=== PATIENT | male | born 1970 | race Hispanic/Latino ===

== ENCOUNTER 2024-06-23 13:04 | Emergency (ER) | payer BC ==
[~2024-06-23] VITALS: Ht 193 cm; Wt 108.9 kg
[~2024-06-23 13:04] MED LIST: AMLO-258 PO; FAMO20TA8 PO; LEVO750T40 PO; LISI20TA24 PO; METF-444 PO; METH-812 PO; METO25 PO; MUPI22OI2 TP
[2024-06-23 14:11] LABS: BASOPHILS # (AUTO) 0.08 K/uL (0.00-0.20); BASOPHILS % (AUTO) 0.5 % (0.0-5.0); EOSINOPHILS % (AUTO) 2.7 % (0.0-8.0); IMMATURE GRANULOCYTE ABSOLUTE 0.16 K/uL (0-1); LYMPHOCYTES # (AUTO) 1.7 K/uL (1.0-4.8); LYMPHOCYTES % (AUTO) 11.5 % (21.0-51.0); MEAN CORPUSCULAR HEMOGLOBIN 29.2 pg (27.0-33.0); MEAN CORPUSCULAR HGB CONC 30.3 g/dL (32.0-36.0); MEAN CORPUSCULAR VOLUME 96.3 fL (79-99); MONOCYTES # (AUTO) 1.1 K/uL (0.1-1.0); MONOCYTES % (AUTO) 7.7 % (3.0-13.0); NEUTROPHILS # (AUTO) 11.4 K/uL (1.8-7.7); NEUTROPHILS % (AUTO) 76.5 % (40.0-77.0); PLATELET COUNT (AUTO) 338 K/uL (130-400); RED BLOOD CELL COUNT(AUTO) 3.53 MIL/uL (4.50-6.20); RED CELL DISTRIBUTION WIDTH 14.4 % (11.0-15.5); WHITE BLOOD COUNT (AUTO) 14.9 K/uL (4.8-10.8)
[2024-06-23 14:18] LABS: CREATININE 3.8 mg/dL (0.5-1.3); POTASSIUM 5.8 mmol/L (3.5-5.1)
--- NOTE | 2024-06-23 15:53 | ERN ---
ED Note History of Present Illness Stated Complaint: OPEN WOUNDS ON LG Chief Complaint: Wound Check Time Seen by MD: 14:28 Time Seen by Midlevel: 16:45 Dictation: Mr Miramontes is a 53 year old gentleman with history of kidney stones/bilateral nephrostomy, CKD, hypertension, and type 2 diabetes who presented to the emergency department this afternoon for evaluation of lower ex tremity wounds. Patient has circular non raised lesions to bilateral lower extremities with surrounding erythema and tenderness. He states they are becoming painful. He also complains of pain to his lower back secondary to nephrostomy tubes. He has bilateral nephrostomy tubes which he states are due to be removed but he has had difficulty making appointment with his urologist. 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 He states that the left nephrostomy tube stopped draining a few days ago in the right nephrostomy has greatly decreased output. He denies having any fever, chills, shortness of breath, cough, chest pain, palpitations, edema, abdominal pain, nausea, vomiting, diarrhea, headache, or dizziness. Allergies: Coded Allergies: No Known Drug Allergies (Unverified Allergy, Unknown, 05/20/24) Home Meds Active Scripts Levofloxacin (Levofloxacin) 750 Mg Tablet, 1 TAB PO DAILY for 10 Days, #10 TAB 0 Refills Prov:MAXIME COBB HOSIERY LOOPER 05/28/24 Mupirocin (Mupirocin Ointment) 2 % Oint, 1 APPL TP BID, #1 TUBE Prov:MAXIME COBB HOSIERY LOOPER 05/28/24 Metoprolol Tartrate (Lopressor) 25 Mg Tab, 25 MG PO BID, #60 TAB Prov:MAXIME COBB HOSIERY LOOPER 05/28/24 Famotidine (Famotidine) 20 Mg Tablet, 20 MG PO Q48H, #60 TAB Prov:MAXIME COBB HOSIERY LOOPER 05/28/24 Reported Medications Methocarbamol (Methocarbamol) 750 Mg Tablet, 750 MG PO DAILY, TAB 05/21/24 Amlodipine Besylate (Amlodipine Besylate) 10 Mg Tablet, 10 MG PO DAILY for 30 Days, #30 TAB 0 Refills 05/21/24 Metformin HCl (Metformin HCl) 500 Mg Tablet, 500 MG PO DAILY, TAB 05/21/24 Lisinopril (Lisinopril) 20 Mg Tablet, 20 MG PO DAILY, TAB 05/21/24 Past Medical History Past Medical History: Diabetes-Type II, Hypertension, Kidney Infection, Kidney Stone Surgical History: Other Surgical History Other: KIDNEY STONES PSYCH History: no pertinent psych hx Social History: Negative, Lives with family RN Note Reviewed/Agreed w/PFSH: Yes Review of System Dictation REVIEW OF SYSTEMS: CONSTITUTIONAL: Patient denies fevers, chills, sweats and weight changes. EYES: Patient denies any visual symptoms. EARS, NOSE, AND THROAT: No difficulties with hearing. No symptoms of rhinitis or sore throat. CARDIOVASCULAR: Patient denies chest pains, palpitations, orthopnea and paroxysmal nocturnal dyspnea. RESPIRATORY: No dyspnea on exertion, no wheezing or cough. GI: No nausea, vomiting, diarrhea, constipation, abdominal pain, hematochezia or melena. : No urinary hesitancy or dribbling. No nocturia or urinary frequency. No abnormal urethral discharge. Reports flank pain due to bilateral nephrostomy tubes. Reports no drainage from left nephrostomy. And reports decreased output from right nephrostomy. MUSCULOSKELETAL: No myalgias or arthralgias. NEUROLOGIC: No chronic headaches, no seizures. Patient denies numbness, tingling or weakness. PSYCHIATRIC: Patient denies problems with mood disturbance. No problems with anxiety. ENDOCRINE: No excessive urination or excessive thirst. DERMATOLOGIC: Reports sores for to bilateral lower legs. Initial Vital Sign VS Vital Signs Date Time Temp Pulse Resp B/P (MAP) Pulse Ox O2 Delivery O2 Flow Rate FiO2 06/23/24 13:44 98.6 119 16 135/86 98 Room Air 0 Physical Exam Dictation Vital signs: Reviewed. Afebrile Constitutional: No acute distress. Non-toxic appearing. Head/Face: Normocephalic, atraumatic. Eyes: Periorbital areas with no swelling, redness, or edema. Lids and lashes are normal. Conjunctival injection is absent. Sclera anicteric. Pupils equal, round, reactive to light. ENT: Pinnas intact and no signs of trauma or erythema. Ear canals clear and no discharge. TMs no erythema. No nasal discharge or bleeding noted. Oropharynx with no exudate, redness, swelling, masses, exudates, or evidence of obstruction. Uvula midline. Mucous membranes moist. Neck: Trachea midline, no masses palpated, and no cervical lymphadenopathy. No swelling. Supple, full range of motion. Chest/Axilla: No tenderness, no crepitus, no paradoxical movement, no retractions. Cardiovascular: Regular rate, regular rhythm, no murmur, no gallops. Symmetric pulses. No peripheral edema. Normotensive Respiratory: Respirations even and unlabored. Lung sounds clear; no wheezes, rales or rhonchi. Room air SpO2 98% Gastrointestinal: Inspection is normal. No distention is appreciated. Bowel sounds are normal. No mass or organomegaly . There is no tenderness. No rebound. No rigidity. No voluntary or involuntary guarding. No Thomas's sign. Neurological: Normal speech, gross motor function intact, gross sensory function intact. No focal weakness/Paresthesia. Musculoskeletal/Extremities: All extremities have full range of motion, no pain or tenderness on palpation. Symmetric pulses. Integumentary: Intact he has multiple lesions to bilateral lower legs with surrounding erythema. No open wounds. No warmth. Tender to touch.. Skin is normal color, warm and dry. Cap refill less than 3 seconds. Results (Laboratory/Radiology) Laboratory/Radiology Laboratory Tests Test 06/23/24 13:56 White Blood Count 14.9 K/uL (4.8-10.8) H Red Blood Count 3.53 MIL/uL (4.50-6.20) L Hemoglobin 10.3 g/dL (14.0-18.0) L Hematocrit 34.0 % (42-54) L Mean Corpuscular Volume 96.3 fL (79-99) Mean Corpuscular Hemoglobin 29.2 pg (27.0-33.0) Mean Corpuscular Hemoglobin Concent 30.3 g/dL (32.0-36.0) L Red Cell Distribution Width 14.4 % (11.0-15.5) Platelet Count 338 K/uL (130-400) Mean Platelet Volume 10.9 fL (7.5-10.5) H Immature Granulocyte % (Auto) 1.1 % (0-1) H Neutrophils (%) (Auto) 76.5 % (40.0-77.0) Lymphocytes (%) (Auto) 11.5 % (21.0-51.0) L Monocytes (%) (Auto) 7.7 % (3.0-13.0) Eosinophils (%) (Auto) 2.7 % (0.0-8.0) Basophils (%) (Auto) 0.5 % (0.0-5.0) Neutrophils # (Auto) 11.4 K/uL (1.8-7.7) H Lymphocytes # (Auto) 1.7 K/uL (1.0-4.8) Monocytes # (Auto) 1.1 K/uL (0.1-1.0) H Eosinophils # (Auto) 0.40 K/uL (0.00-0.70) Basophils # (Auto) 0.08 K/uL (0.00-0.20) Absolute Immature Granulocyte (auto 0.16 K/uL (0-1) Nucleated Red Blood Cells 0.0 % (0.0-0.19) Red Blood Cell Morphology See comments Sodium Level 135 mmol/L (136-145) L Potassium Level 5.8 mmol/L (3.5-5.1) H Chloride Level 103 mmol/L (101-111) Carbon Dioxide Level 22 mmol/L (21-32) Blood Urea Nitrogen 55 mg/dL (7-18) H Creatinine 3.8 mg/dL (0.5-1.3) H Glomerular Filtration Rate Calc 18 mL/min (>90) Random Glucose 134 mg/dL (70-105) H Total Calcium 9.9 mg/dL (8.5-10.1) Labs Reviewed?: Yes ED Course ED Course Orders Procedure Category Date Status Time Cbc With Differential LAB 06/23/24 Complete 13:31 Basic Metabolic Panel LAB 06/23/24 Complete 13:31 Sodium Polystyr Sulf PHA 06/23/24 Complete 15gm (Kayexalate 15 17:00 Furosemide 40 Mg PHA 06/23/24 Complete Tablet (Lasix 40mg 17:00 Hydrocodone/Apap PHA 06/23/24 Complete 10/325 Tab ([place] 10) 17:00 Current Medications Medications (Trade) Dose Ordered Sig/Krishan Route PRN Reason Start Time Stop Time Status Last Admin Dose Admin Acetaminophen/ Hydrocodone Bitart (NORco 10) 1 tab ONCE ONCE PO 06/23/24 17:00 06/23/24 17:01 DC 06/23/24 17:00 Furosemide (LASix 40MG TAB) 40 mg ONCE ONCE PO 06/23/24 17:00 06/23/24 17:01 DC 06/23/24 17:00 Sodium Polystyrene Sulfonate (kayEXALate 15 GM/60 ML) 15 gm ONCE ONCE PO 06/23/24 17:00 06/23/24 17:01 DC 06/23/24 17:00 Vital Signs Date Time Temp Pulse Resp B/P (MAP) Pulse Ox O2 Delivery O2 Flow Rate FiO2 06/23/24 13:44 98.6 119 16 135/86 98 Room Air 0 Uneventful ED course. Vital signs remained stable; afebrile with room air SpO2 98%. Laboratory findings as noted below. There is elevation of WBCs at 14.9, H&H 10.3/34 care platelets within normal limits. Na 135, glucose 134, K 5.4 and BUN/CR 55/3.8 (per baseline). While in the emergency department he received doses Lasix, Kayexalate, and [place]. Findings were discussed with patient and family. He will call urologist office in the morning to request earlier appointment as his next appointment is scheduled for October. Medical Decision Making MDM MDM: Differential diagnosis: Abscess, cellulitis, shingles, insect bite Rationale: Tests considered and ordered secondary to shared decision making include: Lab Previous outside records reviewed: Old ER visits. Risk of complication and/or morbidity or mortality of patient management: None Medications-Per medication reconciliation Need for hospitalization: Patient does not meet criteria for hospitalization. Need for emergency major/minor surgery: No There are no social concerns with this patient. Prescription drug management: Kayexalate, clindamycin, tramadol, Prescriptions will include symptomatic care Patient's prior external medical records from other ER visits were reviewed by me as indicated. Prior testing and results from previous visits were reviewed. Prior tests were taken into account with medical decision making and resource utilization, independent historian/historians were used to obtain complete medical history. I independently interpreted the test that were performed, results were reviewed by me and considered findings on radiology if ordered. Medical management and examination interpretation discussions were had by me with other qualified healthcare professionals as indicated for the patient's care. DX & DISP Disposition: Discharge Departure Impression: Primary Impression: Cellulitis of lower extremity Additional Impressions: Flank pain, Hyperkalemia, Chronic kidney disease Condition: Stable Scripts Sodium Polystyrene Sulfonate (Kayexalate 15 gm/60 ml) 15 Gram-20 Gram/60 Ml Oral.susp 30 ML PO ONCE for 2 Days, #60 ML 0 Refills Prov: ALE RUSSO NP 06/23/24 Clindamycin HCl (Clindamycin HCl) 300 Mg Capsule 1 CAP PO TID for 10 Days, #30 CAP 0 Refills Prov: ALE RUSSO NP 06/23/24 Tramadol HCl/Acetaminophen (Tramadol-Acetaminophn 37.5-325) 37.5 Mg-325 Mg Tablet 1 EACH PO [id number], #10 TAB 0 Refills Prov: ALE RUSSO NP 06/23/24 Additional Instructions: Start clindamycin 3 times a day for the next 10 days. Follow up with your PCP later this week for wound check. May take tramadol every 12 hours for worsening pain. Take Kayexalate 30 mL on Sunday and again on Sunday. You will need to follow up with Dr. Whyte regarding nephrostomy tube care/anticipated removal. Return to the emergency department for any worsening of symptoms or concerns. Referrals: ADRIA GATICA MD (PCP) KATIA WHYTE MD Time of Disposition: 17:33 ALE RUSSO NP Jun 23, 2024 15:53
[2024-06-23] MEDS: furoSEMIDE 40 MG TABLET PO ONE (17:00)
[2024-06-23] MEDS: HYDROcodone/acetaMINOPHEN 10/325 MG TAB PO ONE (17:00)
[2024-06-23] MEDS: kayEXALate 15GM/60ML PO ONE (17:00)
[2024-06-23] MEDS ORDERED: CLIN-141 PO (17:24)
[2024-06-23] MEDS ORDERED: TRAM-543 PO (17:24)
[2024-06-23] MEDS ORDERED: SODPOLY15G PO (17:32)
[2024-06-23 17:52] VITALS: BP 132/84; PULSE 96; RESP 16; TEMP 98.4; O2SAT 99
== END 2024-06-23 17:58 | disposition home or self-care (01) ==
LOC: EDH 13:04
DX: L03.116 Cellulitis of left lower limb (principal); L03.115 Cellulitis of right lower limb; R10.9 Unspecified abdominal pain; E87.5 Hyperkalemia; I12.9 Hypertensive chronic kidney disease with stage 1 through stage 4 chronic kidney disease, or unspecified chronic kidney disease; E11.22 Type 2 diabetes mellitus with diabetic chronic kidney disease; N18.9 Chronic kidney disease, unspecified; Z79.84 Long term (current) use of oral hypoglycemic drugs; Z79.899 Other long term (current) drug therapy
CPT/HCPCS: 36415; 80048; 85025; 99283

== ENCOUNTER 2024-08-08 13:32 | Emergency (ER) | payer BC ==
[~2024-08-08] VITALS: Ht 182.9 cm; Wt 107.5 kg
[~2024-08-08 13:32] MED LIST changes: +CLIN-141 PO; -LEVO750T40 PO; +LEVO750T90 PO; +SODPOLY15G PO; +TRAM-543 PO
[2024-08-08 14:55] VITALS: BP 157/92; PULSE 85; RESP 18; TEMP 98.3; O2SAT 99
--- NOTE | 2024-08-08 15:25 | HMCIMG ---
CT ABDOMEN WITHOUT CONTRAST. CT PELVIS WITHOUT CONTRAST. INDICATION: Nephrostomy tube evaluation TECHNIQUE: Routine transaxial imaging using 5 mm slice thickness through the abdomen and pelvis without the administration of IV contrast. Thin slice reconstructions are also provided. Coronal and sagittal reformatted images acquired for interpretation. CT was performed with one or more of the following dose reduction techniques: Automated exposure control, adjustment of the mA and/or kV according to patient size, or use of iterative reconstruction technique. COMPARISON: 05/22/2024 FINDINGS: ON NONCONTRAST IMAGING: ABDOMEN: Heart size is normal. Visible lung bases are clear. No abnormal right renal calcifications, hydronephrosis, perinephric inflammation, or proximal hydroureter detected. Percutaneous bilateral nephrostomy tubes appear normal. 3 mm calcification at the lower pole of the left kidney. The liver is normal in size and smooth in contour without biliary duct dilation. The spleen is normal in size and attenuation. The gallbladder appears normal. The pancreas appears normal without pancreatic duct dilation. 3.6 cm partially-calcific left adrenal gland mass with Hounsfield units close to 15 suggesting lipid-poor adenoma. A 1.3 cm right adrenal gland apical adenoma identified. No significant abdominal, retrocrural or retroperitoneal adenopathy noted. No evidence for intra-abdominal free air or organized fluid collection. No aortic aneurysmal dilation identified. PELVIS: Mild urinary bladder wall thickening is more than expected for incomplete urinary bladder distention and suspect nominal surrounding inflammatory fat stranding. No evidence for free air or organized pelvic fluid collection. No significant pelvic adenopathy detected. Moderate stool burden. 2.8 cm diverticulum arising superiorly from the proximal duodenal sweep. Terminal ileum appears unremarkable. The appendix appears normal. Visible osseous structures are intact. IMPRESSION: 1. Suspect mild cystitis. Correlation with urine studies is recommended. 2. 3 mm nonobstructing left renal stone. 3. Bilateral percutaneous nephrostomy tubes in place. Additional minor findings and pertinent negatives as reported.
[2024-08-08 16:09] LABS: BILIRUBIN,URINE NEGATIVE (NEGATIVE); GLUCOSE, URINE (UA) NEGATIVE (NEGATIVE); KETONES,URINE NEGATIVE (NEGATIVE); LEUKOCYTE ESTERASE ,URINE 500 Leu/uL (NEGATIVE); NITRATE,URINE 1+ (NEGATIVE); OCCULT BLOOD,URINE MODERATE (NEGATIVE); PH,URINE 5.5 (5.0-8.0); PROTEIN,URINE 70 mg/dL (NEGATIVE); UROBILINOGEN,URINE 0.2 mg/dL (0.2-1.0)
[2024-08-08 16:10] LABS: ADD UA MICROSCOPIC YES; APPEARANCE,URINE CLOUDY (CLEAR); COLOR,URINE YELLOW (YELLOW)
[2024-08-08 16:19] LABS: BACTERIA,URINE FEW /HPF (None Seen); SQUAMOUS EPITHELIAL CELL,UR FEW /HPF (0-2); WBC,URINE TNTC /HPF (0-1)
[2024-08-08] MEDS: LIDOCAINE HCL 1% 20 ML VIAL INJ SCH (16:30)
--- NOTE | 2024-08-08 16:36 | ERN ---
ED Note History of Present Illness Stated Complaint: OPEN WOUNDS ON LEGS,NEPHROSTOMY TUBE ISSUE Chief Complaint: Wound Check Time Seen by MD: 13:34 Time Seen by Midlevel: 13:34 Dictation: The patient is a 53-year-old male with a history of obstructive uropathy that has post nephrostomy tubes on May 23 who presents to the emergency department with complaints of possible dislodgement of right nephrostomy tube onset last night. Patient reports he is constantly accidentally pulling on the nephrostomy tubes. Patient denies any fevers, nausea or vomiting. Patient also reports that he has some wounds to his lower extremity that has been going on since April with a has been able to follow up with wound care due to insurance purposes. Reports pain Allergies: Coded Allergies: No Known Drug Allergies (Unverified Allergy, Unknown, 05/20/24) Home Meds Active Scripts Sodium Polystyrene Sulfonate (Kayexalate 15 gm/60 ml) 15 Gram-20 Gram/60 Ml Oral .susp, 30 ML PO ONCE for 2 Days, #60 ML 0 Refills Prov:ALE RUSSO NP 06/23/24 Clindamycin HCl (Clindamycin HCl) 300 Mg Capsule, 1 CAP PO TID for 10 Days, #30 CAP 0 Refills Prov:ALE RUSSO NP 06/23/24 Tramadol HCl/Acetaminophen (Tramadol-Acetaminophn 37.5-325) 37.5 Mg-325 Mg Tablet, 1 EACH PO [id number], #10 TAB 0 Refills Prov:ALE RUSSO NP 06/23/24 Levofloxacin (Levofloxacin) 750 Mg Tablet, 1 TAB PO DAILY for 10 Days, #10 TAB 0 Refills Prov:MAXIME COBB COUNTER DISH CARRIER 2/5/25 Mupirocin (Mupirocin Ointment) 2 % Oint, 1 APPL TP BID, #1 TUBE Prov:MAXIME COBB COUN[employer] DISH CARRIER 2/5/25 Metoprolol Tartrate (Lopressor) 25 Mg Tab, 25 MG PO BID, #60 TAB Prov:MAXIME COBB COUN[employer] D[employer]RIER 2/5/25 Famotidine (Famotidine) 20 Mg Tablet, 20 MG PO Q48H, #60 TAB Prov:MAXIME COBB COUN[employer] DISH CARRIER 05/28/24 Reported Medications Methocarbamol (Methocarbamol) 750 Mg Tablet, 750 MG PO DAILY, TAB 05/21/24 Amlodipine Besylate (Amlodipine Besylate) 10 Mg Tablet, 10 MG PO DAILY for 30 Days, #30 TAB 0 Refills 05/21/24 Metformin HCl (Metformin HCl) 500 Mg Tablet, 500 MG PO DAILY, TAB 05/21/24 Lisinopril (Lisinopril) 20 Mg Tablet, 20 MG PO DAILY, TAB 05/21/24 Past Medical History Past Medical History: Diabetes-Type II, Hypertension, Kidney Infection, Kidney Stone Surgical History: Other Surgical History Other: KIDNEY STONES Social History: Negative, Lives with family RN Note Reviewed/Agreed w/PFSH: Yes Review of System Dictation Constitutional: Negative for fever,chills, and weight loss Eyes: Negative for injury, pain,redness, and discharge ENT: Negative for injury,pain or swelling Cardiovascular: Negative for chest pain, palpitations, and edema Respiratory: Negative for shortness of breath, cough, and wheezing, Abdomen/GI: Negative for abdominal pain, nausea, vomiting, diarrhea, and constipation Back: Negative for injury and pain : Negative for injury, bleeding and discharge positive for right nephrostomy tube injury MS/Extremity: Negative for injury and deformity Skin: Negative for rash, and discoloration Neuro: Negative for headache, weakness, numbness, tingling, and seizure Psych: Negative for suicide ideation, homicidal ideation, and hallucinations Initial Vital Sign VS Vital Signs Date Time Temp Pulse Resp B/P (MAP) Pulse Ox O2 Delivery O2 Flow Rate FiO2 08/08/24 13:45 98.1 91 20 151/92 99 0 08/08/24 14:55 Room Air* 21 Physical Exam Dictation Vital Signs reviewed General Appearance: Alert, oriented x 3, no acute distress, well developed, nourished. Head and Face: non-traumatic. Eyes: PERRL, pink conjunctivas, eyelid no trauma, anterior chamber with arcus senilis. Ears: Pinnas intact and no signs of trauma or erythema ear canals clear and no discharge TM no erythema Nose: No discharge, no bleeding. Oropharynx: Mouth normal, tongue pink. pharynx clear,no erythema, tonsils no exudates, no abscesses noted, mucous membrane moist Neck: Supple, non-tender, no thyromegaly, no masses, no JVD, no bruits Breast:Deferred Chest:No tenderness, no crepitus, no paradoxical movement, no retractions Lungs:Clear, well-ventilated, symmetric, no rales, no wheezing, no rhonchi, no stridor, good breath sounds bilaterally Heart: Regular rate, regular rhythm, no murmur, no gallops Vascular: no peripheral edema, Abdomen: Soft, positive bowel sounds, nondistended, no guarding, nontender, no rebound, no masses no hepatomegaly, no splenomegaly, no Thomas's sign, no hernias. Rectal: Deferred Genital: Deferred Neurological: Normal speech, motor function intact, sensory function intact Musculoskeletal: Neck nontender, full range of motion, back nontender, full range of motion, nephrostomy tube with no erythema or drainage around the nephrostomy. Extremities: nontender, full range of motion Skin: Color pink, dry, no turgor, no rash, no lacerations, no abrasions, no contusions. Multiple lower ext wounds, no erythema lower extremities Lymphatic: Deferred Results (Laboratory/Radiology) Laboratory/Radiology Laboratory Tests Test 08/08/24 16:00 Urine Color YELLOW (YELLOW) Urine Appearance CLOUDY (CLEAR) H Urine pH 5.5 (5.0-8.0) Urine Specific [place] 1.014 (1.001-1.031) Urine Protein 70 mg/dL (NEGATIVE) H Urine Glucose (UA) NEGATIVE mg/dL (NEGATIVE) Urine Ketones NEGATIVE mg/dL (NEGATIVE) Urine Occult Blood MODERATE (NEGATIVE) H Urine Nitrate 1+ (NEGATIVE) H Urine Bilirubin NEGATIVE mg/dL (NEGATIVE) Urine Urobilinogen 0.2 mg/dL (0.2-1.0) Urine Leukocyte Esterase 500 Marlon/uL (NEGATIVE) H Urine RBC 11-25 /HPF (0-1) H Urine WBC TNTC /HPF (0-1) H Urine Squamous Epithelial Cells FEW /HPF (0-2) Urine Bacteria FEW /HPF (None Seen) REASON: evaluation of nephrostomy tubes ORDERING PHYSICIAN: ENZO MCCARTHY PROCEDURE: ABD PEL WO - CT ABDOMEN/PELVIS W/O CONTRAST CT ABDOMEN WITHOUT CONTRAST. CT PELVIS WITHOUT CONTRAST. INDICATION: Nephrostomy tube evaluation TECHNIQUE: Routine transaxial imaging using 5 mm slice thickness through the abdomen and pelvis without the administration of IV contrast. Thin slice reconstructions are also provided. Coronal and sagittal reformatted images acquired for interpretation. CT was performed with one or more of the following dose reduction techniques: Automated exposure control, adjustment of the mA and/or kV according to patient size, or use of iterative reconstruction technique. COMPARISON: 05/22/2024 FINDINGS: ON NONCONTRAST IMAGING: ABDOMEN: Heart size is normal. Visible lung bases are clear. No abnormal right renal calcifications, hydronephrosis, perinephric inflammation, or proximal hydroureter detected. Percutaneous bilateral nephrostomy tubes appear normal. 3 mm calcification at the lower pole of the left kidney. The liver is normal in size and smooth in contour without biliary duct dilation. The spleen is normal in size and attenuation. The gallbladder appears normal. The pancreas appears normal without pancreatic duct dilation. 3.6 cm partially-calcific left adrenal gland mass with Hounsfield units close to 15 suggesting lipid-poor adenoma. A 1.3 cm right adrenal gland apical adenoma identified. No significant abdominal, retrocrural or retroperitoneal adenopathy noted. No evidence for intra-abdominal free air or organized fluid collection. No aortic aneurysmal dilation identified. PELVIS: Mild urinary bladder wall thickening is more than expected for incomplete urinary bladder distention and suspect nominal surrounding inflammatory fat stranding. No evidence for free air or organized pelvic fluid collection. No significant pelvic adenopathy detected. Moderate stool burden. 2.8 cm diverticulum arising superiorly from the proximal duodenal sweep. Terminal ileum appears unremarkable. The appendix appears normal. Visible osseous structures are intact. IMPRESSION: 1. Suspect mild cystitis. Correlation with urine studies is recommended. 2. 3 mm nonobstructing left renal stone. 3. Bilateral percutaneous nephrostomy tubes in place. Additional minor findings and pertinent negatives as reported. Labs Reviewed?: Yes ED Course ED Course Orders Procedure Category Date Status Time Ct Abdomen/Pelvis W/O CT 08/08/24 Resulted Contrast 13:57 Urinalysis Profile LAB 08/08/24 Complete 15:34 Lidocaine Hcl 1% 20ml PHA 08/08/24 In Process Vial (Lidocaine Hc 16:30 Culture Urine OSFIA 08/08/24 In Process 16:10 Lidocaine Hcl 1% 20ml PHA 08/08/24 Complete Vial (Lidocaine Hc 16:13 Ceftriaxone 1g Vial PHA 08/08/24 In Process (Rocephine 1g Inj) 17:00 Hydrocodone/Apap PHA 08/08/24 In Process 5/325 ([place] 5/325mg) 17:00 Current Medications Medications (Trade) Dose Ordered Sig/Krishan Route PRN Reason Start Time Stop Time Status Last Admin Dose Admin Acetaminophen/ Hydrocodone Bitart (NORco 5/325MG) 1 tab ONCE PO 08/08/24 17:00 08/08/24 21:00 Ceftriaxone Sodium (ROCEphine 1G INJ) 1 gm ONCE IM 08/08/24 17:00 08/08/24 21:00 Lidocaine HCl (Lidocaine HCl 1% 20ml Vial) 10 ml ONCE INJ 08/08/24 16:30 08/08/24 20:30 Lidocaine HCl (Lidocaine HCl 1% 20ml Vial) 20 ml STK-MED ONCE .ROUTE 08/08/24 16:13 08/08/24 16:13 DC Vital Signs Date Time Temp Pulse Resp B/P (MAP) Pulse Ox O2 Delivery O2 Flow Rate FiO2 08/08/24 14:55 98.2 85 18 157/92 99 Room Air* 0 21 08/08/24 13:45 98.1 91 20 151/92 99 0 Medical Decision Making MDM The patient is a 53-year-old male with a history of obstructive uropathy that has post nephrostomy tubes on May 23 who presents to the emergency department with complaints of possible dislodgement of right nephrostomy tube onset last night. Patient reports he is constantly accidentally pulling on the nephrostomy tubes. Patient denies any fevers, nausea or vomiting. Patient also reports that he has some wounds to his lower extremity that has been going on since April with a has been able to follow up with wound care due to insurance purposes. Urinalysis positive for leukocyte esterase and nitrites. Nephrostomy tube seen in place in CT scan. Right nephrostomy suture was replaced. Patient tolerated procedure well. Patient will be treated with the antibiotics as outpatient and instructed to follow up with Urology. Patient in no acute distress, stable vital signs. Afebrile. Differential diagnosis: Nephrostomy tube dislodgement, UTI, pyelonephritis Need for hospitalization: Patient does not meet criteria for hospitalization. There are no social concerns with this patient. Procedure Progress Verbal consent was obtained from patient for nephrostomy tube securement with sutures. Time and Date Performed:08/08/2024 INDICATION: Sutures securement of nephrostomy Location: Right lobar Informed consent was obtained. Pre-procedure time out was obtained. Anesthetic: 1% lidocaine Manual prep of skin and wound was done with hibiclens. Foreign Body: NO foreign bodies were identified. Suture used:0 # of simple sutures:0 silk Aseptic technique was used during the entire procedure. DX & DISP Disposition: Discharge Departure Impression: Primary Impression: Malfunction of nephrostomy tube Additional Impression: UTI (urinary tract infection) Condition: Stable Scripts Cephalexin Monohydrate (Keflex) 500 Mg Cap 500 MG PO BID for 7 Days, #14 CAP Prov: ENZO MCCARTHY 08/08/24 Additional Instructions: Please follow up with your neurologist in your primary doctor in 1-2 days. Taking medications as prescribed. If symptoms worsen please return to ER. FOLLOW-UP WITH PRIMARY CARE PROVIDER IN 1 TO 2 DAYS. TAKE MEDICATIONS DIRECTED HERE IN THE EMERGENCY ROOM. OKAY TO CONTINUE HOME MEDICATIONS UNLESS OTHERWISE DISCUSSED DURING YOUR VISIT IN THE EMERGENCY ROOM TODAY. RETURN TO YOUR NEAREST EMERGENCY ROOM IF SYMPTOMS WORSEN OR IF THERE IS NO IMPROVEMENT. CALL 911 IF YOU NEED IMMEDIATE ASSISTANCE. TAKE TYLENOL OR MOTRIN [id number] NEEDED AND IF NO CONTRAINDICATIONS ARE PRESENT. INCREASE ORAL HYDRATION. A WOUND CULTURE OR URINE CULTURE WAS ORDERED HERE IN THE EMERGENCY ROOM DEPARTMENT PLEASE FOLLOW-UP WITH PRIMARY CARE PROVIDER AND ADVISE THEM TO GET REPEAT PORTS FROM OUR FACILITY. IF YOU HAD ANY NUNO WRAP/SPLINTS THAT WERE APPLIED HERE, PLEASE DO NOT REMOVE THEM UNTIL YOU SEE YOUR PRIMARY CARE OR SPECIALTY. Referrals: ADRIA GATICA MD (PCP) Time of Disposition: 16:45 I have examined patient, & reviewed all documents, & agreed W/ the Diagnosis, and Plan ENZO MCCARTHY Aug 08, 2024 16:36
[2024-08-08] MEDS ORDERED: CEPH500B PO (16:49)
[2024-08-08] MEDS: cefTRIAXone 1G VIAL IM SCH (17:06)
[2024-08-08] MEDS: HYDROcodone/APAP 5/325 1 TAB TABLET PO SCH (17:07)
[2024-08-08] MEDS: LIDOCAINE HCL 1% 20 ML VIAL ONE (17:07)
--- NOTE | 2024-08-08 17:11 | NUR ---
PT HAD LEFT NEPHROSTOMY SUTURED IN , PT STABLE NO DISTRESS VITALS WNL NO C/O PAIN NOW, PT GIVEN INTRUCTIONS FOR HOME, RX GIVEN PT WILL START TODAY. PT DRIVEN HOME BY REILLY.
== END 2024-08-08 17:12 | disposition home or self-care (01) ==
LOC: EDH 13:32
DX: N99.522 Malfunction of incontinent external stoma of urinary tract (principal); N39.0 Urinary tract infection, site not specified; E11.9 Type 2 diabetes mellitus without complications; I10 Essential (primary) hypertension; Z79.84 Long term (current) use of oral hypoglycemic drugs; Z79.899 Other long term (current) drug therapy
CPT/HCPCS: 99284; 74176; 87086 ×3; 87186 ×2; 81001; 96372; J0696

== ENCOUNTER 2024-09-17 22:43 | Inpatient (IN) | payer BC, OTHER ==
[~2024-09-17] VITALS: Ht 182.9 cm; Wt 106.0 kg
[~2024-09-17 22:43] MED LIST changes: +CEPH500B PO
[2024-09-17 23:09] LABS: BASOPHILS # (AUTO) 0.05 K/uL (0.00-0.20); BASOPHILS % (AUTO) 0.3 % (0.0-5.0); EOSINOPHILS % (AUTO) 0.6 % (0.0-8.0); HEMATOCRIT 34.1 % (42-54); IMMATURE GRANULOCYTE ABSOLUTE 0.18 K/uL (0-1); LYMPHOCYTES # (AUTO) 1.2 K/uL (1.0-4.8); LYMPHOCYTES % (AUTO) 6.7 % (21.0-51.0); MEAN CORPUSCULAR HEMOGLOBIN 29.1 pg (27.0-33.0); MEAN CORPUSCULAR VOLUME 90.9 fL (79-99); MONOCYTES # (AUTO) 1.6 K/uL (0.1-1.0); MONOCYTES % (AUTO) 9.3 % (3.0-13.0); NEUTROPHILS # (AUTO) 14.4 K/uL (1.8-7.7); NEUTROPHILS % (AUTO) 82.1 % (40.0-77.0); PLATELET COUNT (AUTO) 378 K/uL (130-400); RED BLOOD CELL COUNT(AUTO) 3.75 MIL/uL (4.50-6.20); RED CELL DISTRIBUTION WIDTH 14.9 % (11.0-15.5); WHITE BLOOD COUNT (AUTO) 17.5 K/uL (4.8-10.8)
[2024-09-17 23:24] LABS: ALBUMIN 3.1 g/dL (3.5-5.0); BILIRUBIN,DIRECT 0.1 mg/dL (0.0-0.3); BILIRUBIN,TOTAL 0.2 mg/dL (0.2-1.0); TOTAL PROTEIN, SERUM 6.9 g/dL (6.0-8.3)
[2024-09-17] MEDS: 0.9%NACL 1000ML 1,000 ML IV ONE (23:34)
[2024-09-17 23:36] LABS: CREATININE 11.1 mg/dL (0.5-1.3)
[2024-09-17] MEDS: CALCIUM GLUC 1GM/10ML VIAL ONE (23:57)
[2024-09-17] MEDS: INSULIN humuLIN R 100 UNIT/ML 3ML IV ONE (23:58)
[2024-09-17] MEDS: DEXTROSE 50%-WATER 50 ML DISP.SYRIN IV ONE (23:58)
[2024-09-17] MEDS: CALCIUM GLUC 1GM 1 GM in 0.9%NACL 100ML 100 ML IV SCH (23:59)
[2024-09-18] MEDS: ondanSETRON 4MG INJ IVP ONE (00:01)
[2024-09-18] MEDS: morPHINE 2 MG SYG IVP ONE (00:01)
[2024-09-18] MEDS: NA ZIRCON CYCLOSIL(LOKELMA 10GM) PO ONE ×2 (00:01→09:55)
[2024-09-18] MEDS: ZOSYN 3.375GM +NS 50ML IV ONE (00:01)
[2024-09-18] MEDS: 0.9%NACL 1000ML 1,000 ML IV ONE (00:02)
[2024-09-18 00:23] LABS: WBC MORPHOLOGY CONSISTENT W/DIFF
--- NOTE | 2024-09-18 01:06 | HMCIMG ---
CT ABDOMEN/PELVIS W/O CONTRAST HISTORY: Acute renal insufficiency COMPARISON: 08/08/2024 TECHNIQUE: Multiple sequential axial images of the abdomen and pelvis were obtained from the dome of the diaphragm through symphysis pubis. Patient was not given contrast through intravenous route. Oral contrast was not given. FINDINGS: No pleural effusion is seen bilaterally. There is no evidence of parenchymal disease or pulmonary nodule of the visualized lower lungs. Degenerative changes of the thoracolumbar spine are present. The heart is not enlarged. Gallbladder is distended. There is left adrenal nodule with calcification measuring 3.3 x 2.6 cm. Bilateral percutaneous nephrostomy tubes are seen. The liver, spleen, right adrenal gland and pancreas are unremarkable. There is no evidence of hydronephrosis bilaterally. No evidence of renal stone is seen. Fecal material is seen in the colon. There are normal size retroperitoneal and mesenteric lymph nodes. No ascites is seen. No CT evidence of acute appendicitis is seen. Pelvic sidewalls are symmetric bilaterally. Bladder is poorly distended. IMPRESSION: 1. Bilateral percutaneous nephrostomy tube in place. CT was performed with one or more following dose reduction techniques: automated exposure control, adjustment of the mA and kv according to patient's size, or use of a iterative reconstruction technique.
[2024-09-18] MEDS ORDERED: SODIUM BICARB 8.4% 50ML SYRING 150 MEQ in 0.9%NACL 1000ML 1,000 ML IVP ONE (02:30)
--- NOTE | 2024-09-18 02:31 | ERN ---
General Chief Complaint: Nausea,Vomiting,Diarrhea Stated Complaint: NAUSEA/VOMITING, NEPHROSTOMY TUBE ISSUES, WEAKNESS Time Seen by MD: 22:46 Time Seen by Midlevel: 22:46 Source: patient History of Present Illness Initial Comments Patient is a 54-year-old male with a past medical history of type 2 diabetes, hypertension, chronic kidney disease, and kidney stones presents to the emergency department for evaluation of diffuse abdominal pain with associated nausea and vomiting. He also reports generalized body weakness. He reports having bilateral nephrostomy tubes placed in May. The initial plan was to remove the nephrostomy tubes in two weeks but due to insurance issues they have not been able to be removed. Allergies: Coded Allergies: No Known Drug Allergies (Unverified Allergy, Unknown, 05/20/24) Home Meds Active Scripts Cephalexin Monohydrate (Keflex) 500 Mg Cap, 500 MG PO BID for 7 Days, #14 CAP Prov:ENZO MCCARTHY JUDGE 08/08/24 Sodium Polystyrene Sulfonate (Kayexalate 15 gm/60 ml) 15 Gram-20 Gram/60 Ml Oral.susp, 30 ML PO ONCE for 2 Days, #60 ML 0 Refills Prov:ALE RUSSO NP 06/23/24 Clindamycin HCl (Clindamycin HCl) 300 Mg Capsule, 1 CAP PO TID for 10 Days, #30 CAP 0 Refills Prov:ALE RUSSO NP 06/23/24 Tramadol HCl/Acetaminophen (Tramadol-Acetaminophn 37.5-325) 37.5 Mg-325 Mg Tablet, 1 EACH PO [id number], #10 TAB 0 Refills Prov:ALE RUSSO NP 06/23/24 Levofloxacin (Levofloxacin) 750 Mg Tablet, 1 TAB PO DAILY for 10 Days, #10 TAB 0 Refills Prov:MAXIME COBB MEDICAL PRACTICE ADMINISTRATOR 2//25 Mupirocin (Mupirocin Ointment) 2 % Oint, 1 APPL TP BID, #1 TUBE Prov:MAXIME COBB MEDICAL PRACTICE ADMINISTRATOR //25 Metoprolol Tartrate (Lopressor) 25 Mg Tab, 25 MG PO BID, #60 TAB Prov:MAXIME COBB MEDICAL PRACTICE ADMINISTRATOR 2//25 Famotidine (Famotidine) 20 Mg Tablet, 20 MG PO Q48H, #60 TAB Prov:MAXIME COBB MEDICAL PRACTICE ADMINISTRATOR 05/28/24 Reported Medications Methocarbamol (Methocarbamol) 750 Mg Tablet, 750 MG PO DAILY, TAB 05/21/24 Amlodipine Besylate (Amlodipine Besylate) 10 Mg Tablet, 10 MG PO DAILY for 30 Days, #30 TAB 0 Refills 05/21/24 Metformin HCl (Metformin HCl) 500 Mg Tablet, 500 MG PO DAILY, TAB 05/21/24 Lisinopril (Lisinopril) 20 Mg Tablet, 20 MG PO DAILY, TAB 05/21/24 Past Medical History Past Medical History: Diabetes-Type II, Hypertension, Kidney Infection, Kidney Stone Past Surgical History: Other Surgical History Other: KIDNEY STONES Social History Social History: Negative, Lives with family ROS Dictation CONSTITUTIONAL: Negative except for HPI HEAD/FACE: Negative except for HPI EENT: Negative except for HPI RESPIRATORY: Negative except for HPI GASTROINTESTINAL/ABDOMINAL: Negative except for HPI GENITOURINARY: Negative except for HPI MUSCULOSKELETAL: Negative except for HPI INTEGUMENTARY: Negative except for HPI NEUROLOGICAL/PSYCH: Negative except for HPI HEMATOLOGIC/LYMPHATIC: Negative except for HPI All Systems Negative, Except as noted above. 13 point review of systems assessed and all negative except for above. Physical Exam Physical Exam Dictation Vital Signs reviewed General Appearance: Alert, oriented x 3, no acute distress, morbidly obese Head and Face: non-traumatic. Eyes: PERRL, pink conjunctivas, eyelid no trauma, anterior chamber with arcus senilis. Ears: Pinnas intact and no signs of trauma or erythema ear canals clear and no discharge TM no erythema Nose: No discharge, no bleeding. Oropharynx: Mouth normal, tongue pink, pharynx clear,no erythema, tonsils no exudates, no abscesses noted, mucous membrane moist Neck: Supple, non-tender, no thyromegaly, no masses, no JVD, no bruits Breast:Deferred Chest:No tenderness, no crepitus, no paradoxical movement, no retractions Lungs:Clear, well-ventilated, symmetric, no rales, no wheezing, no rhonchi, no stridor, good breath sounds bilaterally Heart: Tachycardic, regular rhythm, no murmur, no gallops Vascular: no peripheral edema, Abdomen: Soft, positive bowel sounds, nondistended, no guarding, Midepigastric abdominal tenderness, no rebound, no masses no hepatomegaly, no splenomegaly, no Thomas's sign, no hernias. Nephrostomy tubes in place bilaterally Rectal: Deferred Genital: Deferred Neurological: Normal speech, motor function intact, sensory function intact Musculoskeletal: Neck nontender, full range of motion, back nontender, full range of motion, Extremities: nontender, full range of motion Skin: Color pink, dry, no turgor, no rash, no lacerations, no abrasions, no contusions. Lymphatic: Deferred Results Laboratory and Microbiology Lab and Micro Result Laboratory Tests Test 09/17/24 22:49 09/17/24 22:57 09/17/24 23:58 Troponin I High Sensitivity 10 ng/L (4-75) B-Type Natriuretic Peptide 23 pg/mL (0-100) White Blood Count 17.5 K/uL (4.8-10.8) H Red Blood Count 3.75 MIL/uL (4.50-6.20) L Hemoglobin 10.9 g/dL (14.0-18.0) L Hematocrit 34.1 % (42-54) L Mean Corpuscular Volume 90.9 fL (79-99) Mean Corpuscular Hemoglobin 29.1 pg (27.0-33.0) Mean Corpuscular Hemoglobin Concent 32.0 g/dL (32.0-36.0) Red Cell Distribution Width 14.9 % (11.0-15.5) Platelet Count 378 K/uL (130-400) Mean Platelet Volume 10.7 fL (7.5-10.5) H Immature Granulocyte % (Auto) 1.0 % (0-1) Neutrophils (%) (Auto) 82.1 % (40.0-77.0) H Lymphocytes (%) (Auto) 6.7 % (21.0-51.0) L Monocytes (%) (Auto) 9.3 % (3.0-13.0) Eosinophils (%) (Auto) 0.6 % (0.0-8.0) Basophils (%) (Auto) 0.3 % (0.0-5.0) Neutrophils # (Auto) 14.4 K/uL (1.8-7.7) H Lymphocytes # (Auto) 1.2 K/uL (1.0-4.8) Monocytes # (Auto) 1.6 K/uL (0.1-1.0) H Eosinophils # (Auto) 0.10 K/uL (0.00-0.70) Basophils # (Auto) 0.05 K/uL (0.00-0.20) Absolute Immature Granulocyte (auto 0.18 K/uL (0-1) Nucleated Red Blood Cells 0.0 % (0.0-0.19) White Cell Morphology Comment CONSISTENT W/DIFF Sodium Level 133 mmol/L (136-145) L Potassium Level 6.0 mmol/L (3.5-5.1) *H Chloride Level 98 mmol/L (101-111) L Carbon Dioxide Level 11 mmol/L (21-32) L Blood Urea Nitrogen 162 mg/dL (7-18) *H Creatinine 11.1 mg/dL (0.5-1.3) *H Glomerular Filtration Rate Calc 5 mL/min (>90) Random Glucose 195 mg/dL (70-105) H Total Calcium 8.5 mg/dL (8.5-10.1) Total Bilirubin 0.2 mg/dL (0.2-1.0) Direct Bilirubin 0.1 mg/dL (0.0-0.3) Aspartate Amino Transf (AST/SGOT) 9 U/L (10-37) L Alanine Aminotransferase (ALT/SGPT) 9 U/L (12-78) L Alkaline Phosphatase 91 U/L (50-136) Total Protein 6.9 g/dL (6.0-8.3) Albumin 3.1 g/dL (3.5-5.0) L Triglycerides Level 179 mg/dL (30-200) Lipase 791 U/L (16-77) *H Lactic Acid Level 1.8 mmol/L (0.8-2.5) Labs Reviewed?: Yes MDM MDM: Differential diagnosis: Sepsis, intra-abdominal infection, pancreatitis, acute cholecystitis, pyelonephritis, urinary tract infection Rationale: Tests considered and ordered secondary to shared decision making include: Previous outside records reviewed: Old ER visits. Risk of complication and/or morbidity or mortality of patient management: None Medications-Per medication reconciliation Need for hospitalization: Patient does meet criteria for hospitalization. Need for emergency major/minor surgery: No There are no social concerns with this patient. Prescription drug management Prescriptions will include symptomatic care Patient's prior external medical records from other ER visits were reviewed by me as indicated. Prior testing and results from previous visits were reviewed. Prior tests were taken into account with medical decision making and resource utilization, independent historian/historians were used to obtain complete medical history. I independently interpreted the test that were performed, results were reviewed by me and considered findings on radiology if ordered. Medical management and examination interpretation discussions were had by me with other qualified healthcare professionals as indicated for the patient's care. ED Course Orders Procedure Category Date Status Time Cbc With Differential LAB 09/17/24 Complete 22:49 Basic Metabolic Panel LAB 09/17/24 Complete 22:49 Lipase LAB 09/17/24 Complete 22:49 Urinalysis Profile LAB 09/17/24 In Process 22:49 Hepatic Function Panel LAB 09/17/24 Complete 22:57 0.9%Nacl 1000ml (Ns PHA 09/17/24 Complete 1000ml) 23:00 Calcium Gluc 1gm PHA 09/18/24 In Process (Calcium Gluc 1gm 00:00 Dextrose 50%-Water PHA 09/18/24 Complete (D50w) 00:00 Insulin Regular, PHA 09/18/24 Complete Human 3ml (Humulin R 00:00 Na Zircon PHA 09/18/24 Complete Cyclosil-Lokelma 10g 00:00 Troponin I High LAB 09/17/24 Complete Sensitivity 23:39 12 Lead Ekg Tracing- EKG 09/17/24 Logged Technical 23:39 B-Type Natriuretic LAB 09/17/24 Complete Peptide 23:40 Morphine 2mg Syg PHA 09/18/24 Complete (Morphine 2mg Syg) 00:00 Ondansetron 4mg Inj PHA 09/18/24 Complete (Zofran 4mg Inj) 00:00 Lactic Acid LAB 09/17/24 Complete 23:45 Blood Cult SOFIA 09/17/24 In Process 23:45 Ct Abdomen/Pelvis W/O CT 09/17/24 Resulted Contrast 23:45 Calcium Gluc 1gm PHA 09/17/24 Complete (Calcium Gluc 1gm 23:49 Zosyn 3.375gm+Ns 50ml PHA 09/18/24 Complete (Zosyn 3.375gm+Ns 00:00 0.9%Nacl 1000ml (Ns PHA 09/18/24 Complete 1000ml) 00:00 Triglycerides LAB 09/18/24 Complete 00:40 Current Medications Medications (Trade) Dose Ordered Sig/Krishan Route PRN Reason Start Time Stop Time Status Last Admin Dose Admin Calcium Gluconate (Calcium Gluc 1gm Vial) 1 gm STK-MED ONCE .ROUTE 09/17/24 23:49 09/17/24 23:49 DC Calcium Gluconate 1 gm/Sodium Chloride 100 ml @ 0 mls/hr PROTOCOL IV 09/18/24 00:00 10/18/24 00:00 09/17/24 23:59 Dextrose (D50w) 25 ml ONCE ONCE IV 09/18/24 00:00 09/18/24 00:01 DC 09/17/24 23:58 Insulin Human Regular (humuLIN R 100 UNIT/ML 3ML) 10 unit ONCE ONCE IV 09/18/24 00:00 09/18/24 00:01 DC 09/17/24 23:58 Morphine Sulfate (morPHINE 2MG SYG) 2 mg ONCE ONCE IVP 09/18/24 00:00 09/18/24 00:01 DC 09/18/24 00:01 Ondansetron HCl (zoFRAN 4MG INJ) 4 mg ONCE ONCE IVP 09/18/24 00:00 09/18/24 00:01 DC 09/18/24 00:01 Piperacillin Sod/ Tazobactam Sod (Zosyn 3.375gm+NS 50ml) 3.375 gm ONCE ONCE IV 09/18/24 00:00 09/18/24 00:01 DC 09/18/24 00:01 Sodium Chloride 1,000 ml @ 0 mls/hr ONCE ONCE IV 09/17/24 23:00 09/17/24 23:01 DC 09/17/24 23:34 Sodium Chloride 1,000 ml @ 0 mls/hr ONCE ONCE IV 09/18/24 00:00 09/18/24 00:01 DC 09/18/24 00:02 Sodium Zirconium Cyclosilicate (Lokelma 10gm Powder) 10 gm ONCE ONCE PO 09/18/24 00:00 09/18/24 00:01 DC 09/18/24 00:01 Vital Signs Date Time Temp Pulse Resp B/P (MAP) Pulse Ox O2 Delivery O2 Flow Rate FiO2 09/18/24 01:56 98.2 108 19 121/58 99 Room Air* 0 21 09/18/24 00:14 98.1 113 16 145/91 98 Room Air* 0 21 09/17/24 23:12 98.4 110 18 115/52 98 Room Air* 0 09/17/24 22:45 98.2 113 20 122/70 100 Room Air 0 [facility] [address] [place] [address] IMAGING REPORT Signed PATIENT: JAYRO LIRIANO MR#: [id number] : 1970 SEX: M AGE: 54 LOCATION: [facility] ORDER 46 STATUS: REG REPORT#: [id number] SERVICE 44 REASON: GEOVANI; NEPHROSTOMY TUBES ORDERING PHYSICIAN: ROMIE VICTOR PROCEDURE: ABD PEL WO - CT ABDOMEN/PELVIS W/O CONTRAST CT ABDOMEN/PELVIS W/O CONTRAST HISTORY: Acute renal insufficiency COMPARISON: 08/08/2024 TECHNIQUE: Multiple sequential axial images of the abdomen and pelvis were obtained from the dome of the diaphragm through symphysis pubis. Patient was not given contrast through intravenous route. Oral contrast was not given. FINDINGS: No pleural effusion is seen bilaterally. There is no evidence of parenchymal disease or pulmonary nodule of the visualized lower lungs. Degenerative changes of the thoracolumbar spine are present. The heart is not enlarged. Gallbladder is distended. There is left adrenal nodule with calcification measuring 3.3 x 2.6 cm. Bilateral percutaneous nephrostomy tubes are seen. The liver, spleen, right adrenal gland and pancreas are unremarkable. There is no evidence of hydronephrosis bilaterally. No evidence of renal stone is seen. Fecal material is seen in the colon. There are normal size retroperitoneal and mesenteric lymph nodes. No ascites is seen. No CT evidence of acute appendicitis is seen. Pelvic sidewalls are symmetric bilaterally. Bladder is poorly distended. IMPRESSION: 1. Bilateral percutaneous nephrostomy tube in place. CT was performed with one or more following dose reduction techniques: automated exposure control, adjustment of the mA and kv according to patient's size, or use of a iterative reconstruction technique. DICTATED BY: ROBBIE GARCIA MD DATE: 09/18/24100 ELECTRONICALLY SIGNED BY: ROBBIE GARCIA MD DATE: 09/18/24 0106 DX & DISP Disposition: Inpatient Decision to Admit Date: September 18, 2024 Decision to Admit Time: 02:19 Departure Impression: Primary Impression: Acute renal failure Additional Impressions: Hyperkalemia, Pancreatitis, Sepsis Condition: Stable Referrals: ADRIA GATICA MD (PCP) I have reviewed the case, and I agree with, Diagnosis and Plan I performed the substantive portion of the visit. I have reviewed and personally made and approve the management plan that is documented in the note by myself or the BUSHRA. I acknowledge for responsibility for the patient's management plan. ROMIE VICTOR September 18, 2024 02:31
[2024-09-18] MEDS: SODIUM BICARB 50MEQ 50ML VIAL 50 ML ONE (02:36)
[2024-09-18] MEDS: SODIUM BICARB 50MEQ 50ML VIAL IV ONE (02:39)
[2024-09-18] MEDS ORDERED: ondanSETRON 4MG INJ IV PRN (03:00)
[2024-09-18] MEDS ORDERED: acetaMINOPHEN 325 MG TAB PO PRN (03:00)
--- NOTE | 2024-09-18 03:06 | HP ---
[facility] Date of Service: September 18, 2024 Time of Service: 02:45 PCP: Giovany Rahman HISTORY OF PRESENT ILLNESS: This is a 54-year-old male past medical history of kidney disease, kidney stones with bilateral nephrostomy tube, diabetes and hypertension who was brought by EMS to the ED for complaints of abdominal pain associated with generalized body weakness, nausea and vomiting. On my evaluation patient states the reason why he came to the ER today is because of bilateral leg pain which has been hurting and he cant tolerate it anymore he said.Patient has multiple open wound ulcers with some necrotic tissue to both legs and as per patient that has been there since April 2023.Patient also reports he has a bilateral nephrostomy tube that was placed on September 2023 and supposedly should come off after 2 weeks but because of insurance issue it has not been removed. Seen and examined patient in the ER awake,alert and coherent.Patient appears comfortable,denies fever,chills,chest pain,palpitation,cough,shortness of breath,nausea,vomiting abdominal pain and diarrhea.Patient states he still voids with no problem. Vital signs temperature 98.2, heart rate 108, blood pressure 121/58 saturation 99% on room air. Labs: WBC 17 with negative left shift of neutrophils 82, hemoglobin 10, hematocrit 34, platelet count 378. Sodium 133, potassium six, chloride 98, carbon dioxide 11, BUN 162, creatinine 11 GFR five glucose 195 lactic acid 1.8 AST nine ALT nine BNP 23 albumin 3.1, triglycerides 179 lipase 791 troponin 10. While in the ER patient received Zosyn IV, sodium bicarb 50 mEq IV, Zofran 4 mg IV, Lokelma 10 g p.o., morphine 2 mg IV, insulin 10 units IV D50 25 mL IV, calcium gluconate 1 g IV and patient is being started on sodium bicarb at 100 mL/hour. We will admit patient for further medical management. REVIEW OF SYSTEMS CONSTITUTIONAL: Denies fevers, chills, or night sweats. No unintentional weight loss reported. NEUROLOGICAL: Denies headache, amaurosis fugax, motor weakness, sensory deficit, vertigo/spinning sensation, gait abnormalities, or tremors. ENT: No hearing loss, otalgia, otorrhea, rhinitis, rhinorrhea, hoarseness, or sore throat. CARDIOVASCULAR: Denies any exertional angina, dyspnea on exertion, orthopnea, paroxysmal nocturnal dyspnea, palpitations, life-threatening arrhythmias, claudication. PULMONARY: Denies any shortness of breath, cough, phlegm/sputum, hemoptysis, pleuritic chest pain. SLEEP: Denies morning headaches, daytime somnolence or napping. Denies difficulty falling asleep, staying asleep, waking from sleep. Denies knowledge of snoring. GASTROINTESTINAL: Denies any type of dysphagia to either liquids or solids. Denies nausea, vomiting, pyrosis, early satiety, abdominal pain, diarrhea, constipation, or changes in stool consistency or caliber. Denies coffee-ground emesis, hematemesis, hematochezia, or melanotic stools. GENITOURINARY: Denies frequency, urgency, nocturia, hematuria or incontinence (Storage/Irritative symptoms.) Low urinary stream, straining to void, urinary intermittency or hesitancy, splitting of the voiding stream, terminal dribbling. ENDOCRINOLOGIC: Denies polyuria, polydipsia, polyphagia or heat/cold intolerances. HEMATOLOGIC: Denies thrombophilia/previous clots, or coagulopathy/bleeding disorders. ONCOLOGIC: Denies personal history of malignancy. DERMATOLOGIC: Denies rashes or pruritus. PSYCHIATRIC: Denies any suicidal or homicidal ideation. Denies hallucinations. PAST MEDICAL HISTORY: [Kidney stone,kidney infection,Diabetes and hypertension ] PAST SURGICAL HISTORY: [ Bilateral nephrostomy tube placement ] PAST SOCIAL HISTORY: [ Patient lives with family. Patient denies alcohol tobacco and recreational drug use ] FAMILY HISTORY: [ Diabetes ] Coded Allergies: No Known Drug Allergies (Unverified Allergy, Unknown, 05/20/24) PHYSICAL EXAM GENERAL APPEARANCE: The patient is awake, alert, and oriented, in no acute cardiopulmonary distress. NEUROLOGICAL: Cranial nerves II-XII grossly intact. Motor is 5/5 in bilateral upper and lower extremities proximal to distal. No sensory deficits. HEENT: Face is symmetric. Pupils are equal and reactive. Extraocular movements are intact. NECK: Supple. No JVD. No thyromegaly. No submental, submandibular, pre- /postauricular, occipital or supraclavicular lymphadenopathy. CHEST: Normal chest expansion. No Telemetry. LUNGS: Absence of any rales, rhonchi or any wheezing. CARDIOVASCULAR: Regular. S1 and S2 normal. No appreciable rubs, murmurs or gallops. ABDOMEN: Soft, nontender, and nondistended. There is no rebound, voluntary guarding, or rigidity. : Deferred. No [place]. EXTREMITIES: Multiple open wound ulcers to both legs with some necrotic tissue. SKIN: No skin breakdown. Vital Sign (Last 24 Hours) 09/18/24 01:56 Temp 98.2 Pulse 108 Resp 19 B/P (MAP) 121/58 Pulse Ox 99 O2 Delivery Room Air* O2 Flow Rate 0 FiO2 21 LABS: Laboratory: Test 09/17/24 23:58 09/17/24 22:57 09/17/24 22:49 Range/Units Lactic Acid Level 1.8 0.8-2.5 mmol/L White Blood Count 17.5 H 4.8-10.8 K/uL Red Blood Count 3.75 L 4.50-6.20 MIL/uL Hemoglobin 10.9 L 14.0-18.0 g/dL Hematocrit 34.1 L 42-54 % Mean Corpuscular Volume 90.9 79-99 fL Mean Corpuscular Hemoglobin 29.1 27.0-33.0 pg Mean Corpuscular Hemoglobin Concent 32.0 32.0-36.0 g/dL Red Cell Distribution Width 14.9 11.0-15.5 % Platelet Count 378 130-400 K/uL Mean Platelet Volume 10.7 H 7.5-10.5 fL Immature Granulocyte % (Auto) 1.0 0-1 % Neutrophils (%) (Auto) 82.1 H 40.0-77.0 % Lymphocytes (%) (Auto) 6.7 L 21.0-51.0 % Monocytes (%) (Auto) 9.3 3.0-13.0 % Eosinophils (%) (Auto) 0.6 0.0-8.0 % Basophils (%) (Auto) 0.3 0.0-5.0 % Neutrophils # (Auto) 14.4 H 1.8-7.7 K/uL Lymphocytes # (Auto) 1.2 1.0-4.8 K/uL Monocytes # (Auto) 1.6 H 0.1-1.0 K/uL Eosinophils # (Auto) 0.10 0.00-0.70 K/uL Basophils # (Auto) 0.05 0.00-0.20 K/uL Absolute Immature Granulocyte (auto 0.18 0-1 K/uL Nucleated Red Blood Cells 0.0 0.0-0.19 % White Cell Morphology Comment CONSISTENT W/DIFF Sodium Level 133 L 136-145 mmol/L Potassium Level 6.0 *H 3.5-5.1 mmol/L Chloride Level 98 L 101-111 mmol/L Carbon Dioxide Level 11 L 21-32 mmol/L Blood Urea Nitrogen 162 *H 7-18 mg/dL Creatinine 11.1 *H 0.5-1.3 mg/dL Glomerular Filtration Rate Calc 5 >90 mL/min Random Glucose 195 H 70-105 mg/dL Total Calcium 8.5 8.5-10.1 mg/dL Total Bilirubin 0.2 0.2-1.0 mg/dL Direct Bilirubin 0.1 0.0-0.3 mg/dL Aspartate Amino Transf (AST/SGOT) 9 L 10-37 U/L Alanine Aminotransferase (ALT/SGPT) 9 L 12-78 U/L Alkaline Phosphatase 91 50-136 U/L Total Protein 6.9 6.0-8.3 g/dL Albumin 3.1 L 3.5-5.0 g/dL Triglycerides Level 179 30-200 mg/dL Lipase 791 *H 16-77 U/L Troponin I High Sensitivity 10 4-75 ng/L B-Type Natriuretic Peptide 23 0-100 pg/mL Current Medications Medications (Trade) Dose Ordered Sig/Krishan Route PRN Reason Start Time Stop Time Status Last Admin Dose Admin Calcium Gluconate 1 gm/Sodium Chloride 100 ml @ 0 mls/hr PROTOCOL IV 09/18/24 00:00 10/18/24 00:00 09/17/24 23:59 100 MLS/HR DIAGNOSTICS / RADIOLOGY: [ ] ASSESSMENT: Acute on chronic renal failure POA Hyperkalemia POA Acute pancreatitis POA Metabolic acidosis POA Acute on chronic anemia due to CKD POA Acute leukocytosis POA Bilateral nephrostomy tube status POA Bilateral nonhealing ulcers necrosis to both lower legs POA Uncontrolled diabetes POA Hypertension POA PLAN: We will admit patient in PCCU We will keep patient nothing by mouth We will continue sodium bicarb drip We will start patient on Zosyn IV and vancomycin IV We will start on Famotidine 20 mg IV q.48h for GI prophylaxis We will replace electrolytes as needed per protocol We will start on insulin sliding scale AC & HS with hypoglycemia protocol We will add prn medication for fever,pain,cough , nausea and vomiting We will reconcile home meds once medlist available We will seek Nephrology consultation We will seek wound care management and eval consultation We will seek Infectious Disease consultation We will request case management service We will request labs in am Further orders to follow depending on above results Case discussed with attending physician and came up with above treatment and plan of care. ADVANCED CARE PLANNING 1. Which of the following were discussed? Hospice Care - No Therapeutic options - Yes Advance Directives - No Other discussions - 2. Discussed with who? Patient 3. Voluntary nature of this service was explained to the patient? Yes 4. Amount of time spent - __25 5. Reviewed by Physician? (if this service was performed by NPP) Yes Patient seen and examined by me. Agree with note by DRESS DRAPER SEE ADDITIONAL ORDERS PER CHART DISCUSSED WITH NURSING STAFF JESS FUENTES September 18, 2024 03:06
[2024-09-18] MEDS ORDERED: GLUCAGON 1MG KIT 1 MG ML IM PRN (03:30)
[2024-09-18] MEDS ORDERED: DEXTROSE 50%-WATER 50 ML DISP.SYRIN IV PRN (03:30)
[2024-09-18] MEDS: VANCOMYCIN 1G/250ML KIT 250 ML IV ONE (03:32)
[2024-09-18] MEDS: FAMOTIDINE 20MG VIAL IV SCH (03:32)
[2024-09-18] MEDS: WATER IVP ONE (03:33)
[2024-09-18] MEDS: SYRING IVP ONE (03:33)
[2024-09-18] MEDS: SODIUM BICARB 8.4% IVP ONE (03:33)
[2024-09-18] MEDS ORDERED: VANCOMYCIN PROTOCOL PER PHARMACY IV SCH (04:00)
[2024-09-18] MEDS ORDERED: ZOSYN 3.375GM+NS 50ML 50 ML IV SCH (05:00)
[2024-09-18 05:51] LABS: ADD UA MICROSCOPIC YES; APPEARANCE,URINE TURBID (CLEAR); BILIRUBIN,URINE NEGATIVE (NEGATIVE); GLUCOSE, URINE (UA) NEGATIVE (NEGATIVE); KETONES,URINE NEGATIVE (NEGATIVE); LEUKOCYTE ESTERASE ,URINE 500 Leu/uL (NEGATIVE); NITRATE,URINE NEGATIVE (NEGATIVE); OCCULT BLOOD,URINE MODERATE (NEGATIVE); PH,URINE 5.5 (5.0-8.0); PROTEIN,URINE 100 mg/dL (NEGATIVE); UROBILINOGEN,URINE 0.2 mg/dL (0.2-1.0)
[2024-09-18 05:52] LABS: COLOR,URINE YELLOW (YELLOW)
[2024-09-18 05:54] LABS: BACTERIA,URINE MOD /HPF (None Seen); MUCUS,URINE FEW LPF (None Seen); NON-SQUAMOUS EPITHELIAL CELL 3 /HPF (0-2); RBC,URINE 51-100 /HPF (0-1); SQUAMOUS EPITHELIAL CELL,UR FEW /HPF (0-2); WBC CLUMP MANY /HPF (0-1); WBC,URINE TNTC /HPF (0-1)
[2024-09-18] MEDS: hydroMORPHone 0.5 MG SYG (0.5MG/0.5ML) IVP ONE (05:55)
--- NOTE | 2024-09-18 06:24 | EKG ---
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
[2024-09-18 06:55] LABS: BASOPHILS # (AUTO) 0.04 K/uL (0.00-0.20); BASOPHILS % (AUTO) 0.2 % (0.0-5.0); EOSINOPHILS # (AUTO) 0.06 K/uL (0.00-0.70); EOSINOPHILS % (AUTO) 0.3 % (0.0-8.0); HEMATOCRIT 30.6 % (42-54); IMMATURE GRANULOCYTE ABSOLUTE 0.28 K/uL (0-1); LYMPHOCYTES # (AUTO) 1.1 K/uL (1.0-4.8); MEAN CORPUSCULAR HEMOGLOBIN 29.7 pg (27.0-33.0); MEAN CORPUSCULAR HGB CONC 33.3 g/dL (32.0-36.0); MONOCYTES # (AUTO) 1.6 K/uL (0.1-1.0); NEUTROPHILS # (AUTO) 14.6 K/uL (1.8-7.7); NEUTROPHILS % (AUTO) 82.9 % (40.0-77.0); PLATELET COUNT (AUTO) 297 K/uL (130-400); RED BLOOD CELL COUNT(AUTO) 3.44 MIL/uL (4.50-6.20); WHITE BLOOD COUNT (AUTO) 17.6 K/uL (4.8-10.8)
[2024-09-18 07:17] LABS: ALBUMIN 2.9 g/dL (3.5-5.0); BILIRUBIN,TOTAL 0.2 mg/dL (0.2-1.0); MAGNESIUM 2.4 mg/dL (1.80-2.40); THYROID STIMULATING HORMONE 0.3 uIU/mL (0.36-3.74); TOTAL PROTEIN, SERUM 7.2 g/dL (6.0-8.3)
[2024-09-18 07:30] LABS: CREATININE 10.5 mg/dL (0.5-1.3); POTASSIUM 6.1 mmol/L (3.5-5.1)
[2024-09-18] MEDS: INSULIN humuLIN R 100 UNIT/ML 3ML SQ SCH (07:30)
--- NOTE | 2024-09-18 07:54 | NUR ---
Patient does not remember names of home medications, does not have a list of them and did not bring them to the hospital. Discussed with patient the importance of bringing home medications to reviewed them. Patient verbalized understanding.
--- NOTE | 2024-09-18 09:05 | NUR ---
Blood glucose 98. No insulin coverage needed at this time.
--- NOTE | 2024-09-18 09:11 | NUR ---
Dr. Cadet (nefrologist) rounded.
[2024-09-18] MEDS: SODIUM BICARB 8.4% 50ML SYRING 150 MEQ in DEXTROSE 5%-WATER 1,000 ML IVP SCH (09:55)
--- NOTE | 2024-09-18 10:02 | CONS ---
REFERRING PHYSICIAN: Dr. Damon. REASON FOR CONSULTATION: Renal failure. HISTORY OF PRESENT ILLNESS: A 54-year-old male with history of diabetes mellitus, hypertension. He has a history of known chronic renal insufficiency. The patient with a history of obstructive uropathy status post nephrostomy tube placement in the past. The patient presented to the hospital with complaints of significant pain to the leg. The patient had been having ulcers to his leg and had been on some outpatient oral antibiotics. The patient's laboratory values revealed an elevated BUN and creatinine. He is being seen in consultation. The patient has nephrostomy tube in place and had not followed up with Urology secondary to noncompliance. PAST MEDICAL HISTORY: Diabetes mellitus, hypertension, obstructive uropathy, nephrolithiasis. PAST SURGICAL HISTORY: Nephrostomy tube placement. SOCIAL HISTORY: He lives independently. There is no alcohol or tobacco use. FAMILY HISTORY: There is no renal disease in the family. ALLERGIES: No allergies. MEDICATIONS: Noted. REVIEW OF SYSTEMS: GENERAL: The patient is feeling weak and tired. HEENT: No change in vision. No change in hearing. No nasal discharge. No sore throat. CARDIOVASCULAR: There is no current chest pain or palpitations. PULMONARY: He denies any shortness of breath. GASTROINTESTINAL: Appetite is preserved. MUSCULOSKELETAL: As described above. NEUROLOGIC: No seizures or focal deficits. PSYCHIATRIC: No history of hallucinations or psychosis. ENDOCRINE: Diabetes mellitus. No history of thyroid disease. HEME: History of anemia. No history of malignancy. PHYSICAL EXAMINATION: VITAL SIGNS: Blood pressure is 141/66, pulse in the 100s. GENERAL: He is a chronically ill male, much older than appearing. HEENT: Head is atraumatic. Pupils are equal, roving to light. Oropharynx is without exudate. Nares clear. NECK: There is no JVP. There is no thyromegaly. No mass. CARDIOVASCULAR: Regular. There is no S3, S4 gallop. LUNGS: Coarse with equal thoracic movement. ABDOMEN: Soft, nondistended, nontender. EXTREMITIES: There is no clubbing, no cyanosis. NEUROLOGICAL: He is awake. He is alert. He is oriented. SKIN: Reveals no rash or nodules. BACK: There is no CVA tenderness. No back deformities. LABORATORY DATA: Sodium 136, potassium 6, BUN 158, creatinine 10. Lipase is 795, white cell count 17,000, hemoglobin 10, hematocrit 30. Urinalysis reveals significant pyuria. CT scan of the abdomen reveals the nephrostomy tube in place. IMPRESSION: * Acute on chronic renal failure. * History of nephrolithiasis with nephrostomy tube in place. * Cellulitis. * Diabetes mellitus. * Anemia. PLAN: The patient presents with advanced renal dysfunction. The patient with history of known chronic renal insufficiency. There is no acute need for renal replacement therapy at this time. The patient will be given Lokelma for the hyperkalemia. We will continue to follow the chemistries closely. The patient can continue with the bicarb drip for his acidosis. All labs can be repeated in the morning. The patient with significant anemia. We will check iron levels for completeness. The patient with nephrostomy tube in place and will need to be reevaluated by Urology in regards to either replacing nephrostomy tube or removal. We will continue to follow closely. He remains on the antibiotics. TID: [id number] RECEIPT: [id number]
--- NOTE | 2024-09-18 10:50 | PN ---
[facility] PROGRESS NOTE Date of Service: September 18, 2024 Time of Service: 10:46 SUBJECTIVE: This is a 54-year-old male past medical history of kidney disease, kidney stones with bilateral nephrostomy tube, diabetes and hypertension who was brought by EMS to the ED for complaints of abdominal pain associated with generalized body weakness, nausea and vomiting. On my evaluation patient states the reason why he came to the ER today is because of bilateral leg pain which has been hurting and he cant tolerate it anymore he said.Patient has multiple open wound ulcers with some necrotic tissue to both legs and as per patient that has been there since April 2023.Patient also reports he has a bilateral nephrostomy tube that was placed on September 2023 and supposedly should come off after 2 weeks but because of insurance issue it has not been removed. Seen and examined patient in the ER awake,alert and coherent.Patient appears comfortable,denies fever,chills,chest pain,palpitation,cough,shortness of breath,nausea,vomiting abdominal pain and diarrhea.Patient states he still voids with no problem. Vital signs temperature 98.2, heart rate 108, blood pressure 121/58 saturation 99% on room air. Labs: WBC 17 with negative left shift of neutrophils 82, hemoglobin 10, hematocrit 34, platelet count 378. Sodium 133, potassium six, chloride 98, carbon dioxide 11, BUN 162, creatinine 11 GFR five glucose 195 lactic acid 1.8 AST nine ALT nine BNP 23 albumin 3.1, triglycerides 179 lipase 791 troponin 10. While in the ER patient received Zosyn IV, sodium bicarb 50 mEq IV, Zofran 4 mg IV, Lokelma 10 g p.o., morphine 2 mg IV, insulin 10 units IV D50 25 mL IV, calcium gluconate 1 g IV and patient is being started on sodium bicarb at 100 mL/hour. We will admit patient for further medical management. 09/18: Patient was seen and examined this morning at bedside.Patient denies chest pain, shortness of breath, nausea, vomiting, fever, chills. Patient reports abdominal tenderness, worse in the right lower quadrant. Patient reports that he does not follow up with a primary care physician. Patient has bilateral nephrostomy tubes that were placed in April of 2023, but has not had them removed due to not having enough money to pay the copay at the urologist office. Patients renal function is abnormal, nephrology has been consulted and recommends Lokelma and sodium bicarbonate for the metabolic acidosis. Per Dr. Cadet, urology to be consulted for either removal or replacement of nephrostomy tubes. Urology has been consulted. REVIEW OF SYSTEMS CONSTITUTIONAL: Denies fevers, chills, or night sweats. No unintentional weight loss reported. NEUROLOGICAL: Denies headache, amaurosis fugax, motor weakness, sensory defici t, vertigo/spinning sensation, gait abnormalities, or tremors. ENT: No hearing loss, otalgia, otorrhea, rhinitis, rhinorrhea, hoarseness, or sore throat. CARDIOVASCULAR: Denies any exertional angina, dyspnea on exertion, orthopnea, paroxysmal nocturnal dyspnea, palpitations, life-threatening arrhythmias, claudication. PULMONARY: Denies any shortness of breath, cough, phlegm/sputum, hemoptysis, pleuritic chest pain. SLEEP: Denies morning headaches, daytime somnolence or napping. Denies difficulty falling asleep, staying asleep, waking from sleep. Denies knowledge of snoring. GASTROINTESTINAL: Denies any type of dysphagia to either liquids or solids. Denies nausea, vomiting, pyrosis, early satiety, abdominal pain, diarrhea, constipation, or changes in stool consistency or caliber. Denies coffee-ground emesis, hematemesis, hematochezia, or melanotic stools. GENITOURINARY: Denies frequency, urgency, nocturia, hematuria or incontinence (Storage/Irritative symptoms.) Low urinary stream, straining to void, urinary intermittency or hesitancy, splitting of the voiding stream, terminal dribbling. ENDOCRINOLOGIC: Denies polyuria, polydipsia, polyphagia or heat/cold intolerances. HEMATOLOGIC: Denies thrombophilia/previous clots, or coagulopathy/bleeding disorders. ONCOLOGIC: Denies personal history of malignancy. DERMATOLOGIC: Denies rashes or pruritus. PSYCHIATRIC: Denies any suicidal or homicidal ideation. Denies hallucinations. PHYSICAL EXAM GENERAL APPEARANCE: The patient is awake, alert, and oriented, in no acute cardiopulmonary distress. NEUROLOGICAL: Cranial nerves II-XII grossly intact. Motor is 5/5 in bilateral upper and lower extremities proximal to distal. No sensory deficits. HEENT: Face is symmetric. Pupils are equal and reactive. Extraocular movements are intact. NECK: Supple. No JVD. No thyromegaly. No submental, submandibular, pre- /postauricular, occipital or supraclavicular lymphadenopathy. CHEST: Normal chest expansion. No Telemetry. LUNGS: Absence of any rales, rhonchi or any wheezing. CARDIOVASCULAR: Regular. S1 and S2 normal. No appreciable rubs, murmurs or gallops. ABDOMEN: Soft, nontender, and nondistended. There is no rebound, voluntary guarding, or rigidity. : Deferred. No [place]. EXTREMITIES: Multiple open wound ulcers to both legs with some necrotic tissue. SKIN: No skin breakdown. Vital Signs (last 8hr) Date Time Temp Pulse Resp B/P (MAP) Pulse Ox O2 Delivery O2 Flow Rate FiO2 09/18/24 07:00 98.4 98 17 160/82 98 Room Air* 0 21 09/18/24 05:56 98.1 109 18 141/66 98 Room Air* 0 21 09/18/24 03:57 112 20 128/54 99 Room Air* 0 21 LABS: Laboratory: Test 09/18/24 09:01 09/18/24 06:49 09/18/24 05:42 09/17/24 23:58 Range/Units Whole Blood Glucose 97 70-110 MG/DL White Blood Count 17.6 H 4.8-10.8 K/uL Red Blood Count 3.44 L 4.50-6.20 MIL/uL Hemoglobin 10.2 L 14.0-18.0 g/dL Hematocrit 30.6 L 42-54 % Mean Corpuscular Volume 89.0 79-99 fL Mean Corpuscular Hemoglobin 29.7 27.0-33.0 pg Mean Corpuscular Hemoglobin Concent 33.3 32.0-36.0 g/dL Red Cell Distribution Width 15.0 11.0-15.5 % Platelet Count 297 130-400 K/uL Mean Platelet Volume 10.4 7.5-10.5 fL Immature Granulocyte % (Auto) 1.6 H 0-1 % Neutrophils (%) (Auto) 82.9 H 40.0-77.0 % Lymphocytes (%) (Auto) 6.0 L 21.0-51.0 % Monocytes (%) (Auto) 9.0 3.0-13.0 % Eosinophils (%) (Auto) 0.3 0.0-8.0 % Basophils (%) (Auto) 0.2 0.0-5.0 % Neutrophils # (Auto) 14.6 H 1.8-7.7 K/uL Lymphocytes # (Auto) 1.1 1.0-4.8 K/uL Monocytes # (Auto) 1.6 H 0.1-1.0 K/uL Eosinophils # (Auto) 0.06 0.00-0.70 K/uL Basophils # (Auto) 0.04 0.00-0.20 K/uL Absolute Immature Granulocyte (auto 0.28 0-1 K/uL Nucleated Red Blood Cells 0.0 0.0-0.19 % Sodium Level 136 136-145 mmol/L Potassium Level 6.1 *H 3.5-5.1 mmol/L Chloride Level 103 101-111 mmol/L Carbon Dioxide Level 11 L 21-32 mmol/L Blood Urea Nitrogen 158 *H 7-18 mg/dL Creatinine 10.5 *H 0.5-1.3 mg/dL Glomerular Filtration Rate Calc 5 >90 mL/min Random Glucose 107 H 70-105 mg/dL Total Calcium 8.4 L 8.5-10.1 mg/dL Magnesium Level 2.40 1.80-2.40 mg/dL Total Bilirubin 0.2 0.2-1.0 mg/dL Aspartate Amino Transf (AST/SGOT) 10 10-37 U/L Alanine Aminotransferase (ALT/SGPT) 9 L 12-78 U/L Alkaline Phosphatase 84 50-136 U/L Total Protein 7.2 6.0-8.3 g/dL Albumin 2.9 L 3.5-5.0 g/dL Amylase Level 404 *H 25-115 U/L Lipase 795 *H 16-77 U/L Procalcitonin 15.39 H 0.05-0.5 ng/mL Thyroid Stimulating Hormone (TSH) 0.30 L 0.36-3.74 uIU/mL Urine Color YELLOW YELLOW Urine Appearance TURBID CLEAR Urine pH 5.5 5.0-8.0 Urine Specific [place] 1.011 1.001-1.031 Urine Protein 100 H NEGATIVE mg/dL Urine Glucose (UA) NEGATIVE NEGATIVE mg/dL Urine Ketones NEGATIVE NEGATIVE mg/dL Urine Occult Blood MODERATE H NEGATIVE Urine Nitrate NEGATIVE NEGATIVE Urine Bilirubin NEGATIVE NEGATIVE mg/dL Urine Urobilinogen 0.2 0.2-1.0 mg/dL Urine Leukocyte Esterase 500 H NEGATIVE [place]lon/uL Urine RBC 51-100 H 0-1 /HPF Urine WBC TNTC H 0-1 /HPF Urine WBC Clumps (Auto) MANY 0-1 /HPF Urine Squamous Epithelial Cells FEW 0-2 /HPF Urine Non-Squamous Epithelial Cells 3 0-2 /HPF Urine Bacteria MOD None Seen /HPF Urine Hyaline Casts 6-10 H 0-1 /LPF /LPF Lactic Acid Level 1.8 0.8-2.5 mmol/L Test 09/17/24 22:57 09/17/24 22:49 Range/Units White Cell Morphology Comment CONSISTENT W/DIFF Direct Bilirubin 0.1 0.0-0.3 mg/dL Triglycerides Level 179 30-200 mg/dL Troponin I High Sensitivity 10 4-75 ng/L B-Type Natriuretic Peptide 23 0-100 pg/mL Current Medications Medications (Trade) Dose Ordered Sig/Krishan Route PRN Reason Start Time Stop Time Status Last Admin Dose Admin Acetaminophen (TYLenol 325MG TAB) 650 mg Q4H PRN PO MILD PAIN (1-3) 09/18/24 03:00 10/18/24 02:59 Acetaminophen (TYLenol 325MG TAB) 650 mg Q6H PRN PO TEMPERATURE GREATER THAN 101.5 09/18/24 03:00 10/18/24 02:59 Calcium Gluconate 1 gm/Sodium Chloride 100 ml @ 0 mls/hr PROTOCOL IV 09/18/24 00:00 10/18/24 00:00 09/17/24 23:59 100 MLS/HR Dextrose (D50w) 50 ml AD PRN IV HYPOGLYCEMIA PROTOCOL 09/18/24 03:30 10/18/24 03:29 Famotidine (Pepcid 20mg Vial) 20 mg Q48H IV 09/18/24 03:00 10/18/24 02:59 09/18/24 03:32 20 MG Glucagon (Glucagon 1mg Kit) 1 mg AD PRN IM HYPOGLYCEMIA PROTOCOL 09/18/24 03:30 10/18/24 03:29 Insulin Human Regular (humuLIN R 100 UNIT/ML 3ML) INSULIN SLIDING SCAL... ACHS SQ 09/18/24 07:30 10/18/24 07:29 Ondansetron HCl (zoFRAN 4MG INJ) 4 mg Q6H PRN IV NAUSEA/VOMITING 09/18/24 03:00 10/18/24 02:59 Piperacillin Sod/ Tazobactam Sod 50 ml @ 12.5 mls/hr Q12H IV 09/18/24 05:00 09/18/24 05:30 DC Piperacillin Sod/ Tazobactam Sod 50 ml @ 12.5 mls/hr Q12H IV 09/18/24 12:00 09/28/24 11:59 Sodium Bicarbonate 150 meq/Dextrose 1,150 ml @ 100 mls/hr [id number] IVP 09/18/24 10:00 10/18/24 09:59 09/18/24 09:55 100 MLS/HR Vancomycin HCl 250 ml @ 125 mls/hr Q76H IV 09/21/24 06:00 10/01/24 05:59 Vancomycin HCl (Vancomycin Protocol) 1 each AD IV 09/18/24 04:00 10/02/24 03:59 DIAGNOSTICS / RADIOLOGY: [place] [address] IMAGING REPORT Signed PATIENT: JAYRO LIRIANO MR#: [id number] : 1970 SEX: M AGE: 54 LOCATION: [facility] ORDER 46 STATUS: [facility] REPORT#: [id number] SERVICE 44 REASON: GEOVANI; NEPHROSTOMY TUBES ORDERING PHYSICIAN: ROMIE VICTOR PROCEDURE: ABD PEL WO - CT ABDOMEN/PELVIS W/O CONTRAST CT ABDOMEN/PELVIS W/O CONTRAST HISTORY: Acute renal insufficiency COMPARISON: 08/08/2024 TECHNIQUE: Multiple sequential axial images of the abdomen and pelvis were obtained from the dome of the diaphragm through symphysis pubis. Patient was not given contrast through intravenous route. Oral contrast was not given. FINDINGS: No pleural effusion is seen bilaterally. There is no evidence of parenchymal disease or pulmonary nodule of the visualized lower lungs. Degenerative changes of the thoracolumbar spine are present. The heart is not enlarged. Gallbladder is distended. There is left adrenal nodule with calcification measuring 3.3 x 2.6 cm. Bilateral percutaneous nephrostomy tubes are seen. The liver, spleen, right adrenal gland and pancreas are unremarkable. There is no evidence of hydronephrosis bilaterally. No evidence of renal stone is seen. Fecal material is seen in the colon. There are normal size retroperitoneal and mesenteric lymph nodes. No ascites is seen. No CT evidence of acute appendicitis is seen. Pelvic sidewalls are symmetric bilaterally. Bladder is poorly distended. IMPRESSION: 1. Bilateral percutaneous nephrostomy tube in place. CT was performed with one or more following dose reduction techniques: automated exposure control, adjustment of the mA and kv according to patient's size, or use of a iterative reconstruction technique. 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 Bilateral nephrostomy tube status -Urology consulted. Will follow their recommendations. Bilateral nonhealing ulcers necrosis to both lower legs -Wound care has been consulted -General surgery consulted -NPO for surgical debridement of nonhealing lower extremity ulcers. -Patient continues on Zosyn and Vancomycin. Infectious disease has been consulted, we will follow their recommendations. Case discussed with attending physician and came up with above treatment and plan of care. MAGGIE GRACE MD September 18, 2024 10:50
--- NOTE | 2024-09-18 11:25 | NUR ---
Called Dr. Whyte office for new consult. Spoke with clerk Syl. She verbalized understanding to rely message to physician.
--- NOTE | 2024-09-18 11:51 | NUR ---
DCP: HOME Pt lives in his parent's home with his daughter Mary Simms [id number]. Pt states he remains able to complete his ADLS on his own. Pt uses a cane as needed, he has no provider or HH services. PCP is Josiah Adair and uses [facility] in [place] for his rx needs. Pt denies need for SNF or referral at this time and will return home at ok, daughter will transport pt home. Addendum: 09/18/24 at 1154 by PAMELLA GREWAL Amended: Links added.
--- NOTE | 2024-09-18 11:56 | NUR ---
blood glucose 102. No insulin coverage needed at this time.
[2024-09-18] MEDS: ZOSYN 3.375GM+NS 50ML 50 ML IV SCH (12:10)
[2024-09-18] MEDS ORDERED: PHARMACY COMMUNICATION 1 EACH EACH MISC SCH (13:30)
--- NOTE | 2024-09-18 14:10 | NUR ---
Performed wound care to lower extremities as per Dr. Grayson orders. Changed dressing from nefrostomy tubes. [id number] tolerated procedure well with no complications.
--- NOTE | 2024-09-18 15:00 | NUR ---
[facility] Consult: Patient assessed by wound healing team. See wound assessment. Assessment and recommendations provided to primary nurse. Education provided. Wound care done. Addendum: 09/19/24 at 1111 by KOKO ELMORE RN RN/ Amended: Links added.
[2024-09-18] MEDS: HONEY 1 APPL/ML TUBE TP ONE (15:24)
[2024-09-18] MEDS: hydroMORPHone 0.5 MG SYG (0.5MG/0.5ML) IVP PRN (15:32)
--- NOTE | 2024-09-18 17:41 | NUR ---
DISCUSSED WITH PATIENT PLOAN OF CARE. pATIENT VERBALIZED UNDERSTANDING.
--- NOTE | 2024-09-18 17:44 | NUR ---
CALLED TO GIVE REPORT, SPOKE TO MRS. LYONS JOEY. SHE VERBALIZED SHE WAS NOT RECEIVING REPORT AT THIS TIME. NOTIFY ER CHARGE NURSE MR. YARBROUGH AND JUDICIAL ASSISTANT SPENSER. PENDING INSTRUCTIONS.
[2024-09-18 20:50] VITALS: BP 160/73; PULSE 100; RESP 20; TEMP 98; O2SAT 97
--- NOTE | 2024-09-18 21:20 | NUR ---
gave report to Lyly Gomez no concerns voiced
[2024-09-18 22:18] VITALS: O2SAT 97
--- NOTE | 2024-09-18 22:33 | NUR ---
NEPHROSTOMY TUBES PATIENT HAS LEFT AND RIGHT NEPHROSTOMY TUBES WITH DRESSING ON THE BACK INTACT (GAUZE, TEGADERM) THEY AREA DRAINING CLEAR YELLOW FLUID BILATERALLY.
--- NOTE | 2024-09-18 22:57 | NUR ---
PT DID NOT BRING HOME MEDS STATES DAUGHTER JAROD LIRIANO WILL BRING IN TOMMORROW .HE PURCHASES MEDICATIONS AT [facility] IN [place].
[2024-09-19] VITALS (29 sets, daily range): BP systolic 121–158; BP diastolic 50–95; PULSE 90–124; RESP 12–20; TEMP 97.6–98.3; O2SAT 95–98
--- NOTE | 2024-09-19 03:26 | CONS ---
REQUESTING PHYSICIANS: Dr. Archuleta and Dr. Damon. REASON FOR CONSULTATION: Renal insufficiency status post bilateral nephrostomy tube placement. HISTORY OF PRESENT ILLNESS: A 54-year-old male, very poorly compliant, presents to the emergency room because of back pain, malaise as well as nonhealing lower extremity ulcers. The patient had a finding of creatinine of 10 three months ago. He has had nephrostomy tubes in place bilaterally since then. There has been no change in his creatinine. It is still 10.9, now his potassium is 6.1, being treated for same. The patient also noted to have elevated lipase and amylase. The consultation with Urology was requested because of nephrostomy tubes, both of which are draining well and in good position on his CT scan. ALLERGIES: Listed as none. MEDICATIONS: Include sodium bicarb, glucagon, famotidine, magnesium gluconate. The patient is also on IV Zosyn and vancomycin, Tylenol, Zofran. PAST MEDICAL HISTORY: Diabetes, hypertension, poor compliance. PAST SURGICAL HISTORY: Nephrostomy tube placement, stent placement with stent removal. FAMILY HISTORY: Negative. 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 Apparently, he does not smoke or drink. REVIEW OF SYSTEMS: He has some shortness of breath. He does not have a cough. No nausea. No vomiting. He has constipation, no diarrhea, no headaches or dizziness, has difficulty walking. PHYSICAL EXAMINATION: GENERAL: Chronically ill-looking male. VITAL SIGNS: Temperature is 98. Blood pressure 110/60, pulse of 100. NECK: No adenopathy or supraclavicular masses palpable. LUNGS: Lung workman are clear to auscultation. HEART: Heart sounds are best heard in the fifth intercostal on the left side. ABDOMEN: Obese, soft and nontender. BACK: No CVA tenderness. GENITALIA AND RECTAL: Deferred. LABORATORY DATA: Reviewed in detail. The patient's sodium is 136, potassium 6.1, creatinine 10.5. The patient's amylase is 404, lipase is 795. The patient's white count is 17, hematocrit is 34, platelet count is 378. The patient's urinalysis shows clear yellow urine, specific gravity 1.011, moderate amount of blood in the urine. Leukocyte esterase is positive. There are moderate amount of bacteria present as well. IMAGING STUDIES: * Include CT scan of the abdomen and pelvis and this is significant for nephrostomy tube in good position. * No evidence of hydronephrosis, left adrenal nodule with calcification. ASSESSMENT: * Noncompliance. * Renal failure. * Status post nephrostomy tube bilaterally. * Anemia. * Significant renal insufficiency. * Cellulitis. RECOMMENDATIONS: * Interventional radiology to change both nephrostomy tubes tomorrow. * Need for dialysis to be evaluated by his diver pumper. * Family's concerns and questions were extensively answered to their apparent satisfaction. * PT/PTT and INR will be ordered today. Thank you for the opportunity of providing consultation on your patient. Please note that bilateral internal ureteral stents were both removed at his last admission three months ago. TID: [id number] RECEIPT: [id number]
--- NOTE | 2024-09-19 03:39 | CONS ---
INFECTIOUS DISEASE CONSULTATION DATE OF SERVICE: 09/18/2024. REQUESTING PHYSICIAN: Aliya Robles NP REASON FOR CONSULTATION: Leg ulcer and antibiotic management. HISTORY OF PRESENT ILLNESS: This is a 54-year-old male with history of obesity, diabetes mellitus, nephrolithiasis, and bilateral hydronephrosis, who came to the emergency room with bilateral leg ulcer and pain. The patient claims ulcer has been going on for a while. No fever or chills. The patient in the ER was found with possible sepsis. Procalcitonin was 15. The patient was also found with elevated amylase and lipase. The patient has a history of hydronephrosis for which nephrostomy was placed bilaterally about 6 months ago, but the patient never followed up with urologist. The patient is now found with BUN of 168, creatinine of 10.5. Potassium was elevated at 6.1. PAST MEDICAL HISTORY: * Obesity. * Bilateral hydronephrosis. * Nephrolithiasis. * Chronic kidney disease. * Diabetes mellitus. * Hypertension. * UTI. PAST SURGICAL HISTORY: Bilateral nephrostomy tube placement. ALLERGIES: No known drug allergies. CURRENT MEDICATIONS: Include: * Vancomycin. * Zosyn. * . * Tylenol. * Zofran. SOCIAL HISTORY: No alcohol, tobacco, or illicit drug use. FAMILY HISTORY: Positive for diabetes mellitus. REVIEW OF SYSTEMS: Greater than 10 systems were reviewed, negative except as documented above. PHYSICAL EXAMINATION: GENERAL: A middle-aged male, awake. VITAL SIGNS: Temperature 98.9, pulse 90, respirations 17, blood pressure 160/80. EYES: No icterus. Pupils equal and reactive. HENT: No oral thrush seen. Moist oral mucosa. NECK: Supple. No JVD or thyromegaly. LUNGS: Good air entry. No rales, no rhonchi. CARDIOVASCULAR: S1, S2, regular. No murmur heard. ABDOMEN: Obese, soft, nontender. Bowel sound is present. CENTRAL NERVOUS SYSTEM: Awake, alert, oriented x 3. No focal deficits. SKIN: No rashes, no itchiness. LYMPHATIC: Left inguinal lymphadenopathy. BACK: No deformity, no pressure ulcer. HEMATOLOGIC: No bleeding or petechial lesions seen. MUSCULOSKELETAL: No joint swelling, erythema, or tenderness. EXTREMITIES: Ulcer with necrosis involving the left leg. LABORATORY DATA: Procalcitonin 15.39, lipase 795, amylase 404. Sodium 136, potassium 6.1, BUN 158, creatinine 10.5. WBC 17.6, hemoglobin 10.2, platelets 297. Urinalysis; wbc's too numerous to count, leukocyte esterase of 500. RADIOLOGY: CT of the abdomen showed bilateral hydronephrosis. ASSESSMENT: A 54-year-old male who presented with leg ulcer: CURRENT PROBLEMS: Include: * Leg ulcer with necrosis. * Possible peripheral disease. * UTI. * Chronic coronary artery disease. * Nephrolithiasis. * Obesity. * Medical noncompliance. PLAN: * Patient will need surgical debridement. * Continue wound care. * Continue antidiabetic. * Continue antihypertensive. * Continue antiemetics. * Monitor electrolytes and correct as needed. * Avoid nephrotoxic medication. * Continue present antibiotic regimen. TID: [id number] RECEIPT: [id number] MTDD
[2024-09-19 04:11] LABS: BASOPHILS # (AUTO) 0.03 K/uL (0.00-0.20); BASOPHILS % (AUTO) 0.2 % (0.0-5.0); EOSINOPHILS # (AUTO) 0.17 K/uL (0.00-0.70); EOSINOPHILS % (AUTO) 1.4 % (0.0-8.0); HEMATOCRIT 29.3 % (42-54); IMMATURE GRANULOCYTE ABSOLUTE 0.09 K/uL (0-1); LYMPHOCYTES # (AUTO) 0.6 K/uL (1.0-4.8); LYMPHOCYTES % (AUTO) 4.5 % (21.0-51.0); MEAN CORPUSCULAR HEMOGLOBIN 29.2 pg (27.0-33.0); MEAN CORPUSCULAR HGB CONC 33.4 g/dL (32.0-36.0); MEAN CORPUSCULAR VOLUME 87.2 fL (79-99); MONOCYTES # (AUTO) 1.3 K/uL (0.1-1.0); MONOCYTES % (AUTO) 10.6 % (3.0-13.0); NEUTROPHILS # (AUTO) 10.2 K/uL (1.8-7.7); NEUTROPHILS % (AUTO) 82.6 % (40.0-77.0); PLATELET COUNT (AUTO) 296 K/uL (130-400); RED BLOOD CELL COUNT(AUTO) 3.36 MIL/uL (4.50-6.20); WHITE BLOOD COUNT (AUTO) 12.3 K/uL (4.8-10.8)
[2024-09-19 04:23] LABS: INR 1.04 (0.85-1.15)
[2024-09-19 04:25] LABS: PARTIAL THROMBOPLASTIN TIME 31.8 SEC (26.3-35.5)
[2024-09-19 04:28] LABS: ALBUMIN 2.9 g/dL (3.5-5.0); BILIRUBIN,TOTAL 0.3 mg/dL (0.2-1.0); PHOSPHORUS 7.4 mg/dL (2.5-4.9); POTASSIUM 4.3 mmol/L (3.5-5.1); TOTAL PROTEIN, SERUM 7.2 g/dL (6.0-8.3)
[2024-09-19 04:33] LABS: % IRON SATURATION 56.5 % (30-44)
[2024-09-19 04:53] LABS: CREATININE 8.7 mg/dL (0.5-1.3)
--- NOTE | 2024-09-19 09:33 | PN ---
FOLLOWUP PROGRESS NOTE SUBJECTIVE: The patient is a 54-year-old male with a history of diabetes mellitus, hypertension. The patient with history of obstructive uropathy status post nephrostomy tube placement. The patient with significant renal dysfunction. He is scheduled for nephrostomy tube replacement later today. The patient was seen by Urology and he is being seen as a followup visit for all of the above. REVIEW OF SYSTEMS: CONSTITUTIONAL: The patient is feeling weak and tired. HEENT: No change in vision. No change in hearing. CARDIOVASCULAR: There is no current chest pain or palpitations. PULMONARY: No shortness of breath. GASTROINTESTINAL: The patient is tolerating a diet. MUSCULOSKELETAL: Complains of weakness. PHYSICAL EXAMINATION: VITAL SIGNS: Blood pressure is 130/82, pulse in the 100s. He is afebrile. GENERAL: He is a chronically ill male, much older than appearing. HEENT: Atraumatic. Pupils are equal, roving to light. Oropharynx is without exudate. Nares clear. NECK: There is no JVP. There is no thyromegaly, no mass. CARDIOVASCULAR: Regular. There is no S3 or S4 gallop. LUNGS: Coarse with equal thoracic movement. ABDOMEN: Soft, nondistended, and nontender. EXTREMITIES: No clubbing, no cyanosis. NEUROLOGICAL: He is awake. He is alert. LABORATORY DATA: Sodium 143, potassium 8.7, sodium is 140, iron levels are noted, phosphorus is 7, hemoglobin 9.8, hematocrit 29. IMPRESSION: * Acute on chronic renal failure. * Obstructive uropathy. * Hypertension. * Anemia. * Electrolyte abnormalities. PLAN: The patient is scheduled for a nephrostomy tube replacement. The patient was seen by Urology. The patient does have advanced renal dysfunction. He is refusing any form of renal replacement therapy. He remains on the bicarb drip for the acidosis. The patient will be started on Epogen for the anemia. The patient will be started on phosphate binders. All labs will be repeated in the morning. We will follow closely. TID: [id number] RECEIPT: [id number]
--- NOTE | 2024-09-19 10:26 | PN ---
[facility] PROGRESS NOTE Date of Service: September 19, 2024 Time of Service: 10:20 SUBJECTIVE: This is a 54-year-old male past medical history of kidney disease, kidney stones with bilateral nephrostomy tube, diabetes and hypertension who was brought by EMS to the ED for complaints of abdominal pain associated with generalized body weakness, nausea and vomiting. On my evaluation patient states the reason why he came to the ER today is because of bilateral leg pain which has been hurting and he cant tolerate it anymore he said.Patient has multiple open wound ulcers with some necrotic tissue to both legs and as per patient that has been there since April 2023.Patient also reports he has a bilateral nephrostomy tube that was placed on September 2023 and supposedly should come off after 2 weeks but because of insurance issue it has not been removed. Seen and examined patient in the ER awake,alert and coherent.Patient appears comfortable,denies fever,chills,chest pain,palpitation,cough,shortness of breath,nausea,vomiting abdominal pain and diarrhea.Patient states he still voids with no problem. Vital signs temperature 98.2, heart rate 108, blood pressure 121/58 saturation 99% on room air. Labs: WBC 17 with negative left shift of neutrophils 82, hemoglobin 10, hematocrit 34, platelet count 378. Sodium 133, potassium six, chloride 98, carbon dioxide 11, BUN 162, creatinine 11 GFR five glucose 195 lactic acid 1.8 AST nine ALT nine BNP 23 albumin 3.1, triglycerides 179 lipase 791 troponin 10. While in the ER patient received Zosyn IV, sodium bicarb 50 mEq IV, Zofran 4 mg IV, Lokelma 10 g p.o., morphine 2 mg IV, insulin 10 units IV D50 25 mL IV, calcium gluconate 1 g IV and patient is being started on sodium bicarb at 100 mL/hour. We will admit patient for further medical management. 09/18: Patient was seen and examined this morning at bedside.Patient denies chest pain, shortness of breath, nausea, vomiting, fever, chills. Patient reports abdominal tenderness, worse in the right lower quadrant. Patient reports that he does not follow up with a primary care physician. Patient has bilateral nephrostomy tubes that were placed in April of 2023, but has not had them removed due to not having enough money to pay the co-pay at the urologist office. Patients renal function is abnormal, nephrology has been consulted and recommends Lokelma and sodium bicarbonate for the metabolic acidosis. Per Dr. Cadet, urology to be consulted for either removal or replacement of nephrostomy tubes. Urology has been consulted. 09/19: Patient was seen and examined this morning at bedside. Patient denies chest pain, shortness of breath, nausea, vomiting, fever, chills. Patient is scheduled to get a external debridement of the left calf. Patient is getting a removal of the bilateral nephrostomy tubes today by Interventional Radiology. Patient is currently NPO. Patient has refused dialysis, and continues on a bicarb drip for metabolic acidosis. Patient continues on vancomycin and Zosyn. REVIEW OF SYSTEMS CONSTITUTIONAL: Denies fevers, chills, or night sweats. No unintentional weight loss reported. NEUROLOGICAL: Denies headache, amaurosis fugax, motor weakness, sensory deficit, vertigo/spinning sensation, gait abnormalities, or tremors. ENT: No hearing loss, otalgia, otorrhea, rhinitis, rhinorrhea, hoarseness, or sore throat. CARDIOVASCULAR: Denies any exertional angina, dyspnea on exertion, orthopnea, paroxysmal nocturnal dyspnea, palpitations, life-threatening arrhythmias, claudication. PULMONARY: Denies any shortness of breath, cough, phlegm/sputum, hemoptysis, pleuritic chest pain. SLEEP: Denies morning headaches, daytime somnolence or napping. Denies difficulty falling asleep, staying asleep, waking from sleep. Denies knowledge of snoring. GASTROINTESTINAL: Denies any type of dysphagia to either liquids or solids. Denies nausea, vomiting, pyrosis, early satiety, abdominal pain, diarrhea, constipation, or changes in stool consistency or caliber. Denies coffee-ground emesis, hematemesis, hematochezia, or melanotic stools. GENITOURINARY: Denies frequency, urgency, nocturia, hematuria or incontinence (Storage/Irritative symptoms.) Low urinary stream, straining to void, urinary intermittency or hesitancy, splitting of the voiding stream, terminal dribbling. ENDOCRINOLOGIC: Denies polyuria, polydipsia, polyphagia or heat/cold intolerances. HEMATOLOGIC: Denies thrombophilia/previous clots, or coagulopathy/bleeding disorders. ONCOLOGIC: Denies personal history of malignancy. DERMATOLOGIC: Denies rashes or pruritus. PSYCHIATRIC: Denies any suicidal or homicidal ideation. Denies hallucinations. PHYSICAL EXAM GENERAL APPEARANCE: The patient is awake, alert, and oriented, in no acute cardiopulmonary distress. NEUROLOGICAL: Cranial nerves II-XII grossly intact. Motor is 5/5 in bilateral upper and lower extremities proximal to distal. No sensory deficits. HEENT: Face is symmetric. Pupils are equal and reactive. Extraocular movements are intact. NECK: Supple. No JVD. No thyromegaly. No submental, submandibular, pre- /postauricular, occipital or supraclavicular lymphadenopathy. CHEST: Normal chest expansion. No Telemetry. LUNGS: Absence of any rales, rhonchi or any wheezing. CARDIOVASCULAR: Regular. S1 and S2 normal. No appreciable rubs, murmurs or gallops. ABDOMEN: Soft, nontender, and nondistended. There is no rebound, voluntary guarding, or rigidity. : Deferred. No [place]. EXTREMITIES: Multiple open wound ulcers to both legs with some necrotic tissue. SKIN: No skin breakdown. Vital Signs (last 8hr) Date Time Temp Pulse Resp B/P (MAP) Pulse Ox O2 Delivery O2 Flow Rate FiO2 09/19/24 08:20 97.9 120 18 130/82 95 Room Air 09/19/24 04:00 97.9 124 20 121/81 96 Nasal Cannula 2.0 LABS: Laboratory: Test 09/19/24 05:35 09/19/24 04:06 09/18/24 06:49 09/18/24 05:42 Range/Units Whole Blood Glucose 120 H 70-110 MG/DL White Blood Count 12.3 #H 4.8-10.8 K/uL Red Blood Count 3.36 L 4.50-6.20 MIL/uL Hemoglobin 9.8 L 14.0-18.0 g/dL Hematocrit 29.3 L 42-54 % Mean Corpuscular Volume 87.2 79-99 fL Mean Corpuscular Hemoglobin 29.2 27.0-33.0 pg Mean Corpuscular Hemoglobin Concent 33.4 32.0-36.0 g/dL Red Cell Distribution Width 15.0 11.0-15.5 % Platelet Count 296 130-400 K/uL Mean Platelet Volume 9.8 7.5-10.5 fL Immature Granulocyte % (Auto) 0.7 0-1 % Neutrophils (%) (Auto) 82.6 H 40.0-77.0 % Lymphocytes (%) (Auto) 4.5 L 21.0-51.0 % Monocytes (%) (Auto) 10.6 3.0-13.0 % Eosinophils (%) (Auto) 1.4 0.0-8.0 % Basophils (%) (Auto) 0.2 0.0-5.0 % Neutrophils # (Auto) 10.2 H 1.8-7.7 K/uL Lymphocytes # (Auto) 0.6 L 1.0-4.8 K/uL Monocytes # (Auto) 1.3 H 0.1-1.0 K/uL Eosinophils # (Auto) 0.17 0.00-0.70 K/uL Basophils # (Auto) 0.03 0.00-0.20 K/uL Absolute Immature Granulocyte (auto 0.09 0-1 K/uL Nucleated Red Blood Cells 0.0 0.0-0.19 % Prothrombin Time 11.0 9.6-11.6 SEC Prothromb Time International Ratio 1.04 0.85-1.15 Activated Partial Thromboplast Time 31.8 26.3-35.5 SEC Sodium Level 140 136-145 mmol/L Potassium Level 4.3 3.5-5.1 mmol/L Chloride Level 105 101-111 mmol/L Carbon Dioxide Level 16 L 21-32 mmol/L Blood Urea Nitrogen 143 *H 7-18 mg/dL Creatinine 8.7 *H 0.5-1.3 mg/dL Glomerular Filtration Rate Calc 7 >90 mL/min Random Glucose 135 H 70-105 mg/dL Total Calcium 9.1 8.5-10.1 mg/dL Phosphorus Level 7.4 H 2.5-4.9 mg/dL Iron Level 78 # 65-175 mcg/dL Total Iron Binding Capacity 138 L 250-450 mcg/dL Percent Iron Saturation 56.5 H 30-44 % Total Bilirubin 0.3 # 0.2-1.0 mg/dL Aspartate Amino Transf (AST/SGOT) 10 10-37 U/L Alanine Aminotransferase (ALT/SGPT) 9 L 12-78 U/L Alkaline Phosphatase 83 50-136 U/L C-Reactive Protein, Quantitative 120.90 H 0.5-3.0 mg/L Total Protein 7.2 6.0-8.3 g/dL Albumin 2.9 L 3.5-5.0 g/dL Lipase 545 H 16-77 U/L Magnesium Level 2.40 1.80-2.40 mg/dL Amylase Level 404 *H 25-115 U/L Procalcitonin 15.39 H 0.05-0.5 ng/mL Thyroid Stimulating Hormone (TSH) 0.30 L 0.36-3.74 uIU/mL Urine Color YELLOW YELLOW Urine Appearance TURBID CLEAR Urine pH 5.5 5.0-8.0 Urine Specific [place] 1.011 1.001-1.031 Urine Protein 100 H NEGATIVE mg/dL Urine Glucose (UA) NEGATIVE NEGATIVE mg/dL Urine Ketones NEGATIVE NEGATIVE mg/dL Urine Occult Blood MODERATE H NEGATIVE Urine Nitrate NEGATIVE NEGATIVE Urine Bilirubin NEGATIVE NEGATIVE mg/dL Urine Urobilinogen 0.2 0.2-1.0 mg/dL Urine Leukocyte Esterase 500 H NEGATIVE [place]/uL Urine RBC 51-100 H 0-1 /HPF Urine WBC TNTC H 0-1 /HPF Urine WBC Clumps (Auto) MANY 0-1 /HPF Urine Squamous Epithelial Cells FEW 0-2 /HPF Urine Non-Squamous Epithelial Cells 3 0-2 /HPF Urine Bacteria MOD None Seen /HPF Urine Hyaline Casts 6-10 H 0-1 /LPF /LPF Test 09/17/24 23:58 09/17/24 22:57 09/17/24 22:49 Range/Units Lactic Acid Level 1.8 0.8-2.5 mmol/L White Cell Morphology Comment CONSISTENT W/DIFF Direct Bilirubin 0.1 0.0-0.3 mg/dL Triglycerides Level 179 30-200 mg/dL Troponin I High Sensitivity 10 4-75 ng/L B-Type Natriuretic Peptide 23 0-100 pg/mL Current Medications Medications (Trade) Dose Ordered Sig/Krishan Route PRN Reason Start Time Stop Time Status Last Admin Dose Admin Acetaminophen (TYLenol 325MG TAB) 650 mg Q4H PRN PO MILD PAIN (1-3) 09/18/24 03:00 10/18/24 02:59 Acetaminophen (TYLenol 325MG TAB) 650 mg Q6H PRN PO TEMPERATURE GREATER THAN 101.5 09/18/24 03:00 10/18/24 02:59 Calcium Gluconate 1 gm/Sodium Chloride 100 ml @ 0 mls/hr PROTOCOL IV 09/18/24 00:00 10/18/24 00:00 09/17/24 23:59 100 MLS/HR Dextrose (D50w) 50 ml AD PRN IV HYPOGLYCEMIA PROTOCOL 09/18/24 03:30 10/18/24 03:29 Epoetin John-epbx (Retacrit) 10,000 unit QSA SQ 09/20/24 09:00 10/20/24 08:59 Famotidine (Pepcid 20mg Vial) 20 mg Q48H IV 09/18/24 03:00 10/18/24 02:59 09/18/24 03:32 20 MG Glucagon (Glucagon 1mg Kit) 1 mg AD PRN IM HYPOGLYCEMIA PROTOCOL 09/18/24 03:30 10/18/24 03:29 Hydromorphone HCl (DiLAUDid 0.5MG INJ) 0.5 mg Q6H PRN IVP SEVERE PAIN (7-10) 09/18/24 15:30 09/23/24 15:29 09/19/24 06:50 0.5 MG Insulin Human Regular (humuLIN R 100 UNIT/ML 3ML) INSULIN SLIDING SCAL... ACHS SQ 09/18/24 07:30 10/18/24 07:29 Ondansetron HCl (zoFRAN 4MG INJ) 4 mg Q6H PRN IV NAUSEA/VOMITING 09/18/24 03:00 10/18/24 02:59 Pharmacy Profile Note (Lace Assessment) 1 each AD MISC 09/18/24 13:30 09/18/24 13:35 DC Piperacillin Sod/ Tazobactam Sod 50 ml @ 12.5 mls/hr Q12H IV 09/18/24 05:00 09/18/24 05:30 DC Piperacillin Sod/ Tazobactam Sod 50 ml @ 12.5 mls/hr Q12H IV 09/18/24 12:00 09/28/24 11:59 09/19/24 00:48 12.5 MLS/HR Sevelamer HCl (RENAgel 800 MG TAB) 800 mg TIDMEALS PO 09/19/24 12:00 10/19/24 11:59 Sodium Bicarbonate 150 meq/Dextrose 1,150 ml @ 100 mls/hr [id number] IVP 09/18/24 10:00 10/18/24 09:59 09/19/24 08:34 100 MLS/HR Vancomycin HCl 250 ml @ 125 mls/hr Q76H IV 09/21/24 06:00 10/01/24 05:59 Vancomycin HCl (Vancomycin Protocol) 1 each AD IV 09/18/24 04:00 10/02/24 03:59 DIAGNOSTICS / RADIOLOGY: [ ] ASSESSMENT: Acute on chronic renal failure POA Hyperkalemia POA Acute pancreatitis POA Metabolic acidosis POA Acute on chronic anemia due to CKD POA Acute leukocytosis POA Bilateral nephrostomy tube status POA Bilateral nonhealing ulcers necrosis to both lower legs POA Uncontrolled diabetes POA Hypertension POA PLAN: Acute on chronic renal failure -Nephrology consulted -Continue sodium bicarb drip for metabolic acidosis -Lokelma for hyperkalemia -Epogen for anemia -Oral phosphate binders -Patient refused dialysis. -Recommended urology consult for either removal or replacement of bilateral nephrostomy tubes. Bilateral nephrostomy tube status -Urology consulted. -Patient will undergo bilateral nephrostomy tube removal today by IR. Bilateral nonhealing ulcers necrosis to both lower legs -Wound care has been consulted -General surgery consulted -NPO for surgical debridement of nonhealing lower extremity ulcers today. -Patient continues on Zosyn and Vancomycin. Infectious disease has been consulted, we will follow their recommendations. Case discussed with attending physician and came up with above treatment and plan of care. MAGGIE GRACE MD September 19, 2024 10:26
[2024-09-19] MEDS: sevELAMer HCL 800 MG TABLET PO SCH (12:00)
--- NOTE | 2024-09-19 12:11 | CONS ---
GENERAL SURGERY CONSULTATION NOTE Date/Time Patient Seen: [September 19, 2024 ] Requesting Physician: [ Hospitalist] Reason for Consultation: [ Left calf wounds] History of Present Illness: [ Patient with a history of diabetes and chronic renal failure start developed some left calf wounds in April. Pain discomfort and worsening wounds continued to progress towards the last few months. Patient's condition became severe end of the came into the emergency room. 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 Patient indicates that he has been having difficulty ambulating on that leg due to the discomfort that he is feeling. Patient has poor compliance with this diabetes and his renal problems. Patient has had a history of nephrolithiasis requiring nephrostomy tubes.] Past Medical History: [Diabetes, chronic renal failure ] Past Surgical History: [Nephrostomy tubes and ureteral stents ] Family History: [Noncontributory] Social History: [The patient denies any illicit drug use ] Habits: [Never] smoker. [Denies] alcohol consumption. [Denies] illicit drug use Current Medications Medications (Trade) Dose Ordered Sig/Krishan Route Start Time Stop Time Status Last Admin Dose Admin Calcium Gluconate 1 gm/Sodium Chloride 100 ml @ 0 mls/hr PROTOCOL IV 09/18/24 00:00 10/18/24 00:00 09/17/24 23:59 100 MLS/HR Epoetin John-epbx (Retacrit) 10,000 unit QSA SQ 09/20/24 09:00 10/20/24 08:59 Famotidine (Pepcid 20mg Vial) 20 mg Q48H IV 09/18/24 03:00 10/18/24 02:59 09/18/24 03:32 20 MG Insulin Human Regular (humuLIN R 100 UNIT/ML 3ML) INSULIN SLIDING SCAL... ACHS SQ 09/18/24 07:30 10/18/24 07:29 Pharmacy Profile Note (Lace Assessment) 1 each AD MISC 09/18/24 13:30 09/18/24 13:35 DC Piperacillin Sod/ Tazobactam Sod 50 ml @ 12.5 mls/hr Q12H IV 09/18/24 05:00 09/18/24 05:30 DC Piperacillin Sod/ Tazobactam Sod 50 ml @ 12.5 mls/hr Q12H IV 09/18/24 12:00 6/25 11:59 09/19/24 00:48 12.5 MLS/HR Sevelamer HCl (RENAgel 800 MG TAB) 800 mg TIDMEALS PO 09/19/24 12:00 10/19/24 11:59 Sodium Bicarbonate 150 meq/Dextrose 1,150 ml @ 100 mls/hr [id number] IVP 09/18/24 10:00 10/18/24 09:59 09/19/24 08:34 100 MLS/HR Vancomycin HCl 250 ml @ 125 mls/hr Q76H IV 09/21/24 06:00 10/01/24 05:59 Vancomycin HCl (Vancomycin Protocol) 1 each AD IV 09/18/24 04:00 10/02/24 03:59 Review of Systems: Fourteen point review of systems negative except was mentioned in history of present illness Physical Examination: PHYSICAL EXAM EYES: Sclera white HENT: Oral nasal mucosa pink and moist NECK: Supple, . LUNGS: Unlabored CARDIOVASCULAR: Regular rate and rhythm ABDOMEN: Soft, nontender, nondistended CENTRAL NERVOUS SYSTEM: Awake, alert, oriented x3 SKIN: Left calf wounds LYMPHATICS: No peripheral lymphadenopathy MUSCULOSKELETAL: Motor and sensory function grossly intact EXTREMITIES: Left calf wounds. Crusting elevated tissue worrisome for calciphylaxis Vital Signs (last 8hr) Date Time Temp Pulse Resp B/P (MAP) Pulse Ox O2 Delivery O2 Flow Rate FiO2 09/19/24 08:34 95 Room Air* 0 21 09/19/24 08:20 97.9 120 18 130/82 95 Room Air Laboratory: [ ] Hematology Labs: Test 09/19/24 04:06 09/17/24 22:57 Range/Units White Blood Count 12.3 #H 4.8-10.8 K/uL Red Blood Count 3.36 L 4.50-6.20 MIL/uL Hemoglobin 9.8 L 14.0-18.0 g/dL Hematocrit 29.3 L 42-54 % Mean Corpuscular Volume 87.2 79-99 fL Mean Corpuscular Hemoglobin 29.2 27.0-33.0 pg Mean Corpuscular Hemoglobin Concent 33.4 32.0-36.0 g/dL Red Cell Distribution Width 15.0 11.0-15.5 % Platelet Count 296 130-400 K/uL Mean Platelet Volume 9.8 7.5-10.5 fL Immature Granulocyte % (Auto) 0.7 0-1 % Neutrophils (%) (Auto) 82.6 H 40.0-77.0 % Lymphocytes (%) (Auto) 4.5 L 21.0-51.0 % Monocytes (%) (Auto) 10.6 3.0-13.0 % Eosinophils (%) (Auto) 1.4 0.0-8.0 % Basophils (%) (Auto) 0.2 0.0-5.0 % Neutrophils # (Auto) 10.2 H 1.8-7.7 K/uL Lymphocytes # (Auto) 0.6 L 1.0-4.8 K/uL Monocytes # (Auto) 1.3 H 0.1-1.0 K/uL Eosinophils # (Auto) 0.17 0.00-0.70 K/uL Basophils # (Auto) 0.03 0.00-0.20 K/uL Absolute Immature Granulocyte (auto 0.09 0-1 K/uL Nucleated Red Blood Cells 0.0 0.0-0.19 % White Cell Morphology Comment CONSISTENT W/DIFF Chemistry Labs: Test 09/19/24 05:35 09/19/24 04:06 09/18/24 06:49 09/17/24 23:58 Range/Units Whole Blood Glucose 120 H 70-110 MG/DL Sodium Level 140 136-145 mmol/L Potassium Level 4.3 3.5-5.1 mmol/L Chloride Level 105 101-111 mmol/L Carbon Dioxide Level 16 L 21-32 mmol/L Blood Urea Nitrogen 143 *H 7-18 mg/dL Creatinine 8.7 *H 0.5-1.3 mg/dL Glomerular Filtration Rate Calc 7 >90 mL/min Random Glucose 135 H 70-105 mg/dL Total Calcium 9.1 8.5-10.1 mg/dL Phosphorus Level 7.4 H 2.5-4.9 mg/dL Iron Level 78 # 65-175 mcg/dL Total Iron Binding Capacity 138 L 250-450 mcg/dL Percent Iron Saturation 56.5 H 30-44 % Total Bilirubin 0.3 # 0.2-1.0 mg/dL Aspartate Amino Transf (AST/SGOT) 10 10-37 U/L Alanine Aminotransferase (ALT/SGPT) 9 L 12-78 U/L Alkaline Phosphatase 83 50-136 U/L C-Reactive Protein, Quantitative 120.90 H 0.5-3.0 mg/L Total Protein 7.2 6.0-8.3 g/dL Albumin 2.9 L 3.5-5.0 g/dL Lipase 545 H 16-77 U/L Magnesium Level 2.40 1.80-2.40 mg/dL Amylase Level 404 *H 25-115 U/L Procalcitonin 15.39 H 0.05-0.5 ng/mL Thyroid Stimulating Hormone (TSH) 0.30 L 0.36-3.74 uIU/mL Lactic Acid Level 1.8 0.8-2.5 mmol/L Test 09/17/24 22:57 09/17/24 22:49 Range/Units Direct Bilirubin 0.1 0.0-0.3 mg/dL Triglycerides Level 179 30-200 mg/dL Troponin I High Sensitivity 10 4-75 ng/L B-Type Natriuretic Peptide 23 0-100 pg/mL Coagulation Labs: Test 09/19/24 04:06 Range/Units Prothrombin Time 11.0 9.6-11.6 SEC Prothromb Time International Ratio 1.04 0.85-1.15 Activated Partial Thromboplast Time 31.8 26.3-35.5 SEC Diagnostics / Radiology: [Copy/Paste Echos/Imaging Report here] Assessment: [Left calf wounds. ] Plan: [Plan debridement of a left calf wounds. Risks associated with the surgery not limited to infection, bleeding, injury to surrounding structures has been expla ined to patient and he indicates he understands the risks and wants to proceed with surgery. ] MARQUISE GARCIA MD September 19, 2024 12:11
[2024-09-19] MEDS: ZOSYN 3.375GM+NS 50ML 50 ML ONE (12:12)
[2024-09-19] MEDS ORDERED: ondanSETRON 4MG INJ ONE (12:14)
[2024-09-19] MEDS ORDERED: GLYCOPYRROLATE 0.2 MG/ML 5 ML VIAL ONE (12:14)
[2024-09-19] MEDS ORDERED: dexaMETHasone SOD PHOSPHATE 10MG/ML 1ML VIAL ONE (12:14)
[2024-09-19] MEDS ORDERED: LIDOCAINE PF 100MG/5ML (2%) SYRINGE 5ML ONE (12:14)
[2024-09-19] MEDS ORDERED: proPOFol 10 MG/ML 20ML VIAL IV ONE (12:15)
[2024-09-19] MEDS ORDERED: NEOSTIGMINE METHYLSULFATE 1MG/ML IV ONE (12:15)
[2024-09-19] MEDS ORDERED: rocuRONium bROMide 10MG/1ML 5ML VL ONE ×2 (12:15→12:33)
[2024-09-19] MEDS ORDERED: SUCCINYLCHOLINE CHLORIDE 20 MG/ML 10 ML VIAL ONE (12:15)
[2024-09-19] MEDS ORDERED: FENTanyl CITRate PF 50 MCG/1 ML 2ML VIAL ONE (12:15)
[2024-09-19] MEDS ORDERED: phenylEPHRINE HCL 10 MG/ML 1ML VIAL IV ONE (12:21)
--- NOTE | 2024-09-19 12:58 | OP ---
Operative Note: DATE OF PROCEDURE: 09/19/24 SURGEON: MARQUISE GARCIA MD SOLUTIONS DEVELOPMENT ANALYST: [Page Lagunas CFA] ANESTHESIA: [General endotracheal anesthesia] ANESTHESIOLOGIST/MOTHER HELPER: [[facility] anesthesia team] PREOPERATIVE DIAGNOSIS: [Left calf wound worrisome for calciphylaxis] POSTOPERATIVE DIAGNOSIS: [Same] SYNOPSIS: [Left calf wound worrisome for calciphylaxis Excisional debridement of left calf wound Excision down to muscle Total diameter of area debrided was approximately 15 cm in diameter All sponges and instruments were accounted for at the end the case Patient tolerated the procedure well, there no complications] PROCEDURE: [Excisional debridement of left calf wound. Excision down to muscle. 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 Patient was brought back to operating room. Positioned in the supine position. Preoperative antibiotics were given. Bilateral SCDs were placed. Patient was intubated. Patient then was prepped and draped the usual fashion. Incision was made around the anterior wound. Dissection down to and around the entire necrotic tissue was done electrocautery. The dissection was actually carried down to the muscle. The necrotic tissue was removed and sent off to pathology. Then my attention was turned to the more posterior wound which appeared to be the larger wound. Skin incision was made. Dissection down to the healthy tissue which happens to be the muscle was done electrocautery. All the necrotic tissue was excised in total and sent off to pathology. The total diameter of the area debrided was approximately 15 cm. Then the wound was copiously irrigated. All irrigation was removed. Appropriate hemostasis was observed. Then the wound was dressed in a damp to dry fashion. Appropriate dressings were placed. Patient has woken up, transferred to a stretcher, taken to recovery room to recovery. All sponges and instruments were accounted for at the end the case. Patient tolerated the procedure well, there no complications.] MARQUISE GARCIA MD September 19, 2024 12:58
[2024-09-19] MEDS: MEPERIDINE-PF 50 MG/ML SYG ONE (13:22)
[2024-09-19] MEDS: SUGAMMADEX SODIUM 200 MG/2 ML VIAL IV ONE (15:56)
[2024-09-19] MEDS ORDERED: TRAM50TA4 PO (16:19)
[2024-09-19] MEDS ORDERED: MULT-1335 PO (16:19)
[2024-09-19] MEDS ORDERED: MAGN400T53 PO (16:19)
--- NOTE | 2024-09-19 21:36 | PN ---
INFECTIOUS DISEASE FOLLOWUP NOTE DATE OF SERVICE: 09/19/2024 SUBJECTIVE: The patient is seen and examined at bedside today. The patient has no fever, no chills. No nausea, no vomiting, no abdominal pain. No cough, no shortness of breath. No palpitations or orthopnea. No bleeding tendency. No rashes or itchiness. No depression or suicidal ideation. No back pain or neck swelling. PHYSICAL EXAMINATION: VITAL SIGNS: Temperature 97.5. EYES: No icterus. Pupils equal and reactive. HENT: No oral thrush seen. Moist oral mucosa. NECK: Supple. No JVD or thyromegaly. LUNGS: Good air entry. No rales, no rhonchi. CARDIOVASCULAR: S1 and S2 regular. No murmur heard. ABDOMEN: Full, soft, nontender. Bowel sound is present. CENTRAL NERVOUS SYSTEM: Awake, alert, oriented x 3. No focal deficits. SKIN: No rashes, no itchiness. LYMPHATIC: There is inguinal lymphadenopathy. BACK: No deformity, no pressure ulcer. EXTREMITIES: Wound involving the left leg, status post debridement. ASSESSMENT: A 54-year-old male with multiple problems including: * UTI. * Bilateral hydronephrosis. * Renal failure. * Bilateral leg ulcer. * ____. * Morbid obesity. PLAN: * Continue wound care. * Follow up cultures. * Continue pain management. * Continue antiemetic. * Continue Zosyn. * Continue DVT prophylaxis. * Follow up pathology result. TID: [id number] RECEIPT: [id number]
[2024-09-20] VITALS (7 sets, daily range): BP systolic 138–162; BP diastolic 71–102; PULSE 84–103; RESP 16–20; TEMP 97.9–98.8; O2SAT 98
[2024-09-20 07:35] LABS: BASOPHILS # (AUTO) 0.05 K/uL (0.00-0.20); BASOPHILS % (AUTO) 0.5 % (0.0-5.0); EOSINOPHILS % (AUTO) 2.1 % (0.0-8.0); HEMATOCRIT 25.5 % (42-54); IMMATURE GRANULOCYTE ABSOLUTE 0.06 K/uL (0-1); LYMPHOCYTES # (AUTO) 0.7 K/uL (1.0-4.8); MEAN CORPUSCULAR HEMOGLOBIN 28.8 pg (27.0-33.0); MEAN CORPUSCULAR HGB CONC 33.3 g/dL (32.0-36.0); MEAN CORPUSCULAR VOLUME 86.4 fL (79-99); MONOCYTES # (AUTO) 1.5 K/uL (0.1-1.0); MONOCYTES % (AUTO) 15.7 % (3.0-13.0); NEUTROPHILS # (AUTO) 7.2 K/uL (1.8-7.7); NEUTROPHILS % (AUTO) 74.1 % (40.0-77.0); PLATELET COUNT (AUTO) 250 K/uL (130-400); RED BLOOD CELL COUNT(AUTO) 2.95 MIL/uL (4.50-6.20); RED CELL DISTRIBUTION WIDTH 14.8 % (11.0-15.5); WHITE BLOOD COUNT (AUTO) 9.7 K/uL (4.8-10.8)
[2024-09-20 07:51] LABS: ALBUMIN 2.4 g/dL (3.5-5.0); BILIRUBIN,TOTAL 0.2 mg/dL (0.2-1.0); CREATININE 6.1 mg/dL (0.5-1.3); PHOSPHORUS 5.7 mg/dL (2.5-4.9); POTASSIUM 3.4 mmol/L (3.5-5.1); TOTAL PROTEIN, SERUM 6.3 g/dL (6.0-8.3)
[2024-09-20] MEDS: EPOETIN ALFA-EPBX (NON-ESRD) 10,000 UNIT/ML VIAL SQ SCH (08:32)
[2024-09-20 09:07] LABS: ERYTHROCYTE SEDIMENTATION RATE 97 MM/HR (0-20)
--- NOTE | 2024-09-20 10:10 | PN ---
NEPHROLOGY PROGRESS NOTE Date/Time Patient Seen: September 20, 2024 SUBJECTIVE: The patient is a 54-year-old male with a history of diabetes mellitus, hypertension. The patient with history of obstructive uropathy s/p nephrostomy tube placement. The patient with significant renal dysfunction. He is scheduled for nephrostomy tube replacement later today. The patient was seen by Urology and he is being seen as a followup visit for all of the above. The patient does have advanced renal dysfunction. He is refusing any form of renal replacement therapy. He remains on the bicarb drip for the acidosis. The patient will be started on Epogen for the anemia. The patient will be started on phosphate binders. S/P Excisional debridement of left calf wound. Excision down to muscle. Renal function continues to improve He was seen in the medical floor, in no acute distress REVIEW OF SYSTEMS: GENERAL: Negative for any nausea, vomiting, fevers, chills, or weight loss. NEUROLOGIC: Negative for any blurry vision, blind spots, double vision, facial asymmetry, dysphagia, dysarthria, hemiparesis, hemisensory deficits, vertigo, ataxia. HEENT: Negative for any head trauma, neck trauma, neck stiffness, photophobia, phonophobia, sinusitis, rhinitis. CARDIAC: Negative for any chest pain, dyspnea on exertion, paroxysmal nocturnal dyspnea, peripheral edema. PULMONARY: Negative for any shortness of breath, wheezing, COPD, or TB exposure. GASTROINTESTINAL: Negative for any abdominal pain, nausea, vomiting, bright red blood per rectum, melena. GENITOURINARY: Negative for any dysuria, hematuria, incontinence. INTEGUMENTARY: Negative for any rashes, cuts, insect bites. RHEUMATOLOGIC: Negative for any joint pains, photosensitive rashes, history of vasculitis or kidney problems. HEMATOLOGIC: Negative for any abnormal bruising, frequent infections or bleeding. Vital Signs (last 8hr) Date Time Temp Pulse Resp B/P (MAP) Pulse Ox O2 Delivery O2 Flow Rate FiO2 09/20/24 08:01 98.1 100 18 148/88 98 Room Air 09/20/24 04:00 98.1 84 16 158/92 95 Room Air PHYSICAL EXAM: GENERAL: Alert and oriented x 3. No acute distress. Well-nourished. EYES: EOMI. Anicteric. HENT: Moist mucous membranes. No scleral icterus. No cervical lymphadenopathy. LUNGS: Clear to auscultation bilaterally. No accessory muscle use. CARDIOVASCULAR: Regular rate and rhythm. No murmur. No JVD. ABDOMEN: Soft, non-tender and non-distended. No palpable masses. EXTREMITIES: No edema. Non-tender.?SKIN: No rashes or lesions. Warm. NEUROLOGIC: No focal neurological deficits. CN II-XII grossly intact, but not individually tested. PSYCHIATRIC: Cooperative. Appropriate mood and affect. Current Medications Medications (Trade) Dose Ordered Sig/Krishan Route PRN Reason Start Time Stop Time Status Last Admin Dose Admin Acetaminophen (TYLenol 325MG TAB) 650 mg Q4H PRN PO MILD PAIN (1-3) 09/18/24 03:00 10/18/24 02:59 Acetaminophen (TYLenol 325MG TAB) 650 mg Q6H PRN PO TEMPERATURE GREATER THAN 101.5 09/18/24 03:00 10/18/24 02:59 Calcium Gluconate 1 gm/Sodium Chloride 100 ml @ 0 mls/hr PROTOCOL IV 09/18/24 00:00 10/18/24 00:00 09/17/24 23:59 100 MLS/HR Dextrose (D50w) 50 ml AD PRN IV HYPOGLYCEMIA PROTOCOL 09/18/24 03:30 10/18/24 03:29 Epoetin John-epbx (Retacrit) 10,000 unit QSA SQ 09/20/24 09:00 10/20/24 08:59 09/20/24 08:32 10,000 UNIT Famotidine (Pepcid 20mg Vial) 20 mg Q48H IV 09/18/24 03:00 10/18/24 02:59 09/20/24 03:35 20 MG Glucagon (Glucagon 1mg Kit) 1 mg AD PRN IM HYPOGLYCEMIA PROTOCOL 09/18/24 03:30 10/18/24 03:29 Hydromorphone HCl (DiLAUDid 0.5MG INJ) 0.5 mg Q6H PRN IVP SEVERE PAIN (7-10) 09/18/24 15:30 09/23/24 15:29 09/20/24 05:11 0.5 MG Insulin Human Regular (humuLIN R 100 UNIT/ML 3ML) INSULIN SLIDING SCAL... ACHS SQ 09/18/24 07:30 10/18/24 07:29 Ondansetron HCl (zoFRAN 4MG INJ) 4 mg Q6H PRN IV NAUSEA/VOMITING 09/18/24 03:00 10/18/24 02:59 Pharmacy Profile Note (Lace Assessment) 1 each AD MISC 09/18/24 13:30 09/18/24 13:35 DC Piperacillin Sod/ Tazobactam Sod 50 ml @ 12.5 mls/hr Q12H IV 09/18/24 05:00 09/18/24 05:30 DC Piperacillin Sod/ Tazobactam Sod 50 ml @ 12.5 mls/hr Q12H IV 09/18/24 12:00 09/28/24 11:59 09/20/24 00:30 12.5 MLS/HR Sevelamer HCl (RENAgel 800 MG TAB) 800 mg TIDMEALS PO 09/19/24 12:00 10/19/24 11:59 09/20/24 08:31 800 MG Sodium Bicarbonate 150 meq/Dextrose 1,150 ml @ 100 mls/hr [id number] IVP 09/18/24 10:00 10/18/24 09:59 09/20/24 08:33 100 MLS/HR Vancomycin HCl 250 ml @ 125 mls/hr Q76H IV 09/21/24 06:00 10/01/24 05:59 Vancomycin HCl (Vancomycin Protocol) 1 each AD IV 09/18/24 04:00 10/02/24 03:59 LABORATORY: [ ] Hematology Labs: Test 09/20/24 06:58 Range/Units White Blood Count 9.7 4.8-10.8 K/uL Red Blood Count 2.95 L 4.50-6.20 MIL/uL Hemoglobin 8.5 L 14.0-18.0 g/dL Hematocrit 25.5 L 42-54 % Mean Corpuscular Volume 86.4 79-99 fL Mean Corpuscular Hemoglobin 28.8 27.0-33.0 pg Mean Corpuscular Hemoglobin Concent 33.3 32.0-36.0 g/dL Red Cell Distribution Width 14.8 11.0-15.5 % Platelet Count 250 130-400 K/uL Mean Platelet Volume 10.8 H 7.5-10.5 fL Immature Granulocyte % (Auto) 0.6 0-1 % Neutrophils (%) (Auto) 74.1 40.0-77.0 % Lymphocytes (%) (Auto) 7.0 L 21.0-51.0 % Monocytes (%) (Auto) 15.7 H 3.0-13.0 % Eosinophils (%) (Auto) 2.1 0.0-8.0 % Basophils (%) (Auto) 0.5 0.0-5.0 % Neutrophils # (Auto) 7.2 1.8-7.7 K/uL Lymphocytes # (Auto) 0.7 L 1.0-4.8 K/uL Monocytes # (Auto) 1.5 H 0.1-1.0 K/uL Eosinophils # (Auto) 0.20 0.00-0.70 K/uL Basophils # (Auto) 0.05 0.00-0.20 K/uL Absolute Immature Granulocyte (auto 0.06 0-1 K/uL Nucleated Red Blood Cells 0.0 0.0-0.19 % Erythrocyte Sedimentation Rate 97 H 0-20 MM/HR Chemistry Labs: Test 09/20/24 06:58 09/20/24 05:14 09/19/24 04:06 Range/Units Sodium Level 143 136-145 mmol/L Potassium Level 3.4 L 3.5-5.1 mmol/L Chloride Level 104 101-111 mmol/L Carbon Dioxide Level 29 21-32 mmol/L Blood Urea Nitrogen 109 *H 7-18 mg/dL Creatinine 6.1 H 0.5-1.3 mg/dL Glomerular Filtration Rate Calc 10 >90 mL/min Random Glucose 217 H 70-105 mg/dL Total Calcium 8.3 L 8.5-10.1 mg/dL Phosphorus Level 5.7 H 2.5-4.9 mg/dL Total Bilirubin 0.2 0.2-1.0 mg/dL Aspartate Amino Transf (AST/SGOT) 10 10-37 U/L Alanine Aminotransferase (ALT/SGPT) 14 12-78 U/L Alkaline Phosphatase 64 50-136 U/L C-Reactive Protein, Quantitative 90.50 H 0.5-3.0 mg/L Total Protein 6.3 6.0-8.3 g/dL Albumin 2.4 L 3.5-5.0 g/dL Whole Blood Glucose 133 H 70-110 MG/DL Iron Level 78 # 65-175 mcg/dL Total Iron Binding Capacity 138 L 250-450 mcg/dL Percent Iron Saturation 56.5 H 30-44 % Lipase 545 H 16-77 U/L Coagulation Labs: Test 09/19/24 04:06 Range/Units Prothrombin Time 11.0 9.6-11.6 SEC Prothromb Time International Ratio 1.04 0.85-1.15 Activated Partial Thromboplast Time 31.8 26.3-35.5 SEC DIAGNOSTICS / RADIOLOGY: REASON: GEOVANI; NEPHROSTOMY TUBES ORDERING PHYSICIAN: ROMIE VICTOR PROCEDURE: ABD PEL WO - CT ABDOMEN/PELVIS W/O CONTRAST CT ABDOMEN/PELVIS W/O CONTRAST HISTORY: Acute renal insufficiency COMPARISON: 08/08/2024 TECHNIQUE: Multiple sequential axial images of the abdomen and pelvis were obtained from the dome of the diaphragm through symphysis pubis. Patient was not given contrast through intravenous route. Oral contrast was not given. FINDINGS: No pleural effusion is seen bilaterally. There is no evidence of parenchymal disease or pulmonary nodule of the visualized lower lungs. Degenerative changes of the thoracolumbar spine are present. The heart is not enlarged. Gallbladder is distended. There is left adrenal nodule with calcification measuring 3.3 x 2.6 cm. Bilateral percutaneous nephrostomy tubes are seen. The liver, spleen, right adrenal gland and pancreas are unremarkable. There is no evidence of hydronephrosis bilaterally. No evidence of renal stone is seen. Fecal material is seen in the colon. There are normal size retroperitoneal and mesenteric lymph nodes. No ascites is seen. No CT evidence of acute appendicitis is seen. Pelvic sidewalls are symmetric bilaterally. Bladder is poorly distended. IMPRESSION: 1. Bilateral percutaneous nephrostomy tube in place. CT was performed with one or more following dose reduction techniques: automated exposure control, adjustment of the mA and kv according to patient's size, or use of a iterative reconstruction technique. DICTATED BY: ROBBIE GARCIA MD DATE: 09/18/24 0101 ASSESSMENT: Acute on chronic renal failure POA Hyperkalemia POA Acute pancreatitis POA Metabolic acidosis POA Acute on chronic anemia due to CKD POA Acute leukocytosis POA Bilateral nephrostomy tube status POA Bilateral nonhealing ulcers necrosis to both lower legs POA Uncontrolled diabetes POA Hypertension POA PLAN: Labs, diagnostic, radiologic exams reviewed and interpreted by myself and supervising physician. We have reviewed external records in detail Discontinue Vancomycin due to worsening renal function, use alternative an tibiotic. Discontinue sodium bicarbonate drip, may continue with normal saline. Start Nephro-Alfred daily Follow renal diabetic diet Require close monitoring of renal function and electrolytes Order CBC, CMP, and electrolytes in am Renal diabetic diet BiPAP as necessary, for respiratory distress Monitor blood pressure adjust medication doses as needed Avoid hypotensive episodes May use Dilaudid 0.5 mg IV every 6 hours as needed for severe pain Monitor blood sugars Strict intake, output, and daily weight should be monitored Please renally adjust medications Avoid nephrotoxic and nonsteroidal drugs Avoid contrast if possible Will continue to monitor renal function, anemia, electrolytes Treatment plan discussed with patient Questions were answered We have discussed with the other team physicians in detail about the care plan We will continue to monitor the patient closely ATTESTATION BY PHYSICIAN I have seen and examined the patient. I reviewed the documentation, medical decision making, and treatment plan as noted by the mid-level provider above. I agree with the findings and plan of care. ANN MARIE GRAY MD, [facility] September 20, 2024 10:10
[2024-09-20] MEDS: LISINOPRIL 20 MG TABLET PO ONE (12:19)
[2024-09-20] MEDS: amLODIPine 5 MG TAB PO ONE (16:46)
--- NOTE | 2024-09-20 17:59 | PN ---
INFECTIOUS DISEASE PROGRESS NOTE Date of Service: September 20, 2024 SUBJECTIVE: Patient was seen and examined at bedside in room 313. Patient is awake, alert and oriented x3. Patient with bilateral leg ulcers and status post debridement of left calf wound day # 1. The preliminary urine culture results is growing Gram-negative rods. We will follow up on the final cultures results. We will continue on Zosyn as currently ordered. PHYSICAL EXAM EYES: Anicteric. Pupils equal and reactive. HENT: No oral thrush seen, moist Oral mucosa NECK: Supple, no JVD or thyromegaly. LUNGS: Good air entry. No rales, no rhonchi. CARDIOVASCULAR: S1, S2 regular. No murmur heard. ABDOMEN: Soft, non tender, bowel sounds present, no organomegaly. CENTRAL NERVOUS SYSTEM: Awake, alert, oriented x 3. SKIN: No rashes, no swelling. LYMPHATICS: No peripheral lymphadenopathy MUSCULOSKELETAL: No joint swelling, erythema or tenderness. EXTREMITIES: No cyanosis or clubbing. Bilateral leg ulcers. BACK: No deformity, no pressure ulcer. Bilateral nephrostomy tubes. GENITOURINARY: No dysuria or hematuria Vital Sign (Last 12 Hours) 09/20/24 09/20/24 09/20/24 09/20/24 08:01 08:31 11:17 16:02 Temp 98.1 97.9 98.4 Pulse 100 87 91 Resp 18 18 18 B/P (MAP) 148/88 161/96 141/102 Pulse Ox 98 98 96 96 O2 Delivery Room Air Room Air* Room Air Room Air O2 Flow Rate 0 FiO2 21 Intake & Output (last 24hrs) 09/19/24 09/19/24 09/20/24 15:00 23:00 07:00 Intake Total 290.0 ml 30 ml Output Total 400 ml 920 ml Balance -400 ml 290.0 ml -890 ml LABS: Laboratory: Test 09/20/24 06:58 09/20/24 05:14 09/19/24 04:06 Range/Units White Blood Count 9.7 4.8-10.8 K/uL Red Blood Count 2.95 L 4.50-6.20 MIL/uL Hemoglobin 8.5 L 14.0-18.0 g/dL Hematocrit 25.5 L 42-54 % Mean Corpuscular Volume 86.4 79-99 fL Mean Corpuscular Hemoglobin 28.8 27.0-33.0 pg Mean Corpuscular Hemoglobin Concent 33.3 32.0-36.0 g/dL Red Cell Distribution Width 14.8 11.0-15.5 % Platelet Count 250 130-400 K/uL Mean Platelet Volume 10.8 H 7.5-10.5 fL Immature Granulocyte % (Auto) 0.6 0-1 % Neutrophils (%) (Auto) 74.1 40.0-77.0 % Lymphocytes (%) (Auto) 7.0 L 21.0-51.0 % Monocytes (%) (Auto) 15.7 H 3.0-13.0 % Eosinophils (%) (Auto) 2.1 0.0-8.0 % Basophils (%) (Auto) 0.5 0.0-5.0 % Neutrophils # (Auto) 7.2 1.8-7.7 K/uL Lymphocytes # (Auto) 0.7 L 1.0-4.8 K/uL Monocytes # (Auto) 1.5 H 0.1-1.0 K/uL Eosinophils # (Auto) 0.20 0.00-0.70 K/uL Basophils # (Auto) 0.05 0.00-0.20 K/uL Absolute Immature Granulocyte (auto 0.06 0-1 K/uL Nucleated Red Blood Cells 0.0 0.0-0.19 % Erythrocyte Sedimentation Rate 97 H 0-20 MM/HR Sodium Level 143 136-145 mmol/L Potassium Level 3.4 L 3.5-5.1 mmol/L Chloride Level 104 101-111 mmol/L Carbon Dioxide Level 29 21-32 mmol/L Blood Urea Nitrogen 109 *H 7-18 mg/dL Creatinine 6.1 H 0.5-1.3 mg/dL Glomerular Filtration Rate Calc 10 >90 mL/min Random Glucose 217 H 70-105 mg/dL Total Calcium 8.3 L 8.5-10.1 mg/dL Phosphorus Level 5.7 H 2.5-4.9 mg/dL Total Bilirubin 0.2 0.2-1.0 mg/dL Aspartate Amino Transf (AST/SGOT) 10 10-37 U/L Alanine Aminotransferase (ALT/SGPT) 14 12-78 U/L Alkaline Phosphatase 64 50-136 U/L C-Reactive Protein, Quantitative 90.50 H 0.5-3.0 mg/L Total Protein 6.3 6.0-8.3 g/dL Albumin 2.4 L 3.5-5.0 g/dL Whole Blood Glucose 133 H 70-110 MG/DL Prothrombin Time 11.0 9.6-11.6 SEC Prothromb Time International Ratio 1.04 0.85-1.15 Activated Partial Thromboplast Time 31.8 26.3-35.5 SEC Iron Level 78 # 65-175 mcg/dL Total Iron Binding Capacity 138 L 250-450 mcg/dL Percent Iron Saturation 56.5 H 30-44 % Lipase 545 H 16-77 U/L DIAGNOSTICS / RADIOLOGY: PATIENT: JAYRO LIRIANO ACCT: [id number] LOC: [facility] U: [id number] AGE/SX: 54/M ROOM: [facility] RE09/18/[address]: LEONCIO LEARY MD : 1970 BED: 1 DIS: STATUS: ADM IN TLOC: SPEC: [id number] OBED: 09/18/24 STATUS: RES REQ: [id number] RECD: 09/19/[address] [facility] [address]: ROMIE VICTOR SOURCE: [facility] [place] ENTR: 09/19/[address]: ORIN PEREZ MD SPDESC: CLEAN CAT LEONCIO LEARY MD, JORGE H MD REYES, RAUL MD RODRIGUEZ,ABBEY BEAN MD ORDERED: AERO ID & SENS Procedure Result Jamei Date-Time AEROBIC ID & SENSITIVITIES Preliminary 09/20/24-0614 MRL COLONY DESCRIPTION: DAY 1: COLONY COUNT: >100,000 CFU/ML GRAM NEGATIVE RODS IDENTIFICATION AND SENSITIVITY TO FOLLOW Test(s) performed by: [facility] [address] [place] [address] ASSESSMENT: Urinary tract infection. Leukocytosis resolving. Bilateral leg ulcers, status post debridement of left calf wound. History of bilateral hydronephrosis with nephrostomy tubes in place. Acute renal failure. Diabetes mellitus. PLAN: Continue Zosyn. Continue pain management. We will follow up on the final cultures results. Antibiotics to be adjusted when culture is updated or finalized. Continue antidiabetics. Continue wound care. This case was reviewed and discussed with my supervising physician and the above assessment and plan was formulated and agreed upon. ATTESTATION BY PHYSICIAN I have seen and examined the patient. I reviewed the documentation, medical decision making, and treatment plan as noted by the mid-level provider above. I agree with the findings and plan of care. ORIN PEREZ MD, MIRTA L FNP September 20, 2024 17:59
--- NOTE | 2024-09-20 20:43 | PN ---
[facility] PROGRESS NOTE Date of Service: September 20, 2024 Time of Service: 20:42 SUBJECTIVE: This is a 54-year-old male past medical history of kidney disease, kidney stones with bilateral nephrostomy tube, diabetes and hypertension who was brought by EMS to the ED for complaints of abdominal pain associated with generalized body weakness, nausea and vomiting. On my evaluation patient states the reason why he came to the ER today is because of bilateral leg pain which has been hurting and he cant tolerate it anymore he said.Patient has multiple open wound ulcers with some necrotic tissue to both legs and as per patient that has been there since April 2023.Patient also reports he has a bilateral nephrostomy tube that was placed on September 2023 and supposedly should come off after 2 weeks but because of insurance issue it has not been removed. Seen and examined patient in the ER awake,alert and coherent.Patient appears comfortable,denies fever,chills,chest pain,palpitation,cough,shortness of breath,nausea,vomiting abdominal pain and diarrhea.Patient states he still voids with no problem. Vital signs temperature 98.2, heart rate 108, blood pressure 121/58 saturation 99% on room air. Labs: WBC 17 with negative left shift of neutrophils 82, hemoglobin 10, hematocrit 34, platelet count 378. Sodium 133, potassium six, chloride 98, carbon dioxide 11, BUN 162, creatinine 11 GFR five glucose 195 lactic acid 1.8 AST nine ALT nine BNP 23 albumin 3.1, triglycerides 179 lipase 791 troponin 10. While in the ER patient received Zosyn IV, sodium bicarb 50 mEq IV, Zofran 4 mg IV, Lokelma 10 g p.o., morphine 2 mg IV, insulin 10 units IV D50 25 mL IV, calcium gluconate 1 g IV and patient is being started on sodium bicarb at 100 mL/hour. We will admit patient for further medical management. 09/18: Patient was seen and examined this morning at bedside.Patient denies chest pain, shortness of breath, nausea, vomiting, fever, chills. Patient reports abdominal tenderness, worse in the right lower quadrant. Patient reports that he does not follow up with a primary care physician. Patient has bilateral nephrostomy tubes that were placed in April of 2023, but has not had them removed due to not having enough money to pay the co-pay at the urologist office. Patients renal function is abnormal, nephrology has been consulted and recommends Lokelma and sodium bicarbonate for the metabolic acidosis. Per Dr. Cadet, urology to be consulted for either removal or replacement of nephrostomy tubes. Urology has been consulted. 09/19: Patient was seen and examined this morning at bedside. Patient denies chest pain, shortness of breath, nausea, vomiting, fever, chills. Patient is scheduled to get a external debridement of the left calf. Patient is getting a removal of the bilateral nephrostomy tubes today by Interventional Radiology. Patient is currently NPO. Patient has refused dialysis, and continues on a bicarb drip for metabolic acidosis. Patient continues on vancomycin and Zosyn. Patient was seen and examined this morning at bedside Patient with bilateral leg ulcers and status post debridement of left calf wound. The preliminary urine culture is growing Gram-negative rods. Discussed with ID/Continue Zosyn REVIEW OF SYSTEMS CONSTITUTIONAL: Denies fevers, chills, or night sweats. No unintentional weight loss reported. NEUROLOGICAL: Denies headache, amaurosis fugax, motor weakness, sensory deficit, vertigo/spinning sensation, gait abnormalities, or tremors. ENT: No hearing loss, otalgia, otorrhea, rhinitis, rhinorrhea, hoarseness, or sore throat. CARDIOVASCULAR: Denies any exertional angina, dyspnea on exertion, orthopnea, paroxysmal nocturnal dyspnea, palpitations, life-threatening arrhythmias, claudication. PULMONARY: Denies any shortness of breath, cough, phlegm/sputum, hemoptysis, pleuritic chest pain. SLEEP: Denies morning headaches, daytime somnolence or napping. Denies difficulty falling asleep, staying asleep, waking from sleep. Denies knowledge of snoring. GASTROINTESTINAL: Denies any type of dysphagia to either liquids or solids. Denies nausea, vomiting, pyrosis, early satiety, abdominal pain, diarrhea, constipation, or changes in stool consistency or caliber. Denies coffee-ground emesis, hematemesis, hematochezia, or melanotic stools. GENITOURINARY: Denies frequency, urgency, nocturia, hematuria or incontinence (Storage/Irritative symptoms.) Low urinary stream, straining to void, urinary intermittency or hesitancy, splitting of the voiding stream, terminal dribbling. ENDOCRINOLOGIC: Denies polyuria, polydipsia, polyphagia or heat/cold intolerances. HEMATOLOGIC: Denies thrombophilia/previous clots, or coagulopathy/bleeding disorders. ONCOLOGIC: Denies personal history of malignancy. DERMATOLOGIC: Denies rashes or pruritus. PSYCHIATRIC: Denies any suicidal or homicidal ideation. Denies hallucinations. PHYSICAL EXAM GENERAL APPEARANCE: The patient is awake, alert, and oriented, in no acute cardiopulmonary distress. NEUROLOGICAL: Cranial nerves II-XII grossly intact. Motor is 5/5 in bilateral upper and lower extremities proximal to distal. No sensory deficits. HEENT: Face is symmetric. Pupils are equal and reactive. Extraocular movements are intact. NECK: Supple. No JVD. No thyromegaly. No submental, submandibular, pre- /postauricular, occipital or supraclavicular lymphadenopathy. CHEST: Normal chest expansion. No Telemetry. LUNGS: Absence of any rales, rhonchi or any wheezing. CARDIOVASCULAR: Regular. S1 and S2 normal. No appreciable rubs, murmurs or gallops. ABDOMEN: Soft, nontender, and nondistended. There is no rebound, voluntary guarding, or rigidity. : Deferred. No [place]. EXTREMITIES: Multiple open wound ulcers to both legs with some necrotic tissue. SKIN: No skin breakdown. Vital Signs (last 8hr) Date Time Temp Pulse Resp B/P (MAP) Pulse Ox O2 Delivery O2 Flow Rate FiO2 09/20/24 20:00 97.9 91 16 162/71 94 Room Air 09/20/24 16:02 98.4 91 18 141/102 96 Room Air LABS: Laboratory: Test 09/20/24 06:58 09/20/24 05:14 09/19/24 04:06 Range/Units White Blood Count 9.7 4.8-10.8 K/uL Red Blood Count 2.95 L 4.50-6.20 MIL/uL Hemoglobin 8.5 L 14.0-18.0 g/dL Hematocrit 25.5 L 42-54 % Mean Corpuscular Volume 86.4 79-99 fL Mean Corpuscular Hemoglobin 28.8 27.0-33.0 pg Mean Corpuscular Hemoglobin Concent 33.3 32.0-36.0 g/dL Red Cell Distribution Width 14.8 11.0-15.5 % Platelet Count 250 130-400 K/uL Mean Platelet Volume 10.8 H 7.5-10.5 fL Immature Granulocyte % (Auto) 0.6 0-1 % Neutrophils (%) (Auto) 74.1 40.0-77.0 % Lymphocytes (%) (Auto) 7.0 L 21.0-51.0 % Monocytes (%) (Auto) 15.7 H 3.0-13.0 % Eosinophils (%) (Auto) 2.1 0.0-8.0 % Basophils (%) (Auto) 0.5 0.0-5.0 % Neutrophils # (Auto) 7.2 1.8-7.7 K/uL Lymphocytes # (Auto) 0.7 L 1.0-4.8 K/uL Monocytes # (Auto) 1.5 H 0.1-1.0 K/uL Eosinophils # (Auto) 0.20 0.00-0.70 K/uL Basophils # (Auto) 0.05 0.00-0.20 K/uL Absolute Immature Granulocyte (auto 0.06 0-1 K/uL Nucleated Red Blood Cells 0.0 0.0-0.19 % Erythrocyte Sedimentation Rate 97 H 0-20 MM/HR Sodium Level 143 136-145 mmol/L Potassium Level 3.4 L 3.5-5.1 mmol/L Chloride Level 104 101-111 mmol/L Carbon Dioxide Level 29 21-32 mmol/L Blood Urea Nitrogen 109 *H 7-18 mg/dL Creatinine 6.1 H 0.5-1.3 mg/dL Glomerular Filtration Rate Calc 10 >90 mL/min Random Glucose 217 H 70-105 mg/dL Total Calcium 8.3 L 8.5-10.1 mg/dL Phosphorus Level 5.7 H 2.5-4.9 mg/dL Total Bilirubin 0.2 0.2-1.0 mg/dL Aspartate Amino Transf (AST/SGOT) 10 10-37 U/L Alanine Aminotransferase (ALT/SGPT) 14 12-78 U/L Alkaline Phosphatase 64 50-136 U/L C-Reactive Protein, Quantitative 90.50 H 0.5-3.0 mg/L Total Protein 6.3 6.0-8.3 g/dL Albumin 2.4 L 3.5-5.0 g/dL Whole Blood Glucose 133 H 70-110 MG/DL Prothrombin Time 11.0 9.6-11.6 SEC Prothromb Time International Ratio 1.04 0.85-1.15 Activated Partial Thromboplast Time 31.8 26.3-35.5 SEC Iron Level 78 # 65-175 mcg/dL Total Iron Binding Capacity 138 L 250-450 mcg/dL Percent Iron Saturation 56.5 H 30-44 % Lipase 545 H 16-77 U/L Current Medications Medications (Trade) Dose Ordered Sig/Krishan Route PRN Reason Start Time Stop Time Status Last Admin Dose Admin Acetaminophen (TYLenol 325MG TAB) 650 mg Q4H PRN PO MILD PAIN (1-3) 09/18/24 03:00 10/18/24 02:59 Acetaminophen (TYLenol 325MG TAB) 650 mg Q6H PRN PO TEMPERATURE GREATER THAN 101.5 09/18/24 03:00 10/18/24 02:59 Calcium Gluconate 1 gm/Sodium Chloride 100 ml @ 0 mls/hr PROTOCOL IV 09/18/24 00:00 10/18/24 00:00 09/17/24 23:59 100 MLS/HR Dextrose (D50w) 50 ml AD PRN IV HYPOGLYCEMIA PROTOCOL 09/18/24 03:30 10/18/24 03:29 Epoetin John-epbx (Retacrit) 10,000 unit QSA SQ 09/20/24 09:00 10/20/24 08:59 09/20/24 08:32 10,000 UNIT Famotidine (Pepcid 20mg Vial) 20 mg Q48H IV 09/18/24 03:00 10/18/24 02:59 09/20/24 03:35 20 MG Glucagon (Glucagon 1mg Kit) 1 mg AD PRN IM HYPOGLYCEMIA PROTOCOL 09/18/24 03:30 10/18/24 03:29 Hydromorphone HCl (DiLAUDid 0.5MG INJ) 0.5 mg Q6H PRN IVP SEVERE PAIN (7-10) 09/18/24 15:30 09/23/24 15:29 09/20/24 05:11 0.5 MG Insulin Human Regular (humuLIN R 100 UNIT/ML 3ML) INSULIN SLIDING SCAL... ACHS SQ 09/18/24 07:30 10/18/24 07:29 Lisinopril (Prinivil 20mg) 20 mg DAILY PO 09/21/24 09:00 10/21/24 08:59 Ondansetron HCl (zoFRAN 4MG INJ) 4 mg Q6H PRN IV NAUSEA/VOMITING 09/18/24 03:00 10/18/24 02:59 Pharmacy Profile Note (Lace Assessment) 1 each AD MISC 09/18/24 13:30 09/18/24 13:35 DC Piperacillin Sod/ Tazobactam Sod 50 ml @ 12.5 mls/hr Q12H IV 09/18/24 05:00 09/18/24 05:30 DC Piperacillin Sod/ Tazobactam Sod 50 ml @ 12.5 mls/hr Q12H IV 09/18/24 12:00 09/28/24 11:59 09/20/24 12:19 12.5 MLS/HR Sevelamer HCl (RENAgel 800 MG TAB) 800 mg TIDMEALS PO 09/19/24 12:00 10/19/24 11:59 09/20/24 16:46 800 MG Sodium Bicarbonate 150 meq/Dextrose 1,150 ml @ 100 mls/hr [id number] IVP 09/18/24 10:00 09/20/24 13:06 DC 09/20/24 08:33 100 MLS/HR Vancomycin HCl 250 ml @ 125 mls/hr Q76H IV 09/21/24 06:00 09/20/24 13:06 DC Vancomycin HCl (Vancomycin Protocol) 1 each AD IV 09/18/24 04:00 09/20/24 13:08 DC Vitamin B Complex/ Vit C/Folic Acid (Nephrovite Tablet) 1 cap DAILY PO 09/21/24 09:00 10/21/24 08:59 DIAGNOSTICS / RADIOLOGY: [ ] ASSESSMENT: Acute on chronic renal failure POA Hyperkalemia POA Acute pancreatitis POA Metabolic acidosis POA Acute on chronic anemia due to CKD POA Acute leukocytosis POA Bilateral nephrostomy tube status POA Bilateral nonhealing ulcers necrosis to both lower legs POA Uncontrolled diabetes POA Hypertension POA PLAN: Acute on chronic renal failure -Nephrology consulted -Continue sodium bicarb drip for metabolic acidosis -Lokelma for hyperkalemia -Epogen for anemia -Oral phosphate binders -Patient refused dialysis. -Recommended urology consult for either removal or replacement of bilateral ne phrostomy tubes. Bilateral nephrostomy tube status -Urology consulted. -Patient will undergo bilateral nephrostomy tube removal today by IR. Bilateral nonhealing ulcers necrosis to both lower legs -Wound care has been consulted -General surgery consulted -NPO for surgical debridement of nonhealing lower extremity ulcers today. -Patient continues on Zosyn and Vancomycin. Infectious disease has been consulted, we will follow their recommendations. Case discussed with attending physician and came up with above treatment and plan of care. LEONCIO LEARY MD September 20, 2024 20:43
[2024-09-20] MEDS: LACTULOSE 20 GM/30 ML UDCUP PO ONE (22:20)
[2024-09-20] MEDS: guaiFENesin SUGAR-FREE 100 MG/5 ML UDCUP PO PRN (22:20)
[2024-09-21] VITALS (7 sets, daily range): BP systolic 141–161; BP diastolic 89–96; PULSE 81–92; RESP 16–20; TEMP 97.6–98.3; O2SAT 95–96
[2024-09-21 05:55] LABS: HEMATOCRIT 27.4 % (42-54); MEAN CORPUSCULAR HEMOGLOBIN 28.6 pg (27.0-33.0); MEAN CORPUSCULAR HGB CONC 32.8 g/dL (32.0-36.0); RED BLOOD CELL COUNT(AUTO) 3.15 MIL/uL (4.50-6.20); RED CELL DISTRIBUTION WIDTH 14.4 % (11.0-15.5); WHITE BLOOD COUNT (AUTO) 8.9 K/uL (4.8-10.8)
[2024-09-21] MEDS ORDERED: VANCOMYCIN 1G/250ML KIT 250 ML IV SCH (06:00)
[2024-09-21 06:38] LABS: ALBUMIN 2.6 g/dL (3.5-5.0); BILIRUBIN,TOTAL 0.3 mg/dL (0.2-1.0); CREATININE 5.1 mg/dL (0.5-1.3); MAGNESIUM 1.6 mg/dL (1.80-2.40); PHOSPHORUS 4.4 mg/dL (2.5-4.9); POTASSIUM 3.3 mmol/L (3.5-5.1); TOTAL PROTEIN, SERUM 6.6 g/dL (6.0-8.3)
[2024-09-21] MEDS: Vitamin B Complex/Vit C/Folic Acid PO SCH (07:58)
[2024-09-21] MEDS: LISINOPRIL 20 MG TABLET PO SCH (07:59)
[2024-09-21] MEDS ORDERED: COMPOUND IV MISC 1 EACH IVSOLN MISC PRN (08:00)
--- NOTE | 2024-09-21 09:54 | PN ---
NEPHROLOGY PROGRESS NOTE Date/Time Patient Seen: Sep 21, 2024 SUBJECTIVE: The patient is a 54-year-old male with a history of diabetes mellitus, hypertension. The patient with history of obstructive uropathy s/p nephrostomy tube placement. The patient with significant renal dysfunction. He is scheduled for nephrostomy tube exchange The patient was seen by Urology and he is being seen as a followup visit for all of the above. The patient does have advanced renal dysfunction. He is refusing any form of renal replacement therapy. The patient will be started on Epogen for the anemia. The patient will be started on phosphate binders. S/P Excisional debridement of left calf wound. Excision down to muscle. Renal function continues to improve He was seen in the medical floor, in no acute distress REVIEW OF SYSTEMS: GENERAL: Negative for any nausea, vomiting, fevers, chills, or weight loss. NEUROLOGIC: Negative for any blurry vision, blind spots, double vision, facial asymmetry, dysphagia, dysarthria, hemiparesis, hemisensory deficits, vertigo, ataxia. HEENT: Negative for any head trauma, neck trauma, neck stiffness, photophobia, phonophobia, sinusitis, rhinitis. CARDIAC: Negative for any chest pain, dyspnea on exertion, paroxysmal nocturnal dyspnea, peripheral edema. PULMONARY: Negative for any shortness of breath, wheezing, COPD, or TB exposure. GASTROINTESTINAL: Negative for any abdominal pain, nausea, vomiting, bright red blood per rectum, melena. GENITOURINARY: Negative for any dysuria, hematuria, incontinence. INTEGUMENTARY: Negative for any rashes, cuts, insect bites. RHEUMATOLOGIC: Negative for any joint pains, photosensitive rashes, history of vasculitis or kidney problems. HEMATOLOGIC: Negative for any abnormal bruising, frequent infections or bleeding. Vital Signs (last 8hr) Date Time Temp Pulse Resp B/P (MAP) Pulse Ox O2 Delivery O2 Flow Rate FiO2 09/21/24 08:01 98.2 91 18 155/96 96 Room Air 09/21/24 04:00 98.2 86 16 142/90 94 Room Air PHYSICAL EXAM: GENERAL: Alert and oriented x 3. No acute distress. Well-nourished. EYES: EOMI. Anicteric. HENT: Moist mucous membranes. No scleral icterus. No cervical lymphadenopathy. LUNGS: Clear to auscultation bilaterally. No accessory muscle use. CARDIOVASCULAR: Regular rate and rhythm. No murmur. No JVD. ABDOMEN: Soft, non-tender and non-distended. No palpable masses. EXTREMITIES: No edema. Non-tender.?SKIN: No rashes or lesions. Warm. NEUROLOGIC: No focal neurological deficits. CN II-XII grossly intact, but not individually tested. PSYCHIATRIC: Cooperative. Appropriate mood and affect. Current Medications Medications (Trade) Dose Ordered Sig/Krishan Route PRN Reason Start Time Stop Time Status Last Admin Dose Admin Acetaminophen (TYLenol 325MG TAB) 650 mg Q4H PRN PO MILD PAIN (1-3) 09/18/24 03:00 10/18/24 02:59 Acetaminophen (TYLenol 325MG TAB) 650 mg Q6H PRN PO TEMPERATURE GREATER THAN 101.5 09/18/24 03:00 10/18/24 02:59 Calcium Gluconate 1 gm/Sodium Chloride 100 ml @ 0 mls/hr PROTOCOL IV 09/18/24 00:00 10/18/24 00:00 09/17/24 23:59 100 MLS/HR Dextrose (D50w) 50 ml AD PRN IV HYPOGLYCEMIA PROTOCOL 09/18/24 03:30 10/18/24 03:29 Epoetin John-epbx (Retacrit) 10,000 unit QSA SQ 09/20/24 09:00 10/20/24 08:59 09/20/24 08:32 10,000 UNIT Famotidine (Pepcid 20mg Vial) 20 mg Q48H IV 09/18/24 03:00 10/18/24 02:59 09/20/24 03:35 20 MG Glucagon (Glucagon 1mg Kit) 1 mg AD PRN IM HYPOGLYCEMIA PROTOCOL 09/18/24 03:30 10/18/24 03:29 Hydromorphone HCl (DiLAUDid 0.5MG INJ) 0.5 mg Q6H PRN IVP SEVERE PAIN (7-10) 09/18/24 15:30 09/23/24 15:29 09/20/24 05:11 0.5 MG Insulin Human Regular (humuLIN R 100 UNIT/ML 3ML) INSULIN SLIDING SCAL... ACHS SQ 09/18/24 07:30 10/18/24 07:29 Ondansetron HCl (zoFRAN 4MG INJ) 4 mg Q6H PRN IV NAUSEA/VOMITING 09/18/24 03:00 10/18/24 02:59 Pharmacy Profile Note (Lace Assessment) 1 each AD MISC 09/18/24 13:30 09/18/24 13:35 DC Piperacillin Sod/ Tazobactam Sod 50 ml @ 12.5 mls/hr Q12H IV 09/18/24 05:00 09/18/24 05:30 DC Piperacillin Sod/ Tazobactam Sod 50 ml @ 12.5 mls/hr Q12H IV 09/18/24 12:00 09/28/24 11:59 09/20/24 00:30 12.5 MLS/HR Sevelamer HCl (RENAgel 800 MG TAB) 800 mg TIDMEALS PO 09/19/24 12:00 10/19/24 11:59 09/20/24 08:31 800 MG Sodium Bicarbonate 150 meq/Dextrose 1,150 ml @ 100 mls/hr [id number] IVP 09/18/24 10:00 10/18/24 09:59 09/20/24 08:33 100 MLS/HR Vancomycin HCl 250 ml @ 125 mls/hr Q76H IV 09/21/24 06:00 10/01/24 05:59 Vancomycin HCl (Vancomycin Protocol) 1 each AD IV 09/18/24 04:00 10/02/24 03:59 LABORATORY: [ ] Hematology Labs: Test 09/21/24 05:42 09/20/24 06:58 Range/Units White Blood Count 8.9 4.8-10.8 K/uL Red Blood Count 3.15 L 4.50-6.20 MIL/uL Hemoglobin 9.0 L 14.0-18.0 g/dL Hematocrit 27.4 L 42-54 % Mean Corpuscular Volume 87.0 79-99 fL Mean Corpuscular Hemoglobin 28.6 27.0-33.0 pg Mean Corpuscular Hemoglobin Concent 32.8 32.0-36.0 g/dL Red Cell Distribution Width 14.4 11.0-15.5 % Platelet Count 243 130-400 K/uL Mean Platelet Volume 10.3 7.5-10.5 fL Nucleated Red Blood Cells 0.0 0.0-0.19 % Immature Granulocyte % (Auto) 0.6 0-1 % Neutrophils (%) (Auto) 74.1 40.0-77.0 % Lymphocytes (%) (Auto) 7.0 L 21.0-51.0 % Monocytes (%) (Auto) 15.7 H 3.0-13.0 % Eosinophils (%) (Auto) 2.1 0.0-8.0 % Basophils (%) (Auto) 0.5 0.0-5.0 % Neutrophils # (Auto) 7.2 1.8-7.7 K/uL Lymphocytes # (Auto) 0.7 L 1.0-4.8 K/uL Monocytes # (Auto) 1.5 H 0.1-1.0 K/uL Eosinophils # (Auto) 0.20 0.00-0.70 K/uL Basophils # (Auto) 0.05 0.00-0.20 K/uL Absolute Immature Granulocyte (auto 0.06 0-1 K/uL Erythrocyte Sedimentation Rate 97 H 0-20 MM/HR Chemistry Labs: Test 09/21/24 05:42 09/20/24 06:58 09/20/24 05:14 Range/Units Sodium Level 145 136-145 mmol/L Potassium Level 3.3 L 3.5-5.1 mmol/L Chloride Level 107 101-111 mmol/L Carbon Dioxide Level 25 21-32 mmol/L Blood Urea Nitrogen 89 #*H 7-18 mg/dL Creatinine 5.1 H 0.5-1.3 mg/dL Glomerular Filtration Rate Calc 13 >90 mL/min Random Glucose 119 H 70-105 mg/dL Total Calcium 9.2 8.5-10.1 mg/dL Phosphorus Level 4.4 2.5-4.9 mg/dL Magnesium Level 1.60 L 1.80-2.40 mg/dL Ferritin 528 H 30-400 ng/mL Total Bilirubin 0.3 # 0.2-1.0 mg/dL Aspartate Amino Transf (AST/SGOT) 13 10-37 U/L Alanine Aminotransferase (ALT/SGPT) 14 12-78 U/L Alkaline Phosphatase 67 50-136 U/L Total Protein 6.6 6.0-8.3 g/dL Albumin 2.6 L 3.5-5.0 g/dL C-Reactive Protein, Quantitative 90.50 H 0.5-3.0 mg/L Whole Blood Glucose 133 H 70-110 MG/DL DIAGNOSTICS / RADIOLOGY: REASON: GEOVANI; NEPHROSTOMY TUBES ORDERING PHYSICIAN: ROMIE VICTOR PROCEDURE: ABD PEL WO - CT ABDOMEN/PELVIS W/O CONTRAST CT ABDOMEN/PELVIS W/O CONTRAST HISTORY: Acute renal insufficiency COMPARISON: 08/08/2024 TECHNIQUE: Multiple sequential axial images of the abdomen and pelvis were obtained from the dome of the diaphragm through symphysis pubis. Patient was not given contrast through intravenous route. Oral contrast was not given. FINDINGS: No pleural effusion is seen bilaterally. There is no evidence of parenchymal disease or pulmonary nodule of the visualized lower lungs. Degenerative changes of the thoracolumbar spine are present. The heart is not enlarged. Gallbladder is distended. There is left adrenal nodule with calcification measuring 3.3 x 2.6 cm. Bilateral percutaneous nephrostomy tubes are seen. The liver, spleen, right adrenal gland and pancreas are unremarkable. There is no evidence of hydronephrosis bilaterally. No evidence of renal stone is seen. Fecal material is seen in the colon. There are normal size retroperitoneal and mesenteric lymph nodes. No ascites is seen. No CT evidence of acute appendicitis is seen. Pelvic sidewalls are symmetric bilaterally. Bladder is poorly distended. IMPRESSION: 1. Bilateral percutaneous nephrostomy tube in place. CT was performed with one or more following dose reduction techniques: automated exposure control, adjustment of the mA and kv according to patient's size, or use of a iterative reconstruction technique. DICTATED BY: ROBBIE GARCIA MD DATE: 09/18/24 0101 ASSESSMENT: Acute on chronic renal failure POA Hyperkalemia POA Acute pancreatitis POA Metabolic acidosis POA Acute on chronic anemia due to CKD POA Acute leukocytosis POA Bilateral nephrostomy tube status POA Bilateral nonhealing ulcers necrosis to both lower legs POA Uncontrolled diabetes POA Hypertension POA PLAN: Labs, diagnostic, radiologic exams reviewed and interpreted by myself and supervising physician. We have reviewed external records in detail Magnesium replacement has been ordered Follow renal diabetic diet Require close monitoring of renal function and electrolytes Order CBC, CMP, and electrolytes in am Renal diabetic diet BiPAP as necessary, for respiratory distress Monitor blood pressure adjust medication doses as needed Avoid hypotensive episodes May use Dilaudid 0.5 mg IV every 6 hours as needed for severe pain Monitor blood sugars Strict intake, output, and daily weight should be monitored Please renally adjust medications Avoid nephrotoxic and nonsteroidal drugs Avoid contrast if possible Will continue to monitor renal function, anemia, electrolytes Treatment plan discussed with patient Questions were answered We have discussed with the other team physicians in detail about the care plan We will continue to monitor the patient closely ATTESTATION BY PHYSICIAN I have seen and examined the patient. I reviewed the documentation, medical decision making, and treatment plan as noted by the mid-level provider above. I agree with the findings and plan of care. ANN MARIE GRAY MD, [facility] Sep 21, 2024 09:53
[2024-09-21] MEDS: amLODIPine 5 MG TAB PO SCH (12:19)
--- NOTE | 2024-09-21 13:03 | PN ---
[facility] PROGRESS NOTE Date of Service: Sep 21, 2024 Time of Service: 13:02 SUBJECTIVE: This is a 54-year-old male past medical history of kidney disease, kidney stones with bilateral nephrostomy tube, diabetes and hypertension who was brought by EMS to the ED for complaints of abdominal pain associated with generalized body weakness, nausea and vomiting. On my evaluation patient states the reason why he came to the ER today is because of bilateral leg pain which has been hurting and he cant tolerate it anymore he said.Patient has multiple open wound ulcers with some necrotic tissue to both legs and as per patient that has been there since April 2023.Patient also reports he has a bilateral nephrostomy tube that was placed on September 2023 and supposedly should come off after 2 weeks but because of insurance issue it has not been removed. Seen and examined patient in the ER awake,alert and coherent.Patient appears comfortable,denies fever,chills,chest pain,palpitation,cough,shortness of breath,nausea,vomiting abdominal pain and diarrhea.Patient states he still voids with no problem. Vital signs temperature 98.2, heart rate 108, blood pressure 121/58 saturation 99% on room air. Labs: WBC 17 with negative left shift of neutrophils 82, hemoglobin 10, hematocrit 34, platelet count 378. Sodium 133, potassium six, chloride 98, carbon dioxide 11, BUN 162, creatinine 11 GFR five glucose 195 lactic acid 1.8 AST nine ALT nine BNP 23 albumin 3.1, triglycerides 179 lipase 791 troponin 10. While in the ER patient received Zosyn IV, sodium bicarb 50 mEq IV, Zofran 4 mg IV, Lokelma 10 g p.o., morphine 2 mg IV, insulin 10 units IV D50 25 mL IV, calcium gluconate 1 g IV and patient is being started on sodium bicarb at 100 mL/hour. We will admit patient for further medical management. 09/18: Patient was seen and examined this morning at bedside.Patient denies chest pain, shortness of breath, nausea, vomiting, fever, chills. Patient reports abdominal tenderness, worse in the right lower quadrant. Patient reports that he does not follow up with a primary care physician. Patient has bilateral nephrostomy tubes that were placed in April of 2023, but has not had them removed due to not having enough money to pay the co-pay at the urologist office. Patients renal function is abnormal, nephrology has been consulted and recommends Lokelma and sodium bicarbonate for the metabolic acidosis. Per Dr. Cadet, urology to be consulted for either removal or replacement of nephrostomy tubes. Urology has been consulted. 09/19: Patient was seen and examined this morning at bedside. Patient denies chest pain, shortness of breath, nausea, vomiting, fever, chills. Patient is scheduled to get a external debridement of the left calf. Patient is getting a removal of the bilateral nephrostomy tubes today by Interventional Radiology. Patient is currently NPO. Patient has refused dialysis, and continues on a bicarb drip for metabolic acidosis. Patient continues on vancomycin and Zosyn. 09/21/24 patient was seen and examined. Case discussed with the RN he was doing well. Denies nausea vomiting fever or chills. Continue vancomycin and Zosyn Patient was seen and examined this morning at bedside Patient with bilateral leg ulcers and status post debridement of left calf wound. The preliminary urine culture is growing Gram-negative rods. Discussed with ID/Continue Zosyn REVIEW OF SYSTEMS CONSTITUTIONAL: Denies fevers, chills, or night sweats. No unintentional weight loss reported. NEUROLOGICAL: Denies headache, amaurosis fugax, motor weakness, sensory deficit, vertigo/spinning sensation, gait abnormalities, or tremors. ENT: No hearing loss, otalgia, otorrhea, rhinitis, rhinorrhea, hoarseness, or sore throat. CARDIOVASCULAR: Denies any exertional angina, dyspnea on exertion, orthopnea, paroxysmal nocturnal dyspnea, palpitations, life-threatening arrhythmias, claudication. PULMONARY: Denies any shortness of breath, cough, phlegm/sputum, hemoptysis, pleuritic chest pain. SLEEP: Denies morning headaches, daytime somnolence or napping. Denies difficulty falling asleep, staying asleep, waking from sleep. Denies knowledge of snoring. GASTROINTESTINAL: Denies any type of dysphagia to either liquids or solids. Denies nausea, vomiting, pyrosis, early satiety, abdominal pain, diarrhea, constipation, or changes in stool consistency or caliber. Denies coffee-ground emesis, hematemesis, hematochezia, or melanotic stools. GENITOURINARY: Denies frequency, urgency, nocturia, hematuria or incontinence (Storage/Irritative symptoms.) Low urinary stream, straining to void, urinary intermittency or hesitancy, splitting of the voiding stream, terminal dribbling. ENDOCRINOLOGIC: Denies polyuria, polydipsia, polyphagia or heat/cold intolerances. HEMATOLOGIC: Denies thrombophilia/previous clots, or coagulopathy/bleeding disorders. ONCOLOGIC: Denies personal history of malignancy. DERMATOLOGIC: Denies rashes or pruritus. PSYCHIATRIC: Denies any suicidal or homicidal ideation. Denies hallucinations. PHYSICAL EXAM GENERAL APPEARANCE: The patient is awake, alert, and oriented, in no acute cardiopulmonary distress. NEUROLOGICAL: Cranial nerves II-XII grossly intact. Motor is 5/5 in bilateral upper and lower extremities proximal to distal. No sensory deficits. HEENT: Face is symmetric. Pupils are equal and reactive. Extraocular movements are intact. NECK: Supple. No JVD. No thyromegaly. No submental, submandibular, pre- /postauricular, occipital or supraclavicular lymphadenopathy. CHEST: Normal chest expansion. No Telemetry. LUNGS: Absence of any rales, rhonchi or any wheezing. CARDIOVASCULAR: Regular. S1 and S2 normal. No appreciable rubs, murmurs or gallops. ABDOMEN: Soft, nontender, and nondistended. There is no rebound, voluntary guarding, or rigidity. : Deferred. No [place]. EXTREMITIES: Multiple open wound ulcers to both legs with some necrotic tissue. SKIN: No skin breakdown. Vital Signs (last 8hr) Date Time Temp Pulse Resp B/P (MAP) Pulse Ox O2 Delivery O2 Flow Rate FiO2 09/21/24 12:09 98.2 91 18 161/90 96 Room Air 09/21/24 08:01 98.2 91 18 155/96 96 Room Air 09/21/24 07:58 96 Room Air* 0 21 LABS: Laboratory: Test 09/21/24 05:42 09/20/24 06:58 09/20/24 05:14 Range/Units White Blood Count 8.9 4.8-10.8 K/uL Red Blood Count 3.15 L 4.50-6.20 MIL/uL Hemoglobin 9.0 L 14.0-18.0 g/dL Hematocrit 27.4 L 42-54 % Mean Corpuscular Volume 87.0 79-99 fL Mean Corpuscular Hemoglobin 28.6 27.0-33.0 pg Mean Corpuscular Hemoglobin Concent 32.8 32.0-36.0 g/dL Red Cell Distribution Width 14.4 11.0-15.5 % Platelet Count 243 130-400 K/uL Mean Platelet Volume 10.3 7.5-10.5 fL Nucleated Red Blood Cells 0.0 0.0-0.19 % Sodium Level 145 136-145 mmol/L Potassium Level 3.3 L 3.5-5.1 mmol/L Chloride Level 107 101-111 mmol/L Carbon Dioxide Level 25 21-32 mmol/L Blood Urea Nitrogen 89 #*H 7-18 mg/dL Creatinine 5.1 H 0.5-1.3 mg/dL Glomerular Filtration Rate Calc 13 >90 mL/min Random Glucose 119 H 70-105 mg/dL Total Calcium 9.2 8.5-10.1 mg/dL Phosphorus Level 4.4 2.5-4.9 mg/dL Magnesium Level 1.60 L 1.80-2.40 mg/dL Ferritin 528 H 30-400 ng/mL Total Bilirubin 0.3 # 0.2-1.0 mg/dL Aspartate Amino Transf (AST/SGOT) 13 10-37 U/L Alanine Aminotransferase (ALT/SGPT) 14 12-78 U/L Alkaline Phosphatase 67 50-136 U/L Total Protein 6.6 6.0-8.3 g/dL Albumin 2.6 L 3.5-5.0 g/dL Immature Granulocyte % (Auto) 0.6 0-1 % Neutrophils (%) (Auto) 74.1 40.0-77.0 % Lymphocytes (%) (Auto) 7.0 L 21.0-51.0 % Monocytes (%) (Auto) 15.7 H 3.0-13.0 % Eosinophils (%) (Auto) 2.1 0.0-8.0 % Basophils (%) (Auto) 0.5 0.0-5.0 % Neutrophils # (Auto) 7.2 1.8-7.7 K/uL Lymphocytes # (Auto) 0.7 L 1.0-4.8 K/uL Monocytes # (Auto) 1.5 H 0.1-1.0 K/uL Eosinophils # (Auto) 0.20 0.00-0.70 K/uL Basophils # (Auto) 0.05 0.00-0.20 K/uL Absolute Immature Granulocyte (auto 0.06 0-1 K/uL Erythrocyte Sedimentation Rate 97 H 0-20 MM/HR C-Reactive Protein, Quantitative 90.50 H 0.5-3.0 mg/L Whole Blood Glucose 133 H 70-110 MG/DL Current Medications Medications (Trade) Dose Ordered Sig/Krishan Route PRN Reason Start Time Stop Time Status Last Admin Dose Admin Acetaminophen (TYLenol 325MG TAB) 650 mg Q4H PRN PO MILD PAIN (1-3) 09/18/24 03:00 10/18/24 02:59 Acetaminophen (TYLenol 325MG TAB) 650 mg Q6H PRN PO TEMPERATURE GREATER THAN 101.5 09/18/24 03:00 10/18/24 02:59 Amlodipine Besylate (NorvASC 5MG TAB) 10 mg DAILY PO 09/21/24 12:30 10/21/24 12:29 09/21/24 12:19 10 MG Calcium Gluconate 1 gm/Sodium Chloride 100 ml @ 0 mls/hr PROTOCOL IV 09/18/24 00:00 10/18/24 00:00 09/17/24 23:59 100 MLS/HR Dextrose (D50w) 50 ml AD PRN IV HYPOGLYCEMIA PROTOCOL 09/18/24 03:30 10/18/24 03:29 Epoetin John-epbx (Retacrit) 10,000 unit QSA SQ 09/20/24 09:00 10/20/24 08:59 09/20/24 08:32 10,000 UNIT Famotidine (Pepcid 20mg Vial) 20 mg Q48H IV 09/18/24 03:00 10/18/24 02:59 09/20/24 03:35 20 MG Glucagon (Glucagon 1mg Kit) 1 mg AD PRN IM HYPOGLYCEMIA PROTOCOL 09/18/24 03:30 10/18/24 03:29 Guaifenesin (RobiTUSSin SUGAR-FREE 100 MG/ 5 ML UDCUP) 200 mg Q6H6 PRN PO COUGH 09/20/24 22:30 10/20/24 22:29 09/20/24 22:20 200 MG Hydromorphone HCl (DiLAUDid 0.5MG INJ) 0.5 mg Q6H PRN IVP SEVERE PAIN (7-10) 09/18/24 15:30 09/23/24 15:29 09/20/24 05:11 0.5 MG Insulin Human Regular (humuLIN R 100 UNIT/ML 3ML) INSULIN SLIDING SCAL... ACHS SQ 09/18/24 07:30 10/18/24 07:29 09/21/24 12:17 2 UNIT Lisinopril (Prinivil 20mg) 20 mg DAILY PO 09/21/24 09:00 10/21/24 08:59 09/21/24 07:59 20 MG Magnesium Sulfate 50 ml @ 0 mls/hr PROTOCOL IV 09/21/24 16:00 10/21/24 15:59 Ondansetron HCl (zoFRAN 4MG INJ) 4 mg Q6H PRN IV NAUSEA/VOMITING 09/18/24 03:00 10/18/24 02:59 Pharmacy Profile Note (Lace Assessment) 1 each AD MISC 09/18/24 13:30 09/18/24 13:35 DC Piperacillin Sod/ Tazobactam Sod 50 ml @ 12.5 mls/hr Q12H IV 09/18/24 05:00 09/18/24 05:30 DC Piperacillin Sod/ Tazobactam Sod 50 ml @ 12.5 mls/hr Q12H IV 09/18/24 12:00 09/28/24 11:59 09/21/24 12:11 12.5 MLS/HR Sevelamer HCl (RENAgel 800 MG TAB) 800 mg TIDMEALS PO 09/19/24 12:00 10/19/24 11:59 09/21/24 12:11 800 MG Sodium Bicarbonate 150 meq/Dextrose 1,150 ml @ 100 mls/hr [id number] IVP 09/18/24 10:00 09/20/24 13:06 DC 09/20/24 08:33 100 MLS/HR Vancomycin HCl 250 ml @ 125 mls/hr Q76H IV 09/21/24 06:00 09/20/24 13:06 DC Vancomycin HCl (Vancomycin Protocol) 1 each AD IV 09/18/24 04:00 09/20/24 13:08 DC Vitamin B Complex/ Vit C/Folic Acid (Nephrovite Tablet) 1 cap DAILY PO 09/21/24 09:00 10/21/24 08:59 09/21/24 07:58 1 CAP DIAGNOSTICS / RADIOLOGY: [ ] ASSESSMENT: Acute on chronic renal failure POA Hyperkalemia POA Acute pancreatitis POA Metabolic acidosis POA Acute on chronic anemia due to CKD POA Acute leukocytosis POA Bilateral nephrostomy tube status POA Bilateral nonhealing ulcers necrosis to both lower legs POA Uncontrolled diabetes POA Hypertension POA PLAN: Acute on chronic renal failure -Nephrology consulted -Continue sodium bicarb drip for metabolic acidosis -Lokelma for hyperkalemia -Epogen for anemia -Oral phosphate binders -Patient refused dialysis. -Recommended urology consult for either removal or replacement of bilateral nephrostomy tubes. Bilateral nephrostomy tube status -Urology consulted. -Patient will undergo bilateral nephrostomy tube removal today by IR. Bilateral nonhealing ulcers necrosis to both lower legs -Wound care has been consulted -General surgery consulted -NPO for surgical debridement of nonhealing lower extremity ulcers today. -Patient continues on Zosyn and Vancomycin. Infectious disease has been consulted, we will follow their recommendations. Case discussed with attending physician and came up with above treatment and plan of care. LEONCIO LEARY MD Sep 21, 2024 13:03
--- NOTE | 2024-09-21 13:35 | PN ---
INFECTIOUS DISEASE PROGRESS NOTE Date of Service: Sep 21, 2024 SUBJECTIVE: This is a 54-year-old male patient who was seen and examined at bedside in room 313. Patient is awake, alert and oriented x3. Patient is status post debridement of left calf wound. No fever, temperature is 98.2 and the WBC has trended down to 8.9. The final urine culture results came back positive for Citrobacter koseri. We will continue on Zosyn as currently ordered. Patient was updated with these findings. We will have Physical therapy evaluate and treat. Some improvement on the renal function, the BUN is 89 and creatinine 5.1. Per report patient is scheduled to have bilateral nephrostomy tube exchange tomorrow. We will continue to follow patient's care. PHYSICAL EXAM EYES: Anicteric. Pupils equal and reactive. HENT: No oral thrush seen, moist Oral mucosa. NECK: Supple, no JVD or thyromegaly. LUNGS: Good air entry. No rales, no rhonchi. CARDIOVASCULAR: S1, S2 regular. No murmur heard. ABDOMEN: Soft, non tender, bowel sounds present, no organomegaly. CENTRAL NERVOUS SYSTEM: Awake, alert, oriented x 3. SKIN: No rashes, no swelling. LYMPHATICS: No peripheral lymphadenopathy MUSCULOSKELETAL: No joint swelling, erythema or tenderness. EXTREMITIES: No cyanosis or clubbing. Bilateral leg ulcers. BACK: No deformity, no pressure ulcer. Bilateral nephrostomy tubes. GENITOURINARY: No dysuria or hematuria. Vital Sign (Last 12 Hours) 09/21/24 09/21/24 09/21/24 09/21/24 04:00 07:58 08:01 12:09 Temp 98.2 98.2 98.2 Pulse 86 91 91 Resp 16 18 18 B/P (MAP) 142/90 155/96 161/90 Pulse Ox 94 96 96 96 O2 Delivery Room Air Room Air* Room Air Room Air O2 Flow Rate 0 FiO2 21 Intake & Output (last 24hrs) 09/20/24 09/20/24 09/21/24 15:00 23:00 07:00 Intake Total 480 ml 290.0 ml 50.0 ml Output Total 600 ml 300 ml 1570 ml Balance -120 ml -10.0 ml -1520.0 ml LABS: Laboratory: Test 09/21/24 05:42 09/20/24 06:58 09/20/24 05:14 Range/Units White Blood Count 8.9 4.8-10.8 K/uL Red Blood Count 3.15 L 4.50-6.20 MIL/uL Hemoglobin 9.0 L 14.0-18.0 g/dL Hematocrit 27.4 L 42-54 % Mean Corpuscular Volume 87.0 79-99 fL Mean Corpuscular Hemoglobin 28.6 27.0-33.0 pg Mean Corpuscular Hemoglobin Concent 32.8 32.0-36.0 g/dL Red Cell Distribution Width 14.4 11.0-15.5 % Platelet Count 243 130-400 K/uL Mean Platelet Volume 10.3 7.5-10.5 fL Nucleated Red Blood Cells 0.0 0.0-0.19 % Sodium Level 145 136-145 mmol/L Potassium Level 3.3 L 3.5-5.1 mmol/L Chloride Level 107 101-111 mmol/L Carbon Dioxide Level 25 21-32 mmol/L Blood Urea Nitrogen 89 #*H 7-18 mg/dL Creatinine 5.1 H 0.5-1.3 mg/dL Glomerular Filtration Rate Calc 13 >90 mL/min Random Glucose 119 H 70-105 mg/dL Total Calcium 9.2 8.5-10.1 mg/dL Phosphorus Level 4.4 2.5-4.9 mg/dL Magnesium Level 1.60 L 1.80-2.40 mg/dL Ferritin 528 H 30-400 ng/mL Total Bilirubin 0.3 # 0.2-1.0 mg/dL Aspartate Amino Transf (AST/SGOT) 13 10-37 U/L Alanine Aminotransferase (ALT/SGPT) 14 12-78 U/L Alkaline Phosphatase 67 50-136 U/L Total Protein 6.6 6.0-8.3 g/dL Albumin 2.6 L 3.5-5.0 g/dL Immature Granulocyte % (Auto) 0.6 0-1 % Neutrophils (%) (Auto) 74.1 40.0-77.0 % Lymphocytes (%) (Auto) 7.0 L 21.0-51.0 % Monocytes (%) (Auto) 15.7 H 3.0-13.0 % Eosinophils (%) (Auto) 2.1 0.0-8.0 % Basophils (%) (Auto) 0.5 0.0-5.0 % Neutrophils # (Auto) 7.2 1.8-7.7 K/uL Lymphocytes # (Auto) 0.7 L 1.0-4.8 K/uL Monocytes # (Auto) 1.5 H 0.1-1.0 K/uL Eosinophils # (Auto) 0.20 0.00-0.70 K/uL Basophils # (Auto) 0.05 0.00-0.20 K/uL Absolute Immature Granulocyte (auto 0.06 0-1 K/uL Erythrocyte Sedimentation Rate 97 H 0-20 MM/HR C-Reactive Protein, Quantitative 90.50 H 0.5-3.0 mg/L Whole Blood Glucose 133 H 70-110 MG/DL DIAGNOSTICS / RADIOLOGY: PATIENT: JAYRO LIRIANO ACCT: [id number] LOC: [facility] U: [id number] AGE/SX: 54/M ROOM: [facility] RE09/18/[address]: LEONCIO LEARY MD : 1970 BED: 1 DIS: STATUS: ADM IN TLOC: SPEC: [id number] OBED: 09/18/24 STATUS: COMP REQ: [id number] RECD: 09/19/[address] [facility] [address]: ROMIE VICTOR SOURCE: [facility] [place] ENTR: 09/19/[address]: ORIN PEREZ MD SPDESC: CLEAN CAT LEONCIO LEARY MD, JORGE H MD REYES, RAUL MD RODRIGUEZ,ABBEY BEAN MD ORDERED: AERO ID & SENS Procedure Result Jamie Date-Time AEROBIC ID & SENSITIVITIES Final 09/21/24-0711 MRL COLONY DESCRIPTION: DAY 1: COLONY COUNT: >100,000 CFU/ML GRAM NEGATIVE RODS IDENTIFICATION AND SENSITIVITY TO FOLLOW [facility] RX --------- ---- AZTREONAM <=4 S CEFAZOLIN <=2 S CEFTAZIDIME <=1 S CEFTAZIDIME/AVIBACTAM <=8 S CEFTRIAXONE <=1 S GENTAMICIN <=2 S LEVOFLOXACIN <=0.5 S NITROFURANTOIN <=32 S MEROPENEM <=1 S PIPERACILLIN/TAZOBACTAM <=8 S TRIMETHOPRIM/SUFLAMETHOXAZOLE <=2/38 S ASSESSMENT: Urinary tract infection Citrobacter koseri. Leukocytosis resolved. Bilateral leg ulcers, status post debridement of left calf wound. Acute renal failure. History of bilateral hydronephrosis with nephrostomy tubes in place. Diabetes mellitus. PLAN: Continue Zosyn. Continue pain management. Continue GI prophylaxis. Avoid nephrotoxic medications. Patient is scheduled for nephrostomy tube exchange for tomorrow. Continue anti diabetics. Physical therapy to evaluate and treat. This case was reviewed and discussed with my supervising physician and the above assessment and plan was formulated and agreed upon. ATTESTATION BY PHYSICIAN I have seen and examined the patient. I reviewed the documentation, medical decision making, and treatment plan as noted by the mid-level provider above. I agree with the findings and plan of care. ORIN PEREZ MD, MIRTA L [facility] Sep 21, 2024 13:35
[2024-09-21] MEDS: MAGNESIUM 2GM PREMIX 50ML 50 ML IV SCH (17:28)
[2024-09-21] MEDS: hydroCHLOROthiazide 25 MG TABLET PO SCH (17:28)
[2024-09-21] MEDS ORDERED: MAGNESIUM 2GM PREMIX 50ML 50 ML IV ONE (18:00)
[2024-09-22] VITALS (14 sets, daily range): BP systolic 148–165; BP diastolic 77–113; PULSE 62–99; RESP 16–20; TEMP 97.6–98.4; O2SAT 0–97
[2024-09-22 05:21] LABS: HEMATOCRIT 28.4 % (42-54); MEAN CORPUSCULAR HEMOGLOBIN 28.6 pg (27.0-33.0); MEAN CORPUSCULAR HGB CONC 32.7 g/dL (32.0-36.0); MEAN CORPUSCULAR VOLUME 87.4 fL (79-99); RED BLOOD CELL COUNT(AUTO) 3.25 MIL/uL (4.50-6.20); RED CELL DISTRIBUTION WIDTH 14.1 % (11.0-15.5); WHITE BLOOD COUNT (AUTO) 10.4 K/uL (4.8-10.8)
[2024-09-22 05:38] LABS: ALBUMIN 2.6 g/dL (3.5-5.0); BILIRUBIN,TOTAL 0.3 mg/dL (0.2-1.0); CREATININE 4.2 mg/dL (0.5-1.3); MAGNESIUM 2.1 mg/dL (1.80-2.40); PHOSPHORUS 3.9 mg/dL (2.5-4.9); POTASSIUM 3.3 mmol/L (3.5-5.1); TOTAL PROTEIN, SERUM 7.1 g/dL (6.0-8.3)
--- NOTE | 2024-09-22 09:45 | PN ---
FOLLOWUP PROGRESS NOTE SUBJECTIVE: A 54-year-old male with a history of diabetes mellitus, hypertension. The patient with a history of known obstructive uropathy. The patient is status post nephrostomy tube placed in the past. The patient presented to the hospital with acute on chronic renal failure. The patient is scheduled for nephrostomy tube replacement later today and the patient is being seen as a followup visit for all of the above. The patient remains on the antibiotics. REVIEW OF SYSTEMS: CONSTITUTIONAL: He is feeling improved. HEENT: No change in vision. No change in hearing. CARDIOVASCULAR: There is no current chest pains or palpitations. PULMONARY: Denies shortness of breath. GASTROINTESTINAL: He is tolerating a diet. MUSCULOSKELETAL: Complaint of weakness. PHYSICAL EXAMINATION: VITAL SIGNS: Blood pressure 159/90, pulse 90s, afebrile. GENERAL: He is a chronically ill male, older than appearing. HEENT: Head is atraumatic. Pupils are equal, roving to light. Oropharynx is without exudate. Nares clear. NECK: There is no JVP. There is no thyromegaly, no mass. CARDIOVASCULAR: Regular. There is no S3 or S4 gallop. LUNGS: Coarse with equal thoracic movement. ABDOMEN: Soft, nondistended, and nontender. EXTREMITIES: There is no clubbing, no cyanosis. NEUROLOGICAL: He is awake. He is alert. LABORATORY DATA: Sodium 145, potassium 3.3, BUN 71, creatinine is 4.2. Hemoglobin 9.3, hematocrit 28. IMPRESSION: * Acute and chronic renal failure. * Obstructive uropathy. * Hypertension. * Anemia. PLAN: The patient's creatinine continues to slowly improve. The patient remains on the antibiotics as prescribed. The patient is scheduled for a nephrostomy tube replacement later today. He does remain on Epogen for the anemia. We will continue to follow closely. All labs can be repeated in the morning. TID: [id number] RECEIPT: [id number]
[2024-09-22] MEDS ORDERED: LIDOCAINE HCL 400MG/20ML VIAL ONE (12:26)
[2024-09-22] MEDS ORDERED: IOHEXOL-350 50ML VIAL IV ONE (12:26)
[2024-09-22] MEDS ORDERED: HEParin-NS 1,000 UNIT/500 ML 500 ML IV ONE (12:27)
[2024-09-22] MEDS ORDERED: MIDAZOLAM HCL 1 MG/ML 2ML VIAL ONE (12:52)
[2024-09-22] MEDS ORDERED: FENTanyl CITRate PF 50 MCG/1 ML 2ML VIAL ONE (12:52)
--- NOTE | 2024-09-22 14:31 | NUR ---
[facility] Follow-up: Patient re-assessed by wound healing team. See wound assessment. Assessment and recommendations provided to primary nurse. Education provided. Wound care done. Addendum: 09/25/24 at 1541 by KOKO ELMORE RN RN/ Amended: Links added.
[2024-09-22] MEDS ORDERED: PoTASSium chloRIDE 20MEQ/100ML 100 ML IV PRN (17:00)
[2024-09-22] MEDS ORDERED: PoTASSium chl 10% ELIXIR 20MEQ 20 MEQ/15 ML UDCUP PO PRN (17:00)
[2024-09-22] MEDS: PoTASSium chloRIDE 20MEQ ER 20 MEQ ERTAB PO PRN (17:07)
--- NOTE | 2024-09-22 17:10 | NUR ---
Discharge Update: Patient refusing referral for [facility]. Pt. stated he does not need anything, wants to go home. Roland, patient's nurse, and Sukhdev, Charge Nurse updated.
--- NOTE | 2024-09-22 17:52 | PN ---
[facility] PROGRESS NOTE Date of Service: Sep 22, 2024 Time of Service: 11:00 AM SUBJECTIVE: This is a 54-year-old male past medical history of kidney disease, kidney stones with bilateral nephrostomy tube, diabetes and hypertension who was brought by EMS to the ED for complaints of abdominal pain associated with generalized body weakness, nausea and vomiting. On my evaluation patient states the reason why he came to the ER today is because of bilateral leg pain which has been hurting and he cant tolerate it anymore he said.Patient has multiple open wound ulcers with some necrotic tissue to both legs and as per patient that has been there since April 2023.Patient also reports he has a bilateral nephrostomy tube that was placed on September 2023 and supposedly should come off after 2 weeks but because of insurance issue it has not been removed. Seen and examined patient in the ER awake,alert and coherent.Patient appears comfortable,denies fever,chills,chest pain,palpitation,cough,shortness of breath,nausea,vomiting abdominal pain and diarrhea.Patient states he still voids with no problem. Vital signs temperature 98.2, heart rate 108, blood pressure 121/58 saturation 99% on room air. Labs: WBC 17 with negative left shift of neutrophils 82, hemoglobin 10, hematocrit 34, platelet count 378. Sodium 133, potassium six, chloride 98, carbon dioxide 11, BUN 162, creatinine 11 GFR five glucose 195 lactic acid 1.8 AST nine ALT nine BNP 23 albumin 3.1, triglycerides 179 lipase 791 troponin 10. While in the ER patient received Zosyn IV, sodium bicarb 50 mEq IV, Zofran 4 mg IV, Lokelma 10 g p.o., morphine 2 mg IV, insulin 10 units IV D50 25 mL IV, calcium gluconate 1 g IV and patient is being started on sodium bicarb at 100 mL/hour. We will admit patient for further medical bimal ashish. 09/18: Patient was seen and examined this morning at bedside.Patient denies chest pain, shortness of breath, nausea, vomiting, fever, chills. Patient reports abdominal tenderness, worse in the right lower quadrant. Patient reports that he does not follow up with a primary care physician. Patient has bilateral nephrostomy tubes that were placed in April of 2023, but has not had them removed due to not having enough money to pay the co-pay at the urologist office. Patients renal function is abnormal, nephrology has been consulted and recommends Lokelma and sodium bicarbonate for the metabolic acidosis. Per Dr. Cadet, urology to be consulted for either removal or replacement of nephrostomy tubes. Urology has been consulted. 09/19: Patient was seen and examined this morning at bedside. Patient denies chest pain, shortness of breath, nausea, vomiting, fever, chills. Patient is scheduled to get a external debridement of the left calf. Patient is getting a removal of the bilateral nephrostomy tubes today by Interventional Radiology. Patient is currently NPO. Patient has refused dialysis, and continues on a bicarb drip for metabolic acidosis. Patient continues on vancomycin and Zosyn. 09/21/24 patient was seen and examined. Case discussed with the RN he was doing well. Denies nausea vomiting fever or chills. Continue vancomycin and Zosyn Patient was seen and examined this morning at bedside Patient with bilateral leg ulcers and status post debridement of left calf wound. The preliminary urine culture is growing Gram-negative rods. Discussed with ID/Continue Zosyn 09/22/2024: The patient was examined today in room 313 at bedside. He appears comfortable and denies any complaints or concerns at this time. He is scheduled for nephrostomy tube replacement today by OR. His blood pressure is mildly elevated at 159/90, which he attributes to anxiety about the procedure. Nursing staff have been performing wet-to-dry dressings, with wound management recommendations pending. Labs: Kidney functions have slightly improved, BUN went down to 71 from 89, creatinine went down to 4.2 from 5.1, GFR to 16 from 13, Phosphorous down to 3.9 from 5.7, Mg improved to 2.10. Blood cultures are negative, urine culture showed Gram-negative rods, pansensitive Cirobacter Koseri. We will follow up patient post nephrostomy tube replacement. Follow up with the nephrology and ID recommendations. Further assessment and plan as discussed below. REVIEW OF SYSTEMS CONSTITUTIONAL: Denies fevers, chills, or night sweats. No unintentional weight loss reported. NEUROLOGICAL: Denies headache, amaurosis fugax, motor weakness, sensory deficit, vertigo/spinning sensation, gait abnormalities, or tremors. ENT: No hearing loss, otalgia, otorrhea, rhinitis, rhinorrhea, hoarseness, or sore throat. CARDIOVASCULAR: Denies any exertional angina, dyspnea on exertion, orthopnea, paroxysmal nocturnal dyspnea, palpitations, life-threatening arrhythmias, claudication. PULMONARY: Denies any shortness of breath, cough, phlegm/sputum, hemoptysis, pleuritic chest pain. SLEEP: Denies morning headaches, daytime somnolence or napping. Denies difficulty falling asleep, staying asleep, waking from sleep. Denies knowledge of snoring. GASTROINTESTINAL: Denies any type of dysphagia to either liquids or solids. Denies nausea, vomiting, pyrosis, early satiety, abdominal pain, diarrhea, constipation, or changes in stool consistency or caliber. Denies coffee-ground emesis, hematemesis, hematochezia, or melanotic stools. GENITOURINARY: Denies frequency, urgency, nocturia, hematuria or incontinence (Storage/Irritative symptoms.) Low urinary stream, straining to void, urinary intermittency or hesitancy, splitting of the voiding stream, terminal dribbling. ENDOCRINOLOGIC: Denies polyuria, polydipsia, polyphagia or heat/cold intolerances. HEMATOLOGIC: Denies thrombophilia/previous clots, or coagulopathy/bleeding disorders. ONCOLOGIC: Denies personal history of malignancy. DERMATOLOGIC: Denies rashes or pruritus. PSYCHIATRIC: Denies any suicidal or homicidal ideation. Denies hallucinations. PHYSICAL EXAM GENERAL APPEARANCE: The patient is awake, alert, and oriented, in no acute card iopulmonary distress. NEUROLOGICAL: Cranial nerves II-XII grossly intact. Motor is 5/5 in bilateral upper and lower extremities proximal to distal. No sensory deficits. HEENT: Face is symmetric. Pupils are equal and reactive. Extraocular movements are intact. NECK: Supple. No JVD. No thyromegaly. No submental, submandibular, pre- /postauricular, occipital or supraclavicular lymphadenopathy. CHEST: Normal chest expansion. No Telemetry. LUNGS: Absence of any rales, rhonchi or any wheezing. CARDIOVASCULAR: Regular. S1 and S2 normal. No appreciable rubs, murmurs or gallops. ABDOMEN: Soft, nontender, and nondistended. There is no rebound, voluntary guarding, or rigidity. : Deferred. No [place]. EXTREMITIES: Dressing present over bilateral legs. SKIN: No skin breakdown. Vital Signs (last 8hr) Date Time Temp Pulse Resp B/P (MAP) Pulse Ox O2 Delivery O2 Flow Rate FiO2 09/22/24 16:30 91 17 154/96 98 Room Air 09/22/24 15:30 97.5 78 17 150/91 98 Room Air 09/22/24 15:00 70 17 148/82 99 Room Air 09/22/24 14:30 76 17 156/95 99 Room Air 09/22/24 14:15 82 17 154/113 91 Room Air 09/22/24 14:00 98 17 157/96 98 Room Air 09/22/24 13:45 97.9 93 17 152/99 93 Room Air 09/22/24 11:25 97.9 72 18 165/94 100 Room Air LABS: Laboratory: Test 09/22/24 15:25 09/22/24 04:55 09/21/24 05:42 Range/Units Whole Blood Glucose 130 H 70-110 MG/DL White Blood Count 10.4 4.8-10.8 K/uL Red Blood Count 3.25 L 4.50-6.20 MIL/uL Hemoglobin 9.3 L 14.0-18.0 g/dL Hematocrit 28.4 L 42-54 % Mean Corpuscular Volume 87.4 79-99 fL Mean Corpuscular Hemoglobin 28.6 27.0-33.0 pg Mean Corpuscular Hemoglobin Concent 32.7 32.0-36.0 g/dL Red Cell Distribution Width 14.1 11.0-15.5 % Platelet Count 254 130-400 K/uL Mean Platelet Volume 10.6 H 7.5-10.5 fL Nucleated Red Blood Cells 0.0 0.0-0.19 % Sodium Level 145 136-145 mmol/L Potassium Level 3.3 L 3.5-5.1 mmol/L Chloride Level 108 101-111 mmol/L Carbon Dioxide Level 25 21-32 mmol/L Blood Urea Nitrogen 71 H 7-18 mg/dL Creatinine 4.2 H 0.5-1.3 mg/dL Glomerular Filtration Rate Calc 16 >90 mL/min Random Glucose 103 70-105 mg/dL Total Calcium 9.2 8.5-10.1 mg/dL Phosphorus Level 3.9 2.5-4.9 mg/dL Magnesium Level 2.10 1.80-2.40 mg/dL Total Bilirubin 0.3 0.2-1.0 mg/dL Aspartate Amino Transf (AST/SGOT) 17 10-37 U/L Alanine Aminotransferase (ALT/SGPT) 22 # 12-78 U/L Alkaline Phosphatase 70 50-136 U/L Total Protein 7.1 6.0-8.3 g/dL Albumin 2.6 L 3.5-5.0 g/dL Ferritin 528 H 30-400 ng/mL Current Medications Medications (Trade) Dose Ordered Sig/Krishan Route PRN Reason Start Time Stop Time Status Last Admin Dose Admin Acetaminophen (TYLenol 325MG TAB) 650 mg Q4H PRN PO MILD PAIN (1-3) 09/18/24 03:00 10/18/24 02:59 Acetaminophen (TYLenol 325MG TAB) 650 mg Q6H PRN PO TEMPERATURE GREATER THAN 101.5 09/18/24 03:00 10/18/24 02:59 Amlodipine Besylate (NorvASC 5MG TAB) 10 mg DAILY PO 09/21/24 12:30 10/21/24 12:29 09/21/24 12:19 10 MG Calcium Gluconate 1 gm/Sodium Chloride 100 ml @ 0 mls/hr PROTOCOL IV 09/18/24 00:00 10/18/24 00:00 09/17/24 23:59 100 MLS/HR Dextrose (D50w) 50 ml AD PRN IV HYPOGLYCEMIA PROTOCOL 09/18/24 03:30 10/18/24 03:29 Epoetin John-epbx (Retacrit) 10,000 unit QSA SQ 09/20/24 09:00 10/20/24 08:59 09/20/24 08:32 10,000 UNIT Famotidine (Pepcid 20mg Vial) 20 mg Q48H IV 09/18/24 03:00 10/18/24 02:59 09/22/24 03:17 20 MG Glucagon (Glucagon 1mg Kit) 1 mg AD PRN IM HYPOGLYCEMIA PROTOCOL 09/18/24 03:30 10/18/24 03:29 Guaifenesin (RobiTUSSin SUGAR-FREE 100 MG/ 5 ML UDCUP) 200 mg Q6H6 PRN PO COUGH 09/20/24 22:30 10/20/24 22:29 09/20/24 22:20 200 MG Hydrochlorothiazide (hydroCHLOROthiazide 25MG) 12.5 mg DAILY PO 09/21/24 16:30 10/21/24 16:29 09/21/24 17:28 12.5 MG Hydromorphone HCl (DiLAUDid 0.5MG INJ) 0.5 mg Q6H PRN IVP SEVERE PAIN (7-10) 09/18/24 15:30 09/23/24 15:29 09/20/24 05:11 0.5 MG Insulin Human Regular (humuLIN R 100 UNIT/ML 3ML) INSULIN SLIDING SCAL... ACHS SQ 09/18/24 07:30 10/18/24 07:29 09/21/24 19:55 3 UNIT Lisinopril (Prinivil 20mg) 20 mg DAILY PO 09/21/24 09:00 10/21/24 08:59 09/21/24 07:59 20 MG Magnesium Sulfate 50 ml @ 0 mls/hr PROTOCOL IV 09/21/24 16:00 09/21/24 17:41 DC 09/21/24 17:28 25 MLS/HR Ondansetron HCl (zoFRAN 4MG INJ) 4 mg Q6H PRN IV NAUSEA/VOMITING 09/18/24 03:00 10/18/24 02:59 Pharmacy Profile Note (Lace Assessment) 1 each AD MISC 09/18/24 13:30 09/18/24 13:35 DC Piperacillin Sod/ Tazobactam Sod 50 ml @ 12.5 mls/hr Q12H IV 09/18/24 05:00 09/18/24 05:30 DC Piperacillin Sod/ Tazobactam Sod 50 ml @ 12.5 mls/hr Q12H IV 09/18/24 12:00 09/28/24 11:59 09/22/24 12:20 12.5 MLS/HR Potassium Chloride 100 ml @ 100 mls/hr AD PRN IV POTASSIUM PROTOCOL 09/22/24 17:00 10/22/24 16:59 Potassium Chloride (K-Dur/Klor-Con 20meq) 20 meq AD PRN PO POTASSIUM PROTOCOL 09/22/24 17:00 10/22/24 16:59 09/22/24 17:07 20 MEQ Potassium Chloride (KCl 10% Elixir 20meq/15ml) 20 meq AD PRN PO POTASSIUM PROTOCOL 09/22/24 17:00 10/22/24 16:59 Sevelamer HCl (RENAgel 800 MG TAB) 800 mg TIDMEALS PO 09/19/24 12:00 10/19/24 11:59 09/22/24 17:07 800 MG Sodium Bicarbonate 150 meq/Dextrose 1,150 ml @ 100 mls/hr [id number] IVP 09/18/24 10:00 09/20/24 13:06 DC 09/20/24 08:33 100 MLS/HR Vancomycin HCl 250 ml @ 125 mls/hr Q76H IV 09/21/24 06:00 09/20/24 13:06 DC Vancomycin HCl (Vancomycin Protocol) 1 each AD IV 09/18/24 04:00 09/20/24 13:08 DC Vitamin B Complex/ Vit C/Folic Acid (Nephrovite Tablet) 1 cap DAILY PO 09/21/24 09:00 10/21/24 08:59 09/21/24 07:58 1 [facility] / RADIOLOGY: [place] [address] IMAGING REPORT Signed PATIENT: JAYRO LIRIANO MR#: [id number] : 1970 SEX: M AGE: 54 LOCATION: [facility] ORDER 46 STATUS: REG REPORT#: [id number] SERVICE 44 REASON: GEOVANI; NEPHROSTOMY TUBES ORDERING PHYSICIAN: ROMIE VICTOR PROCEDURE: ABD PEL WO - CT ABDOMEN/PELVIS W/O CONTRAST CT ABDOMEN/PELVIS W/O CONTRAST HISTORY: Acute renal insufficiency COMPARISON: 08/08/2024 TECHNIQUE: Multiple sequential axial images of the abdomen and pelvis were obtained from the dome of the diaphragm through symphysis pubis. Patient was not given contrast through intravenous route. Oral contrast was not given. FINDINGS: No pleural effusion is seen bilaterally. There is no evidence of parenchymal disease or pulmonary nodule of the visualized lower lungs. Degenerative changes of the thoracolumbar spine are present. The heart is not enlarged. Gallbladder is distended. There is left adrenal nodule with calcification measuring 3.3 x 2.6 cm. Bilateral percutaneous nephrostomy tubes are seen. The liver, spleen, right adrenal gland and pancreas are unremarkable. There is no evidence of hydronephrosis bilaterally. No evidence of renal stone is seen. Fecal material is seen in the colon. There are normal size retroperitoneal and mesenteric lymph nodes. No ascites is seen. No CT evidence of acute appendicitis is seen. Pelvic sidewalls are symmetric bilaterally. Bladder is poorly distended. IMPRESSION: 1. Bilateral percutaneous nephrostomy tube in place. CT was performed with one or more following dose reduction techniques: automated exposure control, adjustment of the mA and kv according to patient's size, or use of a iterative reconstruction technique. DICTATED BY: ROBBIE GARCIA MD DATE: 09/18/24100 ELECTRONICALLY SIGNED BY: ROBBIE GARCIA MD DATE: 09/18/24105 RUN DATE: 09/21/24 [facility] PAGE 1 RUN TIME: [address] [place] [address] Department of Laboratories [facility] # [id number] Dramatic Director: Tosha Menjivar DO Specimen Report - PATIENT: JAYRO LIRIANO ACCT: [id number] LOC: [facility] U: [id number] AGE/SX: 54/M ROOM: 313 RE09/18/[address]: GRAY LEARY MD : 1970 BED: 1 DIS: STATUS: ADM IN TLOC: SPEC: [id number] OBED: 09/18/24 STATUS: COMP REQ: [id number] RECD: 09/19/[address] [facility] [address]: ROMIE VICTOR SOURCE: [facility] ENTR: 09/19/[address] [facility] DR: ORIN PEREZ MD SPDESC: CLEAN CAT SAPPHIRE,GRAY CADET,HELENA GATICA,ADRIA GUILLEN,ABBEY MOISE MD ORDERED: AERO ID & SENS Procedure Result Jamie Date-Time AEROBIC ID & SENSITIVITIES Final 09/21/24-0711 MRL COLONY DESCRIPTION: DAY 1: COLONY COUNT: >100,000 CFU/ML GRAM NEGATIVE RODS IDENTIFICATION AND SENSITIVITY TO FOLLOW [employer] AZAELERI NAZARIO GARCIA M.I.CBrando RX --------- ---- AZTREONAM <=4 S CEFAZOLIN <=2 S CEFTAZIDIME <=1 S CEFTAZIDIME/AVIBACTAM <=8 S CEFTRIAXONE <=1 S GENTAMICIN <=2 S LEVOFLOXACIN <=0.5 S NITROFURANTOIN <=32 S MEROPENEM <=1 S PIPERACILLIN/TAZOBACTAM <=8 S TRIMETHOPRIM/SUFLAMETHOXAZOLE <=2/38 S @ [facility] Test Performed at: [facility] Ela Lange Man[place], [place], [place] Medical Process Maintenance Technician: Brooks Givens D.O. END OF REPORT RUN DATE: 09/22/24 [facility] PAGE 1 RUN TIME: [address] [address] Department of Laboratories CLIA # [id number] Dramatic Director: Tosha Menjivar DO Specimen Report PATIENT: JAYRO LIRIANO ACCT: [id number] LOC: [facility] U: [id number] AGE/SX: 54/M ROOM: [facility] RE09/18/[address]: GRAY LEARY MD : 1970 BED: 1 DIS: STATUS: ADM IN TLOC: -------- ---- SPEC: [id number] OBED: 09/18/24 STATUS: RES REQ: [id number] RECD: 09/18/[address]: ROMIE VICTOR SOURCE: BLOOD ENTR: 09/17/[address]: NONE SPDESC: ADRIA GATICA MD ORDERED: BLOOD CULTURE COMMENTS: What is the Source? BLOOD Procedure Result Jamie Date-Time BLOOD CULT Preliminary 09/22/24-5 NO GROWTH AFTER 4 DAYS -- ASSESSMENT: Acute on chronic renal failure POA Hyperkalemia, improved POA Acute pancreatitis POA Metabolic acidosis POA Acute on chronic anemia due to CKD POA Acute leukocytosis, resolved POA Bilateral nephrostomy tube status POA Bilateral nonhealing ulcers necrosis to both lower legs, s/p debridement of left calf wound on 09/19 POA Uncontrolled diabetes POA Hypertension POA PLAN: Acute on chronic renal failure * The scrub tech has recommended renal replacement therapy; however, the patient has refused it at this time. Continue with a renal diabetic diet and take measures to prevent hypotensive episodes. * Oral phosphate binders * Continue with Epogen 10,000 Units * Monitor electrolytes closely, avoid nephrotoxic agents. * Strict intake and output Bilateral nephrostomy tube status * Patient will undergo bilateral nephrostomy tube removal today by IR today. Follow up post procedure. Bilateral nonhealing ulcers necrosis to both lower legs, s/p debridement of left calf wound on 09/19 POA UTI with Citrobacter Koseri * Continue with Zosyn. Follow up with infectious disease recommendations. * Follow up with the wound management recommendations * The patient will be transferred to [facility] for Short term IV antibiotics post discharge per ID recommendations. AM Labs: CBC, BMP, Magnesium, Phosphorous Further orders per hospitalization course. ATTESTATION BY PHYSICIAN I have seen and examined the patient. I reviewed the documentation, medical decision making, and treatment plan as noted by the resident provider above. I agree with the findings and plan of care. Gray Leary MD, MANALI MD Sep 22, 2024 17:52
--- NOTE | 2024-09-22 18:52 | PN ---
INFECTIOUS DISEASE PROGRESS NOTE Date of Service: Sep 22, 2024 SUBJECTIVE: This is a 54-year-old male patient who was seen and examined at bedside in room 313. Patient is awake, alert and oriented x3. Patient is status post bilateral nephrostomy tube exchanged today. Patient is also status post debridement of left calf wound on 09/19/2024. No fever, temperature is 97.9. We will continue on Zosyn. Renal function continues to improve, the BUN is 71 and creatinine 4.2 today. We will continue to follow patient's care. PHYSICAL EXAM EYES: Anicteric. Pupils equal and reactive. HENT: No oral thrush seen, moist Oral mucosa. NECK: Supple, no JVD or thyromegaly. LUNGS: Good air entry. No rales, no rhonchi. CARDIOVASCULAR: S1, S2 regular. No murmur heard. ABDOMEN: Soft, non tender, bowel sounds present, no organomegaly. CENTRAL NERVOUS SYSTEM: Awake, alert, oriented x 3. SKIN: No rashes, no swelling. LYMPHATICS: No peripheral lymphadenopathy MUSCULOSKELETAL: No joint swelling, erythema or tenderness. EXTREMITIES: No cyanosis or clubbing. Bilateral leg ulcers. BACK: No deformity, no pressure ulcer. Bilateral nephrostomy tubes. GENITOURINARY: No dysuria or hematuria. Vital Sign (Last 12 Hours) 09/22/24 09/22/24 09/22/24 09/22/24 07:44 08:00 11:25 13:45 Temp 98.2 97.9 97.9 Pulse 62 72 93 Resp 18 18 17 B/P (MAP) 160/97 165/94 152/99 Pulse Ox 0 96 100 93 O2 Delivery Room Air* Room Air Room Air Room Air O2 Flow Rate 0 FiO2 21 09/22/24 09/22/24 09/22/24 09/22/24 14:00 14:15 14:30 15:00 Pulse 98 82 76 70 Resp 17 17 17 17 B/P (MAP) 157/96 154/113 156/95 148/82 Pulse Ox 98 91 99 99 O2 Delivery Room Air Room Air Room Air Room Air 09/22/24 09/22/24 15:30 16:30 Temp 97.5 Pulse 78 91 Resp 17 17 B/P (MAP) 150/91 154/96 Pulse Ox 98 98 O2 Delivery Room Air Room Air Intake & Output (last 24hrs) 09/21/24 09/21/24 09/22/24 15:00 23:00 07:00 Intake Total 240 ml 340.0 ml Output Total 900 ml 600 ml 1300 ml Balance -660 ml -260.0 ml -1300 ml LABS: Laboratory: Test 09/22/24 15:25 09/22/24 04:55 09/21/24 05:42 Range/Units Whole Blood Glucose 130 H 70-110 MG/DL White Blood Count 10.4 4.8-10.8 K/uL Red Blood Count 3.25 L 4.50-6.20 MIL/uL Hemoglobin 9.3 L 14.0-18.0 g/dL Hematocrit 28.4 L 42-54 % Mean Corpuscular Volume 87.4 79-99 fL Mean Corpuscular Hemoglobin 28.6 27.0-33.0 pg Mean Corpuscular Hemoglobin Concent 32.7 32.0-36.0 g/dL Red Cell Distribution Width 14.1 11.0-15.5 % Platelet Count 254 130-400 K/uL Mean Platelet Volume 10.6 H 7.5-10.5 fL Nucleated Red Blood Cells 0.0 0.0-0.19 % Sodium Level 145 136-145 mmol/L Potassium Level 3.3 L 3.5-5.1 mmol/L Chloride Level 108 101-111 mmol/L Carbon Dioxide Level 25 21-32 mmol/L Blood Urea Nitrogen 71 H 7-18 mg/dL Creatinine 4.2 H 0.5-1.3 mg/dL Glomerular Filtration Rate Calc 16 >90 mL/min Random Glucose 103 70-105 mg/dL Total Calcium 9.2 8.5-10.1 mg/dL Phosphorus Level 3.9 2.5-4.9 mg/dL Magnesium Level 2.10 1.80-2.40 mg/dL Total Bilirubin 0.3 0.2-1.0 mg/dL Aspartate Amino Transf (AST/SGOT) 17 10-37 U/L Alanine Aminotransferase (ALT/SGPT) 22 # 12-78 U/L Alkaline Phosphatase 70 50-136 U/L Total Protein 7.1 6.0-8.3 g/dL Albumin 2.6 L 3.5-5.0 g/dL Ferritin 528 H 30-400 ng/mL ASSESSMENT: Urinary tract infection Citrobacter koseri. Leukocytosis resolved. Bilateral leg ulcers, status post debridement of left calf wound on 09/19/2024. Acute renal failure, improving. History of bilateral hydronephrosis with nephrostomy tubes in place, s/p bilateral nephrostomy tube exchange. Diabetes mellitus. PLAN: Continue Zosyn. Continue pain management. Continue GI prophylaxis. Avoid nephrotoxic medications. Continue anti diabetics. Continue Physical therapy. This case was reviewed and discussed with my supervising physician and the above assessment and plan was formulated and agreed upon. ATTESTATION BY PHYSICIAN I have seen and examined the patient. I reviewed the documentation, medical decision making, and treatment plan as noted by the mid-level provider above. I agree with the findings and plan of care. ORIN PEREZ MD, [facility] Sep 22, 2024 18:52
[2024-09-23] VITALS (7 sets, daily range): BP systolic 133–158; BP diastolic 77–89; PULSE 78–92; RESP 17–18; TEMP 97.6–98.7; O2SAT 97
[2024-09-23 05:53] LABS: BASOPHILS # (AUTO) 0.07 K/uL (0.00-0.20); BASOPHILS % (AUTO) 0.5 % (0.0-5.0); EOSINOPHILS # (AUTO) 0.48 K/uL (0.00-0.70); EOSINOPHILS % (AUTO) 3.6 % (0.0-8.0); HEMATOCRIT 28.3 % (42-54); IMMATURE GRANULOCYTE ABSOLUTE 0.14 K/uL (0-1); LYMPHOCYTES # (AUTO) 1.7 K/uL (1.0-4.8); LYMPHOCYTES % (AUTO) 12.6 % (21.0-51.0); MEAN CORPUSCULAR HEMOGLOBIN 29.1 pg (27.0-33.0); MEAN CORPUSCULAR HGB CONC 32.9 g/dL (32.0-36.0); MEAN CORPUSCULAR VOLUME 88.4 fL (79-99); MONOCYTES # (AUTO) 1.7 K/uL (0.1-1.0); MONOCYTES % (AUTO) 12.7 % (3.0-13.0); NEUTROPHILS # (AUTO) 9.2 K/uL (1.8-7.7); NEUTROPHILS % (AUTO) 69.5 % (40.0-77.0); PLATELET COUNT (AUTO) 246 K/uL (130-400); RED CELL DISTRIBUTION WIDTH 13.8 % (11.0-15.5); WHITE BLOOD COUNT (AUTO) 13.2 K/uL (4.8-10.8)
--- NOTE | 2024-09-23 06:00 | CCATH ---
INDICATION: History of chronic bilateral nephrostomy tube due to hydronephrosis. ENGINE ASSEMBLER: Dr. Dunn. PROCEDURE DETAILS: Informed consent was obtained. Sterile Prep: All elements of maximal sterile barrier technique, including hand hygiene and cutaneous antisepsis were used. A time-out was performed prior to the procedure. Anesthesia type: Lidocaine 1% SQ. Contrast: None Complications: None. TECHNIQUE: The area was prepped and draped in sterile fashion. 1% lidocaine was used for local anesthesia. Contrast was injected through the existing bilateral nephrostomy tubes. The nephrostomy tubes were removed maintain a wire access. New eight Kyrgyz bilateral nephrostomy tube was placed over the wire then formed in the renal pelvis. Contrast was injected to confirm position. Sterile dressing was applied. No immediate complication. Patient tolerated procedure well. Findings: antegrade nephrostogram demonstrate adequate position of the bilateral nephrostomy tubes. Impression: Uneventful bilateral nephrostomy tube exchange using fluoroscopy guidance. TID: [id number] RECEIPT: [id number] [facility]
[2024-09-23] MEDS: acetaMINOPHEN 325 MG TAB PO PRN (06:03)
[2024-09-23 06:27] LABS: MAGNESIUM 1.9 mg/dL (1.80-2.40); POTASSIUM 3.5 mmol/L (3.5-5.1)
[2024-09-23] MEDS: HONEY 1 APPL/ML TUBE TP SCH (08:26)
--- NOTE | 2024-09-23 13:32 | PN ---
[facility] PROGRESS NOTE Date of Service: Sep 23, 2024 Time of Service: 13:31 SUBJECTIVE: This is a 54-year-old male past medical history of kidney disease, kidney stones with bilateral nephrostomy tube, diabetes and hypertension who was brought by EMS to the ED for complaints of abdominal pain associated with generalized body weakness, nausea and vomiting. On my evaluation patient states the reason why he came to the ER today is because of bilateral leg pain which has been hurting and he cant tolerate it anymore he said.Patient has multiple open wound ulcers with some necrotic tissue to both legs and as per patient that has been there since April 2023.Patient also reports he has a bilateral nephrostomy tube that was placed on September 2023 and supposedly should come off after 2 weeks but because of insurance issue it has not been removed. Seen and examined patient in the ER awake,alert and coherent.Patient appears comfortable,denies fever,chills,chest pain,palpitation,cough,shortness of breath,nausea,vomiting abdominal pain and diarrhea.Patient states he still voids with no problem. Vital signs temperature 98.2, heart rate 108, blood pressure 121/58 saturation 99% on room air. Labs: WBC 17 with negative left shift of neutrophils 82, hemoglobin 10, hematocrit 34, platelet count 378. Sodium 133, potassium six, chloride 98, carbon dioxide 11, BUN 162, creatinine 11 GFR five glucose 195 lactic acid 1.8 AST nine ALT nine BNP 23 albumin 3.1, triglycerides 179 lipase 791 troponin 10. While in the ER patient received Zosyn IV, sodium bicarb 50 mEq IV, Zofran 4 mg IV, Lokelma 10 g p.o., morphine 2 mg IV, insulin 10 units IV D50 25 mL IV, calcium gluconate 1 g IV and patient is being started on sodium bicarb at 100 mL/hour. We will admit patient for further medical management. 09/18: Patient was seen and examined this morning at bedside.Patient denies chest pain, shortness of breath, nausea, vomiting, fever, chills. Patient reports abdominal tenderness, worse in the right lower quadrant. Patient reports that he does not follow up with a primary care physician. Patient has bilateral nephrostomy tubes that were placed in April of 2023, but has not had them removed due to not having enough money to pay the co-pay at the urologist office. Patients renal function is abnormal, nephrology has been consulted and recommends Lokelma and sodium bicarbonate for the metabolic acidosis. Per Dr. Cadet, urology to be consulted for either removal or replacement of nephrostomy tubes. Urology has been consulted. 09/19: Patient was seen and examined this morning at bedside. Patient denies chest pain, shortness of breath, nausea, vomiting, fever, chills. Patient is scheduled to get a external debridement of the left calf. Patient is getting a removal of the bilateral nephrostomy tubes today by Interventional Radiology. Patient is currently NPO. Patient has refused dialysis, and continues on a bicarb drip for metabolic acidosis. Patient continues on vancomycin and Zosyn. 09/21/24 patient was seen and examined. Case discussed with the RN he was doing well. Denies nausea vomiting fever or chills. Continue vancomycin and Zosyn Patient was seen and examined this morning at bedside Patient with bilateral leg ulcers and status post debridement of left calf wound. The preliminary urine culture is growing Gram-negative rods. Discussed with ID/Continue Zosyn 09/22/2024: The patient was examined today in room 313 at bedside. He appears comfortable and denies any complaints or concerns at this time. He is scheduled for nephrostomy tube replacement today by OR. His blood pressure is mildly elevated at 159/90, which he attributes to anxiety about the procedure. Nursing staff have been performing wet-to-dry dressings, with wound management recommendations pending. Labs: Kidney functions have slightly improved, BUN went down to 71 from 89, creatinine went down to 4.2 from 5.1, GFR to 16 from 13, Phosphorous down to 3.9 from 5.7, Mg improved to 2.10. Blood cultures are negative, urine culture showed Gram-negative rods, pansensitive Cirobacter Koseri. We will follow up patient post nephrostomy tube replacement. Follow up with the nephrology and ID recommendations. Further assessment and plan as discussed below. 09/23/2024: The patient was examined at the bedside today. He underwent a bilateral nephrostomy tube exchange yesterday, and the procedure went without complications. Currently, he is feeling better and does not have any complaints or concerns. Dr. Gipson recommended a transfer to [facility]; however, the patient was hesitant yesterday due to potential difficulties with obtaining insurance approval. After discussing it today, he has agreed to the transfer if the insurance gives approval. Additionally, recommendations for wound management include applying a Midhoney dressing over the debridement site. He is running slightly hypertensive with recent BP of 141/77. Labs: Kidney functions continues to improve, BUN down to 62 from 71, Creatinine down to 4.0 from 4.2, GFR 17. Continue with Zosyn, pending [facility] approval. Further assessment and plan discussed below. REVIEW OF SYSTEMS CONSTITUTIONAL: Denies fevers, chills, or night sweats. No unintentional weight loss reported. NEUROLOGICAL: Denies headache, amaurosis fugax, motor weakness, sensory deficit, vertigo/spinning sensation, gait abnormalities, or tremors. ENT: No hearing loss, otalgia, otorrhea, rhinitis, rhinorrhea, hoarseness, or sore throat. CARDIOVASCULAR: Denies any exertional angina, dyspnea on exertion, orthopnea, paroxysmal nocturnal dyspnea, palpitations, life-threatening arrhythmias, claudication. PULMONARY: Denies any shortness of breath, cough, phlegm/sputum, hemoptysis, p leuritic chest pain. SLEEP: Denies morning headaches, daytime somnolence or napping. Denies difficulty falling asleep, staying asleep, waking from sleep. Denies knowledge of snoring. GASTROINTESTINAL: Denies any type of dysphagia to either liquids or solids. Denies nausea, vomiting, pyrosis, early satiety, abdominal pain, diarrhea, co nstipation, or changes in stool consistency or caliber. Denies coffee-ground emesis, hematemesis, hematochezia, or melanotic stools. GENITOURINARY: Denies frequency, urgency, nocturia, hematuria or incontinence (Storage/Irritative symptoms.) Low urinary stream, straining to void, urinary intermittency or hesitancy, splitting of the voiding stream, terminal dribbling. ENDOCRINOLOGIC: Denies polyuria, polydipsia, polyphagia or heat/cold intolerances. HEMATOLOGIC: Denies thrombophilia/previous clots, or coagulopathy/bleeding disorders. ONCOLOGIC: Denies personal history of malignancy. DERMATOLOGIC: Denies rashes or pruritus. PSYCHIATRIC: Denies any suicidal or homicidal ideation. Denies hallucinations. PHYSICAL EXAM GENERAL APPEARANCE: The patient is awake, alert, and oriented, in no acute cardiopulmonary distress. NEUROLOGICAL: Cranial nerves II-XII grossly intact. Motor is 5/5 in bilateral upper and lower extremities proximal to distal. No sensory deficits. HEENT: Face is symmetric. Pupils are equal and reactive. Extraocular movements are intact. NECK: Supple. No JVD. No thyromegaly. No submental, submandibular, pre- /postauricular, occipital or supraclavicular lymphadenopathy. CHEST: Normal chest expansion. No Telemetry. LUNGS: Absence of any rales, rhonchi or any wheezing. CARDIOVASCULAR: Regular. S1 and S2 normal. No appreciable rubs, murmurs or gallops. ABDOMEN: Soft, nontender, and nondistended. There is no rebound, voluntary guarding, or rigidity. : Deferred. No [place]on, b/l nephrostomy tubes in placed. EXTREMITIES: Dressing present over bilateral legs. SKIN: No skin breakdown. Vital Signs (last 8hr) Date Time Temp Pulse Resp B/P (MAP) Pulse Ox O2 Delivery O2 Flow Rate FiO2 09/23/24 10:17 97 Room Air* 0 21 09/23/24 08:00 97.9 84 18 133/81 97 Room Air LABS: Laboratory: Test 09/23/24 11:33 09/23/24 05:23 09/22/24 04:55 Range/Units Whole Blood Glucose 162 H 70-110 MG/DL Bedside Glucose Comment Notified Nurse White Blood Count 13.2 H 4.8-10.8 K/uL Red Blood Count 3.20 L 4.50-6.20 MIL/uL Hemoglobin 9.3 L 14.0-18.0 g/dL Hematocrit 28.3 L 42-54 % Mean Corpuscular Volume 88.4 79-99 fL Mean Corpuscular Hemoglobin 29.1 27.0-33.0 pg Mean Corpuscular Hemoglobin Concent 32.9 32.0-36.0 g/dL Red Cell Distribution Width 13.8 11.0-15.5 % Platelet Count 246 130-400 K/uL Mean Platelet Volume 11.1 H 7.5-10.5 fL Immature Granulocyte % (Auto) 1.1 H 0-1 % Neutrophils (%) (Auto) 69.5 40.0-77.0 % Lymphocytes (%) (Auto) 12.6 L 21.0-51.0 % Monocytes (%) (Auto) 12.7 3.0-13.0 % Eosinophils (%) (Auto) 3.6 0.0-8.0 % Basophils (%) (Auto) 0.5 0.0-5.0 % Neutrophils # (Auto) 9.2 H 1.8-7.7 K/uL Lymphocytes # (Auto) 1.7 1.0-4.8 K/uL Monocytes # (Auto) 1.7 H 0.1-1.0 K/uL Eosinophils # (Auto) 0.48 0.00-0.70 K/uL Basophils # (Auto) 0.07 0.00-0.20 K/uL Absolute Immature Granulocyte (auto 0.14 0-1 K/uL Nucleated Red Blood Cells 0.0 0.0-0.19 % Sodium Level 142 136-145 mmol/L Potassium Level 3.5 3.5-5.1 mmol/L Chloride Level 106 101-111 mmol/L Carbon Dioxide Level 26 21-32 mmol/L Blood Urea Nitrogen 62 H 7-18 mg/dL Creatinine 4.0 H 0.5-1.3 mg/dL Glomerular Filtration Rate Calc 17 >90 mL/min Random Glucose 133 H 70-105 mg/dL Total Calcium 9.2 8.5-10.1 mg/dL Phosphorus Level 4.0 2.5-4.9 mg/dL Magnesium Level 1.90 1.80-2.40 mg/dL Total Bilirubin 0.3 0.2-1.0 mg/dL Aspartate Amino Transf (AST/SGOT) 17 10-37 U/L Alanine Aminotransferase (ALT/SGPT) 22 # 12-78 U/L Alkaline Phosphatase 70 50-136 U/L Total Protein 7.1 6.0-8.3 g/dL Albumin 2.6 L 3.5-5.0 g/dL Current Medications Medications (Trade) Dose Ordered Sig/Krishan Route PRN Reason Start Time Stop Time Status Last Admin Dose Admin Acetaminophen (TYLenol 325MG TAB) 650 mg Q4H PRN PO MILD PAIN (1-3) 09/18/24 03:00 10/18/24 02:59 09/23/24 06:03 650 MG Acetaminophen (TYLenol 325MG TAB) 650 mg Q6H PRN PO TEMPERATURE GREATER THAN 101.5 09/18/24 03:00 10/18/24 02:59 Amlodipine Besylate (NorvASC 5MG TAB) 10 mg DAILY PO 09/21/24 12:30 10/21/24 12:29 09/23/24 08:25 10 MG Calcium Gluconate 1 gm/Sodium Chloride 100 ml @ 0 mls/hr PROTOCOL IV 09/18/24 00:00 10/18/24 00:00 09/17/24 23:59 100 MLS/HR Dextrose (D50w) 50 ml AD PRN IV HYPOGLYCEMIA PROTOCOL 09/18/24 03:30 10/18/24 03:29 Epoetin John-epbx (Retacrit) 10,000 unit QSA SQ 09/20/24 09:00 10/20/24 08:59 09/20/24 08:32 10,000 UNIT Famotidine (Pepcid 20mg Vial) 20 mg Q48H IV 09/18/24 03:00 10/18/24 02:59 09/22/24 03:17 20 MG Glucagon (Glucagon 1mg Kit) 1 mg AD PRN IM HYPOGLYCEMIA PROTOCOL 09/18/24 03:30 10/18/24 03:29 Guaifenesin (RobiTUSSin SUGAR-FREE 100 MG/ 5 ML UDCUP) 200 mg Q6H6 PRN PO COUGH 09/20/24 22:30 10/20/24 22:29 09/20/24 22:20 200 MG Hydrochlorothiazide (hydroCHLOROthiazide 25MG) 12.5 mg DAILY PO 09/21/24 16:30 10/21/24 16:29 09/23/24 08:26 12.5 MG Hydromorphone HCl (DiLAUDid 0.5MG INJ) 0.5 mg Q6H PRN IVP SEVERE PAIN (7-10) 09/18/24 15:30 09/23/24 15:29 09/23/24 08:25 0.5 MG Insulin Human Regular (humuLIN R 100 UNIT/ML 3ML) INSULIN SLIDING SCAL... ACHS SQ 09/18/24 07:30 10/18/24 07:29 09/22/24 20:07 7 UNIT Leptospermum Honey (Medihoney) APPLY DIRECTED DAILY TP 09/23/24 09:00 10/23/24 08:59 09/23/24 08:26 1 APPL Lisinopril (Prinivil 20mg) 20 mg DAILY PO 09/21/24 09:00 10/21/24 08:59 09/23/24 08:26 20 MG Magnesium Sulfate 50 ml @ 0 mls/hr PROTOCOL IV 09/21/24 16:00 09/21/24 17:41 DC 09/21/24 17:28 25 MLS/HR Ondansetron HCl (zoFRAN 4MG INJ) 4 mg Q6H PRN IV NAUSEA/VOMITING 09/18/24 03:00 10/18/24 02:59 Pharmacy Profile Note (Lace Assessment) 1 each AD MISC 09/18/24 13:30 09/18/24 13:35 DC Piperacillin Sod/ Tazobactam Sod 50 ml @ 12.5 mls/hr Q12H IV 09/18/24 05:00 09/18/24 05:30 DC Piperacillin Sod/ Tazobactam Sod 50 ml @ 12.5 mls/hr Q12H IV 09/18/24 12:00 09/28/24 11:59 09/23/24 12:12 12.5 MLS/HR Potassium Chloride 100 ml @ 100 mls/hr AD PRN IV POTASSIUM PROTOCOL 09/22/24 17:00 09/22/24 17:31 DC Potassium Chloride (K-Dur/Klor-Con 20meq) 20 meq AD PRN PO POTASSIUM PROTOCOL 09/22/24 17:00 09/22/24 17:31 DC 09/22/24 17:07 20 MEQ Potassium Chloride (KCl 10% Elixir 20meq/15ml) 20 meq AD PRN PO POTASSIUM PROTOCOL 09/22/24 17:00 09/22/24 17:31 DC Sevelamer HCl (RENAgel 800 MG TAB) 800 mg TIDMEALS PO 09/19/24 12:00 10/19/24 11:59 09/23/24 12:12 800 MG Sodium Bicarbonate 150 meq/Dextrose 1,150 ml @ 100 mls/hr [id number] IVP 09/18/24 10:00 09/20/24 13:06 DC 09/20/24 08:33 100 MLS/HR Vancomycin HCl 250 ml @ 125 mls/hr Q76H IV 09/21/24 06:00 09/20/24 13:06 DC Vancomycin HCl (Vancomycin Protocol) 1 each AD IV 09/18/24 04:00 09/20/24 13:08 DC Vitamin B Complex/ Vit C/Folic Acid (Nephrovite Tablet) 1 cap DAILY PO 09/21/24 09:00 10/21/24 08:59 09/23/24 08:26 1 CAP DIAGNOSTICS / RADIOLOGY: [facility] [address] [place] [address] IMAGING REPORT Signed PATIENT: JAYRO LIRIANO MR#: [id number] : 1970 SEX: M AGE: 54 LOCATION: [facility] ORDER 46 STATUS: REG REPORT#: [id number] SERVICE 44 REASON: GEOVANI; NEPHROSTOMY TUBES ORDERING PHYSICIAN: ROMIE VICTOR PROCEDURE: ABD PEL WO - CT ABDOMEN/PELVIS W/O CONTRAST CT ABDOMEN/PELVIS W/O CONTRAST HISTORY: Acute renal insufficiency COMPARISON: 08/08/2024 TECHNIQUE: Multiple sequential axial images of the abdomen and pelvis were obtained from the dome of the diaphragm through symphysis pubis. Patient was not given contrast through intravenous route. Oral contrast was not given. FINDINGS: No pleural effusion is seen bilaterally. There is no evidence of parenchymal disease or pulmonary nodule of the visualized lower lungs. Degenerative changes of the thoracolumbar spine are present. The heart is not enlarged. Gallbladder is distended. There is left adrenal nodule with calcification measuring 3.3 x 2.6 cm. Bilateral percutaneous nephrostomy tubes are seen. The liver, spleen, right adrenal gland and pancreas are unremarkable. There is no evidence of hydronephrosis bilaterally. No evidence of renal stone is seen. Fecal material is seen in the colon. There are normal size retroperitoneal and mesenteric lymph nodes. No ascites is seen. No CT evidence of acute appendicitis is seen. Pelvic sidewalls are symmetric bilaterally. Bladder is poorly distended. IMPRESSION: 1. Bilateral percutaneous nephrostomy tube in place. CT was performed with one or more following dose reduction techniques: automated exposure control, adjustment of the mA and kv according to patient's size, or use of a iterative reconstruction technique. DICTATED BY: ROBBIE GARCIA MD DATE: 05/29/25 0101 ELECTRONICALLY SIGNED BY: ROBBIE GARCIA MD DATE: 09/18/24105 RUN DATE: 09/21/24 [facility] [address] RUN TIME: [address] [address], [place] [address] Department of Laboratories CLIA # [id number] Deputy Director: Tosha Menjivar DO Specimen Report PATIENT: JAYRO LIRIANO ACCT: [id number] LOC: [facility] U: [id number] AGE/SX: 54/M ROOM: [facility] RE09/18/[address]: LEONCIO LEARY MD : 1970 BED: 1 DIS: STATUS: ADM IN TLOC: SPEC: [id number] OBED: 09/18/24 STATUS: COMP REQ: [id number] RECD: 09/19/[address]: ROMIE VICTOR SOURCE: [facility] [place] ENTR: 09/19/[address]: ORIN PEREZ MD [facility]: [facility] LEONCIO LEARY MD, JORGE H MD REYES,ADRIA GUILLEN,ABBEY BEAN MD ORDERED: AERO ID & SENS Procedure Result Jamie Date-Time AEROBIC ID & SENSITIVITIES Final 09/21/24-710 [facility] COLONY DESCRIPTION: DAY 1: COLONY COUNT: >100,000 CFU/ML GRAM NEGATIVE RODS IDENTIFICATION AND SENSITIVITY TO FOLLOW [facility] RX --------- ---- AZTREONAM <=4 S CEFAZOLIN <=2 S CEFTAZIDIME <=1 S CEFTAZIDIME/AVIBACTAM <=8 S CEFTRIAXONE <=1 S GENTAMICIN <=2 S LEVOFLOXACIN <=0.5 S NITROFURANTOIN <=32 S MEROPENEM <=1 S PIPERACILLIN/TAZOBACTAM <=8 S TRIMETHOPRIM/SUFLAMETHOXAZOLE <=2/38 S --- --------- @ [facility] Test Performed at: [facility] [address], [place], [place] Medical Dishroom Attendant: Brooks Givens D.O. END OF REPORT ASSESSMENT: Acute on chronic renal failure, improving POA S/P exchange of nephrostomy tube on 09/22/2024 POA UTI with Citrobacter Koseri Hyperkalemia, improved POA Acute pancreatitis POA Metabolic acidosis POA Acute on chronic anemia due to CKD POA Acute leukocytosis, resolved POA Bilateral nonhealing ulcers necrosis to both lower legs, s/p debridement of left calf wound on 09/19 POA Uncontrolled diabetes POA Hypertension POA PLAN: Acute on chronic renal failure,improving * The plumber's assistant has recommended renal replacement therapy; however, the patient has refused it at this time. Continue with a renal diabetic diet and take measures to prevent hypotensive episodes. * Oral phosphate binders * Continue with Epogen 10,000 Units * Monitor electrolytes closely, avoid nephrotoxic agents. * Strict intake and output * Closely monitor renal functions Bilateral nonhealing ulcers necrosis to both lower legs, s/p debridement of left calf wound on 09/19 POA UTI with Citrobacter Koseri * Continue with Zosyn. Follow up with infectious disease recommendations. * Daily dressings, Follow up with the wound management recommendations * [facility]. Hypertension * Continue with Amlodipine 10 mg, Lisinopril 20 mg daily * Closely monitor the vitals. AM Labs: CBC, BMP Further orders per hospitalization course. ATTESTATION BY PHYSICIAN I have seen and examined the patient. I reviewed the documentation, medical deci scott making, and treatment plan as noted by the resident provider above. I agree with the findings and plan of care. Leoncio Leary MD, MANALI MD Sep 23, 2024 13:32
--- NOTE | 2024-09-23 16:12 | NUR ---
BILATERAL LEG WOUND CARE DONE
--- NOTE | 2024-09-23 18:23 | PN ---
FOLLOWUP PROGRESS NOTE SUBJECTIVE: A 54-year-old male who initially presented with acute renal failure. The patient was found to have obstructive uropathy. The patient with bilateral nephrostomy tube replacement. The patient's creatinine continues to slowly improve. The patient was also found to have cellulitis, status post debridement of the wounds. He remains on broad-spectrum IV antibiotics and the patient is being seen as a followup visit for all of the above. REVIEW OF SYSTEMS: CONSTITUTIONAL: The patient is feeling weak and tired. HEENT: No change in vision. No change in hearing. CARDIOVASCULAR: No current chest pain or palpitations. PULMONARY: No shortness of breath. GASTROINTESTINAL: He is tolerating a diet. MUSCULOSKELETAL: Complains of weakness. OBJECTIVE: VITAL SIGNS: Blood pressure 152/86, pulse in the 90s, afebrile. GENERAL: Chronically ill male, older than appearing. HEENT: Head is atraumatic. Pupils are equal, roving to light. Oropharynx is without exudate. Nares are clear. NECK: There is no JVP. There is no thyromegaly, no masses. CARDIOVASCULAR: Regular. There is no S3, S4 gallop. LUNGS: Coarse with equal thoracic movement. ABDOMEN: Soft, nondistended, and nontender. EXTREMITIES: The wounds are noted. LABORATORY DATA: Sodium 142, potassium 3.5, BUN 62, creatinine is 4. Hemoglobin 9.3, hematocrit 28, white blood cell count is 13,000. IMPRESSION: * Acute on chronic renal failure. * Obstructive uropathy. * Cellulitis. * Diabetes mellitus. * Debilitation. PLAN: The patient's creatinine continues to stabilize. He has a history of known chronic renal insufficiency. There is no acute need for any form of renal replacement therapy at this time. He remains with the nephrostomy tubes in place. He remains on the broad-spectrum IV antibiotics. He continues with local wound care for the cellulitis. We will continue to follow the patient closely. TID: [id number] RECEIPT: [id number]
[2024-09-23] MEDS ORDERED: GABApentin 100 MG CAPSULE PO SCH (22:00)
[2024-09-23] MEDS: hydroMORPHone 0.5 MG SYG (0.5MG/0.5ML) IVP PRN (22:02)
[2024-09-23] MEDS: GABApentin 100 MG CAPSULE PO SCH (22:02)
--- NOTE | 2024-09-23 23:30 | PN ---
INFECTIOUS DISEASE PROGRESS NOTE Date of Service: Sep 23, 2024 SUBJECTIVE: This is a 54-year-old male patient who was seen and examined at bedside in room 313. Patient is awake, alert and oriented x3. Patient is status post bilateral nephrostomy tube exchanged day # 1. We will continue on Zosyn. Renal function improving, the BUN is 62 and creatinine 4.0 today. Patient has been referred to [facility] and pending insurance approval. PHYSICAL EXAM EYES: Anicteric. Pupils equal and reactive. HENT: No oral thrush seen, moist Oral mucosa. NECK: Supple, no JVD or thyromegaly. LUNGS: Good air entry. No rales, no rhonchi. CARDIOVASCULAR: S1, S2 regular. No murmur heard. ABDOMEN: Soft, non tender, bowel sounds present, no organomegaly. CENTRAL NERVOUS SYSTEM: Awake, alert, oriented x 3. SKIN: No rashes, no swelling. LYMPHATICS: No peripheral lymphadenopathy MUSCULOSKELETAL: No joint swelling, erythema or tenderness. EXTREMITIES: No cyanosis or clubbing. Bilateral leg ulcers. BACK: No deformity, no pressure ulcer. Bilateral nephrostomy tubes. GENITOURINARY: No dysuria or hematuria. Vital Sign (Last 12 Hours) 09/23/24 09/23/24 09/23/24 12:00 16:00 20:00 Temp 97.5 97.9 98.1 Pulse 80 92 83 Resp 17 18 18 B/P (MAP) 141/77 152/86 142/89 Pulse Ox 96 98 96 O2 Delivery Room Air Room Air Room Air Intake & Output (last 24hrs) 09/22/24 09/22/24 09/23/24 15:00 23:00 07:00 Intake Total 120 ml Output Total 200 ml 600 ml 350 ml Balance -200 ml -480 ml -350 ml LABS: Laboratory: Test 09/23/24 19:46 09/23/24 11:33 09/23/24 05:23 09/22/24 04:55 Range/Units Whole Blood Glucose 127 H 70-110 MG/DL Bedside Glucose Comment Notified Nurse White Blood Count 13.2 H 4.8-10.8 K/uL Red Blood Count 3.20 L 4.50-6.20 MIL/uL Hemoglobin 9.3 L 14.0-18.0 g/dL Hematocrit 28.3 L 42-54 % Mean Corpuscular Volume 88.4 79-99 fL Mean Corpuscular Hemoglobin 29.1 27.0-33.0 pg Mean Corpuscular Hemoglobin Concent 32.9 32.0-36.0 g/dL Red Cell Distribution Width 13.8 11.0-15.5 % Platelet Count 246 130-400 K/uL Mean Platelet Volume 11.1 H 7.5-10.5 fL Immature Granulocyte % (Auto) 1.1 H 0-1 % Neutrophils (%) (Auto) 69.5 40.0-77.0 % Lymphocytes (%) (Auto) 12.6 L 21.0-51.0 % Monocytes (%) (Auto) 12.7 3.0-13.0 % Eosinophils (%) (Auto) 3.6 0.0-8.0 % Basophils (%) (Auto) 0.5 0.0-5.0 % Neutrophils # (Auto) 9.2 H 1.8-7.7 K/uL Lymphocytes # (Auto) 1.7 1.0-4.8 K/uL Monocytes # (Auto) 1.7 H 0.1-1.0 K/uL Eosinophils # (Auto) 0.48 0.00-0.70 K/uL Basophils # (Auto) 0.07 0.00-0.20 K/uL Absolute Immature Granulocyte (auto 0.14 0-1 K/uL Nucleated Red Blood Cells 0.0 0.0-0.19 % Sodium Level 142 136-145 mmol/L Potassium Level 3.5 3.5-5.1 mmol/L Chloride Level 106 101-111 mmol/L Carbon Dioxide Level 26 21-32 mmol/L Blood Urea Nitrogen 62 H 7-18 mg/dL Creatinine 4.0 H 0.5-1.3 mg/dL Glomerular Filtration Rate Calc 17 >90 mL/min Random Glucose 133 H 70-105 mg/dL Total Calcium 9.2 8.5-10.1 mg/dL Phosphorus Level 4.0 2.5-4.9 mg/dL Magnesium Level 1.90 1.80-2.40 mg/dL Total Bilirubin 0.3 0.2-1.0 mg/dL Aspartate Amino Transf (AST/SGOT) 17 10-37 U/L Alanine Aminotransferase (ALT/SGPT) 22 # 12-78 U/L Alkaline Phosphatase 70 50-136 U/L Total Protein 7.1 6.0-8.3 g/dL Albumin 2.6 L 3.5-5.0 g/dL ASSESSMENT: Urinary tract infection Citrobacter koseri. Leukocytosis resolved. Bilateral leg ulcers, status post debridement of left calf wound on 09/19/2024. Acute renal failure, improving. History of bilateral hydronephrosis with nephrostomy tubes in place, s/p bilateral nephrostomy tube exchange on 09/22/2024. Diabetes mellitus. PLAN: Continue Zosyn. Continue pain management. Continue GI prophylaxis. Avoid nephrotoxic medications. Continue anti diabetics. Continue Physical therapy. Patient has been referred to [facility] and pending insurance approval. This case was reviewed and discussed with my supervising physician and the above assessment and plan was formulated and agreed upon. ATTESTATION BY PHYSICIAN I have seen and examined the patient. I reviewed the documentation, medical decision making, and treatment plan as noted by the mid-level provider above. I agree with the findings and plan of care. ORIN PEREZ MD, MIRTA L [facility] Sep 23, 2024 23:29
[2024-09-24] VITALS (7 sets, daily range): BP systolic 134–152; BP diastolic 72–91; PULSE 78–95; RESP 17–18; TEMP 97.8–98.4; O2SAT 99
[2024-09-24 05:19] LABS: BASOPHILS # (AUTO) 0.09 K/uL (0.00-0.20); BASOPHILS % (AUTO) 0.5 % (0.0-5.0); EOSINOPHILS # (AUTO) 0.61 K/uL (0.00-0.70); EOSINOPHILS % (AUTO) 3.5 % (0.0-8.0); HEMATOCRIT 29.5 % (42-54); IMMATURE GRANULOCYTE ABSOLUTE 0.19 K/uL (0-1); LYMPHOCYTES # (AUTO) 2.1 K/uL (1.0-4.8); LYMPHOCYTES % (AUTO) 12.2 % (21.0-51.0); MEAN CORPUSCULAR HEMOGLOBIN 28.4 pg (27.0-33.0); MEAN CORPUSCULAR HGB CONC 32.2 g/dL (32.0-36.0); MEAN CORPUSCULAR VOLUME 88.1 fL (79-99); MONOCYTES # (AUTO) 1.7 K/uL (0.1-1.0); NEUTROPHILS # (AUTO) 12.6 K/uL (1.8-7.7); NEUTROPHILS % (AUTO) 72.7 % (40.0-77.0); PLATELET COUNT (AUTO) 254 K/uL (130-400); RED BLOOD CELL COUNT(AUTO) 3.35 MIL/uL (4.50-6.20); RED CELL DISTRIBUTION WIDTH 13.7 % (11.0-15.5); WHITE BLOOD COUNT (AUTO) 17.3 K/uL (4.8-10.8)
[2024-09-24 05:29] LABS: CREATININE 3.8 mg/dL (0.5-1.3); POTASSIUM 3.5 mmol/L (3.5-5.1)
--- NOTE | 2024-09-24 08:20 | PN ---
[facility] PROGRESS NOTE Date of Service: Sep 24, 2024 Time of Service: 08:20 SUBJECTIVE: This is a 54-year-old male past medical history of kidney disease, kidney stones with bilateral nephrostomy tube, diabetes and hypertension who was brought by EMS to the ED for complaints of abdominal pain associated with generalized body weakness, nausea and vomiting. On my evaluation patient states the reason why he came to the ER today is because of bilateral leg pain which has been hurting and he cant tolerate it anymore he said.Patient has multiple open wound ulcers with some necrotic tissue to both legs and as per patient that has been there since April 2023.Patient also reports he has a bilateral nephrostomy tube that was placed on September 2023 and supposedly should come off after 2 weeks but because of insurance issue it has not been removed. Seen and examined patient in the ER awake,alert and coherent.Patient appears comfortable,denies fever,chills,chest pain,palpitation,cough,shortness of breath,nausea,vomiting abdominal pain and diarrhea.Patient states he still voids with no problem. Vital signs temperature 98.2, heart rate 108, blood pressure 121/58 saturation 99% on room air. Labs: WBC 17 with negative left shift of neutrophils 82, hemoglobin 10, hematocrit 34, platelet count 378. Sodium 133, potassium six, chloride 98, carbon dioxide 11, BUN 162, creatinine 11 GFR five glucose 195 lactic acid 1.8 AST nine ALT nine BNP 23 albumin 3.1, triglycerides 179 lipase 791 troponin 10. While in the ER patient received Zosyn IV, sodium bicarb 50 mEq IV, Zofran 4 mg IV, Lokelma 10 g p.o., morphine 2 mg IV, insulin 10 units IV D50 25 mL IV, calcium gluconate 1 g IV and patient is being started on sodium bicarb at 100 mL/hour. We will admit patient for further medical management. 09/18: Patient was seen and examined this morning at bedside.Patient denies chest pain, shortness of breath, nausea, vomiting, fever, chills. Patient reports abdominal tenderness, worse in the right lower quadrant. Patient reports that he does not follow up with a primary care physician. Patient has bilateral nephrostomy tubes that were placed in April of 2023, but has not had them removed due to not having enough money to pay the co-pay at the urologist office. Patients renal function is abnormal, nephrology has been consulted and recommends Lokelma and sodium bicarbonate for the metabolic acidosis. Per Dr. Cadet, urology to be consulted for either removal or replacement of nephrostomy tubes. Urology has been consulted. 09/19: Patient was seen and examined this morning at bedside. Patient denies chest pain, shortness of breath, nausea, vomiting, fever, chills. Patient is scheduled to get a external debridement of the left calf. Patient is getting a removal of the bilateral nephrostomy tubes today by Interventional Radiology. Patient is currently NPO. Patient has refused dialysis, and continues on a bicarb drip for metabolic acidosis. Patient continues on vancomycin and Zosyn. 09/21/24 patient was seen and examined. Case discussed with the RN he was doing well. Denies nausea vomiting fever or chills. Continue vancomycin and Zosyn Patient was seen and examined this morning at bedside Patient with bilateral leg ulcers and status post debridement of left calf wound. The preliminary urine culture is growing Gram-negative rods. Discussed with ID/Continue Zosyn 09/22/2024: The patient was examined today in room 313 at bedside. He appears comfortable and denies any complaints or concerns at this time. He is scheduled for nephrostomy tube replacement today by OR. His blood pressure is mildly elevated at 159/90, which he attributes to anxiety about the procedure. Nursing staff have been performing wet-to-dry dressings, with wound management recommendations pending. Labs: Kidney functions have slightly improved, BUN went down to 71 from 89, creatinine went down to 4.2 from 5.1, GFR to 16 from 13, Phosphorous down to 3.9 from 5.7, Mg improved to 2.10. Blood cultures are negative, urine culture showed Gram-negative rods, pansensitive Cirobacter Koseri. We will follow up patient post nephrostomy tube replacement. Follow up with the nephrology and ID recommendations. Further assessment and plan as discussed below. 09/23/2024: The patient was examined at the bedside today. He underwent a bilateral nephrostomy tube exchange yesterday, and the procedure went without complications. Currently, he is feeling better and does not have any complaints or concerns. Dr. Gipson recommended a transfer to [facility]; however, the patient was hesitant yesterday due to potential difficulties with obtaining insurance approval. After discussing it today, he has agreed to the transfer if the insurance gives approval. Additionally, recommendations for wound management include applying a Midhoney dressing over the debridement site. He is running slightly hypertensive with recent BP of 141/77. Labs: Kidney functions continues to improve, BUN down to 62 from 71, Creatinine down to 4.0 from 4.2, GFR 17. Continue with Zosyn, pending [employer] approval. Further assessment and plan discussed below. 09/24/24: The patient was examined at the bedside today. He is alert, oriented, and lying comfortably in bed. He reports experiencing bilateral pain in the over the wound area, rated at 5 out of 10, throbbing type. He notes that the pain is slightly improved compared to yesterday. Additionally, he is experiencing a tingling sensation in his feet. The nursing staff is performing daily dressings on him. He was unable to walk during physical therapy yesterday due to the pain. He is receiving Dilaudid 0.5 mg every 6 hours as needed, along with Tylenol for pain management. Bilateral nephrostomy tubes are in place. In terms of lab results, his white blood cell count increased to 17.3 from 13.2. His hemoglobin is at 9.5. His kidney functions continues to improve, BUN decreased to 60 from 62, and creatinine levels improved to 3.8 from 4.0. According to the cathode maker, we will continue the current management since kidney function is improving. Continue IV antibiotics, we are awaiting [employer] approval. Further assessment and planning are discussed below. REVIEW OF SYSTEMS CONSTITUTIONAL: Denies fevers, chills, or night sweats. No unintentional weight loss reported. NEUROLOGICAL: Denies headache, amaurosis fugax, motor weakness, sensory deficit, vertigo/spinning sensation, gait abnormalities, or tremors. ENT: No hearing loss, otalgia, otorrhea, rhinitis, rhinorrhea, hoarseness, or sore throat. CARDIOVASCULAR: Denies any exertional angina, dyspnea on exertion, orthopnea, paroxysmal nocturnal dyspnea, palpitations, life-threatening arrhythmias, claudication. PULMONARY: Denies any shortness of breath, cough, phlegm/sputum, hemoptysis, pleuritic chest pain. SLEEP: Denies morning headaches, daytime somnolence or napping. Denies difficulty falling asleep, staying asleep, waking from sleep. Denies knowledge of snoring. GASTROINTESTINAL: Denies any type of dysphagia to either liquids or solids. Denies nausea, vomiting, pyrosis, early satiety, abdominal pain, diarrhea, constipation, or changes in stool consistency or caliber. Denies coffee-ground emesis, hematemesis, hematochezia, or melanotic stools. GENITOURINARY: Denies frequency, urgency, nocturia, hematuria or incontinence (Storage/Irritative symptoms.) Low urinary stream, straining to void, urinary intermittency or hesitancy, splitting of the voiding stream, terminal dribbling. ENDOCRINOLOGIC: Denies polyuria, polydipsia, polyphagia or heat/cold intolerances. HEMATOLOGIC: Denies thrombophilia/previous clots, or coagulopathy/bleeding disorders. ONCOLOGIC: Denies personal history of malignancy. DERMATOLOGIC: Bilateral lower extremities pain, mostly around the wound site, constant, 5/10, throbbing in type Denies rashes or pruritus. PSYCHIATRIC: Denies any suicidal or homicidal ideation. Denies hallucinations. PHYSICAL EXAM GENERAL APPEARANCE: The patient is awake, alert, and oriented, in no acute cardiopulmonary distress. NEUROLOGICAL: Cranial nerves II-XII grossly intact. Motor is 5/5 in bilateral upper and lower extremities proximal to distal. No sensory deficits. HEENT: Face is symmetric. Pupils are equal and reactive. Extraocular movements are intact. NECK: Supple. No JVD. No thyromegaly. No submental, submandibular, pre- /postauricular, occipital or supraclavicular lymphadenopathy. CHEST: Normal chest expansion. No Telemetry. LUNGS: Absence of any rales, rhonchi or any wheezing. CARDIOVASCULAR: Regular. S1 and S2 normal. No appreciable rubs, murmurs or gallops. ABDOMEN: Soft, nontender, and nondistended. There is no rebound, voluntary guarding, or rigidity. : Deferred. No [place]on, b/l nephrostomy tubes in placed. EXTREMITIES: Dressing present over bilateral legs. SKIN: No skin breakdown. Vital Signs (last 8hr) Date Time Temp Pulse Resp B/P (MAP) Pulse Ox O2 Delivery O2 Flow Rate FiO2 09/24/24 04:00 98.1 84 17 134/86 98 Room Air LABS: Laboratory: Test 09/24/24 05:30 09/24/24 04:52 09/23/24 11:33 09/23/24 05:23 Range/Units Whole Blood Glucose 106 70-110 MG/DL White Blood Count 17.3 #H 4.8-10.8 K/uL Red Blood Count 3.35 L 4.50-6.20 MIL/uL Hemoglobin 9.5 L 14.0-18.0 g/dL Hematocrit 29.5 L 42-54 % Mean Corpuscular Volume 88.1 79-99 fL Mean Corpuscular Hemoglobin 28.4 27.0-33.0 pg Mean Corpuscular Hemoglobin Concent 32.2 32.0-36.0 g/dL Red Cell Distribution Width 13.7 11.0-15.5 % Platelet Count 254 130-400 K/uL Mean Platelet Volume 10.6 H 7.5-10.5 fL Immature Granulocyte % (Auto) 1.1 H 0-1 % Neutrophils (%) (Auto) 72.7 40.0-77.0 % Lymphocytes (%) (Auto) 12.2 L 21.0-51.0 % Monocytes (%) (Auto) 10.0 3.0-13.0 % Eosinophils (%) (Auto) 3.5 0.0-8.0 % Basophils (%) (Auto) 0.5 0.0-5.0 % Neutrophils # (Auto) 12.6 H 1.8-7.7 K/uL Lymphocytes # (Auto) 2.1 1.0-4.8 K/uL Monocytes # (Auto) 1.7 H 0.1-1.0 K/uL Eosinophils # (Auto) 0.61 0.00-0.70 K/uL Basophils # (Auto) 0.09 0.00-0.20 K/uL Absolute Immature Granulocyte (auto 0.19 0-1 K/uL Nucleated Red Blood Cells 0.0 0.0-0.19 % Sodium Level 141 136-145 mmol/L Potassium Level 3.5 3.5-5.1 mmol/L Chloride Level 105 101-111 mmol/L Carbon Dioxide Level 25 21-32 mmol/L Blood Urea Nitrogen 60 H 7-18 mg/dL Creatinine 3.8 H 0.5-1.3 mg/dL Glomerular Filtration Rate Calc 18 >90 mL/min Random Glucose 116 H 70-105 mg/dL Total Calcium 9.2 8.5-10.1 mg/dL Bedside Glucose Comment Notified Nurse Phosphorus Level 4.0 2.5-4.9 mg/dL Magnesium Level 1.90 1.80-2.40 mg/dL Current Medications Medications (Trade) Dose Ordered Sig/Krishan Route PRN Reason Start Time Stop Time Status Last Admin Dose Admin Acetaminophen (TYLenol 325MG TAB) 650 mg Q4H PRN PO MILD PAIN (1-3) 09/18/24 03:00 10/18/24 02:59 09/23/24 21:10 650 MG Acetaminophen (TYLenol 325MG TAB) 650 mg Q6H PRN PO TEMPERATURE GREATER THAN 101.5 09/18/24 03:00 10/18/24 02:59 Amlodipine Besylate (NorvASC 5MG TAB) 10 mg DAILY PO 09/21/24 12:30 10/21/24 12:29 09/23/24 08:25 10 MG Calcium Gluconate 1 gm/Sodium Chloride 100 ml @ 0 mls/hr PROTOCOL IV 09/18/24 00:00 10/18/24 00:00 09/17/24 23:59 100 MLS/HR Dextrose (D50w) 50 ml AD PRN IV HYPOGLYCEMIA PROTOCOL 09/18/24 03:30 10/18/24 03:29 Epoetin John-epbx (Retacrit) 10,000 unit QSA SQ 09/20/24 09:00 10/20/24 08:59 09/20/24 08:32 10,000 UNIT Famotidine (Pepcid 20mg Vial) 20 mg Q48H IV 09/18/24 03:00 10/18/24 02:59 09/24/24 03:41 20 MG Gabapentin (NEURontin 100 mg CAP) 100 mg HS PO 09/23/24 22:00 10/23/24 21:59 09/23/24 22:02 100 MG Gabapentin (NEURontin 100 mg CAP) 100 mg ONCE PO 09/23/24 22:00 09/23/24 21:44 DC Glucagon (Glucagon 1mg Kit) 1 mg AD PRN IM HYPOGLYCEMIA PROTOCOL 09/18/24 03:30 10/18/24 03:29 Guaifenesin (RobiTUSSin SUGAR-FREE 100 MG/ 5 ML UDCUP) 200 mg Q6H6 PRN PO COUGH 09/20/24 22:30 10/20/24 22:29 09/20/24 22:20 200 MG Hydrochlorothiazide (hydroCHLOROthiazide 25MG) 12.5 mg DAILY PO 09/21/24 16:30 10/21/24 16:29 09/23/24 08:26 12.5 MG Hydromorphone HCl (DiLAUDid 0.5MG INJ) 0.5 mg Q6H PRN IVP SEVERE PAIN (7-10) 09/18/24 15:30 09/23/24 15:29 DC 09/23/24 15:19 0.5 MG Hydromorphone HCl (DiLAUDid 0.5MG INJ) 0.5 mg Q6H PRN IVP SEVERE PAIN (7-10) 09/23/24 22:00 09/28/24 21:59 09/23/24 22:02 0.5 MG Insulin Human Regular (humuLIN R 100 UNIT/ML 3ML) INSULIN SLIDING SCAL... ACHS SQ 09/18/24 07:30 10/18/24 07:29 09/22/24 20:07 7 UNIT Leptospermum Honey ([employer]) APPLY DIRECTED DAILY TP 09/23/24 09:00 10/23/24 08:59 09/23/24 08:26 1 APPL Lisinopril (Prinivil 20mg) 20 mg DAILY PO 09/21/24 09:00 10/21/24 08:59 09/23/24 08:26 20 MG Magnesium Sulfate 50 ml @ 0 mls/hr PROTOCOL IV 09/21/24 16:00 09/21/24 17:41 DC 09/21/24 17:28 25 MLS/HR Ondansetron HCl (zoFRAN 4MG INJ) 4 mg Q6H PRN IV NAUSEA/VOMITING 09/18/24 03:00 10/18/24 02:59 Pharmacy Profile Note (Lace Assessment) 1 each AD MISC 09/18/24 13:30 09/18/24 13:35 DC Piperacillin Sod/ Tazobactam Sod 50 ml @ 12.5 mls/hr Q12H IV 09/18/24 05:00 09/18/24 05:30 DC Piperacillin Sod/ Tazobactam Sod 50 ml @ 12.5 mls/hr Q12H IV 09/18/24 12:00 09/28/24 11:59 09/24/24 00:19 12.5 MLS/HR Potassium Chloride 100 ml @ 100 mls/hr AD PRN IV POTASSIUM PROTOCOL 09/22/24 17:00 09/22/24 17:31 DC Potassium Chloride (K-Dur/Klor-Con 20meq) 20 meq AD PRN PO POTASSIUM PROTOCOL 09/22/24 17:00 09/22/24 17:31 DC 09/22/24 17:07 20 MEQ Potassium Chloride (KCl 10% Elixir 20meq/15ml) 20 meq AD PRN PO POTASSIUM PROTOCOL 09/22/24 17:00 09/22/24 17:31 DC Sevelamer HCl (RENAgel 800 MG TAB) 800 mg TIDMEALS PO 09/19/24 12:00 10/19/24 11:59 09/23/24 17:26 800 MG Sodium Bicarbonate 150 meq/Dextrose 1,150 ml @ 100 mls/hr [id number] IVP 09/18/24 10:00 09/20/24 13:06 DC 09/20/24 08:33 100 MLS/HR Vancomycin HCl 250 ml @ 125 mls/hr Q76H IV 09/21/24 06:00 09/20/24 13:06 DC Vancomycin HCl (Vancomycin Protocol) 1 each AD IV 09/18/24 04:00 09/20/24 13:08 DC Vitamin B Complex/ Vit C/Folic Acid (Nephrovite Tablet) 1 cap DAILY PO 09/21/24 09:00 10/21/24 08:59 09/23/24 08:26 1 [facility] / RADIOLOGY: [place] [address] IMAGING REPORT Signed PATIENT: JAYRO LIRIANO MR#: [id number] : 1970 SEX: M AGE: 54 LOCATION: [facility] ORDER 46 STATUS: REG ER REPORT#: [id number] SERVICE 44 REASON: GEOVANI; NEPHROSTOMY TUBES ORDERING PHYSICIAN: ROMIE VICTOR PROCEDURE: ABD PEL WO - CT ABDOMEN/PELVIS W/O CONTRAST CT ABDOMEN/PELVIS W/O CONTRAST HISTORY: Acute renal insufficiency COMPARISON: 08/08/2024 TECHNIQUE: Multiple sequential axial images of the abdomen and pelvis were obtained from the dome of the diaphragm through symphysis pubis. Patient was not given contrast through intravenous route. Oral contrast was not given. FINDINGS: No pleural effusion is seen bilaterally. There is no evidence of parenchymal disease or pulmonary nodule of the visualized lower lungs. Degenerative changes of the thoracolumbar spine are present. The heart is not enlarged. Gallbladder is distended. There is left adrenal nodule with calcification measuring 3.3 x 2.6 cm. Bilateral percutaneous nephrostomy tubes are seen. The liver, spleen, right adrenal gland and pancreas are unremarkable. There is no evidence of hydronephrosis bilaterally. No evidence of renal stone is seen. Fecal material is seen in the colon. There are normal size retroperitoneal and mesenteric lymph nodes. No ascites is seen. No CT evidence of acute appendicitis is seen. Pelvic sidewalls are symmetric bilaterally. Bladder is poorly distended. IMPRESSION: 1. Bilateral percutaneous nephrostomy tube in place. CT was performed with one or more following dose reduction techniques: automated exposure control, adjustment of the mA and kv according to patient's size, or use of a iterative reconstruction technique. DICTATED BY: ROBBIE GARCIA MD DATE: 09/18/24100 ELECTRONICALLY SIGNED BY: ROBBIE GARCIA MD DATE: 09/18/24105 RUN DATE: 09/21/24 [facility] [address] 1 RUN TIME: 07 [address] [place] [address] Department of Laboratories [facility] # [id number] Corporate [employer]vertising & Online: Tosha Menjivar DO Specimen Report PATIENT: JAYRO LIRIANO ACCT: [id number] LOC: [facility] U: [id number] AGE/SX: 54/M ROOM: [address] [place] [address]: 09/18/[address]: LEONCIO LEARY MD : 1970 BED: 1 DIS: STATUS: ADM IN TLOC: SPEC: [id number] OBED: 09/18/24 STATUS: COMP REQ: [id number] RECD: 09/19/[address]: ROMIE VICTOR SOURCE: [facility]: 09/19/[address]: ORIN PEREZ MD SPDESC: CLEAN CAT LEONCIO LEARY MD, JORGE H MD REYES, RAUL MD RODRIGUEZ, JOSE MARIANO MD ORDERED: AERO ID & SENS Procedure Result Jamie Date-Time AEROBIC ID & SENSITIVITIES Final 09/21/24-0711 MRL COLONY DESCRIPTION: DAY 1: COLONY COUNT: >100,000 CFU/ML GRAM NEGATIVE RODS IDENTIFICATION AND SENSITIVITY TO FOLLOW [employer] KOSERI NAZARIO GARCIA M.I.CBrando RX --------- ---- AZTREONAM <=4 S CEFAZOLIN <=2 S CEFTAZIDIME <=1 S CEFTAZIDIME/AVIBACTAM <=8 S CEFTRIAXONE <=1 S GENTAMICIN <=2 S LEVOFLOXACIN <=0.5 S NITROFURANTOIN <=32 S MEROPENEM <=1 S PIPERACILLIN/TAZOBACTAM <=8 S TRIMETHOPRIM/SUFLAMETHOXAZOLE <=2/38 S -- @ [facility] Test Performed at: [facility] [address], [place], [place] Medical Hydrogeology Professor: Brooks Givens D.O. END OF REPORT ASSESSMENT: Acute on chronic renal failure, improving POA S/P exchange of nephrostomy tube on 09/22/2024 POA Acute leukocytosis POA Bilateral nonhealing ulcers necrosis to both lower legs, s/p debridement of left calf wound on 09/19 POA UTI with Citrobacter Koseri Hyperkalemia, resolved POA Acute pancreatitis POA Metabolic acidosis POA Acute on chronic anemia due to CKD POA Uncontrolled diabetes POA Hypertension POA PLAN:- The patient remains admitted on the medical surgical floor. Acute on chronic renal failure,improving Acute on chronic anemia due to CKD POA * Per cathode maker today, the patient does not require any emergency renal replacement therapy at this time. We will Continue with a renal diabetic diet and take measures to prevent hypotensive episodes. * Oral phosphate binders * Continue with Epogen 10,000 Units * Monitor electrolytes closely, avoid nephrotoxic agents. * Strict intake and output * Closely monitor renal functions S/P exchange of nephrostomy tube on 09/22/2024 POA * Follow up with the urologist as an outpatient post discharge for further recommendations. Acute leukocytosis POA * No febrile episodes, hemodynamically stable. Continue IV Zosyn, follow up with ID recommendations * Closely monitor vitals and WBC trend. CBC in a.m. Bilateral nonhealing ulcers necrosis to both lower legs, s/p debridement of left calf wound on 09/19 POA UTI with Citrobacter Koseri * Continue with Zosyn. Follow up with infectious disease recommendations. * Continue with Dilaudid 0.5 mg q.6 for severe pain (7-10) and Tylenol 650 mg for mild pain (1-3). * Daily dressings per wound management recommendations * Pending [employer] approval for longterm antibiotics. Hypertension * Continue with Amlodipine 10 mg, Lisinopril 20 mg daily * Closely monitor the vitals. AM Labs: CBC, BMP Further orders per hospitalization course. ATTESTATION BY PHYSICIAN I have seen and examined the patient. I reviewed the documentation, medical decision making, and treatment plan as noted by the resident provider above. I agree with the findings and plan of care. Leoncio Leary MD, MANALI MD Sep 24, 2024 08:20
--- NOTE | 2024-09-24 09:30 | PN ---
FOLLOWUP PROGRESS NOTE SUBJECTIVE: The patient is a 54-year-old male with a history of diabetes mellitus and hypertension. The patient with a history of obstructive uropathy. The patient is status post nephrostomy tube replacements. He has had acute on chronic renal failure in the hospital. Creatinine continues to slowly improve. The patient also with evidence of cellulitis and remains on the antibiotics. The patient's creatinine continues to slowly improve and he is being seen at the followup visit for all of the above. The patient remains on the antibiotics. REVIEW OF SYSTEMS: CONSTITUTIONAL: He is feeling improved. HEENT: No change in vision. No change in hearing. CARDIOVASCULAR: There is no current chest pain or palpitations. PULMONARY: There is no shortness of breath. GASTROINTESTINAL: The patient is tolerating a diet. MUSCULOSKELETAL: Complaint of weakness. PHYSICAL EXAMINATION: VITAL SIGNS: Blood pressure 134/86, pulse in the 80s. Afebrile. GENERAL: He is a chronically ill male, much older than appearing. HEENT: Atraumatic. Pupils are equal, roving to light. Oropharynx is without exudate. Nares clear. NECK: There is no JVP. There is no thyromegaly. No masses. CARDIOVASCULAR: Regular. There is no S3 or S4 gallop. LUNGS: Coarse with equal thoracic movement. ABDOMEN: Soft, nondistended and nontender. EXTREMITIES: Reveal no clubbing, no cyanosis. NEUROLOGICAL: He is awake. He is alert. LABORATORY DATA: Sodium 141, potassium 3.5, BUN 60, creatinine is 3.8, hemoglobin 9.5, hematocrit 29, white blood cell count 17,000. IMPRESSION: * Acute renal failure. * Obstructive uropathy. * Cellulitis. * Electrolyte abnormalities. PLAN: The patient's creatinine continues to slowly improve. The patient remains with the nephrostomy tubes in place. Once he is discharged, the patient will follow up with Urology. The patient remains on the antibiotics for the cellulitis. We will continue to follow closely. The patient with multiple questions, all of which were answered. TID: [id number] RECEIPT: [id number]
[2024-09-24] MEDS: HEParin 5,000 UNIT VIAL SQ SCH ×2 (15:30→22:15)
--- NOTE | 2024-09-24 23:22 | PN ---
INFECTIOUS DISEASE PROGRESS NOTE Date of Service: Sep 24, 2024 SUBJECTIVE: This is a 54-year-old male patient who was seen and examined at bedside in room 313. Patient is awake, alert and oriented x3. Patient is status post bilateral nephrostomy tube exchanged to 09/22/2024. WBC is elevated today at 17.3 but no fever, temperature is 97.9. We will continue on Zosyn. Renal function continues to improve, the BUN is 60 and creatinine 3.8. Pending insurance approval to [facility]. PHYSICAL EXAM EYES: Anicteric. Pupils equal and reactive. HENT: No oral thrush seen, moist Oral mucosa. NECK: Supple, no JVD or thyromegaly. LUNGS: Good air entry. No rales, no rhonchi. CARDIOVASCULAR: S1, S2 regular. No murmur heard. ABDOMEN: Soft, non tender, bowel sounds present, no organomegaly. CENTRAL NERVOUS SYSTEM: Awake, alert, oriented x 3. SKIN: No rashes, no swelling. LYMPHATICS: No peripheral lymphadenopathy MUSCULOSKELETAL: No joint swelling, erythema or tenderness. EXTREMITIES: No cyanosis or clubbing. Bilateral leg ulcers. BACK: No deformity, no pressure ulcer. Bilateral nephrostomy tubes. GENITOURINARY: No dysuria or hematuria. Vital Sign (Last 12 Hours) 09/24/24 09/24/24 09/24/24 09/24/24 12:00 12:00 16:00 20:00 Temp 97.9 98.1 98.4 Pulse 92 78 89 Resp 18 17 18 B/P (MAP) 148/78 142/72 147/84 Pulse Ox 97 96 99 O2 Delivery Room Air* Room Air Room Air Room Air O2 Flow Rate 0 FiO2 21 Intake & Output (last 24hrs) 09/23/24 09/23/24 09/24/24 15:00 23:00 07:00 Intake Total 1300 ml 240 ml Output Total 1850 ml 1425 ml Balance -550 ml -1185 ml LABS: Laboratory: Test 09/24/24 19:41 09/24/24 10:44 09/24/24 04:52 09/23/24 05:23 Range/Units Whole Blood Glucose 218 H 70-110 MG/DL Bedside Glucose Comment Notified Nurse White Blood Count 17.3 #H 4.8-10.8 K/uL Red Blood Count 3.35 L 4.50-6.20 MIL/uL Hemoglobin 9.5 L 14.0-18.0 g/dL Hematocrit 29.5 L 42-54 % Mean Corpuscular Volume 88.1 79-99 fL Mean Corpuscular Hemoglobin 28.4 27.0-33.0 pg Mean Corpuscular Hemoglobin Concent 32.2 32.0-36.0 g/dL Red Cell Distribution Width 13.7 11.0-15.5 % Platelet Count 254 130-400 K/uL Mean Platelet Volume 10.6 H 7.5-10.5 fL Immature Granulocyte % (Auto) 1.1 H 0-1 % Neutrophils (%) (Auto) 72.7 40.0-77.0 % Lymphocytes (%) (Auto) 12.2 L 21.0-51.0 % Monocytes (%) (Auto) 10.0 3.0-13.0 % Eosinophils (%) (Auto) 3.5 0.0-8.0 % Basophils (%) (Auto) 0.5 0.0-5.0 % Neutrophils # (Auto) 12.6 H 1.8-7.7 K/uL Lymphocytes # (Auto) 2.1 1.0-4.8 K/uL Monocytes # (Auto) 1.7 H 0.1-1.0 K/uL Eosinophils # (Auto) 0.61 0.00-0.70 K/uL Basophils # (Auto) 0.09 0.00-0.20 K/uL Absolute Immature Granulocyte (auto 0.19 0-1 K/uL Nucleated Red Blood Cells 0.0 0.0-0.19 % Sodium Level 141 136-145 mmol/L Potassium Level 3.5 3.5-5.1 mmol/L Chloride Level 105 101-111 mmol/L Carbon Dioxide Level 25 21-32 mmol/L Blood Urea Nitrogen 60 H 7-18 mg/dL Creatinine 3.8 H 0.5-1.3 mg/dL Glomerular Filtration Rate Calc 18 >90 mL/min Random Glucose 116 H 70-105 mg/dL Total Calcium 9.2 8.5-10.1 mg/dL Phosphorus Level 4.0 2.5-4.9 mg/dL Magnesium Level 1.90 1.80-2.40 mg/dL ASSESSMENT: Urinary tract infection Citrobacter koseri. Leukocytosis resolved. Bilateral leg ulcers, status post debridement of left calf wound on 09/19/2024. Acute renal failure, improving. History of bilateral hydronephrosis with nephrostomy tubes in place, s/p laine ateral nephrostomy tube exchange on 09/22/2024. Diabetes mellitus. PLAN: Continue Zosyn. Continue pain management. Continue GI prophylaxis. Avoid nephrotoxic medications. Continue anti diabetics. Continue Physical therapy. Patient has been referred to [facility] and pending insurance approval. This case was reviewed and discussed with my supervising physician and the above assessment and plan was formulated and agreed upon. ATTESTATION BY PHYSICIAN I have seen and examined the patient. I reviewed the documentation, medical decision making, and treatment plan as noted by the mid-level provider above. I agree with the findings and plan of care. ORIN PEREZ MD, MIRTA L [facility] Sep 24, 2024 23:22
[2024-09-25] VITALS (7 sets, daily range): BP systolic 124–163; BP diastolic 73–91; PULSE 90–95; RESP 16–20; TEMP 97.9–98.6; O2SAT 94–95
[2024-09-25 05:41] LABS: BASOPHILS # (AUTO) 0.11 K/uL (0.00-0.20); BASOPHILS % (AUTO) 0.5 % (0.0-5.0); EOSINOPHILS % (AUTO) 2.8 % (0.0-8.0); HEMATOCRIT 29.6 % (42-54); IMMATURE GRANULOCYTE ABSOLUTE 0.23 K/uL (0-1); LYMPHOCYTES # (AUTO) 2.4 K/uL (1.0-4.8); LYMPHOCYTES % (AUTO) 10.8 % (21.0-51.0); MEAN CORPUSCULAR HEMOGLOBIN 28.6 pg (27.0-33.0); MEAN CORPUSCULAR HGB CONC 32.1 g/dL (32.0-36.0); MEAN CORPUSCULAR VOLUME 89.2 fL (79-99); MONOCYTES # (AUTO) 1.4 K/uL (0.1-1.0); MONOCYTES % (AUTO) 6.4 % (3.0-13.0); NEUTROPHILS # (AUTO) 17.1 K/uL (1.8-7.7); NEUTROPHILS % (AUTO) 78.4 % (40.0-77.0); PLATELET COUNT (AUTO) 331 K/uL (130-400); RED BLOOD CELL COUNT(AUTO) 3.32 MIL/uL (4.50-6.20); RED CELL DISTRIBUTION WIDTH 13.7 % (11.0-15.5); WHITE BLOOD COUNT (AUTO) 21.8 K/uL (4.8-10.8)
[2024-09-25 05:53] LABS: CREATININE 3.8 mg/dL (0.5-1.3); POTASSIUM 3.9 mmol/L (3.5-5.1)
--- NOTE | 2024-09-25 09:44 | PN ---
FOLLOWUP PROGRESS NOTE SUBJECTIVE: A 54-year-old male with a history of diabetes mellitus and hypertension. The patient with a history of known obstructive uropathy. The patient is status post nephrostomy tube placement. The patient also has a history of cellulitis. He remains on the antibiotics and he is being seen as a followup visit for all of the above. REVIEW OF SYSTEMS: CONSTITUTIONAL: Complains of pain to the leg. HEENT: No change in vision. No change in hearing. CARDIOVASCULAR: There are no current chest pain or palpitations. PULMONARY: Denies any shortness of breath. GASTROINTESTINAL: He is tolerating a diet. MUSCULOSKELETAL: Complains of pain. PHYSICAL EXAMINATION: VITAL SIGNS: Blood pressure is 133/85, pulse in the 90s, afebrile. GENERAL: He is a chronically ill male, older than appearing. HEENT: Head is atraumatic. Pupils are equal, roving to light. Oropharynx is without exudate. Nares clear. NECK: There is no JVP. There is no thyromegaly. No masses. CARDIOVASCULAR: Regular. There is no S3, S4 or gallop. LUNGS: Coarse with equal thoracic movement. ABDOMEN: Soft, nondistended and nontender. EXTREMITIES: The wounds are noted. LABORATORY DATA: Sodium 143, potassium 3.9, BUN 55, creatinine is 3.8, hemoglobin 9.5, hematocrit 29. IMPRESSION: * Acute on chronic renal dysfunction. * Obstructive uropathy. * Cellulitis. * Diabetes mellitus. PLAN: The patient's creatinine has remained fairly stable. He remains on the antibiotics as prescribed. Hydrochlorothiazide can safely be discontinued. The patient is being seen by case management for final disposition, which will be long-term antibiotics. The patient can safely continue with NUNO inhibitor as long as his creatinine remains stable. All labs will be repeated in the morning. The patient with multiple questions, all of which were answered. TID: [id number] RECEIPT: [id number]
[2024-09-25] MEDS ORDERED: PHARMACY COMMUNICATION MISC SCH (12:00)
--- NOTE | 2024-09-25 12:00 | PN ---
INFECTIOUS DISEASE PROGRESS NOTE Date of Service: Sep 25, 2024 SUBJECTIVE: This is a 54-year-old male patient who was seen and examined at bedside in room 313. Patient is awake, alert and oriented x3. No fever, temperature is 97.9, the WBC however keeps trending up and is 21.8 today. Patient is s/p debridement of left calf wound on 09/19/2024 and the pathology results confirmed calciphylaxis. We will start patient on linezolid 600 mg IV q.12 and continue on Zosyn. The BUN is 55 and creatinine continues at 3.8. Still pending insurance approval to [facility]. PHYSICAL EXAM EYES: Anicteric. Pupils equal and reactive. HENT: No oral thrush seen, moist Oral mucosa. NECK: Supple, no JVD or thyromegaly. LUNGS: Good air entry. No rales, no rhonchi. CARDIOVASCULAR: S1, S2 regular. No murmur heard. ABDOMEN: Soft, non tender, bowel sounds present, no organomegaly. CENTRAL NERVOUS SYSTEM: Awake, alert, oriented x 3. SKIN: No rashes, no swelling. LYMPHATICS: No peripheral lymphadenopathy MUSCULOSKELETAL: No joint swelling, erythema or tenderness. EXTREMITIES: No cyanosis or clubbing. Bilateral leg ulcers. BACK: No deformity, no pressure ulcer. Bilateral nephrostomy tubes. GENITOURINARY: No dysuria or hematuria. Vital Sign (Last 12 Hours) 09/25/24 09/25/24 09/25/24 00:00 04:00 08:00 Temp 97.9 98.1 97.9 Pulse 92 95 94 Resp 16 18 18 B/P (MAP) 147/91 163/85 133/85 Pulse Ox 98 97 94 O2 Delivery Room Air Room Air Room Air FiO2 21 Intake & Output (last 24hrs) 09/24/24 09/24/24 09/25/24 15:00 23:00 07:00 Intake Total 1100 ml 240 ml Output Total 250 ml 1300 ml 1060 ml Balance -250 ml -200 ml -820 ml LABS: Laboratory: Test 09/25/24 11:34 09/25/24 05:08 09/24/24 10:44 Range/Units Whole Blood Glucose 166 H 70-110 MG/DL White Blood Count 21.8 H 4.8-10.8 K/uL Red Blood Count 3.32 L 4.50-6.20 MIL/uL Hemoglobin 9.5 L 14.0-18.0 g/dL Hematocrit 29.6 L 42-54 % Mean Corpuscular Volume 89.2 79-99 fL Mean Corpuscular Hemoglobin 28.6 27.0-33.0 pg Mean Corpuscular Hemoglobin Concent 32.1 32.0-36.0 g/dL Red Cell Distribution Width 13.7 11.0-15.5 % Platelet Count 331 # 130-400 K/uL Mean Platelet Volume 11.1 H 7.5-10.5 fL Immature Granulocyte % (Auto) 1.1 H 0-1 % Neutrophils (%) (Auto) 78.4 H 40.0-77.0 % Lymphocytes (%) (Auto) 10.8 L 21.0-51.0 % Monocytes (%) (Auto) 6.4 3.0-13.0 % Eosinophils (%) (Auto) 2.8 0.0-8.0 % Basophils (%) (Auto) 0.5 0.0-5.0 % Neutrophils # (Auto) 17.1 H 1.8-7.7 K/uL Lymphocytes # (Auto) 2.4 1.0-4.8 K/uL Monocytes # (Auto) 1.4 H 0.1-1.0 K/uL Eosinophils # (Auto) 0.60 0.00-0.70 K/uL Basophils # (Auto) 0.11 0.00-0.20 K/uL Absolute Immature Granulocyte (auto 0.23 0-1 K/uL Nucleated Red Blood Cells 0.0 0.0-0.19 % Sodium Level 143 136-145 mmol/L Potassium Level 3.9 3.5-5.1 mmol/L Chloride Level 104 101-111 mmol/L Carbon Dioxide Level 28 21-32 mmol/L Blood Urea Nitrogen 55 H 7-18 mg/dL Creatinine 3.8 H 0.5-1.3 mg/dL Glomerular Filtration Rate Calc 18 >90 mL/min Random Glucose 107 H 70-105 mg/dL Total Calcium 9.8 8.5-10.1 mg/dL Bedside Glucose Comment Notified Nurse ASSESSMENT: Urinary tract infection Citrobacter koseri. Leukocytosis. Bilateral leg ulcers, status post debridement of left calf wound on 09/19/2024. 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 Acute renal failure, improving. History of bilateral hydronephrosis with nephrostomy tubes in place, s/p bilateral nephrostomy tube exchange on 09/22/2024. Diabetes mellitus. PLAN: Start linezolid 600 mg IV q.12. Continue Zosyn. Continue pain management. Continue GI prophylaxis. Avoid nephrotoxic medications. Continue antidiabetics. Continue Physical therapy. Pending insurance approval to [facility]. This case was reviewed and discussed with my supervising physician and the above assessment and plan was formulated and agreed upon. ATTESTATION BY PHYSICIAN I have seen and examined the patient. I reviewed the documentation, medical decision making, and treatment plan as noted by the mid-level provider above. I agree with the findings and plan of care. ORIN PEREZ MD, MIRTA L CHIEF NURSE Sep 25, 2024 12:00
[2024-09-25] MEDS: LINEZOLID 600 MG/ISO-OSM 300 ML IV SCH (12:32)
[2024-09-25] MEDS: fluCONazole 100 MG TAB PO ONE (12:35)
--- NOTE | 2024-09-25 13:03 | PN ---
[facility] PROGRESS NOTE Date of Service: Sep 25, 2024 Time of Service: 13:03 SUBJECTIVE: This is a 54-year-old male past medical history of kidney disease, kidney stones with bilateral nephrostomy tube, diabetes and hypertension who was brought by EMS to the ED for complaints of abdominal pain associated with generalized body weakness, nausea and vomiting. On my evaluation patient states the reason why he came to the ER today is because of bilateral leg pain which has been hurting and he cant tolerate it anymore he said.Patient has multiple open wound ulcers with some necrotic tissue to both legs and as per patient that has been there since April 2023.Patient also reports he has a bilateral nephrostomy tube that was placed on September 2023 and supposedly should come off after 2 weeks but because of insurance issue it has not been removed. Seen and examined patient in the ER awake,alert and coherent.Patient appears comfortable,denies fever,chills,chest pain,palpitation,cough,shortness of breath,nausea,vomiting abdominal pain and diarrhea.Patient states he still voids with no problem. Vital signs temperature 98.2, heart rate 108, blood pressure 121/58 saturation 99% on room air. Labs: WBC 17 with negative left shift of neutrophils 82, hemoglobin 10, hematocrit 34, platelet count 378. Sodium 133, potassium six, chloride 98, carbon dioxide 11, BUN 162, creatinine 11 GFR five glucose 195 lactic acid 1.8 AST nine ALT nine BNP 23 albumin 3.1, triglycerides 179 lipase 791 troponin 10. While in the ER patient received Zosyn IV, sodium bicarb 50 mEq IV, Zofran 4 mg IV, Lokelma 10 g p.o., morphine 2 mg IV, insulin 10 units IV D50 25 mL IV, calcium gluconate 1 g IV and patient is being started on sodium bicarb at 100 mL/hour. We will admit patient for further medical management. 09/18: Patient was seen and examined this morning at bedside.Patient denies chest pain, shortness of breath, nausea, vomiting, fever, chills. Patient reports abdominal tenderness, worse in the right lower quadrant. Patient reports that he does not follow up with a primary care physician. Patient has bilateral nephrostomy tubes that were placed in April of 2023, but has not had them removed due to not having enough money to pay the co-pay at the urologist office. Patients renal function is abnormal, nephrology has been consulted and recommends Lokelma and sodium bicarbonate for the metabolic acidosis. Per Dr. Cadet, urology to be consulted for either removal or replacement of nephrostomy tubes. Urology has been consulted. 09/19: Patient was seen and examined this morning at bedside. Patient denies chest pain, shortness of breath, nausea, vomiting, fever, chills. Patient is scheduled to get a external debridement of the left calf. Patient is getting a removal of the bilateral nephrostomy tubes today by Interventional Radiology. Patient is currently NPO. Patient has refused dialysis, and continues on a bicarb drip for metabolic acidosis. Patient continues on vancomycin and Zosyn. 09/21/24 patient was seen and examined. Case discussed with the RN he was doing well. Denies nausea vomiting fever or chills. Continue vancomycin and Zosyn Patient was seen and examined this morning at bedside Patient with bilateral leg ulcers and status post debridement of left calf wound. The preliminary urine culture is growing Gram-negative rods. Discussed with ID/Continue Zosyn 09/22/2024: The patient was examined today in room 313 at bedside. He appears comfortable and denies any complaints or concerns at this time. He is scheduled for nephrostomy tube replacement today by OR. His blood pressure is mildly elevated at 159/90, which he attributes to anxiety about the procedure. Nursing staff have been performing wet-to-dry dressings, with wound management recommendations pending. Labs: Kidney functions have slightly improved, BUN went down to 71 from 89, creatinine went down to 4.2 from 5.1, GFR to 16 from 13, Phosphorous down to 3.9 from 5.7, Mg improved to 2.10. Blood cultures are negative, urine culture showed Gram-negative rods, pansensitive Cirobacter Koseri. We will follow up patient post nephrostomy tube replacement. Follow up with the nephrology and ID recommendations. Further assessment and plan as discussed below. 09/23/2024: The patient was examined at the bedside today. He underwent a bilateral nephrostomy tube exchange yesterday, and the procedure went without complications. Currently, he is feeling better and does not have any complaints or concerns. Dr. Gipson recommended a transfer to [facility]; however, the patient was hesitant yesterday due to potential difficulties with obtaining insurance approval. After discussing it today, he has agreed to the transfer if the insurance gives approval. Additionally, recommendations for wound management include applying a Midhoney dressing over the debridement site. He is running slightly hypertensive with recent BP of 141/77. Labs: Kidney functions continues to improve, BUN down to 62 from 71, Creatinine down to 4.0 from 4.2, GFR 17. Continue with Zosyn, pending [employer] approval. Further assessment and plan discussed below. 09/24/24: The patient was examined at the bedside today. He is alert, oriented, and lying comfortably in bed. He reports experiencing bilateral pain in the over the wound area, rated at 5 out of 10, throbbing type. He notes that the pain is slightly improved compared to yesterday. Additionally, he is experiencing a tingling sensation in his feet. The nursing staff is performing daily dressings on him. He was unable to walk during physical therapy yesterday due to the pain. He is receiving Dilaudid 0.5 mg every 6 hours as needed, along with Tylenol for pain management. Bilateral nephrostomy tubes are in place. In terms of lab results, his white blood cell count increased to 17.3 from 13.2. His hemoglobin is at 9.5. His kidney functions continues to improve, BUN decreased to 60 from 62, and creatinine levels improved to 3.8 from 4.0. According to the supervisor functional testing, we will continue the current management since kidney function is improving. Continue IV antibiotics, we are awaiting [employer] approval. Further assessment and planning are discussed below. 09/25/24: The patient was examined at the bedside today. He continues to complain of a throbbing pain at the wound sites on both legs. His blood pressure remains elevated, with systolic blood pressure in the 140s, likely due to the pain. Leucocytosis is worsening, with white blood cell count increasing from 17.3 to 21.8. Neutrophils are at 78.4%, and lymphocytes are at 10.8%. Denies fever, chills, abdominal pain or any other symptoms. Kidney function is continuing to improve, with BUN decreasing from 60 to 55, and creatinine levels have improved to 3.8. Wound culture was never sent for analysis; we will order both aerobic and anaerobic wound cultures today. Closely monitor the vitals. Linezolid was started today by ID due to up trending leucocytosis, and Zosyn will be continued. We are still pending [employer] approval. Further assessment and plan are discussed below REVIEW OF SYSTEMS CONSTITUTIONAL: Denies fevers, chills, or night sweats. No unintentional weight loss reported. NEUROLOGICAL: Denies headache, amaurosis fugax, motor weakness, sensory deficit , vertigo/spinning sensation, gait abnormalities, or tremors. ENT: No hearing loss, otalgia, otorrhea, rhinitis, rhinorrhea, hoarseness, or sore throat. CARDIOVASCULAR: Denies any exertional angina, dyspnea on exertion, orthopnea, paroxysmal nocturnal dyspnea, palpitations, life-threatening arrhythmias, claudication. PULMONARY: Denies any shortness of breath, cough, phlegm/sputum, hemoptysis, pleuritic chest pain. SLEEP: Denies morning headaches, daytime somnolence or napping. Denies difficulty falling asleep, staying asleep, waking from sleep. Denies knowledge of snoring. GASTROINTESTINAL: Denies any type of dysphagia to either liquids or solids. Denies nausea, vomiting, pyrosis, early satiety, abdominal pain, diarrhea, constipation, or changes in stool consistency or caliber. Denies coffee-ground emesis, hematemesis, hematochezia, or melanotic stools. GENITOURINARY: Denies frequency, urgency, nocturia, hematuria or incontinence (Storage/Irritative symptoms.) Low urinary stream, straining to void, urinary intermittency or hesitancy, splitting of the voiding stream, terminal dribbling. ENDOCRINOLOGIC: Denies polyuria, polydipsia, polyphagia or heat/cold intolerances. HEMATOLOGIC: Denies thrombophilia/previous clots, or coagulopathy/bleeding disorders. ONCOLOGIC: Denies personal history of malignancy. DERMATOLOGIC: Bilateral lower extremities pain, mostly around the wound site, constant, 5/10, throbbing in type Denies rashes or pruritus. PSYCHIATRIC: Denies any suicidal or homicidal ideation. Denies hallucinations. PHYSICAL EXAM GENERAL APPEARANCE: The patient is awake, alert, and oriented, in no acute cardiopulmonary distress. NEUROLOGICAL: Cranial nerves II-XII grossly intact. Motor is 5/5 in bilateral upper and lower extremities proximal to distal. No sensory deficits. HEENT: Face is symmetric. Pupils are equal and reactive. Extraocular movements are intact. NECK: Supple. No JVD. No thyromegaly. No submental, submandibular, pre- /postauricular, occipital or supraclavicular lymphadenopathy. CHEST: Normal chest expansion. No Telemetry. LUNGS: Absence of any rales, rhonchi or any wheezing. CARDIOVASCULAR: Regular. S1 and S2 normal. No appreciable rubs, murmurs or gallops. ABDOMEN: Soft, nontender, and nondistended. There is no rebound, voluntary guarding, or rigidity. : Deferred. No [place], b/l nephrostomy tubes in placed. EXTREMITIES: Dressing present over bilateral legs. SKIN: No skin breakdown. Vital Signs (last 8hr) Date Time Temp Pulse Resp B/P (MAP) Pulse Ox O2 Delivery O2 Flow Rate FiO2 09/25/24 12:00 98.6 95 18 139/90 96 Room Air 21 09/25/24 08:00 97.9 94 18 133/85 94 Room Air 21 LABS: Laboratory: Test 09/25/24 11:34 09/25/24 05:08 09/24/24 10:44 Range/Units Whole Blood Glucose 166 H 70-110 MG/DL White Blood Count 21.8 H 4.8-10.8 K/uL Red Blood Count 3.32 L 4.50-6.20 MIL/uL Hemoglobin 9.5 L 14.0-18.0 g/dL Hematocrit 29.6 L 42-54 % Mean Corpuscular Volume 89.2 79-99 fL Mean Corpuscular Hemoglobin 28.6 27.0-33.0 pg Mean Corpuscular Hemoglobin Concent 32.1 32.0-36.0 g/dL Red Cell Distribution Width 13.7 11.0-15.5 % Platelet Count 331 # 130-400 K/uL Mean Platelet Volume 11.1 H 7.5-10.5 fL Immature Granulocyte % (Auto) 1.1 H 0-1 % Neutrophils (%) (Auto) 78.4 H 40.0-77.0 % Lymphocytes (%) (Auto) 10.8 L 21.0-51.0 % Monocytes (%) (Auto) 6.4 3.0-13.0 % Eosinophils (%) (Auto) 2.8 0.0-8.0 % Basophils (%) (Auto) 0.5 0.0-5.0 % Neutrophils # (Auto) 17.1 H 1.8-7.7 K/uL Lymphocytes # (Auto) 2.4 1.0-4.8 K/uL Monocytes # (Auto) 1.4 H 0.1-1.0 K/uL Eosinophils # (Auto) 0.60 0.00-0.70 K/uL Basophils # (Auto) 0.11 0.00-0.20 K/uL Absolute Immature Granulocyte (auto 0.23 0-1 K/uL Nucleated Red Blood Cells 0.0 0.0-0.19 % Sodium Level 143 136-145 mmol/L Potassium Level 3.9 3.5-5.1 mmol/L Chloride Level 104 101-111 mmol/L Carbon Dioxide Level 28 21-32 mmol/L Blood Urea Nitrogen 55 H 7-18 mg/dL Creatinine 3.8 H 0.5-1.3 mg/dL Glomerular Filtration Rate Calc 18 >90 mL/min Random Glucose 107 H 70-105 mg/dL Total Calcium 9.8 8.5-10.1 mg/dL Bedside Glucose Comment Notified Nurse Current Medications Medications (Trade) Dose Ordered Sig/Krishan Route PRN Reason Start Time Stop Time Status Last Admin Dose Admin Acetaminophen (TYLenol 325MG TAB) 650 mg Q4H PRN PO MILD PAIN (1-3) 09/18/24 03:00 10/18/24 02:59 09/23/24 21:10 650 MG Acetaminophen (TYLenol 325MG TAB) 650 mg Q6H PRN PO TEMPERATURE GREATER THAN 101.5 09/18/24 03:00 10/18/24 02:59 Amlodipine Besylate (NorvASC 5MG TAB) 10 mg DAILY PO 09/21/24 12:30 10/21/24 12:29 09/25/24 08:21 10 MG Calcium Gluconate 1 gm/Sodium Chloride 100 ml @ 0 mls/hr PROTOCOL IV 09/18/24 00:00 10/18/24 00:00 09/17/24 23:59 100 MLS/HR Dextrose (D50w) 50 ml AD PRN IV HYPOGLYCEMIA PROTOCOL 09/18/24 03:30 10/18/24 03:29 Epoetin John-epbx (Retacrit) 10,000 unit QSA SQ 09/20/24 09:00 10/20/24 08:59 09/20/24 08:32 10,000 UNIT Famotidine (Pepcid 20mg Vial) 20 mg Q48H IV 09/18/24 03:00 10/18/24 02:59 09/24/24 03:41 20 MG Gabapentin (NEURontin 100 mg CAP) 100 mg HS PO 09/23/24 22:00 10/23/24 21:59 09/24/24 22:07 100 MG Gabapentin (NEURontin 100 mg CAP) 100 mg ONCE PO 09/23/24 22:00 09/23/24 21:44 DC Glucagon (Glucagon 1mg Kit) 1 mg AD PRN IM HYPOGLYCEMIA PROTOCOL 09/18/24 03:30 10/18/24 03:29 Guaifenesin (RobiTUSSin SUGAR-FREE 100 MG/ 5 ML UDCUP) 200 mg Q6H6 PRN PO COUGH 09/20/24 22:30 10/20/24 22:29 09/20/24 22:20 200 MG Heparin Sodium (Porcine) (HEParin 5,000 UNIT VIAL) 5,000 unit Q12H SQ 09/24/24 15:30 09/24/24 17:40 DC Heparin Sodium (Porcine) (HEParin 5,000 UNIT VIAL) 5,000 unit Q12H SQ 09/24/24 21:00 10/24/24 20:59 09/25/24 08:28 5,000 UNIT Hydrochlorothiazide (hydroCHLOROthiazide 25MG) 12.5 mg DAILY PO 09/21/24 16:30 09/25/24 09:11 DC 09/25/24 08:19 12.5 MG Hydromorphone HCl (DiLAUDid 0.5MG INJ) 0.5 mg Q6H PRN IVP SEVERE PAIN (7-10) 09/18/24 15:30 09/23/24 15:29 DC 09/23/24 15:19 0.5 MG Hydromorphone HCl (DiLAUDid 0.5MG INJ) 0.5 mg Q6H PRN IVP SEVERE PAIN (7-10) 09/23/24 22:00 09/28/24 21:59 09/24/24 22:26 0.5 MG Insulin Human Regular (humuLIN R 100 UNIT/ML 3ML) INSULIN SLIDING SCAL... ACHS SQ 09/18/24 07:30 10/18/24 07:29 09/24/24 22:16 3 UNIT Leptospermum Honey ([facility]) APPLY DIRECTED DAILY TP 09/23/24 09:00 10/23/24 08:59 09/25/24 08:28 1 APPL Linezolid 300 ml @ 150 mls/hr Q12H IV 09/25/24 13:00 10/05/24 12:59 09/25/24 12:32 150 MLS/HR Lisinopril (Prinivil 20mg) 20 mg DAILY PO 09/21/24 09:00 10/21/24 08:59 09/25/24 08:23 20 MG Magnesium Sulfate 50 ml @ 0 mls/hr PROTOCOL IV 09/21/24 16:00 09/21/24 17:41 DC 09/21/24 17:28 25 MLS/HR Ondansetron HCl (zoFRAN 4MG INJ) 4 mg Q6H PRN IV NAUSEA/VOMITING 09/18/24 03:00 10/18/24 02:59 Pharmacy Profile Note (Lace Assessment) 1 each AD MISC 09/18/24 13:30 09/18/24 13:35 DC Pharmacy Profile Note (Pharmacy Communication) 1 each ONCE MISC 09/25/24 12:00 09/25/24 11:34 DC Piperacillin Sod/ Tazobactam Sod 50 ml @ 12.5 mls/hr Q12H IV 09/18/24 05:00 09/18/24 05:30 DC Piperacillin Sod/ Tazobactam Sod 50 ml @ 12.5 mls/hr Q12H IV 09/18/24 12:00 09/28/24 11:59 09/25/24 00:42 12.5 MLS/HR Potassium Chloride 100 ml @ 100 mls/hr AD PRN IV POTASSIUM PROTOCOL 09/22/24 17:00 09/22/24 17:31 DC Potassium Chloride (K-Dur/Klor-Con 20meq) 20 meq AD PRN PO POTASSIUM PROTOCOL 09/22/24 17:00 09/22/24 17:31 DC 09/22/24 17:07 20 MEQ Potassium Chloride (KCl 10% Elixir 20meq/15ml) 20 meq AD PRN PO POTASSIUM PROTOCOL 09/22/24 17:00 09/22/24 17:31 DC Sevelamer HCl (RENAgel 800 MG TAB) 800 mg TIDMEALS PO 09/19/24 12:00 10/19/24 11:59 09/25/24 12:35 800 MG Sodium Bicarbonate 150 meq/Dextrose 1,150 ml @ 100 mls/hr [id number] IVP 09/18/24 10:00 09/20/24 13:06 DC 09/20/24 08:33 100 MLS/HR Vancomycin HCl 250 ml @ 125 mls/hr Q76H IV 09/21/24 06:00 09/20/24 13:06 DC Vancomycin HCl (Vancomycin Protocol) 1 each AD IV 09/18/24 04:00 09/20/24 13:08 DC Vitamin B Complex/ Vit C/Folic Acid (Nephrovite Tablet) 1 cap DAILY PO 09/21/24 09:00 10/21/24 08:59 09/25/24 08:21 1 [facility] RADIOLOGY: [place] [address] IMAGING REPORT Signed PATIENT: JAYRO LIRIANO MR#: [id number] : 1970 SEX: M AGE: 54 LOCATION: [facility] ORDER 46 STATUS: REG REPORT#: [id number] SERVICE 44 REASON: GEOVANI; NEPHROSTOMY TUBES ORDERING PHYSICIAN: ROIME VICTOR PROCEDURE: ABD PEL WO - CT ABDOMEN/PELVIS W/O CONTRAST CT ABDOMEN/PELVIS W/O CONTRAST HISTORY: Acute renal insufficiency COMPARISON: 08/08/2024 TECHNIQUE: Multiple sequential axial images of the abdomen and pelvis were obtained from the dome of the diaphragm through symphysis pubis. Patient was not given contrast through intravenous route. Oral contrast was not given. FINDINGS: No pleural effusion is seen bilaterally. There is no evidence of parenchymal disease or pulmonary nodule of the visualized lower lungs. Degenerative changes of the thoracolumbar spine are present. The heart is not enlarged. Gallbladder is distended. There is left adrenal nodule with calcification measuring 3.3 x 2.6 cm. Bilateral percutaneous nephrostomy tubes are seen. The liver, spleen, right adrenal gland and pancreas are unremarkable. There is no evidence of hydronephrosis bilaterally. No evidence of renal stone is seen. Fecal material is seen in the colon. There are normal size retroperitoneal and mesenteric lymph nodes. No ascites is seen. No CT evidence of acute appendicitis is seen. Pelvic sidewalls are symmetric bilaterally. Bladder is poorly distended. IMPRESSION: 1. Bilateral percutaneous nephrostomy tube in place. CT was performed with one or more following dose reduction techniques: automated exposure control, adjustment of the mA and kv according to patient's size, or use of a iterative reconstruction technique. DICTATED BY: ROBBIE GARCIA MD DATE: 09/18/24100 ELECTRONICALLY SIGNED BY: ROBBIE GARCIA MD DATE: 09/18/24105 RUN DATE: 09/21/24 [facility] [address] 1 RUN TIME: [phone] [place] [address] Department of Laboratories CLIA # [id number] Manager Process Excellence: Tosha eMnjivar DO Specimen Report PATIENT: JAYRO LIRIANO ACCT: [id number] LOC: [facility] U: [id number] AGE/SX: 54/M ROOM: [facility] RE09/18/[address]: GRAY LEARY MD : 1970 BED: 1 DIS: STATUS: ADM IN TLOC: SPEC: [id number] OBED: 09/18/24-05 STATUS: COMP REQ: [id number] RECD: 09/19/[address]: ROMIE VICTOR [place] [facility] 09/19/24 [facility] DR: ORIN PEREZ MD SPDC: CLEAN CAT SAPPHIRE,GRAY CADET,HELENA GATICA,ADRIA GUILLEN,ABBEY BEAN MD ORDERED: AERO ID & SENS Procedure Result Jamie Date-Time AEROBIC ID & SENSITIVITIES Final 09/21/24 MRL COLONY DESCRIPTION: DAY 1: COLONY COUNT: >100,000 CFU/ML GRAM NEGATIVE RODS IDENTIFICATION AND SENSITIVITY TO FOLLOW [employer] KOSERI NAZARIO GARCIA M.I.CBrando RX --------- ---- AZTREONAM <=4 S CEFAZOLIN <=2 S CEFTAZIDIME <=1 S CEFTAZIDIME/AVIBACTAM <=8 S CEFTRIAXONE <=1 S GENTAMICIN <=2 S LEVOFLOXACIN <=0.5 S NITROFURANTOIN <=32 S MEROPENEM <=1 S PIPERACILLIN/TAZOBACTAM <=8 S TRIMETHOPRIM/SUFLAMETHOXAZOLE <=2/38 S @ [facility] Test Performed at: [facility] [address], [place], [place] Medical Chronometer Repairer: Brooks Givens D.O. END OF REPORT ASSESSMENT: Acute on chronic renal failure, improving POA Acute leukocytosis POA Bilateral nonhealing ulcers necrosis to both lower legs, s/p debridement of left calf wound on 09/19 POA UTI with Citrobacter Koseri S/P exchange of nephrostomy tube on 09/22/2024 POA Hyperkalemia, resolved POA Acute pancreatitis POA Metabolic acidosis, resolved POA Acute on chronic anemia due to CKD POA Uncontrolled diabetes POA Hypertension POA PLAN:- The patient remains admitted on the medical surgical floor. Acute on chronic renal failure,improving Acute on chronic anemia due to CKD POA * Per supervisor functional testing, the patient does not require any emergency renal replacement therapy at this time. We will Continue with a renal diabetic diet and take measures to prevent hypotensive episodes. * Oral phosphate binders * Continue with Epogen 10,000 Units * Monitor electrolytes closely, avoid nephrotoxic agents. * Strict intake and output * Closely monitor renal functions S/P exchange of nephrostomy tube on 09/22/2024 POA * Follow up with the urologist as an outpatient post discharge for further recommendations. Acute leukocytosis POA * No febrile episodes, hemodynamically stable. Linezolid was started today, continue IV Zosyn, follow up with ID recommendations * Closely monitor vitals and WBC trend. CBC in a.m. Bilateral nonhealing ulcers necrosis to both lower legs, s/p debridement of left calf wound on 09/19 POA UTI with Citrobacter Koseri * Continue with Zosyn. Follow up with infectious disease recommendations. * Continue with Dilaudid 0.5 mg q.6 for severe pain (7-10) and Tylenol 650 mg for mild pain (1-3). * Daily dressings per wound management recommendations * Follow up with Wound aerobic and anaerobic cultures when the results are available. * [facility]. Hypertension * Continue with Amlodipine 10 mg, Lisinopril 20 mg daily * Closely monitor the vitals. AM Labs: CBC, BMP Further orders per hospitalization course. ATTESTATION BY PHYSICIAN I have seen and examined the patient. I reviewed the documentation, medical decision making, and treatment plan as noted by the resident provider above. I agree with the findings and plan of care. Gray Leary MD, MANALI MD Sep 25, 2024 13:03
[2024-09-26] VITALS (7 sets, daily range): BP systolic 114–151; BP diastolic 72–88; PULSE 81–92; RESP 18–20; TEMP 97.6–99.2; O2SAT 96
[2024-09-26 05:46] LABS: BASOPHILS # (AUTO) 0.13 K/uL (0.00-0.20); BASOPHILS % (AUTO) 0.6 % (0.0-5.0); HEMATOCRIT 26.8 % (42-54); IMMATURE GRANULOCYTE ABSOLUTE 0.26 K/uL (0-1); LYMPHOCYTES # (AUTO) 2.5 K/uL (1.0-4.8); LYMPHOCYTES % (AUTO) 10.5 % (21.0-51.0); MEAN CORPUSCULAR HEMOGLOBIN 28.7 pg (27.0-33.0); MEAN CORPUSCULAR HGB CONC 31.7 g/dL (32.0-36.0); MEAN CORPUSCULAR VOLUME 90.5 fL (79-99); MONOCYTES # (AUTO) 1.8 K/uL (0.1-1.0); MONOCYTES % (AUTO) 7.5 % (3.0-13.0); NEUTROPHILS % (AUTO) 77.3 % (40.0-77.0); PLATELET COUNT (AUTO) 298 K/uL (130-400); RED BLOOD CELL COUNT(AUTO) 2.96 MIL/uL (4.50-6.20); RED CELL DISTRIBUTION WIDTH 13.6 % (11.0-15.5); WHITE BLOOD COUNT (AUTO) 23.3 K/uL (4.8-10.8)
[2024-09-26 05:53] LABS: CREATININE 3.5 mg/dL (0.5-1.3); POTASSIUM 3.7 mmol/L (3.5-5.1)
--- NOTE | 2024-09-26 09:12 | PN ---
FOLLOWUP PROGRESS NOTE SUBJECTIVE: A 54-year-old male with a history of diabetes mellitus and hypertension. The patient presented to the hospital with acute on chronic renal failure. The patient with obstructive uropathy, status post nephrostomy tube placement. The patient also with underlying cellulitis and remains on the antibiotics. The patient is being seen as a followup visit for all of the above. REVIEW OF SYSTEMS: CONSTITUTIONAL: He is complaining of pain to the leg. HEENT: No change in vision. No change in hearing. CARDIOVASCULAR: There is no current chest pain or palpitations. PULMONARY: Denies any shortness of breath. GASTROINTESTINAL: He is tolerating a diet. MUSCULOSKELETAL: As described above. PHYSICAL EXAMINATION: VITAL SIGNS: Blood pressure 114/88, pulse 80s, afebrile. GENERAL: He is a chronically ill male, older than appearing. HEENT: Head is atraumatic. Pupils equal, roving to light. Oropharynx is without exudate. Nares clear. NECK: There is no JVP. There is no thyromegaly, no mass. CARDIOVASCULAR: Regular. There is no S3 or S4 gallop. LUNGS: Coarse with equal thoracic movement. ABDOMEN: Soft, nondistended, and nontender. EXTREMITIES: Reveal no clubbing, no cyanosis. NEUROLOGIC: He is awake. He is alert. LABORATORY DATA: Hemoglobin 8.5, hematocrit 26, white blood cell count is 23,000. BUN 53, creatinine is 3.5. IMPRESSION: * Acute on chronic renal failure. * Obstructive uropathy. * Cellulitis. * Diabetes mellitus. * Hypertension. PLAN: The patient's creatinine continues to stabilize. The patient remains with nephrostomy tubes in place. The patient with persistent leukocytosis, remains on broad spectrum IV antibiotics. The patient is being seen by case management in regards to final disposition, which will be long-term antibiotics. We will continue to follow closely. There is no need for any form of renal replacement therapy. TID: [id number] RECEIPT: [id number]
--- NOTE | 2024-09-26 10:55 | PN ---
[facility] PROGRESS NOTE Date of Service: Sep 26, 2024 Time of Service: 10:55 SUBJECTIVE: This is a 54-year-old male past medical history of kidney disease, kidney stones with bilateral nephrostomy tube, diabetes and hypertension who was brought by EMS to the ED for complaints of abdominal pain associated with generalized body weakness, nausea and vomiting. On my evaluation patient states the reason why he came to the ER today is because of bilateral leg pain which has been hurting and he cant tolerate it anymore he said.Patient has multiple open wound ulcers with some necrotic tissue to both legs and as per patient that has been there since April 2023.Patient also reports he has a bilateral nephrostomy tube that was placed on September 2023 and supposedly should come off after 2 weeks but because of insurance issue it has not been removed. Seen and examined patient in the ER awake,alert and coherent.Patient appears comfortable,denies fever,chills,chest pain,palpitation,cough,shortness of breath,nausea,vomiting abdominal pain and diarrhea.Patient states he still voids with no problem. Vital signs temperature 98.2, heart rate 108, blood pressure 121/58 saturation 99% on room air. Labs: WBC 17 with negative left shift of neutrophils 82, hemoglobin 10, hematocrit 34, platelet count 378. Sodium 133, potassium six, chloride 98, carbon dioxide 11, BUN 162, creatinine 11 GFR five glucose 195 lactic acid 1.8 AST nine ALT nine BNP 23 albumin 3.1, triglycerides 179 lipase 791 troponin 10. While in the ER patient received Zosyn IV, sodium bicarb 50 mEq IV, Zofran 4 mg IV, Lokelma 10 g p.o., morphine 2 mg IV, insulin 10 units IV D50 25 mL IV, calcium gluconate 1 g IV and patient is being started on sodium bicarb at 100 mL/hour. We will admit patient for further medical management. 09/18: Patient was seen and examined this morning at bedside.Patient denies chest pain, shortness of breath, nausea, vomiting, fever, chills. Patient reports abdominal tenderness, worse in the right lower quadrant. Patient reports that he does not follow up with a primary care physician. Patient has bilateral nephrostomy tubes that were placed in April of 2023, but has not had them removed due to not having enough money to pay the co-pay at the urologist office. Patients renal function is abnormal, nephrology has been consulted and recommends Lokelma and sodium bicarbonate for the metabolic acidosis. Per Dr. Cadet, urology to be consulted for either removal or replacement of nephrostomy tubes. Urology has been consulted. 09/19: Patient was seen and examined this morning at bedside. Patient denies chest pain, shortness of breath, nausea, vomiting, fever, chills. Patient is scheduled to get a external debridement of the left calf. Patient is getting a removal of the bilateral nephrostomy tubes today by Interventional Radiology. Patient is currently NPO. Patient has refused dialysis, and continues on a bicarb drip for metabolic acidosis. Patient continues on vancomycin and Zosyn. 09/21/24 patient was seen and examined. Case discussed with the RN he was doing well. Denies nausea vomiting fever or chills. Continue vancomycin and Zosyn Patient was seen and examined this morning at bedside Patient with bilateral leg ulcers and status post debridement of left calf wound. The preliminary urine culture is growing Gram-negative rods. Discussed with ID/Continue Zosyn 09/22/2024: The patient was examined today in room 313 at bedside. He appears comfortable and denies any complaints or concerns at this time. He is scheduled for nephrostomy tube replacement today by OR. His blood pressure is mildly elevated at 159/90, which he attributes to anxiety about the procedure. Nursing staff have been performing wet-to-dry dressings, with wound management recommendations pending. Labs: Kidney functions have slightly improved, BUN went down to 71 from 89, creatinine went down to 4.2 from 5.1, GFR to 16 from 13, Phosphorous down to 3.9 from 5.7, Mg improved to 2.10. Blood cultures are negative, urine culture showed Gram-negative rods, pansensitive Cirobacter Koseri. We will follow up patient post nephrostomy tube replacement. Follow up with the nephrology and ID recommendations. Further assessment and plan as discussed below. 09/23/2024: The patient was examined at the bedside today. He underwent a bilateral nephrostomy tube exchange yesterday, and the procedure went without complications. Currently, he is feeling better and does not have any complaints or concerns. Dr. Gipson recommended a transfer to [facility]; however, the patient was hesitant yesterday due to potential difficulties with obtaining insurance approval. After discussing it today, he has agreed to the transfer if the insurance gives approval. Additionally, recommendations for wound management include applying a Midhoney dressing over the debridement site. He is running slightly hypertensive with recent BP of 141/77. Labs: Kidney functions continues to improve, BUN down to 62 from 71, Creatinine down to 4.0 from 4.2, GFR 17. Continue with Zosyn, pending [employer] approval. Further assessment and plan discussed below. 09/24/24: The patient was examined at the bedside today. He is alert, oriented, and lying comfortably in bed. He reports experiencing bilateral pain in the over the wound area, rated at 5 out of 10, throbbing type. He notes that the pain is slightly improved compared to yesterday. Additionally, he is experiencing a tingling sensation in his feet. The nursing staff is performing daily dressings on him. He was unable to walk during physical therapy yesterday due to the pain. He is receiving Dilaudid 0.5 mg every 6 hours as needed, along with Tylenol for pain management. Bilateral nephrostomy tubes are in place. In terms of lab results, his white blood cell count increased to 17.3 from 13.2. His hemoglobin is at 9.5. His kidney functions continues to improve, BUN decreased to 60 from 62, and creatinine levels improved to 3.8 from 4.0. According to the mine inspector, we will continue the current management since kidney function is improving. Continue IV antibiotics, we are awaiting [employer] approval. Further assessment and planning are discussed below. 09/25/24: The patient was examined at the bedside today. He continues to complain of a throbbing pain at the wound sites on both legs. His blood pressure remains elevated, with systolic blood pressure in the 140s, likely due to the pain. Leucocytosis is worsening, with white blood cell count increasing from 17.3 to 21.8. Neutrophils are at 78.4%, and lymphocytes are at 10.8%. Denies fever, chills, abdominal pain or any other symptoms. Kidney function is continuing to improve, with BUN decreasing from 60 to 55, and creatinine levels have improved to 3.8. Wound culture was never sent for analysis; we will order both aerobic and anaerobic wound cultures today. Closely monitor the vitals. Linezolid was started today by ID due to up trending leucocytosis, and Zosyn will be continued. We are still pending [id number] approval. Further assessment and plan are discussed below. 09/26/24: The patient was examined at the bedside today. He continues to complain of leg pain, but today he describes the pain as more of a needle-like sensation that improves with movement. He has been refusing to walk with physical therapy due to this pain. A CT scan of the abdomen and pelvis without contrast was ordered and showed no signs of acute pathology or abscess. Laboratory results reveal that leukocytosis is worsening; the WBC has increased to 23.3 from 21.8, with neutrophils at 77.3%. However, kidney function is improving, with BUN decreasing to 53 from 55, and creatinine levels decreasing to 3.5 from 3.8. We will continue administering IV linezolid and Zosyn for broad-spectrum antibiotic coverage. Daily dressing changes will be maintained, and we are currently awaiting the results of wound cultures. Midline/PICC line placement is pending, Approval from [employer] is still pending. Further assessment and planning are discussed below. REVIEW OF SYSTEMS CONSTITUTIONAL: Denies fevers, chills, or night sweats. No unintentional weight loss reported. NEUROLOGICAL: Denies headache, amaurosis fugax, motor weakness, sensory deficit, vertigo/spinning sensation, gait abnormalities, or tremors. ENT: No hearing loss, otalgia, otorrhea, rhinitis, rhinorrhea, hoarseness, or sore throat. CARDIOVASCULAR: Denies any exertional angina, dyspnea on exertion, orthopnea, paroxysmal nocturnal dyspnea, palpitations, life-threatening arrhythmias, claudication. PULMONARY: Denies any shortness of breath, cough, phlegm/sputum, hemoptysis, pleuritic chest pain. SLEEP: Denies morning headaches, daytime somnolence or napping. Denies difficulty falling asleep, staying asleep, waking from sleep. Denies knowledge of snoring. GASTROINTESTINAL: Denies any type of dysphagia to either liquids or solids. Denies nausea, vomiting, pyrosis, early satiety, abdominal pain, diarrhea, constipation, or changes in stool consistency or caliber. Denies coffee-ground emesis, hematemesis, hematochezia, or melanotic stools. GENITOURINARY: Denies frequency, urgency, nocturia, hematuria or incontinence (Storage/Irritative symptoms.) Low urinary stream, straining to void, urinary intermittency or hesitancy, splitting of the voiding stream, terminal dribbling. ENDOCRINOLOGIC: Denies polyuria, polydipsia, polyphagia or heat/cold intolerances. HEMATOLOGIC: Denies thrombophilia/previous clots, or coagulopathy/bleeding disorders. ONCOLOGIC: Denies personal history of malignancy. DERMATOLOGIC: Bilateral lower extremities pain, mostly around the wound site, constant, 5/10, throbbing in type Denies rashes or pruritus. PSYCHIATRIC: Denies any suicidal or homicidal ideation. Denies hallucinations. PHYSICAL EXAM GENERAL APPEARANCE: The patient is awake, alert, and oriented, in no acute cardiopulmonary distress. NEUROLOGICAL: Cranial nerves II-XII grossly intact. Motor is 5/5 in bilateral upper and lower extremities proximal to distal. No sensory deficits. HEENT: Face is symmetric. Pupils are equal and reactive. Extraocular movements are intact. NECK: Supple. No JVD. No thyromegaly. No submental, submandibular, pre- /postauricular, occipital or supraclavicular lymphadenopathy. CHEST: Normal chest expansion. No Telemetry. LUNGS: Absence of any rales, rhonchi or any wheezing. CARDIOVASCULAR: Regular. S1 and S2 normal. No appreciable rubs, murmurs or gallops. ABDOMEN: Soft, nontender, and nondistended. There is no rebound, voluntary guarding, or rigidity. : Deferred. No [place], b/l nephrostomy tubes in placed. EXTREMITIES: Dressing present over bilateral legs. SKIN: No skin breakdown. Vital Signs (last 8hr) Date Time Temp Pulse Resp B/P (MAP) Pulse Ox O2 Delivery O2 Flow Rate FiO2 09/26/24 08:00 97.5 88 19 142/83 96 Room Air 21 09/26/24 04:00 99.1 81 18 114/88 97 Room Air LABS: Laboratory: Test 09/26/24 05:48 09/26/24 05:22 Range/Units Whole Blood Glucose 122 H 70-110 MG/DL White Blood Count 23.3 H 4.8-10.8 K/uL Red Blood Count 2.96 L 4.50-6.20 MIL/uL Hemoglobin 8.5 L 14.0-18.0 g/dL Hematocrit 26.8 L 42-54 % Mean Corpuscular Volume 90.5 79-99 fL Mean Corpuscular Hemoglobin 28.7 27.0-33.0 pg Mean Corpuscular Hemoglobin Concent 31.7 L 32.0-36.0 g/dL Red Cell Distribution Width 13.6 11.0-15.5 % Platelet Count 298 130-400 K/uL Mean Platelet Volume 10.7 H 7.5-10.5 fL Immature Granulocyte % (Auto) 1.1 H 0-1 % Neutrophils (%) (Auto) 77.3 H 40.0-77.0 % Lymphocytes (%) (Auto) 10.5 L 21.0-51.0 % Monocytes (%) (Auto) 7.5 3.0-13.0 % Eosinophils (%) (Auto) 3.0 0.0-8.0 % Basophils (%) (Auto) 0.6 0.0-5.0 % Neutrophils # (Auto) 18.0 H 1.8-7.7 K/uL Lymphocytes # (Auto) 2.5 1.0-4.8 K/uL Monocytes # (Auto) 1.8 H 0.1-1.0 K/uL Eosinophils # (Auto) 0.70 0.00-0.70 K/uL Basophils # (Auto) 0.13 0.00-0.20 K/uL Absolute Immature Granulocyte (auto 0.26 0-1 K/uL Nucleated Red Blood Cells 0.0 0.0-0.19 % Sodium Level 140 136-145 mmol/L Potassium Level 3.7 3.5-5.1 mmol/L Chloride Level 103 101-111 mmol/L Carbon Dioxide Level 29 21-32 mmol/L Blood Urea Nitrogen 53 H 7-18 mg/dL Creatinine 3.5 H 0.5-1.3 mg/dL Glomerular Filtration Rate Calc 20 >90 mL/min Random Glucose 130 H 70-105 mg/dL Total Calcium 9.4 8.5-10.1 mg/dL Current Medications Medications (Trade) Dose Ordered Sig/Krishan Route PRN Reason Start Time Stop Time Status Last Admin Dose Admin Acetaminophen (TYLenol 325MG TAB) 650 mg Q4H PRN PO MILD PAIN (1-3) 09/18/24 03:00 10/18/24 02:59 09/26/24 09:33 650 MG Acetaminophen (TYLenol 325MG TAB) 650 mg Q6H PRN PO TEMPERATURE GREATER THAN 101.5 09/18/24 03:00 10/18/24 02:59 Amlodipine Besylate (NorvASC 5MG TAB) 10 mg DAILY PO 09/21/24 12:30 10/21/24 12:29 09/26/24 09:22 10 MG Calcium Gluconate 1 gm/Sodium Chloride 100 ml @ 0 mls/hr PROTOCOL IV 09/18/24 00:00 10/18/24 00:00 09/17/24 23:59 100 MLS/HR Dextrose (D50w) 50 ml AD PRN IV HYPOGLYCEMIA PROTOCOL 09/18/24 03:30 10/18/24 03:29 Epoetin John-epbx (Retacrit) 10,000 unit QSA SQ 09/20/24 09:00 10/20/24 08:59 09/20/24 08:32 10,000 UNIT Famotidine (Pepcid 20mg Vial) 20 mg Q48H IV 09/18/24 03:00 10/18/24 02:59 09/26/24 04:38 20 MG Gabapentin (NEURontin 100 mg CAP) 100 mg HS PO 09/23/24 22:00 10/23/24 21:59 09/25/24 21:18 100 MG Gabapentin (NEURontin 100 mg CAP) 100 mg ONCE PO 09/23/24 22:00 09/23/24 21:44 DC Glucagon (Glucagon 1mg Kit) 1 mg AD PRN IM HYPOGLYCEMIA PROTOCOL 09/18/24 03:30 10/18/24 03:29 Guaifenesin (RobiTUSSin SUGAR-FREE 100 MG/ 5 ML UDCUP) 200 mg Q6H6 PRN PO COUGH 09/20/24 22:30 10/20/24 22:29 09/20/24 22:20 200 MG Heparin Sodium (Porcine) (HEParin 5,000 UNIT VIAL) 5,000 unit Q12H SQ 09/24/24 15:30 09/24/24 17:40 DC Heparin Sodium (Porcine) (HEParin 5,000 UNIT VIAL) 5,000 unit Q12H SQ 09/24/24 21:00 10/24/24 20:59 09/26/24 09:26 5,000 UNIT Hydrochlorothiazide (hydroCHLOROthiazide 25MG) 12.5 mg DAILY PO 09/21/24 16:30 09/25/24 09:11 DC 09/25/24 08:19 12.5 MG Hydromorphone HCl (DiLAUDid 0.5MG INJ) 0.5 mg Q6H PRN IVP SEVERE PAIN (7-10) 09/18/24 15:30 09/23/24 15:29 DC 09/23/24 15:19 0.5 MG Hydromorphone HCl (DiLAUDid 0.5MG INJ) 0.5 mg Q6H PRN IVP SEVERE PAIN (7-10) 09/23/24 22:00 09/28/24 21:59 09/26/24 04:38 0.5 MG Insulin Human Regular (humuLIN R 100 UNIT/ML 3ML) INSULIN SLIDING SCAL... ACHS SQ 09/18/24 07:30 10/18/24 07:29 09/25/24 21:25 2 UNIT Leptospermum Honey (Bid [place]) APPLY DIRECTED DAILY TP 09/23/24 09:00 10/23/24 08:59 09/26/24 09:24 1 APPL Linezolid 300 ml @ 150 mls/hr Q12H IV 09/25/24 13:00 10/05/24 12:59 09/26/24 00:58 150 MLS/HR Lisinopril (Prinivil 20mg) 20 mg DAILY PO 09/21/24 09:00 10/21/24 08:59 09/26/24 09:23 20 MG Magnesium Sulfate 50 ml @ 0 mls/hr PROTOCOL IV 09/21/24 16:00 09/21/24 17:41 DC 09/21/24 17:28 25 MLS/HR Ondansetron HCl (zoFRAN 4MG INJ) 4 mg Q6H PRN IV NAUSEA/VOMITING 09/18/24 03:00 10/18/24 02:59 Pharmacy Profile Note (Lace Assessment) 1 each AD MISC 09/18/24 13:30 09/18/24 13:35 DC Pharmacy Profile Note (Pharmacy Communication) 1 each ONCE MISC 09/25/24 12:00 09/25/24 11:34 DC Piperacillin Sod/ Tazobactam Sod 50 ml @ 12.5 mls/hr Q12H IV 09/18/24 05:00 09/18/24 05:30 DC Piperacillin Sod/ Tazobactam Sod 50 ml @ 12.5 mls/hr Q12H IV 09/18/24 12:00 09/28/24 11:59 09/26/24 01:03 12.5 MLS/HR Potassium Chloride 100 ml @ 100 mls/hr AD PRN IV POTASSIUM PROTOCOL 09/22/24 17:00 09/22/24 17:31 DC Potassium Chloride (K-Dur/Klor-Con 20meq) 20 meq AD PRN PO POTASSIUM PROTOCOL 09/22/24 17:00 09/22/24 17:31 DC 09/22/24 17:07 20 MEQ Potassium Chloride (KCl 10% Elixir 20meq/15ml) 20 meq AD PRN PO POTASSIUM PROTOCOL 09/22/24 17:00 09/22/24 17:31 DC Sevelamer HCl (RENAgel 800 MG TAB) 800 mg TIDMEALS PO 09/19/24 12:00 10/19/24 11:59 09/26/24 09:22 800 MG Sodium Bicarbonate 150 meq/Dextrose 1,150 ml @ 100 mls/hr [id number] IVP 09/18/24 10:00 09/20/24 13:06 DC 09/20/24 08:33 100 MLS/HR Vancomycin HCl 250 ml @ 125 mls/hr Q76H IV 09/21/24 06:00 09/20/24 13:06 DC Vancomycin HCl (Vancomycin Protocol) 1 each AD IV 09/18/24 04:00 09/20/24 13:08 DC Vitamin B Complex/ Vit C/Folic Acid (Nephrovite Tablet) 1 cap DAILY PO 09/21/24 09:00 10/21/24 08:59 09/26/24 09:22 1 [facility] / RADIOLOGY: [address] [address] IMAGING REPORT Signed PATIENT: JAYRO LIRIANO MR#: [id number] : 1970 SEX: M AGE: 54 LOCATION: 3CH ORDER 1212 STATUS: ADM IN REPORT#: [id number] SERVICE 1207 REASON: Persistent Leucocytosis, r/o infection, abscess A/P VWRB ANGELA [place] ORDERING PHYSICIAN: ALEC MELTON MD PROCEDURE: ABD PEL WO - CT ABDOMEN/PELVIS W/O CONTRAST Exam Type: CT ABDOMEN/PELVIS W/O CONTRAST Clinical Information: Persistent Leucocytosis, r/o infection, abscess A/P VWRB ANGELA [place] Comparison: None CT Dose Index (CTDI): 10.20 mGy Dose Length Product (DLP): 530.00 total mGy-cm PROTOCOL: Routine noncontrast helical scanning of the abdomen and pelvis was performed at 5mm collimation. Findings: No evidence of nephro or ureterolithiasis is found. No hydronephrosis or ureteral dilatation is seen. Bilateral and cutaneous nephrostomy catheters are seen. The lung bases are clear. The stomach is unremarkable. It shows no wall thickening. No gross ulceration is seen. It is not overly distended. There are no surrounding inflammatory changes. No wall lesions are identified to suggest cancer. The spleen is unremarkable. It is not enlarged. The pancreas shows normal anatomy. It is not fatty replaced. It shows no lesions. The pancreatic duct is not dilated. The gallbladder is unremarkable. It shows no cholelithiasis. The gallbladder wall is normal in thickness. There is no pericholecystic fluid. The is no acute or chronic inflammation noted. Left adrenal gland demonstrates a calcified lesion, stable since the examination of May 22, 2024. The liver is unremarkable. It shows no focal masses. The appendix is unremarkable. It shows no evidence of inflammation. No appendicolith is seen. The small bowel is unremarkable. There is no evidence of dilatation to suggest obstruction. No evidence of adynamic ileus is seen. There is no small bowel wall thickening to suggest enteritis. The colon is unremarkable. The urinary bladder is unremarkable. There is no wall thickening to suggest tumor or inflammation. There are no intraluminal calculi. There are no diverticula. There is no evidence of chronic bladder outlet obstruction. There is no evidence of urinary bladder distention to suggest urinary retention. The other pelvic structures are unremarkable. The bony and vascular structures are unremarkable for the patient's age. IMPRESSION: Chronic changes as noted. No acute pathology. No abscess. This study was performed using dose reduction techniques to include automated exposure control and/or adjustment of the mA and/or kV according to patient size. DICTATED BY: VERA BANG MD DATE: 09/26/24 144 ELECTRONICALLY SIGNED BY: VERA BANG MD DATE: 09/26/241455 [address] [id number] IMAGING REPORT Signed PATIENT: JAYRO LIRIANO MR#: [id number] : 1970 SEX: M AGE: 54 LOCATION: ED[facility] ORDER 46 STATUS: REG ER REPORT#: [id number] SERVICE 44 REASON: GEOVANI; NEPHROSTOMY TUBES ORDERING PHYSICIAN: ROMIE VICTOR PROCEDURE: ABD PEL WO - CT ABDOMEN/PELVIS W/O CONTRAST CT ABDOMEN/PELVIS W/O CONTRAST HISTORY: Acute renal insufficiency COMPARISON: 08/08/2024 TECHNIQUE: Multiple sequential axial images of the abdomen and pelvis were obtained from the dome of the diaphragm through symphysis pubis. Patient was not given contrast through intravenous route. Oral contrast was not given. FINDINGS: No pleural effusion is seen bilaterally. There is no evidence of parenchymal disease or pulmonary nodule of the visualized lower lungs. Degenerative changes of the thoracolumbar spine are present. The heart is not enlarged. Gallbladder is distended. There is left adrenal nodule with calcification measuring 3.3 x 2.6 cm. Bilateral percutaneous nephrostomy tubes are seen. The liver, spleen, right adrenal gland and pancreas are unremarkable. There is no evidence of hydronephrosis bilaterally. No evidence of renal stone is seen. Fecal material is seen in the colon. There are normal size retroperitoneal and mesenteric lymph nodes. No ascites is seen. No CT evidence of acute appendicitis is seen. Pelvic sidewalls are symmetric bilaterally. Bladder is poorly distended. IMPRESSION: 1. Bilateral percutaneous nephrostomy tube in place. CT was performed with one or more following dose reduction techniques: automated exposure control, adjustment of the mA and kv according to patient's size, or use of a iterative reconstruction technique. DICTATED BY: ROBBIE GARCIA MD DATE: 09/18/24100 ELECTRONICALLY SIGNED BY: ROBBIE GARCIA MD DATE: 09/18/24105 ASSESSMENT: Acute on chronic renal failure, improving POA Bilateral nonhealing ulcers necrosis to both lower legs, s/p debridement of left calf wound on 09/19 POA UTI with Citrobacter Koseri Acute leukocytosis POA Restless list legs syndrome S/P exchange of nephrostomy tube on 09/22/2024 POA Hyperkalemia, resolved POA Acute pancreatitis, mild, resolved POA Metabolic acidosis, resolved POA Acute on chronic anemia due to CKD POA Uncontrolled diabetes POA Hypertension POA PLAN:- The patient remains admitted on the medical surgical floor. Acute on chronic renal failure,improving Acute on chronic anemia due to CKD POA * Per mine inspector, the patient does not require any emergency renal replacement therapy at this time. We will Continue with a renal diabetic diet and take measures to prevent hypotensive episodes. * Oral phosphate binders sevelamer 800 mg t.i.d. * Monitor electrolytes closely, avoid nephrotoxic agents. * Strict intake and output * Closely monitor renal functions Bilateral nonhealing ulcers necrosis to both lower legs, s/p debridement of left calf wound on 09/19 POA UTI with Citrobacter Koseri * Continue with Zosyn and Linezolid for broad-spectrum coverage. Follow up with infectious disease recommendations. * Daily dressings per wound management recommendations * Follow up with Wound aerobic and anaerobic cultures when the results are available. * Pending midline/PICC line, [employer] approval for continuation of IV antibiotics. Acute leukocytosis POA * No febrile episodes, hemodynamically stable. Continue with IV Zosyn and linezolid. * Closely monitor vitals and WBC trend. CBC in a.m. Restless less leg syndrome * We will start with the ropinirole 0.25 mg t.i.d. S/P exchange of nephrostomy tube on 09/22/2024 POA * Follow up with the urologist as an outpatient post discharge for further recommendations. Acute on chronic anemia due to CKD POA * Continue with Epogen 10,000 Units weekly Uncontrolled diabetes POA * Continue with insulin sliding scale * Hypoglycemia protocol Hypertension * Continue with Amlodipine 10 mg, Lisinopril 20 mg daily * Closely monitor the vitals. P.r.n. medications * Dilaudid 0.5 mg q.6 for severe pain (7-10) * Tylenol 650 mg q.4 for mild pain (1-3) * Tylenol 650 mg q.6 for fever * Zofran4 mg q.6 for nausea/vomiting. DVT prophylaxis: Heparin 5000 IU subcutaneously q.12h GI Prophylaxis: Famotidine 20 mg Q 48 AM Labs: CBC, BMP Further orders per hospitalization course. ATTESTATION BY PHYSICIAN I have seen and examined the patient. I reviewed the documentation, medical decision making, and treatment plan as noted by the resident provider above. I agree with the findings and plan of care. Gray Damon MD, MANALI MD Sep 26, 2024 10:55
--- NOTE | 2024-09-26 11:30 | NUR ---
PT follow up note: Patient continues to report significant pain to B calves while sitting EOB, unable to tolerate standing. Patient to received injection at noon. Recommend PT to see patient in the afternoons after pain injection given. PT team to follow. Addendum: 09/26/24 at 1226 by RAQUEL HOLM PT Amended: Links added.
--- NOTE | 2024-09-26 13:49 | NUR ---
Nutritional Note: Chart, meds, and labs Reviewed. Recommend: -continue renal diet -Check HA1C to obtain the three-month average of blood sugar. -Check folate, iron, vit b12, and Vit D levels to rule out deficiencies. Per research low vitamin D may contribute to insulin resistance + vit. D deficiency may impair wound healing. -Check fasting Lipid Panel to evaluate cholesterol levels given the pts history of obesity, HTN, dyslipidemia, and DMII. -luz 1pkt x 3/day mix w/ fluids -educate prior to d/c or after labs. - Electrolyte replacements per protocol -Monitor feeding tolerance, %, wt, and labs -Document PO intake and wt daily. -If No BM >3days consider bowel stimulant. -Schedule outpatient RD f/u for long-term nutrition care. - Notify RD if additional nutrition concerns arise. SEE RD Nutritional Assessment for additional assessment information. Addendum: 09/26/24 at [address] Amended: Links added.
--- NOTE | 2024-09-26 14:56 | HMCIMG ---
Exam Type: CT ABDOMEN/PELVIS W/O CONTRAST Clinical Information: Persistent Leucocytosis, r/o infection, abscess A/P VWRB RN PADMINI Comparison: None CT Dose Index (CTDI): 10.20 mGy Dose Length Product (DLP): 530.00 total mGy-cm PROTOCOL: Routine noncontrast helical scanning of the abdomen and pelvis was performed at 5mm collimation. Findings: No evidence of nephro or ureterolithiasis is found. No hydronephrosis or ureteral dilatation is seen. Bilateral and cutaneous nephrostomy catheters are seen. The lung bases are clear. The stomach is unremarkable. It shows no wall thickening. No gross ulceration is seen. It is not overly distended. There are no surrounding inflammatory changes. No wall lesions are identified to suggest cancer. The spleen is unremarkable. It is not enlarged. The pancreas shows normal anatomy. It is not fatty replaced. It shows no lesions. The pancreatic duct is not dilated. The gallbladder is unremarkable. It shows no cholelithiasis. The gallbladder wall is normal in thickness. There is no pericholecystic fluid. The is no acute or chronic inflammation noted. Left adrenal gland demonstrates a calcified lesion, stable since the examination of May 22, 2024. The liver is unremarkable. It shows no focal masses. The appendix is unremarkable. It shows no evidence of inflammation. No appendicolith is seen. The small bowel is unremarkable. There is no evidence of dilatation to suggest obstruction. No evidence of adynamic ileus is seen. There is no small bowel wall thickening to suggest enteritis. The colon is unremarkable. The urinary bladder is unremarkable. There is no wall thickening to suggest tumor or inflammation. There are no intraluminal calculi. There are no diverticula. There is no evidence of chronic bladder outlet obstruction. There is no evidence of urinary bladder distention to suggest urinary retention. The other pelvic structures are unremarkable. The bony and vascular structures are unremarkable for the patient's age. IMPRESSION: Chronic changes as noted. No acute pathology. No abscess. This study was performed using dose reduction techniques to include automated exposure control and/or adjustment of the mA and/or kV according to patient size.
--- NOTE | 2024-09-26 19:40 | PN ---
INFECTIOUS DISEASE PROGRESS NOTE Date of Service: Sep 26, 2024 SUBJECTIVE: This is a 54-year-old male patient who was seen and examined at bedside in room 313. Patient is awake, alert and oriented x 3. Continues with persistent leukocytosis, WBC today is still elevated at 23.3. Per report patient underwent a CT of the abdomen and pelvis to rule out abscess and pending interpretation. No fever, temperature is 97.5. Patient is s/p debridement of left calf wound on 09/19/2024. We will continue linezolid 600 mg IV and Zosyn. Per report there will be peer to peer with insurance next Sunday. PHYSICAL EXAM EYES: Anicteric. Pupils equal and reactive. HENT: No oral thrush seen, moist Oral mucosa. NECK: Supple, no JVD or thyromegaly. LUNGS: Good air entry. No rales, no rhonchi. CARDIOVASCULAR: S1, S2 regular. No murmur heard. ABDOMEN: Soft, non tender, bowel sounds present, no organomegaly. CENTRAL NERVOUS SYSTEM: Awake, alert, oriented x 3. SKIN: No rashes, no swelling. LYMPHATICS: No peripheral lymphadenopathy MUSCULOSKELETAL: No joint swelling, erythema or tenderness. EXTREMITIES: No cyanosis or clubbing. Bilateral leg ulcers. BACK: No deformity, no pressure ulcer. Bilateral nephrostomy tubes. GENITOURINARY: No dysuria or hematuria. Vital Sign (Last 12 Hours) 09/26/24 09/26/24 09/26/24 09/26/24 08:00 08:00 11:56 16:02 Temp 97.5 97.9 97.9 Pulse 88 89 90 Resp 19 18 18 B/P (MAP) 142/83 124/72 134/81 Pulse Ox 96 96 97 97 O2 Delivery Room Air Room Air* Room Air Room Air O2 Flow Rate 0 FiO2 21 21 Intake & Output (last 24hrs) 09/25/24 09/25/24 09/26/24 15:00 23:00 07:00 Output Total 1865 ml Balance -1865 ml LABS: Laboratory: Test 09/26/24 19:12 09/26/24 05:22 Range/Units Whole Blood Glucose 160 H 70-110 MG/DL White Blood Count 23.3 H 4.8-10.8 K/uL Red Blood Count 2.96 L 4.50-6.20 MIL/uL Hemoglobin 8.5 L 14.0-18.0 g/dL Hematocrit 26.8 L 42-54 % Mean Corpuscular Volume 90.5 79-99 fL Mean Corpuscular Hemoglobin 28.7 27.0-33.0 pg Mean Corpuscular Hemoglobin Concent 31.7 L 32.0-36.0 g/dL Red Cell Distribution Width 13.6 11.0-15.5 % Platelet Count 298 130-400 K/uL Mean Platelet Volume 10.7 H 7.5-10.5 fL Immature Granulocyte % (Auto) 1.1 H 0-1 % Neutrophils (%) (Auto) 77.3 H 40.0-77.0 % Lymphocytes (%) (Auto) 10.5 L 21.0-51.0 % Monocytes (%) (Auto) 7.5 3.0-13.0 % Eosinophils (%) (Auto) 3.0 0.0-8.0 % Basophils (%) (Auto) 0.6 0.0-5.0 % Neutrophils # (Auto) 18.0 H 1.8-7.7 K/uL Lymphocytes # (Auto) 2.5 1.0-4.8 K/uL Monocytes # (Auto) 1.8 H 0.1-1.0 K/uL Eosinophils # (Auto) 0.70 0.00-0.70 K/uL Basophils # (Auto) 0.13 0.00-0.20 K/uL Absolute Immature Granulocyte (auto 0.26 0-1 K/uL Nucleated Red Blood Cells 0.0 0.0-0.19 % Sodium Level 140 136-145 mmol/L Potassium Level 3.7 3.5-5.1 mmol/L Chloride Level 103 101-111 mmol/L Carbon Dioxide Level 29 21-32 mmol/L Blood Urea Nitrogen 53 H 7-18 mg/dL Creatinine 3.5 H 0.5-1.3 mg/dL Glomerular Filtration Rate Calc 20 >90 mL/min Random Glucose 130 H 70-105 mg/dL Total Calcium 9.4 8.5-10.1 mg/dL ASSESSMENT: Urinary tract infection Citrobacter koseri. Leukocytosis. Bilateral leg ulcers, status post debridement of left calf wound on 09/19/2024. 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 Acute renal failure, improving. History of bilateral hydronephrosis with nephrostomy tubes in place, s/p bilateral nephrostomy tube exchange on 09/22/2024. Diabetes mellitus. PLAN: Continue linezolid 600 IV. Continue Zosyn. Continue pain management. Continue GI prophylaxis. Avoid nephrotoxic medications. Continue antidiabetics. Continue Physical therapy. Pending peer to peer with insurance next Sunday. This case was reviewed and discussed with my supervising physician and the above assessment and plan was formulated and agreed upon. ATTESTATION BY PHYSICIAN I have seen and examined the patient. I reviewed the documentation, medical decision making, and treatment plan as noted by the mid-level provider above. I agree with the findings and plan of care. ORIN PEREZ MD, [facility] Sep 26, 2024 19:40
[2024-09-26] MEDS: ropiNIRole HCL 0.25 MG TABLET PO SCH (21:21)
[2024-09-27] VITALS (9 sets, daily range): BP systolic 119–137; BP diastolic 68–89; PULSE 78–89; RESP 16–20; TEMP 98–98.5; O2SAT 96–100
[2024-09-27 05:30] LABS: BASOPHILS # (AUTO) 0.14 K/uL (0.00-0.20); BASOPHILS % (AUTO) 0.7 % (0.0-5.0); EOSINOPHILS # (AUTO) 0.77 K/uL (0.00-0.70); EOSINOPHILS % (AUTO) 3.6 % (0.0-8.0); HEMATOCRIT 29.3 % (42-54); LYMPHOCYTES # (AUTO) 2.6 K/uL (1.0-4.8); LYMPHOCYTES % (AUTO) 12.5 % (21.0-51.0); MEAN CORPUSCULAR HEMOGLOBIN 28.8 pg (27.0-33.0); MEAN CORPUSCULAR HGB CONC 32.4 g/dL (32.0-36.0); MEAN CORPUSCULAR VOLUME 88.8 fL (79-99); MONOCYTES # (AUTO) 1.5 K/uL (0.1-1.0); MONOCYTES % (AUTO) 7.3 % (3.0-13.0); NEUTROPHILS # (AUTO) 15.8 K/uL (1.8-7.7); PLATELET COUNT (AUTO) 326 K/uL (130-400); RED CELL DISTRIBUTION WIDTH 13.6 % (11.0-15.5); WHITE BLOOD COUNT (AUTO) 21.1 K/uL (4.8-10.8)
[2024-09-27 05:51] LABS: CREATININE 3.9 mg/dL (0.5-1.3)
--- NOTE | 2024-09-27 12:47 | PN ---
INFECTIOUS DISEASE PROGRESS NOTE Date of Service: Sep 27, 2024 SUBJECTIVE: This 54 year old male patient is being seen today at bedside. Patient is awake, alert and oriented x3. No fever or chills. No nausea or vomiting. Patient continues on antibiotics tolerating well. Tolerating wound care to left calf well. Nephrostomy draining well. Pending possible peer to peer with insurance. No acute events over night. PHYSICAL EXAM EYES: Anicteric. Pupils equal and reactive. HENT: No oral thrush seen, moist Oral mucosa. NECK: Supple, no JVD or thyromegaly. LUNGS: Good air entry. No rales, no rhonchi. CARDIOVASCULAR: S1, S2 regular. No murmur heard. ABDOMEN: Soft, non tender, bowel sounds present, no organomegaly. CENTRAL NERVOUS SYSTEM: Awake, alert, oriented x 3. SKIN: No rashes, no swelling. LYMPHATICS: No peripheral lymphadenopathy MUSCULOSKELETAL: No joint swelling, erythema or tenderness. EXTREMITIES: No cyanosis or clubbing. Dry dressing to left calf BACK: No deformity, no pressure ulcer. Bilateral nephrostomy tubes. GENITOURINARY: No dysuria or hematuria. Vital Sign (Last 12 Hours) 09/27/24 09/27/24 09/27/24 04:33 07:49 11:23 Temp 98.4 98.2 98.2 Pulse 87 87 86 Resp 17 18 18 B/P (MAP) 129/86 137/74 137/80 Pulse Ox 95 96 99 O2 Delivery Room Air Room Air Room Air Intake & Output (last 24hrs) 09/26/24 09/26/24 09/27/24 15:00 23:00 07:00 Intake Total 300 ml 300 ml Output Total 1225 ml 550 ml Balance -925 ml -250 ml LABS: Laboratory: Test 09/27/24 10:56 09/27/24 05:00 Range/Units Whole Blood Glucose 122 H 70-110 MG/DL White Blood Count 21.1 H 4.8-10.8 K/uL Red Blood Count 3.30 L 4.50-6.20 MIL/uL Hemoglobin 9.5 L 14.0-18.0 g/dL Hematocrit 29.3 L 42-54 % Mean Corpuscular Volume 88.8 79-99 fL Mean Corpuscular Hemoglobin 28.8 27.0-33.0 pg Mean Corpuscular Hemoglobin Concent 32.4 32.0-36.0 g/dL Red Cell Distribution Width 13.6 11.0-15.5 % Platelet Count 326 130-400 K/uL Mean Platelet Volume 10.7 H 7.5-10.5 fL Immature Granulocyte % (Auto) 0.9 0-1 % Neutrophils (%) (Auto) 75.0 40.0-77.0 % Lymphocytes (%) (Auto) 12.5 L 21.0-51.0 % Monocytes (%) (Auto) 7.3 3.0-13.0 % Eosinophils (%) (Auto) 3.6 0.0-8.0 % Basophils (%) (Auto) 0.7 0.0-5.0 % Neutrophils # (Auto) 15.8 H 1.8-7.7 K/uL Lymphocytes # (Auto) 2.6 1.0-4.8 K/uL Monocytes # (Auto) 1.5 H 0.1-1.0 K/uL Eosinophils # (Auto) 0.77 H 0.00-0.70 K/uL Basophils # (Auto) 0.14 0.00-0.20 K/uL Absolute Immature Granulocyte (auto 0.20 0-1 K/uL Nucleated Red Blood Cells 0.0 0.0-0.19 % Sodium Level 142 136-145 mmol/L Potassium Level 4.0 3.5-5.1 mmol/L Chloride Level 105 101-111 mmol/L Carbon Dioxide Level 27 21-32 mmol/L Blood Urea Nitrogen 54 H 7-18 mg/dL Creatinine 3.9 H 0.5-1.3 mg/dL Glomerular Filtration Rate Calc 18 >90 mL/min Random Glucose 106 H 70-105 mg/dL Total Calcium 9.9 8.5-10.1 mg/dL ASSESSMENT: Urinary tract infection Citrobacter koseri. Leukocytosis. Bilateral leg ulcers, status post debridement of left calf wound on 09/19/2024. 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 Acute renal failure, improving. History of bilateral hydronephrosis with nephrostomy tubes in place, s/p bilateral nephrostomy tube exchange on 09/22/2024. Diabetes mellitus. PLAN: Start linezolid 600 mg IV q.12. Continue Zosyn. Continue pain management. Continue GI prophylaxis. Avoid nephrotoxic medications. Continue antidiabetics. Continue Physical therapy. Pending insurance approval to [facility]. This case was reviewed and discussed with my supervising physician and the above assessment and plan was formulated and agreed upon. ZINA SINGLETON [employer] O[employer] Sep 27, 2024 12:47
--- NOTE | 2024-09-27 13:14 | PN ---
[facility] PROGRESS NOTE Date of Service: Sep 27, 2024 Time of Service: 13:12 SUBJECTIVE: This is a 54-year-old male past medical history of kidney disease, kidney stones with bilateral nephrostomy tube, diabetes and hypertension who was brought by EMS to the ED for complaints of abdominal pain associated with generalized body weakness, nausea and vomiting. On my evaluation patient states the reason why he came to the ER today is because of bilateral leg pain which has been hurting and he cant tolerate it anymore he said.Patient has multiple open wound ulcers with some necrotic tissue to both legs and as per patient that has been there since April 2023.Patient also reports he has a bilateral nephrostomy tube that was placed on September 2023 and supposedly should come off after 2 weeks but because of insurance issue it has not been removed. Seen and examined patient in the ER awake,alert and coherent.Patient appears comfortable,denies fever,chills,chest pain,palpitation,cough,shortness of breath,nausea,vomiting abdominal pain and diarrhea.Patient states he still voids with no problem. Vital signs temperature 98.2, heart rate 108, blood pressure 121/58 saturation 99% on room air. Labs: WBC 17 with negative left shift of neutrophils 82, hemoglobin 10, hematocrit 34, platelet count 378. Sodium 133, potassium six, chloride 98, carbon dioxide 11, BUN 162, creatinine 11 GFR five glucose 195 lactic acid 1.8 AST nine ALT nine BNP 23 albumin 3.1, triglycerides 179 lipase 791 troponin 10. While in the ER patient received Zosyn IV, sodium bicarb 50 mEq IV, Zofran 4 mg IV, Lokelma 10 g p.o., morphine 2 mg IV, insulin 10 units IV D50 25 mL IV, calcium gluconate 1 g IV and patient is being started on sodium bicarb at 100 mL/hour. We will admit patient for further medical management. 09/18: Patient was seen and examined this morning at bedside.Patient denies chest pain, shortness of breath, nausea, vomiting, fever, chills. Patient reports abdominal tenderness, worse in the right lower quadrant. Patient reports that he does not follow up with a primary care physician. Patient has bilateral nephrostomy tubes that were placed in April of 2023, but has not had them removed due to not having enough money to pay the co-pay at the urologist office. Patients renal function is abnormal, nephrology has been consulted and recommends Lokelma and sodium bicarbonate for the metabolic acidosis. Per Dr. Cadet, urology to be consulted for either removal or replacement of nephrostomy tubes. Urology has been consulted. 09/19: Patient was seen and examined this morning at bedside. Patient denies chest pain, shortness of breath, nausea, vomiting, fever, chills. Patient is scheduled to get a external debridement of the left calf. Patient is getting a removal of the bilateral nephrostomy tubes today by Interventional Radiology. Patient is currently NPO. Patient has refused dialysis, and continues on a bicarb drip for metabolic acidosis. Patient continues on vancomycin and Zosyn. 09/21/24 patient was seen and examined. Case discussed with the RN he was doing well. Denies nausea vomiting fever or chills. Continue vancomycin and Zosyn Patient was seen and examined this morning at bedside Patient with bilateral leg ulcers and status post debridement of left calf wound. The preliminary urine culture is growing Gram-negative rods. Discussed with ID/Continue Zosyn 09/22/2024: The patient was examined today in room 313 at bedside. He appears comfortable and denies any complaints or concerns at this time. He is scheduled for nephrostomy tube replacement today by OR. His blood pressure is mildly elevated at 159/90, which he attributes to anxiety about the procedure. Nursing staff have been performing wet-to-dry dressings, with wound management recommendations pending. Labs: Kidney functions have slightly improved, BUN went down to 71 from 89, creatinine went down to 4.2 from 5.1, GFR to 16 from 13, Phosphorous down to 3.9 from 5.7, Mg improved to 2.10. Blood cultures are negative, urine culture showed Gram-negative rods, pansensitive Cirobacter Koseri. We will follow up patient post nephrostomy tube replacement. Follow up with the nephrology and ID recommendations. Further assessment and plan as discussed below. 09/23/2024: The patient was examined at the bedside today. He underwent a bilateral nephrostomy tube exchange yesterday, and the procedure went without complications. Currently, he is feeling better and does not have any complaints or concerns. Dr. Gipson recommended a transfer to [facility]; however, the patient was hesitant yesterday due to potential difficulties with obtaining insurance approval. After discussing it today, he has agreed to the transfer if the insurance gives approval. Additionally, recommendations for wound management include applying a Midhoney dressing over the debridement site. He is running slightly hypertensive with recent BP of 141/77. Labs: Kidney functions continues to improve, BUN down to 62 from 71, Creatinine down to 4.0 from 4.2, GFR 17. Continue with Zosyn, pending [employer] approval. Further assessment and plan discussed below. 09/24/24: The patient was examined at the bedside today. He is alert, oriented, and lying comfortably in bed. He reports experiencing bilateral pain in the over the wound area, rated at 5 out of 10, throbbing type. He notes that the pain is slightly improved compared to yesterday. Additionally, he is experiencing a tingling sensation in his feet. The nursing staff is performing daily dressings on him. He was unable to walk during physical therapy yesterday due to the pain. He is receiving Dilaudid 0.5 mg every 6 hours as needed, along with Tylenol for pain management. Bilateral nephrostomy tubes are in place. In terms of lab results, his white blood cell count increased to 17.3 from 13.2. His hemoglobin is at 9.5. His kidney functions continues to improve, BUN decreased to 60 from 62, and creatinine levels improved to 3.8 from 4.0. According to the inspector insulation, we will continue the current management since kidney function is improving. Continue IV antibiotics, we are awaiting [employer] approval. Further assessment and planning are discussed below. 09/25/24: The patient was examined at the bedside today. He continues to complain of a throbbing pain at the wound sites on both legs. His blood pressure remains elevated, with systolic blood pressure in the 140s, likely due to the pain. Leucocytosis is worsening, with white blood cell count increasing from 17.3 to 21.8. Neutrophils are at 78.4%, and lymphocytes are at 10.8%. Denies fever, chills, abdominal pain or any other symptoms. Kidney function is continuing to improve, with BUN decreasing from 60 to 55, and creatinine levels have improved to 3.8. Wound culture was never sent for analysis; we will order both aerobic and anaerobic wound cultures today. Closely monitor the vitals. Linezolid was started today by ID due to up trending leucocytosis, and Zosyn will be continued. We are still pending [employer] approval. Further assessment and plan are discussed below. 09/26/24: The patient was examined at the bedside today. He continues to complain of leg pain, but today he describes the pain as more of a needle-like sensation that improves with movement. He has been refusing to walk with physical therapy due to this pain. A CT scan of the abdomen and pelvis without contrast was ordered and showed no signs of acute pathology or abscess. Laboratory results reveal that leukocytosis is worsening; the WBC has increased to 23.3 from 21.8, with neutrophils at 77.3%. However, kidney function is improving, with BUN decreasing to 53 from 55, and creatinine levels decreasing to 3.5 from 3.8. We will continue administering IV linezolid and Zosyn for broad-spectrum antibiotic coverage. Daily dressing changes will be maintained, and we are currently awaiting the results of wound cultures. Midline/PICC line placement is pending, Approval from [employer] is still pending. Further assessment and planning are discussed below. 09/27/24 patient was seen and examined. Case discussed with RN he continues to complain of pain in the lower extremities. White count is improving REVIEW OF SYSTEMS CONSTITUTIONAL: Denies fevers, chills, or night sweats. No unintentional weight loss reported. NEUROLOGICAL: Denies headache, amaurosis fugax, motor weakness, sensory deficit, vertigo/spinning sensation, gait abnormalities, or tremors. ENT: No hearing loss, otalgia, otorrhea, rhinitis, rhinorrhea, hoarseness, or sore throat. CARDIOVASCULAR: Denies any exertional angina, dyspnea on exertion, orthopnea, paroxysmal nocturnal dyspnea, palpitations, life-threatening arrhythmias, claudication. PULMONARY: Denies any shortness of breath, cough, phlegm/sputum, hemoptysis, pleuritic chest pain. SLEEP: Denies morning headaches, daytime somnolence or napping. Denies difficulty falling asleep, staying asleep, waking from sleep. Denies knowledge of snoring. GASTROINTESTINAL: Denies any type of dysphagia to either liquids or solids. Denies nausea, vomiting, pyrosis, early satiety, abdominal pain, diarrhea, constipation, or changes in stool consistency or caliber. Denies coffee-ground emesis, hematemesis, hematochezia, or melanotic stools. GENITOURINARY: Denies frequency, urgency, nocturia, hematuria or incontinence (Storage/Irritative symptoms.) Low urinary stream, straining to void, urinary intermittency or hesitancy, splitting of the voiding stream, terminal dribbling. ENDOCRINOLOGIC: Denies polyuria, polydipsia, polyphagia or heat/cold intolerances. HEMATOLOGIC: Denies thrombophilia/previous clots, or coagulopathy/bleeding disorders. ONCOLOGIC: Denies personal history of malignancy. DERMATOLOGIC: Bilateral lower extremities pain, mostly around the wound site, constant, 5/10, throbbing in type Denies rashes or pruritus. PSYCHIATRIC: Denies any suicidal or homicidal ideation. Denies hallucinations. PHYSICAL EXAM GENERAL APPEARANCE: The patient is awake, alert, and oriented, in no acute cardiopulmonary distress. NEUROLOGICAL: Cranial nerves II-XII grossly intact. Motor is 5/5 in bilateral upper and lower extremities proximal to distal. No sensory deficits. HEENT: Face is symmetric. Pupils are equal and reactive. Extraocular movements are intact. NECK: Supple. No JVD. No thyromegaly. No submental, submandibular, pre- /postauricular, occipital or supraclavicular lymphadenopathy. CHEST: Normal chest expansion. No Telemetry. LUNGS: Absence of any rales, rhonchi or any wheezing. CARDIOVASCULAR: Regular. S1 and S2 normal. No appreciable rubs, murmurs or gallops. ABDOMEN: Soft, nontender, and nondistended. There is no rebound, voluntary guarding, or rigidity. : Deferred. No [place], b/l nephrostomy tubes in placed. EXTREMITIES: Dressing present over bilateral legs. SKIN: No skin breakdown. Vital Signs (last 8hr) Date Time Temp Pulse Resp B/P (MAP) Pulse Ox O2 Delivery O2 Flow Rate FiO2 09/27/24 11:23 98.2 86 18 137/80 99 Room Air 09/27/24 07:49 98.2 87 18 137/74 96 Room Air LABS: Laboratory: Test 09/27/24 10:56 09/27/24 05:00 Range/Units Whole Blood Glucose 122 H 70-110 MG/DL White Blood Count 21.1 H 4.8-10.8 K/uL Red Blood Count 3.30 L 4.50-6.20 MIL/uL Hemoglobin 9.5 L 14.0-18.0 g/dL Hematocrit 29.3 L 42-54 % Mean Corpuscular Volume 88.8 79-99 fL Mean Corpuscular Hemoglobin 28.8 27.0-33.0 pg Mean Corpuscular Hemoglobin Concent 32.4 32.0-36.0 g/dL Red Cell Distribution Width 13.6 11.0-15.5 % Platelet Count 326 130-400 K/uL Mean Platelet Volume 10.7 H 7.5-10.5 fL Immature Granulocyte % (Auto) 0.9 0-1 % Neutrophils (%) (Auto) 75.0 40.0-77.0 % Lymphocytes (%) (Auto) 12.5 L 21.0-51.0 % Monocytes (%) (Auto) 7.3 3.0-13.0 % Eosinophils (%) (Auto) 3.6 0.0-8.0 % Basophils (%) (Auto) 0.7 0.0-5.0 % Neutrophils # (Auto) 15.8 H 1.8-7.7 K/uL Lymphocytes # (Auto) 2.6 1.0-4.8 K/uL Monocytes # (Auto) 1.5 H 0.1-1.0 K/uL Eosinophils # (Auto) 0.77 H 0.00-0.70 K/uL Basophils # (Auto) 0.14 0.00-0.20 K/uL Absolute Immature Granulocyte (auto 0.20 0-1 K/uL Nucleated Red Blood Cells 0.0 0.0-0.19 % Sodium Level 142 136-145 mmol/L Potassium Level 4.0 3.5-5.1 mmol/L Chloride Level 105 101-111 mmol/L Carbon Dioxide Level 27 21-32 mmol/L Blood Urea Nitrogen 54 H 7-18 mg/dL Creatinine 3.9 H 0.5-1.3 mg/dL Glomerular Filtration Rate Calc 18 >90 mL/min Random Glucose 106 H 70-105 mg/dL Total Calcium 9.9 8.5-10.1 mg/dL Current Medications Medications (Trade) Dose Ordered Sig/Krishan Route PRN Reason Start Time Stop Time Status Last Admin Dose Admin Acetaminophen (TYLenol 325MG TAB) 650 mg Q4H PRN PO MILD PAIN (1-3) 09/18/24 03:00 10/18/24 02:59 09/27/24 12:34 650 MG Acetaminophen (TYLenol 325MG TAB) 650 mg Q6H PRN PO TEMPERATURE GREATER THAN 101.5 09/18/24 03:00 10/18/24 02:59 Amlodipine Besylate (NorvASC 5MG TAB) 10 mg DAILY PO 09/21/24 12:30 10/21/24 12:29 09/27/24 08:22 10 MG Calcium Gluconate 1 gm/Sodium Chloride 100 ml @ 0 mls/hr PROTOCOL IV 09/18/24 00:00 10/18/24 00:00 09/17/24 23:59 100 MLS/HR Dextrose (D50w) 50 ml AD PRN IV HYPOGLYCEMIA PROTOCOL 09/18/24 03:30 10/18/24 03:29 Epoetin John-epbx (Retacrit) 10,000 unit QSA SQ 09/20/24 09:00 10/20/24 08:59 09/27/24 08:57 10,000 UNIT Famotidine (Pepcid 20mg Vial) 20 mg Q48H IV 09/18/24 03:00 10/18/24 02:59 09/26/24 04:38 20 MG Gabapentin (NEURontin 100 mg CAP) 100 mg HS PO 09/23/24 22:00 10/23/24 21:59 09/26/24 21:21 100 MG Gabapentin (NEURontin 100 mg CAP) 100 mg ONCE PO 09/23/24 22:00 09/23/24 21:44 DC Glucagon (Glucagon 1mg Kit) 1 mg AD PRN IM HYPOGLYCEMIA PROTOCOL 09/18/24 03:30 10/18/24 03:29 Guaifenesin (RobiTUSSin SUGAR-FREE 100 MG/ 5 ML UDCUP) 200 mg Q6H6 PRN PO COUGH 09/20/24 22:30 10/20/24 22:29 09/20/24 22:20 200 MG Heparin Sodium (Porcine) (HEParin 5,000 UNIT VIAL) 5,000 unit Q12H SQ 09/24/24 15:30 09/24/24 17:40 DC Heparin Sodium (Porcine) (HEParin 5,000 UNIT VIAL) 5,000 unit Q12H SQ 09/24/24 21:00 10/24/24 20:59 09/27/24 08:28 5,000 UNIT Hydrochlorothiazide (hydroCHLOROthiazide 25MG) 12.5 mg DAILY PO 09/21/24 16:30 09/25/24 09:11 DC 09/25/24 08:19 12.5 MG Hydromorphone HCl (DiLAUDid 0.5MG INJ) 0.5 mg Q6H PRN IVP SEVERE PAIN (7-10) 09/18/24 15:30 09/23/24 15:29 DC 09/23/24 15:19 0.5 MG Hydromorphone HCl (DiLAUDid 0.5MG INJ) 0.5 mg Q6H PRN IVP SEVERE PAIN (7-10) 09/23/24 22:00 09/28/24 21:59 09/27/24 12:59 0.5 MG Insulin Human Regular (humuLIN R 100 UNIT/ML 3ML) INSULIN SLIDING SCAL... ACHS SQ 09/18/24 07:30 10/18/24 07:29 09/25/24 21:25 2 UNIT Leptospermum Honey (Medihoney) APPLY DIRECTED DAILY TP 09/23/24 09:00 10/23/24 08:59 09/27/24 08:13 1 APPL Linezolid 300 ml @ 150 mls/hr Q12H IV 09/25/24 13:00 10/05/24 12:59 09/27/24 12:34 150 MLS/HR Lisinopril (Prinivil 20mg) 20 mg DAILY PO 09/21/24 09:00 10/21/24 08:59 09/27/24 08:23 20 MG Magnesium Sulfate 50 ml @ 0 mls/hr PROTOCOL IV 09/21/24 16:00 09/21/24 17:41 DC 09/21/24 17:28 25 MLS/HR Ondansetron HCl (zoFRAN 4MG INJ) 4 mg Q6H PRN IV NAUSEA/VOMITING 09/18/24 03:00 10/18/24 02:59 Pharmacy Profile Note (Lace Assessment) 1 each AD MISC 09/18/24 13:30 09/18/24 13:35 DC Pharmacy Profile Note (Pharmacy Communication) 1 each ONCE MISC 09/25/24 12:00 09/25/24 11:34 DC Piperacillin Sod/ Tazobactam Sod 50 ml @ 12.5 mls/hr Q12H IV 09/18/24 05:00 09/18/24 05:30 DC Piperacillin Sod/ Tazobactam Sod 50 ml @ 12.5 mls/hr Q12H IV 09/18/24 12:00 09/28/24 11:59 09/27/24 12:34 12.5 MLS/HR Potassium Chloride 100 ml @ 100 mls/hr AD PRN IV POTASSIUM PROTOCOL 09/22/24 17:00 09/22/24 17:31 DC Potassium Chloride (K-Dur/Klor-Con 20meq) 20 meq AD PRN PO POTASSIUM PROTOCOL 09/22/24 17:00 09/22/24 17:31 DC 09/22/24 17:07 20 MEQ Potassium Chloride (KCl 10% Elixir 20meq/15ml) 20 meq AD PRN PO POTASSIUM PROTOCOL 09/22/24 17:00 09/22/24 17:31 DC Ropinirole HCl (ropiNIRole HCL) 0.25 mg TID PO 09/26/24 21:00 10/26/24 20:59 09/27/24 13:05 0.25 MG Sevelamer HCl (RENAgel 800 MG TAB) 800 mg TIDMEALS PO 09/19/24 12:00 10/19/24 11:59 09/27/24 12:34 800 MG Sodium Bicarbonate 150 meq/Dextrose 1,150 ml @ 100 mls/hr [id number] IVP 09/18/24 10:00 09/20/24 13:06 DC 09/20/24 08:33 100 MLS/HR Vancomycin HCl 250 ml @ 125 mls/hr Q76H IV 09/21/24 06:00 09/20/24 13:06 DC Vancomycin HCl (Vancomycin Protocol) 1 each AD IV 09/18/24 04:00 09/20/24 13:08 DC Vitamin B Complex/ Vit C/Folic Acid (Nephrovite Tablet) 1 cap DAILY PO 09/21/24 09:00 10/21/24 08:59 09/27/24 08:23 1 CAP DIAGNOSTICS / RADIOLOGY: [ ] ASSESSMENT: Acute on chronic renal failure, improving POA Bilateral nonhealing ulcers necrosis to both lower legs, s/p debridement of left calf wound on 09/19 POA UTI with Citrobacter Koseri Acute leukocytosis POA Restless list legs syndrome S/P exchange of nephrostomy tube on 09/22/2024 POA Hyperkalemia, resolved POA Acute pancreatitis, mild, resolved POA Metabolic acidosis, resolved POA Acute on chronic anemia due to CKD POA Uncontrolled diabetes POA Hypertension POA PLAN:- The patient remains admitted on the medical surgical floor. Acute on chronic renal failure,improving Acute on chronic anemia due to CKD POA * Per inspector insulation, the patient does not require any emergency renal replacement therapy at this time. We will Continue with a renal diabetic diet and take measures to prevent hypotensive episodes. * Oral phosphate binders sevelamer 800 mg t.i.d. * Monitor electrolytes closely, avoid nephrotoxic agents. * Strict intake and output * Closely monitor renal functions Bilateral nonhealing ulcers necrosis to both lower legs, s/p debridement of left calf wound on 09/19 POA UTI with Citrobacter Koseri * Continue with Zosyn and Linezolid for broad-spectrum coverage. Follow up with infectious disease recommendations. * Daily dressings per wound management recommendations * Follow up with Wound aerobic and anaerobic cultures when the results are available. * Pending midline/PICC line, [employer] approval for continuation of IV antibiotics. Acute leukocytosis POA * No febrile episodes, hemodynamically stable. Continue with IV Zosyn and linezolid. * Closely monitor vitals and WBC trend. CBC in a.m. Restless less leg syndrome * We will start with the ropinirole 0.25 mg t.i.d. S/P exchange of nephrostomy tube on 09/22/2024 POA * Follow up with the urologist as an outpatient post discharge for further recommendations. Acute on chronic anemia due to CKD POA * Continue with Epogen 10,000 Units weekly Uncontrolled diabetes POA * Continue with insulin sliding scale * Hypoglycemia protocol Hypertension * Continue with Amlodipine 10 mg, Lisinopril 20 mg daily * Closely monitor the vitals. P.r.n. medications * Dilaudid 0.5 mg q.6 for severe pain (7-10) * Tylenol 650 mg q.4 for mild pain (1-3) * Tylenol 650 mg q.6 for fever * Zofran4 mg q.6 for nausea/vomiting. DVT prophylaxis: Heparin 5000 IU subcutaneously q.12h GI Prophylaxis: Famotidine 20 mg Q 48 AM Labs: CBC, BMP Further orders per hospitalization course. LEONCIO LEARY MD Sep 27, 2024 13:14
[2024-09-27] MEDS: polyETHYLene GLYCol 3350 17 GM POWD.PACK PO SCH (16:21)
--- NOTE | 2024-09-27 17:19 | PN ---
FOLLOWUP PROGRESS NOTE SUBJECTIVE: A 54-year-old male with a history of diabetes mellitus and hypertension. The patient with a history of known chronic renal insufficiency. The patient with obstructive uropathy, status post nephrostomy tube placement. The patient with underlying cellulitis and remains on the antibiotics. REVIEW OF SYSTEMS: CONSTITUTIONAL: He is complaining of pain to the feet. HEENT: No change in vision. No change in hearing. CARDIOVASCULAR: There is no current chest pain or palpitations. PULMONARY: Denies any shortness of breath. GASTROINTESTINAL: He is tolerating a diet. MUSCULOSKELETAL: As described above. PHYSICAL EXAMINATION: VITAL SIGNS: Blood pressure is 137/80, pulse in the 80s, afebrile. GENERAL: Chronically ill male, lying in bed on the medical floor. HEENT: Head is atraumatic. Pupils are equal, roving to light. Oropharynx is without exudate. Nares clear. NECK: There is no JVP. There is no thyromegaly. No mass. CARDIOVASCULAR: Regular. There is no S3 or S4 gallop. LUNGS: Coarse with equal thoracic movement. ABDOMEN: Soft, nondistended and nontender. EXTREMITIES: No clubbing, no cyanosis. NEUROLOGICAL: He is awake. He is alert. LABORATORY DATA: BUN 54, creatinine is 3.9. Hemoglobin 9.5, hematocrit 29, white blood cell count 21,000. IMPRESSION: * Acute on chronic renal failure. * Obstructive uropathy. * Cellulitis. * Diabetes mellitus. PLAN: The patient's creatinine has remained fairly stable. There is no acute need for any form of renal replacement therapy at this time. The patient remains on antibiotics for the cellulitis, and we will continue to monitor the patient closely. The patient is being seen by case management for final disposition, which will be the [facility]. He remains on the Epogen for the anemia. We will follow closely. TID: [id number] RECEIPT: [id number]
[2024-09-28] VITALS (7 sets, daily range): BP systolic 114–138; BP diastolic 72–81; PULSE 79–95; RESP 16–20; TEMP 97.3–98.1; O2SAT 94
[2024-09-28 09:09] LABS: BASOPHILS # (AUTO) 0.18 K/uL (0.00-0.20); BASOPHILS % (AUTO) 0.9 % (0.0-5.0); EOSINOPHILS # (AUTO) 0.56 K/uL (0.00-0.70); EOSINOPHILS % (AUTO) 2.9 % (0.0-8.0); HEMATOCRIT 29.1 % (42-54); IMMATURE GRANULOCYTE ABSOLUTE 0.15 K/uL (0-1); LYMPHOCYTES # (AUTO) 2.4 K/uL (1.0-4.8); LYMPHOCYTES % (AUTO) 12.2 % (21.0-51.0); MEAN CORPUSCULAR HEMOGLOBIN 28.7 pg (27.0-33.0); MEAN CORPUSCULAR HGB CONC 32.3 g/dL (32.0-36.0); MEAN CORPUSCULAR VOLUME 88.7 fL (79-99); MONOCYTES # (AUTO) 1.3 K/uL (0.1-1.0); MONOCYTES % (AUTO) 6.8 % (3.0-13.0); NEUTROPHILS # (AUTO) 14.7 K/uL (1.8-7.7); NEUTROPHILS % (AUTO) 76.4 % (40.0-77.0); PLATELET COUNT (AUTO) 351 K/uL (130-400); RED BLOOD CELL COUNT(AUTO) 3.28 MIL/uL (4.50-6.20); RED CELL DISTRIBUTION WIDTH 13.7 % (11.0-15.5); WHITE BLOOD COUNT (AUTO) 19.3 K/uL (4.8-10.8)
[2024-09-28 09:17] LABS: CREATININE 3.6 mg/dL (0.5-1.3); POTASSIUM 4.2 mmol/L (3.5-5.1)
[2024-09-28] MEDS: ZOSYN 3.375GM +NS 50ML IVPB SCH (09:26)
--- NOTE | 2024-09-28 12:39 | PN ---
[facility] PROGRESS NOTE Date of Service: Sep 28, 2024 Time of Service: 12:39 SUBJECTIVE: This is a 54-year-old male past medical history of kidney disease, kidney stones with bilateral nephrostomy tube, diabetes and hypertension who was brought by EMS to the ED for complaints of abdominal pain associated with generalized body weakness, nausea and vomiting. On my evaluation patient states the reason why he came to the ER today is because of bilateral leg pain which has been hurting and he cant tolerate it anymore he said.Patient has multiple open wound ulcers with some necrotic tissue to both legs and as per patient that has been there since April 2023.Patient also reports he has a bilateral nephrostomy tube that was placed on September 2023 and supposedly should come off after 2 weeks but because of insurance issue it has not been removed. Seen and examined patient in the ER awake,alert and coherent.Patient appears comfortable,denies fever,chills,chest pain,palpitation,cough,shortness of breath,nausea,vomiting abdominal pain and diarrhea.Patient states he still voids with no problem. Vital signs temperature 98.2, heart rate 108, blood pressure 121/58 saturation 99% on room air. Labs: WBC 17 with negative left shift of neutrophils 82, hemoglobin 10, hematocrit 34, platelet count 378. Sodium 133, potassium six, chloride 98, carbon dioxide 11, BUN 162, creatinine 11 GFR five glucose 195 lactic acid 1.8 AST nine ALT nine BNP 23 albumin 3.1, triglycerides 179 lipase 791 troponin 10. While in the ER patient received Zosyn IV, sodium bicarb 50 mEq IV, Zofran 4 mg IV, Lokelma 10 g p.o., morphine 2 mg IV, insulin 10 units IV D50 25 mL IV, calcium gluconate 1 g IV and patient is being started on sodium bicarb at 100 mL/hour. We will admit patient for further medical management. 09/18: Patient was seen and examined this morning at bedside.Patient denies chest pain, shortness of breath, nausea, vomiting, fever, chills. Patient reports abdominal tenderness, worse in the right lower quadrant. Patient reports that he does not follow up with a primary care physician. Patient has bilateral nephrostomy tubes that were placed in April of 2023, but has not had them removed due to not having enough money to pay the co-pay at the urologist office. Patients renal function is abnormal, nephrology has been consulted and recommends Lokelma and sodium bicarbonate for the metabolic acidosis. Per Dr. Cadet, urology to be consulted for either removal or replacement of nephrostomy tubes. Urology has been consulted. 09/19: Patient was seen and examined this morning at bedside. Patient denies chest pain, shortness of breath, nausea, vomiting, fever, chills. Patient is scheduled to get a external debridement of the left calf. Patient is getting a removal of the bilateral nephrostomy tubes today by Interventional Radiology. Patient is currently NPO. Patient has refused dialysis, and continues on a bicarb drip for metabolic acidosis. Patient continues on vancomycin and Zosyn. 09/21/24 patient was seen and examined. Case discussed with the RN he was doing well. Denies nausea vomiting fever or chills. Continue vancomycin and Zosyn Patient was seen and examined this morning at bedside Patient with bilateral leg ulcers and status post debridement of left calf wound. The preliminary urine culture is growing Gram-negative rods. Discussed with ID/Continue Zosyn 09/22/2024: The patient was examined today in room 313 at bedside. He appears comfortable and denies any complaints or concerns at this time. He is scheduled for nephrostomy tube replacement today by OR. His blood pressure is mildly elevated at 159/90, which he attributes to anxiety about the procedure. Nursing staff have been performing wet-to-dry dressings, with wound management recommendations pending. Labs: Kidney functions have slightly improved, BUN went down to 71 from 89, creatinine went down to 4.2 from 5.1, GFR to 16 from 13, Phosphorous down to 3.9 from 5.7, Mg improved to 2.10. Blood cultures are negative, urine culture showed Gram-negative rods, pansensitive Cirobacter Koseri. We will follow up patient post nephrostomy tube replacement. Follow up with the nephrology and ID recommendations. Further assessment and plan as discussed below. 09/23/2024: The patient was examined at the bedside today. He underwent a bilateral nephrostomy tube exchange yesterday, and the procedure went without complications. Currently, he is feeling better and does not have any complaints or concerns. Dr. Gipson recommended a transfer to [facility]; however, the patient was hesitant yesterday due to potential difficulties with obtaining insurance approval. After discussing it today, he has agreed to the transfer if the insurance gives approval. Additionally, recommendations for wound management include applying a Midhoney dressing over the debridement site. He is running slightly hypertensive with recent BP of 141/77. Labs: Kidney functions continues to improve, BUN down to 62 from 71, Creatinine down to 4.0 from 4.2, GFR 17. Continue with Zosyn, pending [employer] approval. Further assessment and plan discussed below. 09/24/24: The patient was examined at the bedside today. He is alert, oriented, and lying comfortably in bed. He reports experiencing bilateral pain in the over the wound area, rated at 5 out of 10, throbbing type. He notes that the pain is slightly improved compared to yesterday. Additionally, he is experiencing a tingling sensation in his feet. The nursing staff is performing daily dressings on him. He was unable to walk during physical therapy yesterday due to the pain. He is receiving Dilaudid 0.5 mg every 6 hours as needed, along with Tylenol for pain management. Bilateral nephrostomy tubes are in place. In terms of lab results, his white blood cell count increased to 17.3 from 13.2. His hemoglobin is at 9.5. His kidney functions continues to improve, BUN decreased to 60 from 62, and creatinine levels improved to 3.8 from 4.0. According to the admissions gate attendant, we will continue the current management since kidney function is improving. Continue IV antibiotics, we are awaiting [employer] approval. Further assessment and planning are discussed below. 09/25/24: The patient was examined at the bedside today. He continues to complain of a throbbing pain at the wound sites on both legs. His blood pressure remains elevated, with systolic blood pressure in the 140s, likely due to the pain. Leucocytosis is worsening, with white blood cell count increasing from 17.3 to 21.8. Neutrophils are at 78.4%, and lymphocytes are at 10.8%. Denies fever, chills, abdominal pain or any other symptoms. Kidney function is continuing to improve, with BUN decreasing from 60 to 55, and creatinine levels have improved to 3.8. Wound culture was never sent for analysis; we will order both aerobic and anaerobic wound cultures today. Closely monitor the vitals. Linezolid was started today by ID due to up trending leucocytosis, and Zosyn will be continued. We are still pending [employer] approval. Further assessment and plan are discussed below. 09/26/24: The patient was examined at the bedside today. He continues to complain of leg pain, but today he describes the pain as more of a needle-like sensation that improves with movement. He has been refusing to walk with physical therapy due to this pain. A CT scan of the abdomen and pelvis without contrast was ordered and showed no signs of acute pathology or abscess. Laboratory results reveal that leukocytosis is worsening; the WBC has increased to 23.3 from 21.8, with neutrophils at 77.3%. However, kidney function is improving, with BUN decreasing to 53 from 55, and creatinine levels decreasing to 3.5 from 3.8. We will continue administering IV linezolid and Zosyn for broad-spectrum antibiotic coverage. Daily dressing changes will be maintained, and we are currently awaiting the results of wound cultures. Midline/PICC line placement is pending, Approval from [employer] is still pending. Further assessment and planning are discussed below. 09/27/24: The patient was seen and examined. Case discussed with RN he continues to complain of pain in the lower extremities. White count is improving. 09/28/24: The patient was examined at bedside today. He reports minimal improvement in leg pain associated with an urge to move since starting ropinirole. He mentioned that he still feels throbbing pain and was had not been able to walk during daily physical therapy. Additionally, he had a bowel movement yesterday after three days without one. Leukocytosis has shown slight improvement; today's level is 19.3, down from 21.1 yesterday. His hemoglobin is at 9.4, BUN is 55, and creatinine has decreased fro m 3.9 to 3.6. Daily dressing changes will be maintained, The aerobic culture revealed 1+ gram- positive cocci in chains, as well as Pratibha albicans and Pratibha parapsilosis. We will continue with the IV antibiotics Zosyn and linezolid. Per nephrology, there is currently no need for renal replacement therapy; we will continue administering Epogen. The patient is still pending for [employer] approval. Further assessment and plan as discussed below REVIEW OF SYSTEMS CONSTITUTIONAL: Denies fevers, chills, or night sweats. No unintentional weight loss reported. NEUROLOGICAL: Denies headache, amaurosis fugax, motor weakness, sensory deficit, vertigo/spinning sensation, gait abnormalities, or tremors. ENT: No hearing loss, otalgia, otorrhea, rhinitis, rhinorrhea, hoarseness, or sore throat. CARDIOVASCULAR: Denies any exertional angina, dyspnea on exertion, orthopnea, paroxysmal nocturnal dyspnea, palpitations, life-threatening arrhythmias, claudication. PULMONARY: Denies any shortness of breath, cough, phlegm/sputum, hemoptysis, pleuritic chest pain. SLEEP: Denies morning headaches, daytime somnolence or napping. Denies difficulty falling asleep, staying asleep, waking from sleep. Denies knowledge of snoring. GASTROINTESTINAL: Denies any type of dysphagia to either liquids or solids. Denies nausea, vomiting, pyrosis, early satiety, abdominal pain, diarrhea, constipation, or changes in stool consistency or caliber. Denies coffee-ground emesis, hematemesis, hematochezia, or melanotic stools. GENITOURINARY: Denies frequency, urgency, nocturia, hematuria or incontinence (Storage/Irritative symptoms.) Low urinary stream, straining to void, urinary intermittency or hesitancy, splitting of the voiding stream, terminal dribbling. ENDOCRINOLOGIC: Denies polyuria, polydipsia, polyphagia or heat/cold intoleranc es. HEMATOLOGIC: Denies thrombophilia/previous clots, or coagulopathy/bleeding disorders. ONCOLOGIC: Denies personal history of malignancy. DERMATOLOGIC: Bilateral lower extremities pain, mostly around the wound site, constant, 5/10, throbbing in type Denies rashes or pruritus. PSYCHIATRIC: Denies any suicidal or homicidal ideation. Denies hallucinations. PHYSICAL EXAM GENERAL APPEARANCE: The patient is awake, alert, and oriented, in no acute cardiopulmonary distress. NEUROLOGICAL: Cranial nerves II-XII grossly intact. Motor is 5/5 in bilateral upper and lower extremities proximal to distal. No sensory deficits. HEENT: Face is symmetric. Pupils are equal and reactive. Extraocular movements are intact. NECK: Supple. No JVD. No thyromegaly. No submental, submandibular, pre- /postauricular, occipital or supraclavicular lymphadenopathy. CHEST: Normal chest expansion. No Telemetry. LUNGS: Absence of any rales, rhonchi or any wheezing. CARDIOVASCULAR: Regular. S1 and S2 normal. No appreciable rubs, murmurs or gallops. ABDOMEN: Soft, nontender, and nondistended. There is no rebound, voluntary guarding, or rigidity. : Deferred. No [place]on, b/l nephrostomy tubes in placed. EXTREMITIES: Dressing present over bilateral legs. SKIN: No skin breakdown. Vital Signs (last 8hr) Date Time Temp Pulse Resp B/P (MAP) Pulse Ox O2 Delivery O2 Flow Rate FiO2 09/28/24 11:28 97.9 79 18 128/79 97 Room Air 09/28/24 08:00 94 Room Air* 0 21 09/28/24 07:57 97.3 89 18 124/77 94 Nasal Cannula LABS: Laboratory: Test 09/28/24 10:59 09/28/24 09:03 Range/Units Whole Blood Glucose 95 70-110 MG/DL White Blood Count 19.3 H 4.8-10.8 K/uL Red Blood Count 3.28 L 4.50-6.20 MIL/uL Hemoglobin 9.4 L 14.0-18.0 g/dL Hematocrit 29.1 L 42-54 % Mean Corpuscular Volume 88.7 79-99 fL Mean Corpuscular Hemoglobin 28.7 27.0-33.0 pg Mean Corpuscular Hemoglobin Concent 32.3 32.0-36.0 g/dL Red Cell Distribution Width 13.7 11.0-15.5 % Platelet Count 351 130-400 K/uL Mean Platelet Volume 10.3 7.5-10.5 fL Immature Granulocyte % (Auto) 0.8 0-1 % Neutrophils (%) (Auto) 76.4 40.0-77.0 % Lymphocytes (%) (Auto) 12.2 L 21.0-51.0 % Monocytes (%) (Auto) 6.8 3.0-13.0 % Eosinophils (%) (Auto) 2.9 0.0-8.0 % Basophils (%) (Auto) 0.9 0.0-5.0 % Neutrophils # (Auto) 14.7 H 1.8-7.7 K/uL Lymphocytes # (Auto) 2.4 1.0-4.8 K/uL Monocytes # (Auto) 1.3 H 0.1-1.0 K/uL Eosinophils # (Auto) 0.56 0.00-0.70 K/uL Basophils # (Auto) 0.18 0.00-0.20 K/uL Absolute Immature Granulocyte (auto 0.15 0-1 K/uL Nucleated Red Blood Cells 0.0 0.0-0.19 % Sodium Level 139 136-145 mmol/L Potassium Level 4.2 3.5-5.1 mmol/L Chloride Level 103 101-111 mmol/L Carbon Dioxide Level 27 21-32 mmol/L Blood Urea Nitrogen 55 H 7-18 mg/dL Creatinine 3.6 H 0.5-1.3 mg/dL Glomerular Filtration Rate Calc 19 >90 mL/min Random Glucose 104 70-105 mg/dL Total Calcium 9.7 8.5-10.1 mg/dL Current Medications Medications (Trade) Dose Ordered Sig/Krishan Route PRN Reason Start Time Stop Time Status Last Admin Dose Admin Acetaminophen (TYLenol 325MG TAB) 650 mg Q4H PRN PO MILD PAIN (1-3) 09/18/24 03:00 10/18/24 02:59 09/28/24 07:24 650 MG Acetaminophen (TYLenol 325MG TAB) 650 mg Q6H PRN PO TEMPERATURE GREATER THAN 101.5 09/18/24 03:00 10/18/24 02:59 Amlodipine Besylate (NorvASC 5MG TAB) 10 mg DAILY PO 09/21/24 12:30 10/21/24 12:29 09/28/24 08:49 10 MG Calcium Gluconate 1 gm/Sodium Chloride 100 ml @ 0 mls/hr PROTOCOL IV 09/18/24 00:00 10/18/24 00:00 09/17/24 23:59 100 MLS/HR Dextrose (D50w) 50 ml AD PRN IV HYPOGLYCEMIA PROTOCOL 09/18/24 03:30 10/18/24 03:29 Epoetin John-epbx (Retacrit) 10,000 unit QSA SQ 09/20/24 09:00 10/20/24 08:59 09/27/24 08:57 10,000 UNIT Famotidine (Pepcid 20mg Vial) 20 mg Q48H IV 09/18/24 03:00 10/18/24 02:59 09/28/24 02:04 20 MG Gabapentin (NEURontin 100 mg CAP) 100 mg HS PO 09/23/24 22:00 10/23/24 21:59 09/27/24 21:18 100 MG Gabapentin (NEURontin 100 mg CAP) 100 mg ONCE PO 09/23/24 22:00 09/23/24 21:44 DC Glucagon (Glucagon 1mg Kit) 1 mg AD PRN IM HYPOGLYCEMIA PROTOCOL 09/18/24 03:30 10/18/24 03:29 Guaifenesin (RobiTUSSin SUGAR-FREE 100 MG/ 5 ML UDCUP) 200 mg Q6H6 PRN PO COUGH 09/20/24 22:30 10/20/24 22:29 09/20/24 22:20 200 MG Heparin Sodium (Porcine) (HEParin 5,000 UNIT VIAL) 5,000 unit Q12H SQ 09/24/24 15:30 09/24/24 17:40 DC Heparin Sodium (Porcine) (HEParin 5,000 UNIT VIAL) 5,000 unit Q12H SQ 09/24/24 21:00 10/24/24 20:59 09/28/24 09:05 5,000 UNIT Hydrochlorothiazide (hydroCHLOROthiazide 25MG) 12.5 mg DAILY PO 09/21/24 16:30 09/25/24 09:11 DC 09/25/24 08:19 12.5 MG Hydromorphone HCl (DiLAUDid 0.5MG INJ) 0.5 mg Q4H PRN IVP SEVERE PAIN (7-10) 09/28/24 13:00 10/03/24 12:59 Hydromorphone HCl (DiLAUDid 0.5MG INJ) 0.5 mg Q6H PRN IVP SEVERE PAIN (7-10) 09/18/24 15:30 09/23/24 15:29 DC 09/23/24 15:19 0.5 MG Hydromorphone HCl (DiLAUDid 0.5MG INJ) 0.5 mg Q6H PRN IVP SEVERE PAIN (7-10) 09/23/24 22:00 09/28/24 12:32 DC 09/28/24 09:30 0.5 MG Insulin Human Regular (humuLIN R 100 UNIT/ML 3ML) INSULIN SLIDING SCAL... ACHS SQ 09/18/24 07:30 10/18/24 07:29 09/25/24 21:25 2 UNIT Leptospermum Honey ([facility]) APPLY DIRECTED DAILY TP 09/23/24 09:00 10/23/24 08:59 09/28/24 08:49 1 APPL Linezolid 300 ml @ 150 mls/hr Q12H IV 09/25/24 13:00 10/05/24 12:59 09/28/24 01:52 150 MLS/HR Lisinopril (Prinivil 20mg) 20 mg DAILY PO 09/21/24 09:00 10/21/24 08:59 09/28/24 08:49 20 MG Magnesium Sulfate 50 ml @ 0 mls/hr PROTOCOL IV 09/21/24 16:00 09/21/24 17:41 DC 09/21/24 17:28 25 MLS/HR Ondansetron HCl (zoFRAN 4MG INJ) 4 mg Q6H PRN IV NAUSEA/VOMITING 09/18/24 03:00 10/18/24 02:59 Pharmacy Profile Note (Lace Assessment) 1 each AD MISC 09/18/24 13:30 09/18/24 13:35 DC Pharmacy Profile Note (Pharmacy Communication) 1 each ONCE MISC 09/25/24 12:00 09/25/24 11:34 DC Piperacillin Sod/ Tazobactam Sod 50 ml @ 12.5 mls/hr Q12H IV 09/18/24 05:00 09/18/24 05:30 DC Piperacillin Sod/ Tazobactam Sod 50 ml @ 12.5 mls/hr Q12H IV 09/18/24 12:00 09/27/24 14:59 DC 09/27/24 12:34 12.5 MLS/HR Piperacillin Sod/ Tazobactam Sod (Zosyn 3.375gm+NS 50ml) 3.375 gm Q12H IVPB 09/28/24 09:00 10/08/24 08:59 09/28/24 09:26 3.375 GM Polyethylene Glycol (MIRalax 3350 17 GM POWD.PACK) 17 gm DAILY PO 09/27/24 16:00 10/27/24 15:59 09/28/24 08:49 17 GM Potassium Chloride 100 ml @ 100 mls/hr AD PRN IV POTASSIUM PROTOCOL 09/22/24 17:00 09/22/24 17:31 DC Potassium Chloride (K-Dur/Klor-Con 20meq) 20 meq AD PRN PO POTASSIUM PROTOCOL 09/22/24 17:00 09/22/24 17:31 DC 09/22/24 17:07 20 MEQ Potassium Chloride (KCl 10% Elixir 20meq/15ml) 20 meq AD PRN PO POTASSIUM PROTOCOL 09/22/24 17:00 09/22/24 17:31 DC Ropinirole HCl (ropiNIRole HCL) 0.25 mg TID PO 09/26/24 21:00 10/26/24 20:59 09/28/24 08:49 0.25 MG Sevelamer HCl (RENAgel 800 MG TAB) 800 mg TIDMEALS PO 09/19/24 12:00 10/19/24 11:59 09/28/24 08:49 800 MG Sodium Bicarbonate 150 meq/Dextrose 1,150 ml @ 100 mls/hr [id number] IVP 09/18/24 10:00 09/20/24 13:06 DC 09/20/24 08:33 100 MLS/HR Vancomycin HCl 250 ml @ 125 mls/hr Q76H IV 09/21/24 06:00 09/20/24 13:06 DC Vancomycin HCl (Vancomycin Protocol) 1 each AD IV 09/18/24 04:00 09/20/24 13:08 DC Vitamin B Complex/ Vit C/Folic Acid (Nephrovite Tablet) 1 cap DAILY PO 09/21/24 09:00 10/21/24 08:59 09/28/24 08:49 1 [facility] RADIOLOGY: [place] [address] IMAGING REPORT Signed PATIENT: JAYRO LIRIANO MR#: [id number] : 1970 SEX: M AGE: 54 LOCATION: 3CH ORDER 1212 STATUS: ADM IN REPORT#: [id number] SERVICE 1207 REASON: Persistent Leucocytosis, r/o infection, abscess A/P VWRB ANGELA [place] ORDERING PHYSICIAN: ALEC MELTON MD PROCEDURE: ABD PEL WO - CT ABDOMEN/PELVIS W/O CONTRAST Exam Type: CT ABDOMEN/PELVIS W/O CONTRAST Clinical Information: Persistent Leucocytosis, r/o infection, abscess A/P VWRB ANGELA [place] Comparison: None CT Dose Index (CTDI): 10.20 mGy Dose Length Product (DLP): 530.00 total mGy-cm PROTOCOL: Routine noncontrast helical scanning of the abdomen and pelvis was performed at 5mm collimation. Findings: No evidence of nephro or ureterolithiasis is found. No hydronephrosis or ureteral dilatation is seen. Bilateral and cutaneous nephrostomy catheters are seen. The lung bases are clear. The stomach is unremarkable. It shows no wall thickening. No gross ulceration is seen. It is not overly distended. There are no surrounding inflammatory changes. No wall lesions are identified to suggest cancer. The spleen is unremarkable. It is not enlarged. The pancreas shows normal anatomy. It is not fatty replaced. It shows no lesions. The pancreatic duct is not dilated. The gallbladder is unremarkable. It shows no cholelithiasis. The gallbladder wall is normal in thickness. There is no pericholecystic fluid. The is no acute or chronic inflammation noted. Left adrenal gland demonstrates a calcified lesion, stable since the examination of May 22, 2024. The liver is unremarkable. It shows no focal masses. The appendix is unremarkable. It shows no evidence of inflammation. No appendicolith is seen. The small bowel is unremarkable. There is no evidence of dilatation to suggest obstruction. No evidence of adynamic ileus is seen. There is no small bowel wall thickening to suggest enteritis. The colon is unremarkable. The urinary bladder is unremarkable. There is no wall thickening to suggest tumor or inflammation. There are no intraluminal calculi. There are no diverticula. There is no evidence of chronic bladder outlet obstruction. There is no evidence of urinary bladder distention to suggest urinary retention. The other pelvic structures are unremarkable. The bony and vascular structures are unremarkable for the patient's age. IMPRESSION: Chronic changes as noted. No acute pathology. No abscess. This study was performed using dose reduction techniques to include automated exposure control and/or adjustment of the mA and/or kV according to patient size. DICTATED BY: VERA BANG MD DATE: 09/26/24 1449 ELECTRONICALLY SIGNED BY: VERA BANG MD DATE: 09/26/24 [address] [address] [place], [place] [address] IMAGING REPORT Signed PATIENT: JAYRO LIRIANO MR#: [id number] : 1970 SEX: M AGE: 54 LOCATION: EDH ORDER 46 STATUS: REG ER REPORT#: [id number] SERVICE 44 REASON: GEOVANI; NEPHROSTOMY TUBES ORDERING PHYSICIAN: ROMIE VICTOR PROCEDURE: ABD PEL WO - CT ABDOMEN/PELVIS W/O CONTRAST CT ABDOMEN/PELVIS W/O CONTRAST HISTORY: Acute renal insufficiency COMPARISON: 08/08/2024 TECHNIQUE: Multiple sequential axial images of the abdomen and pelvis were obtained from the dome of the diaphragm through symphysis pubis. Patient was not given contrast through intravenous route. Oral contrast was not given. FINDINGS: No pleural effusion is seen bilaterally. There is no evidence of parenchymal disease or pulmonary nodule of the visualized lower lungs. Degenerative changes of the thoracolumbar spine are present. The heart is not enlarged. Gallbladder is distended. There is left adrenal nodule with calcification measuring 3.3 x 2.6 cm. Bilateral percutaneous nephrostomy tubes are seen. The liver, spleen, right adrenal gland and pancreas are unremarkable. There is no evidence of hydronephrosis bilaterally. No evidence of renal stone is seen. Fecal material is seen in the colon. There are normal size retroperitoneal and mesenteric lymph nodes. No ascites is seen. No CT evidence of acute appendicitis is seen. Pelvic sidewalls are symmetric bilaterally. Bladder is poorly distended. IMPRESSION: 1. Bilateral percutaneous nephrostomy tube in place. CT was performed with one or more following dose reduction techniques: automated exposure control, adjustment of the mA and kv according to patient's size, or use of a iterative reconstruction technique. DICTATED BY: ROBBIE GARCIA MD DATE: 09/18/24100 ELECTRONICALLY SIGNED BY: ROBBIE GARCIA MD DATE: 09/18/24105 RUN DATE: 09/21/24 [facility] PAGE 1 RUN TIME: [phone] [address] Department of Laboratories CLIA # [id number] Web Site Manager: Tosha Menjivar DO Specimen Report PATIENT: JAYRO LIRIANO ACCT: [id number] LOC: [facility] U: [id number] AGE/SX: 54/M ROOM: [facility] RE09/18/[address]: GRAY LEARY MD : 1970 BED: 1 DIS: STATUS: ADM IN TLOC: SPEC: [id number] OBED: 09/18/24 STATUS: COMP REQ: [id number] RECD: 09/19/24 [facility] DR: ROMIE VICTOR SOURCE: [facility] ENTR: 09/19/[address]: ORIN PEREZ MD SPDESC: CLEAN CAT GRAY LEARY MD, JORGE H MD REYES, RAUL MD RODRIGUEZ, JOSE MARIANO MD ORDERED: AERO ID & SENS Procedure Result Jamie Date-Time AEROBIC ID & SENSITIVITIES Final 09/21/24-07 [facility] COLONY DESCRIPTION: DAY 1: COLONY COUNT: >100,000 CFU/ML GRAM NEGATIVE RODS IDENTIFICATION AND SENSITIVITY TO FOLLOW [facility] RX --------- ---- AZTREONAM <=4 S CEFAZOLIN <=2 S CEFTAZIDIME <=1 S CEFTAZIDIME/AVIBACTAM <=8 S CEFTRIAXONE <=1 S GENTAMICIN <=2 S LEVOFLOXACIN <=0.5 S NITROFURANTOIN <=32 S MEROPENEM <=1 S PIPERACILLIN/TAZOBACTAM <=8 S TRIMETHOPRIM/SUFLAMETHOXAZOLE <=2/38 S @ [facility] Test Performed at: [facility] [address], [place], [place] [employer]: Brooks Givens D.O. RUN DATE: 09/28/24 [facility] PAGE 1 RUN TIME: 8759 [address] [address], [place] [address] Department of Laboratories IA # [id number] Web Site Manager: Tosha Menjivar DO Specimen Report PATIENT: JAYRO LIRIANO ACCT: [id number] LOC: [facility] U: [id number] AGE/SX: 54/M ROOM: [facility] RE09/18/[address]: GRAY LEARY MD : 1970 BED: 1 DIS: STATUS: ADM IN TLOC: SPEC: [id number] OBED: 09/25/24 STATUS: RES REQ: [id number] RECD: 09/25/24-1640 [facility] DR: ALEC MELTON MD SOURCE: LEG ENTR: 09/25/24-[address] [facility] [address]: ORIN PEREZ MD SPDESC: LEFT KATIA MEADE MD, SATISH MD DHEVAN,MARQUISE CADET,HELENA GATICA,ADRIA GUILLEN,ABBEY BEAN MD ORDERED: RUPERTO CULTURE, AEROBIC CULTURE Procedure Result Jamie Date-Time ANAEROBIC CULTURE Preliminary 09/28/24-114 [facility] DESCRIPTION: REPORT 1: NO ANAEROBES AT 24-35 HOURS; STUDIES TO CONTINUE REPORT 2: NO ANAEROBES AT 48-59 HOURS; STUDIES TO CONTINUE Test(s) performed by: [facility] [address] [place] [address] AEROBIC CULTURE Preliminary 09/28/24-1142 [facility] DESCRIPTION: REPORT 1: 1+ SKIN KRUPA ; STUDIES TO CONTINUE GRAM POSITIVE RODS RESEMBLING DIPHTHEROIDS REPORT 2: 1+ YEAST, PRATIBHA ALBICANS 1+ YEAST SPECIES; NOT PRATIBHA ALBICANS IDENTIFICATION TO FOLLOW 1+ GRAM POSITIVE COCCI IN CHAINS . IDENTIFICATION AND SENSITIVITY TO FOLLOW PRATIBHA ALBICANS PRATIBHA PARAPSILOSIS @ [facility] Test Performed at: [facility] [address], [place], RUN DATE: 09/28/24 [facility] [address] RUN TIME: [phone] [address], [place] [address] Department of Laboratories CLIA # [id number] Web Site Manager: Tosha Menjivar DO Specimen Report PATIENT: JAYRO LIRIANO ACCT: [id number] LOC: [facility] U: [id number] AGE/SX: 54/M ROOM: [facility] RE09/18/[address]: GRAY LEARY MD : 1970 BED: 1 DIS: STATUS: ADM IN TLOC: SPEC: [id number] OBED: 09/25/24 STATUS: RES REQ: [id number] RECD: 09/25/24-[address]: ALEC MELTON MD SOURCE: LEG ENTR: 09/25/24-[address]: ORIN PEREZ MD [facility]: KATIA DARBY MD,GRAY GARCIA,MARQUISE CADET,HELENA GATICA,ADRIA GUILLEN,BABEY BEAN MD ORDERED: RUPERTO CULTURE, AEROBIC CULTURE Procedure Result Jamie Date-Time ANAEROBIC CULTURE Preliminary 09/28/24-1142 [facility] COLONY DESCRIPTION: REPORT 1: NO ANAEROBES AT 24-35 HOURS; STUDIES TO CONTINUE REPORT 2: NO ANAEROBES AT 48-59 HOURS; STUDIES TO CONTINUE Test(s) performed by: [facility] [address] [place] [address] AEROBIC CULTURE Final 09/28/24-114 [facility] COLONY DESCRIPTION: REPORT 1: 1+ YEAST ; ISOLATION IN PROGRESS REPORT 2: 1+ YEAST SPECIES; NOT PRATIBHA ALBICANS IDENTIFICATION TO FOLLOW NO FURTHER WORK-UP DONE PRATIBHA PARAPSILOSIS @ [facility] Test Performed at: [facility] [address], [place], [place] [employer]: Brooks Givens D.O. END OF REPORT ASSESSMENT: Acute on chronic renal failure, improving POA Bilateral nonhealing ulcers with necrosis to both lower legs, s/p debridement of left calf wound on 09/19 POA Calciphylaxis confirmed on the pathology report UTI with Citrobacter Koseri Acute leukocytosis, improving POA Restless list legs syndrome History of bilateral hydronephrosis with nephrostomy tubes in place, s/p bilateral nephrostomy tube exchange on 09/22/2024. Hyperkalemia, resolved POA Acute pancreatitis, mild, resolved POA Metabolic acidosis, resolved POA Acute on chronic anemia due to CKD POA Uncontrolled diabetes POA Hypertension POA PLAN:- The patient remains admitted on the medical surgical floor. Acute on chronic renal failure,improving Acute on chronic anemia due to CKD POA * Per admissions gate attendant, the patient does not require any emergency renal replacement therapy at this time. We will Continue with a renal diabetic diet and take measures to prevent hypotensive episodes. * Oral phosphate binders sevelamer 800 mg t.i.d. * Monitor electrolytes closely, avoid nephrotoxic agents. * Strict intake and output * Closely monitor renal functions Bilateral nonhealing ulcers with necrosis to both lower legs, s/p debridement of left calf wound on 09/19 POA Calciphylaxis confirmed on the pathology report UTI with Citrobacter Koseri * Continue with Zosyn and Linezolid for broad-spectrum coverage. Follow up with infectious disease recommendations. * Daily dressings per wound management recommendations * Wound aerobic and anaerobic culture showed Gram-positive rods resembling diphtheroids, gram-positive cocci in chains, Pratibha albicans and Pratibha parapsilosis. Continue current regimen * Pending midline/PICC line, [facility] approval for continuation of IV antibiotics. Acute leukocytosis POA * No febrile episodes, hemodynamically stable. Continue with IV Zosyn and linezolid. * Closely monitor vitals and WBC trend. CBC in a.m. Restless less leg syndrome * We will start with the ropinirole 0.25 mg t.i.d. S/P exchange of nephrostomy tube on 09/22/2024 POA * Follow up with the urologist as an outpatient post discharge for further recommendations. Acute on chronic anemia due to CKD POA * Continue with Epogen 10,000 Units weekly Uncontrolled diabetes POA * Continue with insulin sliding scale * Hypoglycemia protocol Hypertension * Continue with Amlodipine 10 mg, Lisinopril 20 mg daily * Closely monitor the vitals. P.r.n. medications * Dilaudid 0.5 mg q.4 for severe pain (7-10) * Tylenol 650 mg q.4 for mild pain (1-3) * Tylenol 650 mg q.6 for fever * Zofran4 mg q.6 for nausea/vomiting. DVT prophylaxis: Heparin 5000 IU subcutaneously q.12h GI Prophylaxis: Famotidine 20 mg Q 48 AM Labs: CBC, BMP Pending [facility] approval. Further orders per hospitalization course. ATTESTATION BY PHYSICIAN I have seen and examined the patient. I reviewed the documentation, medical decision making, and treatment plan as noted by the resident provider above. I agree with the findings and plan of care. Gray Leary MD, MANALI MD Sep 28, 2024 12:39
[2024-09-28] MEDS: hydroMORPHone 0.5 MG SYG (0.5MG/0.5ML) IVP PRN (14:08)
--- NOTE | 2024-09-28 20:15 | PN ---
FOLLOWUP PROGRESS NOTE SUBJECTIVE: The patient is a 54-year-old male who has had a prolonged hospital course. The patient with a history of diabetes mellitus and hypertension. He has a history of obstructive uropathy status post nephrostomy tube placement. The patient also with evidence of cellulitis. The patient remains on the antibiotics. He has had [id number] renal failure in the hospital. Creatinine has been elevated and the patient is being seen as a followup visit for all of the above. REVIEW OF SYSTEMS: CONSTITUTIONAL: He is feeling weak and tired. HEENT: No change in vision. No change in hearing. CARDIOVASCULAR: There are no current chest pain or palpitations. PULMONARY: He denies any shortness of breath. GASTROINTESTINAL: He is tolerating a diet. MUSCULOSKELETAL: Complaints of pain. PHYSICAL EXAMINATION: VITAL SIGNS: Blood pressure 124/77, pulse 80s, he is afebrile. GENERAL: He is a chronically ill male, much older than his appearing age. HEENT: Head is atraumatic. Pupils are equal, roving to light. Oropharynx is without exudate. Nares clear. NECK: There is no JVP. There is no thyromegaly. No mass. CARDIOVASCULAR: Regular. There is no S3 or S4 gallop. LUNGS: Coarse with equal thoracic movement. ABDOMEN: Soft, nondistended and nontender. EXTREMITIES: The wounds are all noted. LABORATORY DATA: Hemoglobin 9.4, hematocrit 29, white blood cell count 19,000, BUN 55, creatinine is 3.6. IMPRESSION: * Lfrzs-pk-rallhuj renal failure. * Obstructive uropathy. * Cellulitis. * Diabetes mellitus. * Hypertension. PLAN: The patient's creatinine continues to stabilize. He has a history of known chronic renal insufficiency. There is no need for any form of renal replacement therapy at this time. The patient remains on the antibiotics for the cellulitis. The patient is being seen by case management in regard to final disposition, which will be the ALTAC from long-term antibiotics. We will continue to follow closely. All labs can be repeated in the a.m. TID: [id number] RECEIPT: [id number]
[2024-09-29] VITALS (7 sets, daily range): BP systolic 109–126; BP diastolic 70–79; PULSE 86–91; RESP 16–19; TEMP 97.5–97.9; O2SAT 94–97
--- NOTE | 2024-09-29 04:48 | NUR ---
nurse note patient alert and oriented times 3. plan of care discussed with him and he verbalized understanding. patient having intermittent bilateral leg pains tonight relieved by dilaudid. He moves around in bed by himself, he has a waffle mattress. I medicated him with dilaudid and changed his bilateral leg wound dressings at this time. On his right leg, he has 3 small ulcers that have minimal slough and minimal serosanguineous drainage. I cleaned with ns, pat dry, placed medihoney, vaseline gauze, 4x4 gauze, kerlix, medipore tape. On the left leg and calf, the patient has 2 large ulcers that had a debridement on 09/19. His wound bed has large amounts of slough and also has necrosis around the wounds. Again I cleaned with ns, pat dry, applied medihoney, vaseline gauze, 4x4 gauze, kerlix, tape. Patient tolerated it well. He is on calmly on his phone. He has slept about 4 hours tonight. Left nephrostomy tube draining clear yellow fluid; has more output than the right nephrostomy tube. Call light within reach, bed alarm on, will continue to monitor patient.
[2024-09-29 05:33] LABS: BASOPHILS # (AUTO) 0.15 K/uL (0.00-0.20); BASOPHILS % (AUTO) 0.8 % (0.0-5.0); EOSINOPHILS # (AUTO) 0.55 K/uL (0.00-0.70); HEMATOCRIT 28.1 % (42-54); IMMATURE GRANULOCYTE ABSOLUTE 0.16 K/uL (0-1); LYMPHOCYTES # (AUTO) 2.3 K/uL (1.0-4.8); LYMPHOCYTES % (AUTO) 12.9 % (21.0-51.0); MEAN CORPUSCULAR HEMOGLOBIN 28.9 pg (27.0-33.0); MEAN CORPUSCULAR HGB CONC 32.4 g/dL (32.0-36.0); MEAN CORPUSCULAR VOLUME 89.2 fL (79-99); MONOCYTES # (AUTO) 1.3 K/uL (0.1-1.0); NEUTROPHILS # (AUTO) 13.6 K/uL (1.8-7.7); NEUTROPHILS % (AUTO) 75.4 % (40.0-77.0); PLATELET COUNT (AUTO) 370 K/uL (130-400); RED BLOOD CELL COUNT(AUTO) 3.15 MIL/uL (4.50-6.20); RED CELL DISTRIBUTION WIDTH 13.7 % (11.0-15.5)
[2024-09-29 05:46] LABS: CREATININE 3.9 mg/dL (0.5-1.3); POTASSIUM 4.3 mmol/L (3.5-5.1)
--- NOTE | 2024-09-29 09:20 | PN ---
INFECTIOUS DISEASE FOLLOWUP NOTE DATE OF SERVICE: 09/28/2024 SUBJECTIVE: The patient is seen and examined at bedside. No fever, no chills. No nausea, vomiting. No abdominal pain. No sore throat or rhinorrhea. No bleeding tendencies. The patient has pain to the left leg. No rashes or itchiness. No palpitations or orthopnea. No depression or suicidal ideation. PHYSICAL EXAMINATION: VITAL SIGNS: Temperature today 97.5. EYES: No icterus. Pupils equal and reactive. HENT: No oral thrush seen. Moist oral mucosa. NECK: Supple. No JVD or thyromegaly. LUNGS: Good air entry. No rales. No rhonchi. CARDIOVASCULAR: S1 and S2 regular. No murmur heard. ABDOMEN: Obese, soft, nontender. Bowel sound is present. CENTRAL NERVOUS SYSTEM: Awake, alert, and oriented x 3. No focal deficits. SKIN: No rashes. No itchiness. LYMPHATIC: No peripheral lymphadenopathy. BACK: No deformity. No pressure ulcer. EXTREMITIES: Large ulcer involving the left calf area . ASSESSMENT: A 54-year-old male with multiple problems which include: * Acute on chronic renal failure. * Bilateral leg ulcer. * . * Obesity. * UTI. * Medical noncompliance. * Bilateral hydronephrois with indwelling nephrostomy tube. PLAN: * Continue Zosyn. * Continue linezolid. * Followup cultures. * Continue pain management. * Continue antidiabetic. * Continue nutritional support. * Monitor electrolytes. * The patient will be followed up closely. TID: [id number] RECEIPT: [id number]
--- NOTE | 2024-09-29 11:05 | PN ---
[facility] PROGRESS NOTE Date of Service: Sep 29, 2024 Time of Service: 10:48 SUBJECTIVE: This is a 54-year-old male past medical history of kidney disease, kidney stones with bilateral nephrostomy tube, diabetes and hypertension who was brought by EMS to the ED for complaints of abdominal pain associated with generalized body weakness, nausea and vomiting. On my evaluation patient states the reason why he came to the ER today is because of bilateral leg pain which has been hurting and he cant tolerate it anymore he said.Patient has multiple open wound ulcers with some necrotic tissue to both legs and as per patient that has been there since April 2023.Patient also reports he has a bilateral nephrostomy tube that was placed on September 2023 and supposedly should come off after 2 weeks but because of insurance issue it has not been removed. Seen and examined patient in the ER awake,alert and coherent.Patient appears comfortable,denies fever,chills,chest pain,palpitation,cough,shortness of breath,nausea,vomiting abdominal pain and diarrhea.Patient states he still voids with no problem. Vital signs temperature 98.2, heart rate 108, blood pressure 121/58 saturation 99% on room air. Labs: WBC 17 with negative left shift of neutrophils 82, hemoglobin 10, hematocrit 34, platelet count 378. Sodium 133, potassium six, chloride 98, carbon dioxide 11, BUN 162, creatinine 11 GFR five glucose 195 lactic acid 1.8 AST nine ALT nine BNP 23 albumin 3.1, triglycerides 179 lipase 791 troponin 10. While in the ER patient received Zosyn IV, sodium bicarb 50 mEq IV, Zofran 4 mg IV, Lokelma 10 g p.o., morphine 2 mg IV, insulin 10 units IV D50 25 mL IV, calcium gluconate 1 g IV and patient is being started on sodium bicarb at 100 mL/hour. We will admit patient for further medical management. 09/18: Patient was seen and examined this morning at bedside.Patient denies chest pain, shortness of breath, nausea, vomiting, fever, chills. Patient reports abdominal tenderness, worse in the right lower quadrant. Patient reports that he does not follow up with a primary care physician. Patient has bilateral nephrostomy tubes that were placed in April of 2023, but has not had them removed due to not having enough money to pay the co-pay at the urologist office. Patients renal function is abnormal, nephrology has been consulted and recommends Lokelma and sodium bicarbonate for the metabolic acidosis. Per Dr. Cadet, urology to be consulted for either removal or replacement of nephrostomy tubes. Urology has been consulted. 09/19: Patient was seen and examined this morning at bedside. Patient denies chest pain, shortness of breath, nausea, vomiting, fever, chills. Patient is scheduled to get a external debridement of the left calf. Patient is getting a removal of the bilateral nephrostomy tubes today by Interventional Radiology. Patient is currently NPO. Patient has refused dialysis, and continues on a bicarb drip for metabolic acidosis. Patient continues on vancomycin and Zosyn. 09/21/24 patient was seen and examined. Case discussed with the RN he was doing well. Denies nausea vomiting fever or chills. Continue vancomycin and Zosyn Patient was seen and examined this morning at bedside Patient with bilateral leg ulcers and status post debridement of left calf wound. The preliminary urine culture is growing Gram-negative rods. Discussed with ID/Continue Zosyn 09/22/2024: The patient was examined today in room 313 at bedside. He appears comfortable and denies any complaints or concerns at this time. He is scheduled for nephrostomy tube replacement today by OR. His blood pressure is mildly elevated at 159/90, which he attributes to anxiety about the procedure. Nursing staff have been performing wet-to-dry dressings, with wound management recommendations pending. Labs: Kidney functions have slightly improved, BUN went down to 71 from 89, creatinine went down to 4.2 from 5.1, GFR to 16 from 13, Phosphorous down to 3.9 from 5.7, Mg improved to 2.10. Blood cultures are negative, urine culture showed Gram-negative rods, pansensitive Cirobacter Koseri. We will follow up patient post nephrostomy tube replacement. Follow up with the nephrology and ID recommendations. Further assessment and plan as discussed below. 09/23/2024: The patient was examined at the bedside today. He underwent a bilateral nephrostomy tube exchange yesterday, and the procedure went without complications. Currently, he is feeling better and does not have any complaints or concerns. Dr. Gipson recommended a transfer to [facility]; however, the patient was hesitant yesterday due to potential difficulties with obtaining insurance approval. After discussing it today, he has agreed to the transfer if the insurance gives approval. Additionally, recommendations for wound management include applying a Midhoney dressing over the debridement site. He is running slightly hypertensive with recent BP of 141/77. Labs: Kidney functions continues to improve, BUN down to 62 from 71, Creatinine down to 4.0 from 4.2, GFR 17. Continue with Zosyn, pending [employer] approval. Further assessment and plan discussed below. 09/24/24: The patient was examined at the bedside today. He is alert, oriented, and lying comfortably in bed. He reports experiencing bilateral pain in the over the wound area, rated at 5 out of 10, throbbing type. He notes that the pain is slightly improved compared to yesterday. Additionally, he is experiencing a tingling sensation in his feet. The nursing staff is performing daily dressings on him. He was unable to walk during physical therapy yesterday due to the pain. He is receiving Dilaudid 0.5 mg every 6 hours as needed, along with Tylenol for pain management. Bilateral nephrostomy tubes are in place. In terms of lab results, his white blood cell count increased to 17.3 from 13.2. His hemoglobin is at 9.5. His kidney functions continues to improve, BUN decreased to 60 from 62, and creatinine levels improved to 3.8 from 4.0. According to the stick inserter, we will continue the current management since kidney function is improving. Continue IV antibiotics, we are awaiting [employer] approval. Further assessment and planning are discussed below. 09/25/24: The patient was examined at the bedside today. He continues to complain of a throbbing pain at the wound sites on both legs. His blood pressure remains elevated, with systolic blood pressure in the 140s, likely due to the pain. Leucocytosis is worsening, with white blood cell count increasing from 17.3 to 21.8. Neutrophils are at 78.4%, and lymphocytes are at 10.8%. Denies fever, chills, abdominal pain or any other symptoms. Kidney function is continuing to improve, with BUN decreasing from 60 to 55, and creatinine levels have improved to 3.8. Wound culture was never sent for analysis; we will order both aerobic and anaerobic wound cultures today. Closely monitor the vitals. Linezolid was started today by ID due to up trending leucocytosis, and Zosyn will be continued. We are still pending [employer] approval. Further assessment and plan are discussed below. 09/26/24: The patient was examined at the bedside today. He continues to complain of leg pain, but today he describes the pain as more of a needle-like sensation that improves with movement. He has been refusing to walk with physical therapy due to this pain. A CT scan of the abdomen and pelvis without contrast was ordered and showed no signs of acute pathology or abscess. Laboratory results reveal that leukocytosis is worsening; the WBC has increased to 23.3 from 21.8, with neutrophils at 77.3%. However, kidney function is improving, with BUN decreasing to 53 from 55, and creatinine levels decreasing to 3.5 from 3.8. We will continue administering IV linezolid and Zosyn for broad-spectrum antibiotic coverage. Daily dressing changes will be maintained, and we are currently awaiting the results of wound cultures. Midline/PICC line placement is pending, Approval from [employer] is still pending. Further assessment and planning are discussed below. 09/27/24: The patient was seen and examined. Case discussed with RN he continues to complain of pain in the lower extremities. White count is improving. 09/28/24: The patient was examined at bedside today. He reports minimal improvement in leg pain associated with an urge to move since starting ropinirole. He mentioned that he still feels throbbing pain and was had not been able to walk during daily physical therapy. Additionally, he had a bowel movement yesterday after three days without one. Leukocytosis has shown slight improvement; today's level is 19.3, down from 21.1 yesterday. His hemoglobin is at 9.4, BUN is 55, and creatinine has decreased fro m 3.9 to 3.6. Daily dressing changes will be maintained, The aerobic culture revealed 1+ gram- positive cocci in chains, as well as Pratibha albicans and Pratibha parapsilosis. We will continue with the IV antibiotics Zosyn and linezolid. Per nephrology, there is currently no need for renal replacement therapy; we will continue administering Epogen. The patient is still pending for [employer] approval. Further assessment and plan as discussed below 09/29/24: The patient was examined at bedside today. He reports slight improvement in his leg pain and was able to ambulate around the room yesterday. He is currently on ropinirole 0.25 t.i.d. and Dilaudid 0.5 q.4 PRN. His vital signs are stable. Laboratory results show that the WBC is slowly improving, now down to 18 from 19.3 yesterday. Hemoglobin is at 9.1. Kidney function has slightly worsened, with BUN rising to 56 from 55 and creatinine increasing to 3.9 from 3.6. According to Nephrology, there is no need for any form of renal replacement ther apy at this time. The leg wound culture revealed the presence of vancomycin-resistant Enterococcus faecalis, Pratibha albicans, and Pratibha parapsilosis only sensitive to linezolid. The patient is currently being treated with Zosyn and linezolid. Continue with daily wound dressings and physical therapy. We are still awaiting approval for [employer] and the placement of a midline or PICC line. Further assessment and plans have been discussed below. REVIEW OF SYSTEMS CONSTITUTIONAL: Denies fevers, chills, or night sweats. No unintentional weight loss reported. NEUROLOGICAL: Denies headache, amaurosis fugax, motor weakness, sensory deficit, vertigo/spinning sensation, gait abnormalities, or tremors. ENT: No hearing loss, otalgia, otorrhea, rhinitis, rhinorrhea, hoarseness, or sore throat. CARDIOVASCULAR: Denies any exertional angina, dyspnea on exertion, orthopnea, paroxysmal nocturnal dyspnea, palpitations, life-threatening arrhythmias, claudication. PULMONARY: Denies any shortness of breath, cough, phlegm/sputum, hemoptysis, pleuritic chest pain. SLEEP: Denies morning headaches, daytime somnolence or napping. Denies difficulty falling asleep, staying asleep, waking from sleep. Denies knowledge of snoring. GASTROINTESTINAL: Denies any type of dysphagia to either liquids or solids. Denies nausea, vomiting, pyrosis, early satiety, abdominal pain, diarrhea, constipation, or changes in stool consistency or caliber. Denies coffee-ground emesis, hematemesis, hematochezia, or melanotic stools. GENITOURINARY: Denies frequency, urgency, nocturia, hematuria or incontinence (Storage/Irritative symptoms.) Low urinary stream, straining to void, urinary intermittency or hesitancy, splitting of the voiding stream, terminal dribbling. ENDOCRINOLOGIC: Denies polyuria, polydipsia, polyphagia or heat/cold intolerances. HEMATOLOGIC: Denies thrombophilia/previous clots, or coagulopathy/bleeding disorders. ONCOLOGIC: Denies personal history of malignancy. DERMATOLOGIC: Bilateral lower extremities pain, mostly around the wound site, constant, 3/10, throbbing in type Denies rashes or pruritus. PSYCHIATRIC: Denies any suicidal or homicidal ideation. Denies hallucinations. PHYSICAL EXAM GENERAL APPEARANCE: The patient is awake, alert, and oriented, in no acute cardiopulmonary distress. NEUROLOGICAL: Cranial nerves II-XII grossly intact. Motor is 5/5 in bilateral upper and lower extremities proximal to distal. No sensory deficits. HEENT: Face is symmetric. Pupils are equal and reactive. Extraocular movements are intact. NECK: Supple. No JVD. No thyromegaly. No submental, submandibular, pre- /postauricular, occipital or supraclavicular lymphadenopathy. CHEST: Normal chest expansion. No Telemetry. LUNGS: Absence of any rales, rhonchi or any wheezing. CARDIOVASCULAR: Regular. S1 and S2 normal. No appreciable rubs, murmurs or gallops. ABDOMEN: Soft, nontender, and nondistended. There is no rebound, voluntary guarding, or rigidity. : Deferred. No [place], b/l nephrostomy tubes in placed. EXTREMITIES: Dressing present over bilateral legs. SKIN: No skin breakdown. Vital Signs (last 8hr) Date Time Temp Pulse Resp B/P (MAP) Pulse Ox O2 Delivery O2 Flow Rate FiO2 09/29/24 08:31 97.5 89 18 109/70 97 Room Air 09/29/24 03:34 97.7 86 16 115/76 98 Room Air LABS: Laboratory: Test 09/29/24 05:19 09/29/24 05:08 Range/Units White Blood Count 18.0 H 4.8-10.8 K/uL Red Blood Count 3.15 L 4.50-6.20 MIL/uL Hemoglobin 9.1 L 14.0-18.0 g/dL Hematocrit 28.1 L 42-54 % Mean Corpuscular Volume 89.2 79-99 fL Mean Corpuscular Hemoglobin 28.9 27.0-33.0 pg Mean Corpuscular Hemoglobin Concent 32.4 32.0-36.0 g/dL Red Cell Distribution Width 13.7 11.0-15.5 % Platelet Count 370 130-400 K/uL Mean Platelet Volume 10.5 7.5-10.5 fL Immature Granulocyte % (Auto) 0.9 0-1 % Neutrophils (%) (Auto) 75.4 40.0-77.0 % Lymphocytes (%) (Auto) 12.9 L 21.0-51.0 % Monocytes (%) (Auto) 7.0 3.0-13.0 % Eosinophils (%) (Auto) 3.0 0.0-8.0 % Basophils (%) (Auto) 0.8 0.0-5.0 % Neutrophils # (Auto) 13.6 H 1.8-7.7 K/uL Lymphocytes # (Auto) 2.3 1.0-4.8 K/uL Monocytes # (Auto) 1.3 H 0.1-1.0 K/uL Eosinophils # (Auto) 0.55 0.00-0.70 K/uL Basophils # (Auto) 0.15 0.00-0.20 K/uL Absolute Immature Granulocyte (auto 0.16 0-1 K/uL Nucleated Red Blood Cells 0.0 0.0-0.19 % Sodium Level 140 136-145 mmol/L Potassium Level 4.3 3.5-5.1 mmol/L Chloride Level 104 101-111 mmol/L Carbon Dioxide Level 28 21-32 mmol/L Blood Urea Nitrogen 56 H 7-18 mg/dL Creatinine 3.9 H 0.5-1.3 mg/dL Glomerular Filtration Rate Calc 18 >90 mL/min Random Glucose 114 H 70-105 mg/dL Total Calcium 9.8 8.5-10.1 mg/dL Whole Blood Glucose 105 # 70-110 MG/DL Current Medications Medications (Trade) Dose Ordered Sig/Krishan Route PRN Reason Start Time Stop Time Status Last Admin Dose Admin Acetaminophen (TYLenol 325MG TAB) 650 mg Q4H PRN PO MILD PAIN (1-3) 09/18/24 03:00 10/18/24 02:59 09/29/24 07:59 650 MG Acetaminophen (TYLenol 325MG TAB) 650 mg Q6H PRN PO TEMPERATURE GREATER THAN 101.5 09/18/24 03:00 10/18/24 02:59 Amlodipine Besylate (NorvASC 5MG TAB) 10 mg DAILY PO 09/21/24 12:30 10/21/24 12:29 09/29/24 07:58 10 MG Calcium Gluconate 1 gm/Sodium Chloride 100 ml @ 0 mls/hr PROTOCOL IV 09/18/24 00:00 10/18/24 00:00 09/17/24 23:59 100 MLS/HR Dextrose (D50w) 50 ml AD PRN IV HYPOGLYCEMIA PROTOCOL 09/18/24 03:30 10/18/24 03:29 Epoetin John-epbx (Retacrit) 10,000 unit QSA SQ 09/20/24 09:00 10/20/24 08:59 09/27/24 08:57 10,000 UNIT Famotidine (Pepcid 20mg Vial) 20 mg Q48H IV 09/18/24 03:00 10/18/24 02:59 09/28/24 02:04 20 MG Gabapentin (NEURontin 100 mg CAP) 100 mg HS PO 09/23/24 22:00 10/23/24 21:59 09/28/24 20:01 100 MG Gabapentin (NEURontin 100 mg CAP) 100 mg ONCE PO 09/23/24 22:00 09/23/24 21:44 DC Glucagon (Glucagon 1mg Kit) 1 mg AD PRN IM HYPOGLYCEMIA PROTOCOL 09/18/24 03:30 10/18/24 03:29 Guaifenesin (RobiTUSSin SUGAR-FREE 100 MG/ 5 ML UDCUP) 200 mg Q6H6 PRN PO COUGH 09/20/24 22:30 10/20/24 22:29 09/20/24 22:20 200 MG Heparin Sodium (Porcine) (HEParin 5,000 UNIT VIAL) 5,000 unit Q12H SQ 09/24/24 15:30 09/24/24 17:40 DC Heparin Sodium (Porcine) (HEParin 5,000 UNIT VIAL) 5,000 unit Q12H SQ 09/24/24 21:00 10/24/24 20:59 09/29/24 08:09 5,000 UNIT Hydrochlorothiazide (hydroCHLOROthiazide 25MG) 12.5 mg DAILY PO 09/21/24 16:30 09/25/24 09:11 DC 09/25/24 08:19 12.5 MG Hydromorphone HCl (DiLAUDid 0.5MG INJ) 0.5 mg Q4H PRN IVP SEVERE PAIN (7-10) 09/28/24 13:00 10/03/24 12:59 09/29/24 10:41 0.5 MG Hydromorphone HCl (DiLAUDid 0.5MG INJ) 0.5 mg Q6H PRN IVP SEVERE PAIN (7-10) 09/18/24 15:30 09/23/24 15:29 DC 09/23/24 15:19 0.5 MG Hydromorphone HCl (DiLAUDid 0.5MG INJ) 0.5 mg Q6H PRN IVP SEVERE PAIN (7-10) 09/23/24 22:00 09/28/24 12:32 DC 09/28/24 09:30 0.5 MG Insulin Human Regular (humuLIN R 100 UNIT/ML 3ML) INSULIN SLIDING SCAL... ACHS SQ 09/18/24 07:30 10/18/24 07:29 09/28/24 20:02 3 UNIT Leptospermum Honey (IDbyME) APPLY DIRECTED DAILY TP 09/23/24 09:00 10/23/24 08:59 09/29/24 08:09 1 APPL Linezolid 300 ml @ 150 mls/hr Q12H IV 09/25/24 13:00 10/05/24 12:59 09/29/24 01:05 150 MLS/HR Lisinopril (Prinivil 20mg) 20 mg DAILY PO 09/21/24 09:00 10/21/24 08:59 09/29/24 07:59 20 MG Magnesium Sulfate 50 ml @ 0 mls/hr PROTOCOL IV 09/21/24 16:00 09/21/24 17:41 DC 09/21/24 17:28 25 MLS/HR Ondansetron HCl (zoFRAN 4MG INJ) 4 mg Q6H PRN IV NAUSEA/VOMITING 09/18/24 03:00 10/18/24 02:59 Pharmacy Profile Note (Lace Assessment) 1 each AD MISC 09/18/24 13:30 09/18/24 13:35 DC Pharmacy Profile Note (Pharmacy Communication) 1 each ONCE MISC 09/25/24 12:00 09/25/24 11:34 DC Piperacillin Sod/ Tazobactam Sod 50 ml @ 12.5 mls/hr Q12H IV 09/18/24 05:00 09/18/24 05:30 DC Piperacillin Sod/ Tazobactam Sod 50 ml @ 12.5 mls/hr Q12H IV 09/18/24 12:00 09/27/24 14:59 DC 09/27/24 12:34 12.5 MLS/HR Piperacillin Sod/ Tazobactam Sod (Zosyn 3.375gm+NS 50ml) 3.375 gm Q12H IVPB 09/28/24 09:00 10/08/24 08:59 09/29/24 07:58 3.375 GM Polyethylene Glycol (MIRalax 3350 17 GM POWD.PACK) 17 gm DAILY PO 09/27/24 16:00 10/27/24 15:59 09/29/24 07:58 17 GM Potassium Chloride 100 ml @ 100 mls/hr AD PRN IV POTASSIUM PROTOCOL 09/22/24 17:00 09/22/24 17:31 DC Potassium Chloride (K-Dur/Klor-Con 20meq) 20 meq AD PRN PO POTASSIUM PROTOCOL 09/22/24 17:00 09/22/24 17:31 DC 09/22/24 17:07 20 MEQ Potassium Chloride (KCl 10% Elixir 20meq/15ml) 20 meq AD PRN PO POTASSIUM PROTOCOL 09/22/24 17:00 09/22/24 17:31 DC Ropinirole HCl (ropiNIRole HCL) 0.25 mg TID PO 09/26/24 21:00 10/26/24 20:59 09/29/24 07:58 0.25 MG Sevelamer HCl (RENAgel 800 MG TAB) 800 mg TIDMEALS PO 09/19/24 12:00 10/19/24 11:59 09/29/24 07:58 800 MG Sodium Bicarbonate 150 meq/Dextrose 1,150 ml @ 100 mls/hr [id number] IVP 09/18/24 10:00 09/20/24 13:06 DC 09/20/24 08:33 100 MLS/HR Vancomycin HCl 250 ml @ 125 mls/hr Q76H IV 09/21/24 06:00 09/20/24 13:06 DC Vancomycin HCl (Vancomycin Protocol) 1 each AD IV 09/18/24 04:00 09/20/24 13:08 DC Vitamin B Complex/ Vit C/Folic Acid (Nephrovite Tablet) 1 cap DAILY PO 09/21/24 09:00 10/21/24 08:59 09/29/24 07:58 1 [facility] / RADIOLOGY: [place] [address] [place] [address] IMAGING REPORT Signed PATIENT: JAYRO LIRIANO MR#: [id number] : 1970 SEX: M AGE: 54 LOCATION: 3CH ORDER 1212 STATUS: ADM IN REPORT#: [id number] SERVICE 1207 REASON: Persistent Leucocytosis, r/o infection, abscess A/P VWRB ANGELA [place] ORDERING PHYSICIAN: ALEC MELTON MD PROCEDURE: ABD PEL WO - CT ABDOMEN/PELVIS W/O CONTRAST Exam Type: CT ABDOMEN/PELVIS W/O CONTRAST Clinical Information: Persistent Leucocytosis, r/o infection, abscess A/P VWRB ANGELA [place] Comparison: None CT Dose Index (CTDI): 10.20 mGy Dose Length Product (DLP): 530.00 total mGy-cm PROTOCOL: Routine noncontrast helical scanning of the abdomen and pelvis was performed at 5mm collimation. Findings: No evidence of nephro or ureterolithiasis is found. No hydronephrosis or ureteral dilatation is seen. Bilateral and cutaneous nephrostomy catheters are seen. The lung bases are clear. The stomach is unremarkable. It shows no wall thickening. No gross ulceration is seen. It is not overly distended. There are no surrounding inflammatory changes. No wall lesions are identified to suggest cancer. The spleen is unremarkable. It is not enlarged. The pancreas shows normal anatomy. It is not fatty replaced. It shows no lesions. The pancreatic duct is not dilated. The gallbladder is unremarkable. It shows no cholelithiasis. The gallbladder wall is normal in thickness. There is no pericholecystic fluid. The is no acute or chronic inflammation noted. Left adrenal gland demonstrates a calcified lesion, stable since the examination of May 22, 2024. The liver is unremarkable. It shows no focal masses. The appendix is unremarkable. It shows no evidence of inflammation. No appendicolith is seen. The small bowel is unremarkable. There is no evidence of dilatation to suggest obstruction. No evidence of adynamic ileus is seen. There is no small bowel wall thickening to suggest enteritis. The colon is unremarkable. The urinary bladder is unremarkable. There is no wall thickening to suggest tumor or inflammation. There are no intraluminal calculi. There are no diverticula. There is no evidence of chronic bladder outlet obstruction. There is no evidence of urinary bladder distention to suggest urinary retention. The other pelvic structures are unremarkable. The bony and vascular structures are unremarkable for the patient's age. IMPRESSION: Chronic changes as noted. No acute pathology. No abscess. This study was performed using dose reduction techniques to include automated exposure control and/or adjustment of the mA and/or kV according to patient size. DICTATED BY: VERA BANG MD DATE: 09/26/24 144 ELECTRONICALLY SIGNED BY: VERA BANG MD DATE: 09/26/241455 RUN DATE: 09/29/24 [facility] PAGE 1 RUN TIME: 3735 [address] [place] [address] Department of Laboratories [facility] # [id number] Chief Operating Officer: Tosha Menjivar DO Specimen Report PATIENT: JAYRO LIRIANO ACCT: [id number] LOC: [facility] U: [id number] AGE/SX: 54/M ROOM: [facility] RE09/18/[address]: GRAY LEARY MD : 1970 BED: 1 DIS: STATUS: ADM IN TLOC: SPEC: [id number] OBED: 09/25/24 STATUS: COMP REQ: [id number] RECD: 09/25/24-1640 [facility] DR: ALEC MELTON MD SOURCE: LEG ENTR: 09/25/24-[address] [facility] [address]: ORIN PEREZ MD [facility]: LEFT KATIA MEADE MD,GRAY GARCIA,MARQUISE CADET,HELENA GATICA,ADRIA GUILLEN,ABBEY BEAN MD ORDERED: RUPERTO CULTURE, AEROBIC CULTURE Procedure Result Jamie Date-Time ANAEROBIC CULTURE Final 09/29/24-2830 MRL COLONY DESCRIPTION: REPORT 1: NO ANAEROBES AT 24-35 HOURS; STUDIES TO CONTINUE REPORT 2: NO ANAEROBES AT 48-59 HOURS; STUDIES TO CONTINUE REPORT 3: NO ANAEROBES AT 72-96 HOURS Test(s) performed by: [facility] [address] [place] [address] AEROBIC CULTURE Final 09/29/24-8181 MRL VANCOMYCIN-RESISTANT ENTEROCOCCUS RESULT WAS CALLED BY NAI MIMS ON 09/29/24 AT 0746. CRITICAL VALUES WERE READ BACK AND ACKNOWLEDGED BY GALA LOYOLA ([facility] [place]) COLONY DESCRIPTION: REPORT 1: 1+ SKIN KRUPA ; STUDIES TO CONTINUE GRAM POSITIVE RODS RESEMBLING DIPHTHEROIDS REPORT 2: 1+ YEAST, PRATIBHA ALBICANS 1+ YEAST SPECIES; NOT PRATIBHA ALBICANS IDENTIFICATION TO FOLLOW 1+ GRAM POSITIVE COCCI IN CHAINS . IDENTIFICATION AND SENSITIVITY TO FOLLOW REPORT 3: NO FURTHER WORK-UP DONE COMMENTS(R): VANCOMYCIN CONFIRMED BY ALTERNATE METHOD VRE: NOTE: VANCOMYCIN-RESISTANT ENTEROCOCCUS ENTERO FAECALIS-VANCO RESIST PRATIBHA ALBICANS PRATIBHA PARAPSILOSIS CONTINUED ON NEXT PAGE RUN DATE: 09/29/24 [facility] PAGE 2 RUN TIME: [address] [address] Department of Laboratories [place] # [id number] Chief Operating Officer: Tosha Menjivar DO Specimen Report SPEC: [id number] PATIENT: JAYRO LIRIANO [id number] (Continued) Procedure Result Jamie Date-Time AEROBIC CULTURE Final (continued) 09/29/24-0751 E FLIS[facility]RE [facility].I.C. RX --------- ---- AMPICILLIN >8 R CIPROFLOXACIN >2 R LEVOFLOXACIN >4 R LINEZOLID <=2 S VANCOMYCIN >16 R TETRACYCLINE >8 R GENTAMICIN Synergy Screen <=500 S PENICILLIN >8 R ---- -------- @ [facility] Test Performed at: [facility] [address], [place], [place] Medical Maintenance Tech: Brooks Givens D.O. 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 Hyperkalemia, resolved POA Acute pancreatitis, mild, resolved POA Metabolic acidosis, resolved POA Acute on chronic anemia due to CKD POA Uncontrolled diabetes POA Hypertension POA PLAN:- The patient remains admitted on the medical surgical floor. Acute on chronic renal failure,improving Acute on chronic anemia due to CKD POA * Per stick inserter, the patient does not require any emergency renal replacement therapy at this time. We will Continue with a renal diabetic diet and take measures to prevent hypotensive episodes. * Oral phosphate binders sevelamer 800 mg t.i.d. * Monitor electrolytes closely, avoid nephrotoxic agents. 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 Continue IV linezolid and Zosyn. Follow up with infectious disease recommendations. * Daily dressings per wound management recommendations * Pending midline/PICC line, [facility] approval for continuation of IV antibiotics. Acute leukocytosis POA * WBC slightly improved, down to 18 from 19.3 No febrile episodes, hemodynamically stable. Continue with IV Zosyn and linezolid. * Closely monitor vitals and WBC trend. CBC in a.m. Restless less leg syndrome * Continue with the ropinirole 0.25 mg t.i.d. S/P exchange of nephrostomy tube on 09/22/2024 POA * Follow up with the urologist as an outpatient post discharge for further recommendations. Acute on chronic anemia due to CKD POA * Continue with Epogen 10,000 Units weekly Uncontrolled diabetes POA * Continue with insulin sliding scale * Hypoglycemia protocol Hypertension * Continue with Amlodipine 10 mg, Lisinopril 20 mg daily * Closely monitor the vitals. P.r.n. medications * Dilaudid 0.5 mg q.4 for severe pain (7-10) * Tylenol 650 mg q.4 for mild pain (1-3) * Tylenol 650 mg q.6 for fever * Zofran4 mg q.6 for nausea/vomiting. DVT prophylaxis: Heparin 5000 IU subcutaneously q.12h GI Prophylaxis: Famotidine 20 mg Q 48 AM Labs: CBC, BMP Pending [facility] approval. Further orders per hospitalization course. ATTESTATION BY PHYSICIAN I have seen and examined the patient. I reviewed the documentation, medical decision making, and treatment plan as noted by the resident provider above. I agree with the findings and plan of care. Gray Leary MD, MANALI MD Sep 29, 2024 11:05
[2024-09-29 11:34] LABS: INR 1.04 (0.85-1.15)
[2024-09-29 11:35] LABS: PARTIAL THROMBOPLASTIN TIME 30.3 SEC (26.3-35.5)
--- NOTE | 2024-09-29 12:47 | HMCIMG ---
Exam Type: CHEST 1VW Clinical Information: PICCLINE PLACEMENT Comparison: None Findings: Right PICC line is noted with tip within the mid superior vena cava and there are no other interval changes. IMPRESSION: Right PICC line as noted.
--- NOTE | 2024-09-29 20:30 | PN ---
FOLLOWUP PROGRESS NOTE SUBJECTIVE: A 54-year-old male with a history of diabetes mellitus and hypertension. The patient was initially admitted with acute on chronic renal failure. The patient with a history of obstructive uropathy, status post nephrostomy tube placement. The patient also with evidence of cellulitis. He remains on antibiotics and the patient is being seen as a followup visit for all of the above. REVIEW OF SYSTEMS: CONSTITUTIONAL: The patient is feeling improved. HEENT: No change in vision. No change in hearing. CARDIOVASCULAR: There is no current chest pain or palpitations. PULMONARY: Denies any shortness of breath. GASTROINTESTINAL: He is tolerating a diet. MUSCULOSKELETAL: Complains of weakness. OBJECTIVE: VITAL SIGNS: Blood pressure is 109/70, pulse 80. He s afebrile. GENERAL: Chronically ill male, older than appearing. HEENT: Head is atraumatic. Pupils are equal, roving to light. Oropharynx is without exudate. Nares clear. NECK: There is no JVP. There is no thyromegaly. No mass. CARDIOVASCULAR: Regular. There is no S3, S4 or gallop. LUNGS: Coarse with equal thoracic movement. ABDOMEN: Soft, nondistended and nontender. EXTREMITIES: There is no clubbing, no cyanosis. NEUROLOGICAL: He is awake. He is alert. LABORATORY DATA: Hemoglobin 9, hematocrit 28, sodium 140, potassium 4.3, BUN 56, creatinine is 3.9. IMPRESSION: * Acute on chronic renal failure. * Obstructive uropathy. * Cellulitis. * Diabetes mellitus. * Leukocytosis. PLAN: The patient's creatinine of 3.9 mg/dL, is essentially the patient's baseline. There is no acute need for any form of renal replacement therapy at this time. We will continue to monitor the chemistries closely. The patient is being seen by case management for final disposition. We will continue to follow closely. Patient with multiple questions, all of which were answered. TID: [id number] RECEIPT: [id number]
--- NOTE | 2024-09-29 22:31 | PN ---
INFECTIOUS DISEASE PROGRESS NOTE Date of Service: Sep 29, 2024 SUBJECTIVE: This is a 54 year old male patient who was seen and examined at bedside in room 313. Patient is awake, alert and oriented x3. Patient is denying pain at this time stated by he is tolerating ambulation. No fever, temperature is 97.9. No nausea or vomiting. Nephrostomy draining well. Pending peer to peer with insurance for tomorrow. We will continue on Zosyn and linezolid. PHYSICAL EXAM EYES: Anicteric. Pupils equal and reactive. HENT: No oral thrush seen, moist Oral mucosa. NECK: Supple, no JVD or thyromegaly. LUNGS: Good air entry. No rales, no rhonchi. CARDIOVASCULAR: S1, S2 regular. No murmur heard. ABDOMEN: Soft, non tender, bowel sounds present, no organomegaly. CENTRAL NERVOUS SYSTEM: Awake, alert, oriented x 3. SKIN: No rashes, no swelling. LYMPHATICS: No peripheral lymphadenopathy MUSCULOSKELETAL: No joint swelling, erythema or tenderness. EXTREMITIES: No cyanosis or clubbing. Dry dressing to left calf BACK: No deformity, no pressure ulcer. Bilateral nephrostomy tubes. GENITOURINARY: No dysuria or hematuria. Vital Sign (Last 12 Hours) 09/29/24 09/29/24 12:23 17:18 Temp 97.9 97.7 Pulse 87 91 Resp 18 18 B/P (MAP) 118/79 126/73 Pulse Ox 99 90 O2 Delivery Room Air Room Air Intake & Output (last 24hrs) 09/28/24 09/28/24 09/29/24 15:00 23:00 07:00 Intake Total 300 ml 300 ml 650.0 ml Output Total 850 ml 325 ml 1300 ml Balance -550 ml -25 ml -650.0 ml LABS: Laboratory: Test 09/29/24 19:38 09/29/24 10:42 09/29/24 05:19 Range/Units Whole Blood Glucose 187 H 70-110 MG/DL Prothrombin Time 11.0 9.6-11.6 SEC Prothromb Time International Ratio 1.04 0.85-1.15 Activated Partial Thromboplast Time 30.3 26.3-35.5 SEC White Blood Count 18.0 H 4.8-10.8 K/uL Red Blood Count 3.15 L 4.50-6.20 MIL/uL Hemoglobin 9.1 L 14.0-18.0 g/dL Hematocrit 28.1 L 42-54 % Mean Corpuscular Volume 89.2 79-99 fL Mean Corpuscular Hemoglobin 28.9 27.0-33.0 pg Mean Corpuscular Hemoglobin Concent 32.4 32.0-36.0 g/dL Red Cell Distribution Width 13.7 11.0-15.5 % Platelet Count 370 130-400 K/uL Mean Platelet Volume 10.5 7.5-10.5 fL Immature Granulocyte % (Auto) 0.9 0-1 % Neutrophils (%) (Auto) 75.4 40.0-77.0 % Lymphocytes (%) (Auto) 12.9 L 21.0-51.0 % Monocytes (%) (Auto) 7.0 3.0-13.0 % Eosinophils (%) (Auto) 3.0 0.0-8.0 % Basophils (%) (Auto) 0.8 0.0-5.0 % Neutrophils # (Auto) 13.6 H 1.8-7.7 K/uL Lymphocytes # (Auto) 2.3 1.0-4.8 K/uL Monocytes # (Auto) 1.3 H 0.1-1.0 K/uL Eosinophils # (Auto) 0.55 0.00-0.70 K/uL Basophils # (Auto) 0.15 0.00-0.20 K/uL Absolute Immature Granulocyte (auto 0.16 0-1 K/uL Nucleated Red Blood Cells 0.0 0.0-0.19 % Sodium Level 140 136-145 mmol/L Potassium Level 4.3 3.5-5.1 mmol/L Chloride Level 104 101-111 mmol/L Carbon Dioxide Level 28 21-32 mmol/L Blood Urea Nitrogen 56 H 7-18 mg/dL Creatinine 3.9 H 0.5-1.3 mg/dL Glomerular Filtration Rate Calc 18 >90 mL/min Random Glucose 114 H 70-105 mg/dL Total Calcium 9.8 8.5-10.1 mg/dL ASSESSMENT: Urinary tract infection Citrobacter koseri. Leukocytosis. Bilateral leg ulcers, status post debridement of left calf wound on 09/19/2024. 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 Acute renal failure, improving. History of bilateral hydronephrosis with nephrostomy tubes in place, s/p bilateral nephrostomy tube exchange on 09/22/2024. Diabetes mellitus. PLAN: Pending peer to peer for tomorrow for approval to [facility] has been. Continue linezolid. Continue Zosyn. Continue pain management. Continue GI prophylaxis. Avoid nephrotoxic medications. Continue antidiabetics. Continue Physical therapy. This case was reviewed and discussed with my supervising physician and the above assessment and plan was formulated and agreed upon. ATTESTATION BY PHYSICIAN I have seen and examined the patient. I reviewed the documentation, medical decision making, and treatment plan as noted by the mid-level provider above. I agree with the findings and plan of care. ORIN PEREZ MD, [facility] Sep 29, 2024 22:31
[2024-09-30] VITALS (8 sets, daily range): BP systolic 121–132; BP diastolic 64–89; PULSE 81–107; RESP 18–19; TEMP 97.4–98.5; O2SAT 95–98
[2024-09-30 06:46] LABS: BASOPHILS # (AUTO) 0.14 K/uL (0.00-0.20); BASOPHILS % (AUTO) 0.9 % (0.0-5.0); EOSINOPHILS # (AUTO) 0.54 K/uL (0.00-0.70); EOSINOPHILS % (AUTO) 3.3 % (0.0-8.0); HEMATOCRIT 27.4 % (42-54); IMMATURE GRANULOCYTE ABSOLUTE 0.11 K/uL (0-1); LYMPHOCYTES % (AUTO) 12.1 % (21.0-51.0); MEAN CORPUSCULAR HEMOGLOBIN 28.4 pg (27.0-33.0); MEAN CORPUSCULAR HGB CONC 31.4 g/dL (32.0-36.0); MEAN CORPUSCULAR VOLUME 90.4 fL (79-99); MONOCYTES # (AUTO) 1.2 K/uL (0.1-1.0); MONOCYTES % (AUTO) 7.6 % (3.0-13.0); NEUTROPHILS # (AUTO) 12.3 K/uL (1.8-7.7); NEUTROPHILS % (AUTO) 75.4 % (40.0-77.0); PLATELET COUNT (AUTO) 382 K/uL (130-400); RED BLOOD CELL COUNT(AUTO) 3.03 MIL/uL (4.50-6.20); RED CELL DISTRIBUTION WIDTH 13.6 % (11.0-15.5); WHITE BLOOD COUNT (AUTO) 16.2 K/uL (4.8-10.8)
[2024-09-30 07:14] LABS: POTASSIUM 4.2 mmol/L (3.5-5.1)
--- NOTE | 2024-09-30 09:42 | PN ---
FOLLOWUP PROGRESS NOTE SUBJECTIVE: A 54-year-old male with a history of obstructive uropathy. The patient is status post nephrostomy tube placement, with a history of cellulitis. He remains on the broad spectrum antibiotics. The patient's leukocytosis continues to slowly improve, and he is being seen as a followup visit for all of the above. REVIEW OF SYSTEMS: CONSTITUTIONAL: He is complaining of pain to the leg. HEENT: No change in vision. No change in hearing. CARDIOVASCULAR: There are no current chest pains or palpitations. PULMONARY: There is no shortness of breath. GASTROINTESTINAL: He is tolerating a diet. MUSCULOSKELETAL: Complains of weakness. PHYSICAL EXAMINATION: VITAL SIGNS: Blood pressure 127/68, pulse 90s. He is afebrile. GENERAL: He is a chronically ill male, older than appearing. HEENT: Head is atraumatic. Pupils are equal, roving to light. Oropharynx is without exudate. Nares clear. NECK: There is no JVP. There is no thyromegaly, no mass. CARDIOVASCULAR: Regular. There is no S3 or S4 gallop. LUNGS: Coarse with equal thoracic movement. ABDOMEN: Soft, nondistended, and nontender. EXTREMITIES: No clubbing, no cyanosis. NEUROLOGICAL: He is awake. He is alert. LABORATORY DATA: Hemoglobin 8.6, hematocrit 27, white blood cell count 16,000. BUN 54, creatinine is 4. IMPRESSION: * Acute on chronic renal failure. * Obstructive uropathy. * Cellulitis. * Diabetes mellitus. * Hypertension. PLAN: The patient's creatinine continues to be fairly stable. There is no acute need for any form of renal replacement therapy at this time. The patient remains on the broad spectrum IV antibiotics. The patient is being seen by case management for final disposition. We will follow closely. TID: [id number] RECEIPT: [id number]
[2024-09-30 10:01] LABS: HEMOGLOBIN A1C 6.2 % (4.0-6.0)
--- NOTE | 2024-09-30 10:19 | PN ---
[facility] PROGRESS NOTE Date of Service: Sep 30, 2024 Time of Service: 10:19 SUBJECTIVE: This is a 54-year-old male past medical history of kidney disease, kidney stones with bilateral nephrostomy tube, diabetes and hypertension who was brought by EMS to the ED for complaints of abdominal pain associated with generalized body weakness, nausea and vomiting. On my evaluation patient states the reason why he came to the ER today is because of bilateral leg pain which has been hurting and he cant tolerate it anymore he said.Patient has multiple open wound ulcers with some necrotic tissue to both legs and as per patient that has been there since April 2023.Patient also reports he has a bilateral nephrostomy tube that was placed on September 2023 and supposedly should come off after 2 weeks but because of insurance issue it has not been removed. Seen and examined patient in the ER awake,alert and coherent.Patient appears comfortable,denies fever,chills,chest pain,palpitation,cough,shortness of breath,nausea,vomiting abdominal pain and diarrhea.Patient states he still voids with no problem. Vital signs temperature 98.2, heart rate 108, blood pressure 121/58 saturation 99% on room air. Labs: WBC 17 with negative left shift of neutrophils 82, hemoglobin 10, hematocrit 34, platelet count 378. Sodium 133, potassium six, chloride 98, carbon dioxide 11, BUN 162, creatinine 11 GFR five glucose 195 lactic acid 1.8 AST nine ALT nine BNP 23 albumin 3.1, triglycerides 179 lipase 791 troponin 10. While in the ER patient received Zosyn IV, sodium bicarb 50 mEq IV, Zofran 4 mg IV, Lokelma 10 g p.o., morphine 2 mg IV, insulin 10 units IV D50 25 mL IV, calcium gluconate 1 g IV and patient is being started on sodium bicarb at 100 mL/hour. We will admit patient for further medical management. 09/18: Patient was seen and examined this morning at bedside.Patient denies chest pain, shortness of breath, nausea, vomiting, fever, chills. Patient reports abdominal tenderness, worse in the right lower quadrant. Patient reports that he does not follow up with a primary care physician. Patient has bilateral nephrostomy tubes that were placed in April of 2023, but has not had them removed due to not having enough money to pay the co-pay at the urologist office. Patients renal function is abnormal, nephrology has been consulted and recommends Lokelma and sodium bicarbonate for the metabolic acidosis. Per Dr. Cadet, urology to be consulted for either removal or replacement of nephrostomy tubes. Urology has been consulted. 09/19: Patient was seen and examined this morning at bedside. Patient denies chest pain, shortness of breath, nausea, vomiting, fever, chills. Patient is scheduled to get a external debridement of the left calf. Patient is getting a removal of the bilateral nephrostomy tubes today by Interventional Radiology. Patient is currently NPO. Patient has refused dialysis, and continues on a bicarb drip for metabolic acidosis. Patient continues on vancomycin and Zosyn. 09/21/24 patient was seen and examined. Case discussed with the RN he was doing well. Denies nausea vomiting fever or chills. Continue vancomycin and Zosyn Patient was seen and examined this morning at bedside Patient with bilateral leg ulcers and status post debridement of left calf wound. The preliminary urine culture is growing Gram-negative rods. Discussed with ID/Continue Zosyn 09/22/2024: The patient was examined today in room 313 at bedside. He appears comfortable and denies any complaints or concerns at this time. He is scheduled for nephrostomy tube replacement today by OR. His blood pressure is mildly elevated at 159/90, which he attributes to anxiety about the procedure. Nursing staff have been performing wet-to-dry dressings, with wound management recommendations pending. Labs: Kidney functions have slightly improved, BUN went down to 71 from 89, creatinine went down to 4.2 from 5.1, GFR to 16 from 13, Phosphorous down to 3.9 from 5.7, Mg improved to 2.10. Blood cultures are negative, urine culture showed Gram-negative rods, pansensitive Cirobacter Koseri. We will follow up patient post nephrostomy tube replacement. Follow up with the nephrology and ID recommendations. Further assessment and plan as discussed below. 09/23/2024: The patient was examined at the bedside today. He underwent a bilateral nephrostomy tube exchange yesterday, and the procedure went without complications. Currently, he is feeling better and does not have any complaints or concerns. Dr. Gipson recommended a transfer to [facility]; however, the patient was hesitant yesterday due to potential difficulties with obtaining insurance approval. After discussing it today, he has agreed to the transfer if the insurance gives approval. Additionally, recommendations for wound management include applying a Midhoney dressing over the debridement site. He is running slightly hypertensive with recent BP of 141/77. Labs: Kidney functions continues to improve, BUN down to 62 from 71, Creatinine down to 4.0 from 4.2, GFR 17. Continue with Zosyn, pending [employer] approval. Further assessment and plan discussed below. 09/24/24: The patient was examined at the bedside today. He is alert, oriented, and lying comfortably in bed. He reports experiencing bilateral pain in the over the wound area, rated at 5 out of 10, throbbing type. He notes that the pain is slightly improved compared to yesterday. Additionally, he is experiencing a tingling sensation in his feet. The nursing staff is performing daily dressings on him. He was unable to walk during physical therapy yesterday due to the pain. He is receiving Dilaudid 0.5 mg every 6 hours as needed, along with Tylenol for pain management. Bilateral nephrostomy tubes are in place. In terms of lab results, his white blood cell count increased to 17.3 from 13.2. His hemoglobin is at 9.5. His kidney functions continues to improve, BUN decreased to 60 from 62, and creatinine levels improved to 3.8 from 4.0. According to the lease attendant, we will continue the current management since kidney function is improving. Continue IV antibiotics, we are awaiting [employer] approval. Further assessment and planning are discussed below. 09/25/24: The patient was examined at the bedside today. He continues to complain of a throbbing pain at the wound sites on both legs. His blood pressure remains elevated, with systolic blood pressure in the 140s, likely due to the pain. Leucocytosis is worsening, with white blood cell count increasing from 17.3 to 21.8. Neutrophils are at 78.4%, and lymphocytes are at 10.8%. Denies fever, chills, abdominal pain or any other symptoms. Kidney function is continuing to improve, with BUN decreasing from 60 to 55, and creatinine levels have improved to 3.8. Wound culture was never sent for analysis; we will order both aerobic and anaerobic wound cultures today. Closely monitor the vitals. Linezolid was started today by ID due to up trending leucocytosis, and Zosyn will be continued. We are still pending [employer] approval. Further assessment and plan are discussed below. 09/26/24: The patient was examined at the bedside today. He continues to complain of leg pain, but today he describes the pain as more of a needle-like sensation that improves with movement. He has been refusing to walk with physical therapy due to this pain. A CT scan of the abdomen and pelvis without contrast was ordered and showed no signs of acute pathology or abscess. Laboratory results reveal that leukocytosis is worsening; the WBC has increased to 23.3 from 21.8, with neutrophils at 77.3%. However, kidney function is improving, with BUN decreasing to 53 from 55, and creatinine levels decreasing to 3.5 from 3.8. We will continue administering IV linezolid and Zosyn for broad-spectrum antibiotic coverage. Daily dressing changes will be maintained, and we are currently awaiting the results of wound cultures. Midline/PICC line placement is pending, Approval from [employer] is still pending. Further assessment and planning are discussed below. 09/27/24: The patient was seen and examined. Case discussed with RN he continues to complain of pain in the lower extremities. White count is improving. 09/28/24: The patient was examined at bedside today. He reports minimal improvement in leg pain associated with an urge to move since starting ropinirole. He mentioned that he still feels throbbing pain and was had not been able to walk during daily physical therapy. Additionally, he had a bowel movement yesterday after three days without one. Leukocytosis has shown slight improvement; today's level is 19.3, down from 21.1 yesterday. His hemoglobin is at 9.4, BUN is 55, and creatinine has decreased fr om 3.9 to 3.6. Daily dressing changes will be maintained, The aerobic culture revealed 1+ gram- positive cocci in chains, as well as Pratibha albicans and Pratibha parapsilosis. We will continue with the IV antibiotics Zosyn and linezolid. Per nephrology, th ere is currently no need for renal replacement therapy; we will continue administering Epogen. The patient is still pending for [employer] approval. Further assessment and plan as discussed below 09/29/24: The patient was examined at bedside today. He reports slight improvement in his leg pain and was able to ambulate around the room yesterday. He is currently on ropinirole 0.25 t.i.d. and Dilaudid 0.5 q.4 PRN. His vital signs are stable. Laboratory results show that the WBC is slowly improving, now down to 18 from 19.3 yesterday. Hemoglobin is at 9.1. Kidney function has slightly worsened, with BUN rising to 56 from 55 and creatinine increasing to 3.9 from 3.6. According to Nephrology, there is no need for any form of renal replacement the rapy at this time. The leg wound culture revealed the presence of vancomycin-resistant Enterococcus faecalis, Pratibha albicans, and Pratibha parapsilosis only sensitive to linezolid. The patient is currently being treated with Zosyn and linezolid. Continue with daily wound dressings and physical therapy. We are still awaiting approval for [employer] and the placement of a midline or PICC line. Further assessment and plans have been discussed below. 09/30/24: The patient was examined at bedside today. He is lying in bed and continues to have leg pain mostly 1-2 hours after scheduled IV analgesics. He also reported that he could not walk yesterday due to pain. However, he mentions experiencing slight improvement in pain each day. He has a PICC line in placed yesterday and denies any complaints or concerns. He questions about why the nephrostomy tube has been placed and when it will be taken out. He is hemodynamically stable. His WBCs continues to trend down, currently at 16.2, down from 18 yesterday. His BUN is 54 and creatinine is 4.0, which the lease attendant has indicated is his baseline. There is currently no need for renal replacement therapy. We will continue with IV antibiotics, specifically Zosyn and linezolid. Pending peer to peer with insurance today for [employer] approval. Further assessment and plan discussed below. REVIEW OF SYSTEMS CONSTITUTIONAL: Denies fevers, chills, or night sweats. No unintentional weight loss reported. NEUROLOGICAL: Denies headache, amaurosis fugax, motor weakness, sensory deficit, vertigo/spinning sensation, gait abnormalities, or tremors. ENT: No hearing loss, otalgia, otorrhea, rhinitis, rhinorrhea, hoarseness, or sore throat. CARDIOVASCULAR: Denies any exertional angina, dyspnea on exertion, orthopnea, paroxysmal nocturnal dyspnea, palpitations, life-threatening arrhythmias, claudication. PULMONARY: Denies any shortness of breath, cough, phlegm/sputum, hemoptysis, pleuritic chest pain. SLEEP: Denies morning headaches, daytime somnolence or napping. Denies difficulty falling asleep, staying asleep, waking from sleep. Denies knowledge of snoring. GASTROINTESTINAL: Denies any type of dysphagia to either liquids or solids. Denies nausea, vomiting, pyrosis, early satiety, abdominal pain, diarrhea, constipation, or changes in stool consistency or caliber. Denies coffee-ground emesis, hematemesis, hematochezia, or melanotic stools. GENITOURINARY: Denies frequency, urgency, nocturia, hematuria or incontinence (Storage/Irritative symptoms.) Low urinary stream, straining to void, urinary intermittency or hesitancy, splitting of the voiding stream, terminal dribbling. ENDOCRINOLOGIC: Denies polyuria, polydipsia, polyphagia or heat/cold intolerances. HEMATOLOGIC: Denies thrombophilia/previous clots, or coagulopathy/bleeding disorders. ONCOLOGIC: Denies personal history of malignancy. DERMATOLOGIC: Bilateral lower extremities pain, mostly around the wound site, constant, 3/10, throbbing in type Denies rashes or pruritus. PSYCHIATRIC: Denies any suicidal or homicidal ideation. Denies hallucinations. PHYSICAL EXAM GENERAL APPEARANCE: The patient is awake, alert, and oriented, in no acute cardiopulmonary distress. NEUROLOGICAL: Cranial nerves II-XII grossly intact. Motor is 5/5 in bilateral upper and lower extremities proximal to distal. No sensory deficits. HEENT: Face is symmetric. Pupils are equal and reactive. Extraocular movements are intact. NECK: Supple. No JVD. No thyromegaly. No submental, submandibular, pre- /postauricular, occipital or supraclavicular lymphadenopathy. CHEST: Normal chest expansion. No Telemetry. LUNGS: Absence of any rales, rhonchi or any wheezing. CARDIOVASCULAR: Regular. S1 and S2 normal. No appreciable rubs, murmurs or gallops. ABDOMEN: Soft, nontender, and nondistended. There is no rebound, voluntary guarding, or rigidity. : Deferred. No Huston, b/l nephrostomy tubes in placed. EXTREMITIES: Dressing present over bilateral legs. SKIN: No skin breakdown. Vital Signs (last 8hr) Date Time Temp Pulse Resp B/P (MAP) Pulse Ox O2 Delivery O2 Flow Rate FiO2 09/30/24 08:52 97.5 93 18 127/68 95 Room Air 09/30/24 04:58 97.9 86 19 123/64 96 Room Air LABS: Laboratory: Test 09/30/24 06:17 09/30/24 05:52 09/29/24 10:42 Range/Units White Blood Count 16.2 H 4.8-10.8 K/uL Red Blood Count 3.03 L 4.50-6.20 MIL/uL Hemoglobin 8.6 L 14.0-18.0 g/dL Hematocrit 27.4 L 42-54 % Mean Corpuscular Volume 90.4 79-99 fL Mean Corpuscular Hemoglobin 28.4 27.0-33.0 pg Mean Corpuscular Hemoglobin Concent 31.4 L 32.0-36.0 g/dL Red Cell Distribution Width 13.6 11.0-15.5 % Platelet Count 382 130-400 K/uL Mean Platelet Volume 10.2 7.5-10.5 fL Immature Granulocyte % (Auto) 0.7 0-1 % Neutrophils (%) (Auto) 75.4 40.0-77.0 % Lymphocytes (%) (Auto) 12.1 L 21.0-51.0 % Monocytes (%) (Auto) 7.6 3.0-13.0 % Eosinophils (%) (Auto) 3.3 0.0-8.0 % Basophils (%) (Auto) 0.9 0.0-5.0 % Neutrophils # (Auto) 12.3 H 1.8-7.7 K/uL Lymphocytes # (Auto) 2.0 1.0-4.8 K/uL Monocytes # (Auto) 1.2 H 0.1-1.0 K/uL Eosinophils # (Auto) 0.54 0.00-0.70 K/uL Basophils # (Auto) 0.14 0.00-0.20 K/uL Absolute Immature Granulocyte (auto 0.11 0-1 K/uL Nucleated Red Blood Cells 0.0 0.0-0.19 % Sodium Level 140 136-145 mmol/L Potassium Level 4.2 3.5-5.1 mmol/L Chloride Level 103 101-111 mmol/L Carbon Dioxide Level 28 21-32 mmol/L Blood Urea Nitrogen 54 H 7-18 mg/dL Creatinine 4.0 H 0.5-1.3 mg/dL Glomerular Filtration Rate Calc 17 >90 mL/min Random Glucose 103 70-105 mg/dL Hemoglobin A1c 6.2 H 4.0-6.0 % Estimated Average Glucose (eAG) 131 H 70-126 mg/dL Total Calcium 9.8 8.5-10.1 mg/dL Whole Blood Glucose 102 70-110 MG/DL Prothrombin Time 11.0 9.6-11.6 SEC Prothromb Time International Ratio 1.04 0.85-1.15 Activated Partial Thromboplast Time 30.3 26.3-35.5 SEC Current Medications Medications (Trade) Dose Ordered Sig/Krishan Route PRN Reason Start Time Stop Time Status Last Admin Dose Admin Acetaminophen (TYLenol 325MG TAB) 650 mg Q4H PRN PO MILD PAIN (1-3) 09/18/24 03:00 10/18/24 02:59 09/29/24 14:38 650 MG Acetaminophen (TYLenol 325MG TAB) 650 mg Q6H PRN PO TEMPERATURE GREATER THAN 101.5 09/18/24 03:00 10/18/24 02:59 Amlodipine Besylate (NorvASC 5MG TAB) 10 mg DAILY PO 09/21/24 12:30 10/21/24 12:29 09/30/24 08:59 10 MG Calcium Gluconate 1 gm/Sodium Chloride 100 ml @ 0 mls/hr PROTOCOL IV 09/18/24 00:00 10/18/24 00:00 09/17/24 23:59 100 MLS/HR Dextrose (D50w) 50 ml AD PRN IV HYPOGLYCEMIA PROTOCOL 09/18/24 03:30 10/18/24 03:29 Epoetin John-epbx (Retacrit) 10,000 unit QSA SQ 09/20/24 09:00 10/20/24 08:59 09/27/24 08:57 10,000 UNIT Famotidine (Pepcid 20mg Vial) 20 mg Q48H IV 09/18/24 03:00 10/18/24 02:59 09/30/24 02:32 20 MG Gabapentin (NEURontin 100 mg CAP) 100 mg HS PO 09/23/24 22:00 10/23/24 21:59 09/29/24 20:23 100 MG Gabapentin (NEURontin 100 mg CAP) 100 mg ONCE PO 09/23/24 22:00 09/23/24 21:44 DC Glucagon (Glucagon 1mg Kit) 1 mg AD PRN IM HYPOGLYCEMIA PROTOCOL 09/18/24 03:30 10/18/24 03:29 Guaifenesin (RobiTUSSin SUGAR-FREE 100 MG/ 5 ML UDCUP) 200 mg Q6H6 PRN PO COUGH 09/20/24 22:30 10/20/24 22:29 09/20/24 22:20 200 MG Heparin Sodium (Porcine) (HEParin 5,000 UNIT VIAL) 5,000 unit Q12H SQ 09/24/24 15:30 09/24/24 17:40 DC Heparin Sodium (Porcine) (HEParin 5,000 UNIT VIAL) 5,000 unit Q12H SQ 09/24/24 21:00 10/24/24 20:59 09/30/24 09:07 5,000 UNIT Hydrochlorothiazide (hydroCHLOROthiazide 25MG) 12.5 mg DAILY PO 09/21/24 16:30 09/25/24 09:11 DC 09/25/24 08:19 12.5 MG Hydromorphone HCl (DiLAUDid 0.5MG INJ) 0.5 mg Q4H PRN IVP SEVERE PAIN (7-10) 09/28/24 13:00 10/03/24 12:59 09/30/24 08:59 0.5 MG Hydromorphone HCl (DiLAUDid 0.5MG INJ) 0.5 mg Q6H PRN IVP SEVERE PAIN (7-10) 09/18/24 15:30 09/23/24 15:29 DC 09/23/24 15:19 0.5 MG Hydromorphone HCl (DiLAUDid 0.5MG INJ) 0.5 mg Q6H PRN IVP SEVERE PAIN (7-10) 09/23/24 22:00 09/28/24 12:32 DC 09/28/24 09:30 0.5 MG Insulin Human Regular (humuLIN R 100 UNIT/ML 3ML) INSULIN SLIDING SCAL... ACHS SQ 09/18/24 07:30 10/18/24 07:29 09/29/24 20:27 2 UNIT Leptospermum Honey ([facility]) APPLY DIRECTED DAILY TP 09/23/24 09:00 10/23/24 08:59 09/30/24 09:07 1 APPL Linezolid 300 ml @ 150 mls/hr Q12H IV 09/25/24 13:00 10/05/24 12:59 09/30/24 00:12 150 MLS/HR Lisinopril (Prinivil 20mg) 20 mg DAILY PO 09/21/24 09:00 10/21/24 08:59 09/30/24 08:59 20 MG Magnesium Sulfate 50 ml @ 0 mls/hr PROTOCOL IV 09/21/24 16:00 09/21/24 17:41 DC 09/21/24 17:28 25 MLS/HR Ondansetron HCl (zoFRAN 4MG INJ) 4 mg Q6H PRN IV NAUSEA/VOMITING 09/18/24 03:00 10/18/24 02:59 Pharmacy Profile Note (Lace Assessment) 1 each AD MISC 09/18/24 13:30 09/18/24 13:35 DC Pharmacy Profile Note (Pharmacy Communication) 1 each ONCE MISC 09/25/24 12:00 09/25/24 11:34 DC Piperacillin Sod/ Tazobactam Sod 50 ml @ 12.5 mls/hr Q12H IV 09/18/24 05:00 09/18/24 05:30 DC Piperacillin Sod/ Tazobactam Sod 50 ml @ 12.5 mls/hr Q12H IV 09/18/24 12:00 09/27/24 14:59 DC 09/27/24 12:34 12.5 MLS/HR Piperacillin Sod/ Tazobactam Sod (Zosyn 3.375gm+NS 50ml) 3.375 gm Q12H IVPB 09/28/24 09:00 10/08/24 08:59 09/30/24 08:58 3.375 GM Polyethylene Glycol (MIRalax 3350 17 GM POWD.PACK) 17 gm DAILY PO 09/27/24 16:00 10/27/24 15:59 09/30/24 08:59 17 GM Potassium Chloride 100 ml @ 100 mls/hr AD PRN IV POTASSIUM PROTOCOL 09/22/24 17:00 09/22/24 17:31 DC Potassium Chloride (K-Dur/Klor-Con 20meq) 20 meq AD PRN PO POTASSIUM PROTOCOL 09/22/24 17:00 09/22/24 17:31 DC 09/22/24 17:07 20 MEQ Potassium Chloride (KCl 10% Elixir 20meq/15ml) 20 meq AD PRN PO POTASSIUM PROTOCOL 09/22/24 17:00 09/22/24 17:31 DC Ropinirole HCl (ropiNIRole HCL) 0.25 mg TID PO 09/26/24 21:00 10/26/24 20:59 09/30/24 08:59 0.25 MG Sevelamer HCl (RENAgel 800 MG TAB) 800 mg TIDMEALS PO 09/19/24 12:00 10/19/24 11:59 09/30/24 08:58 800 MG Sodium Bicarbonate 150 meq/Dextrose 1,150 ml @ 100 mls/hr [id number] IVP 09/18/24 10:00 09/20/24 13:06 DC 09/20/24 08:33 100 MLS/HR Vancomycin HCl 250 ml @ 125 mls/hr Q76H IV 09/21/24 06:00 09/20/24 13:06 DC Vancomycin HCl (Vancomycin Protocol) 1 each AD IV 09/18/24 04:00 09/20/24 13:08 DC Vitamin B Complex/ Vit C/Folic Acid (Nephrovite Tablet) 1 cap DAILY PO 09/21/24 09:00 10/21/24 08:59 09/30/24 08:58 1 [facility] / RADIOLOGY: [place] [address] IMAGING REPORT Signed PATIENT: JAYRO LIRIANO MR#: [id number] : 1970 SEX: M AGE: 54 LOCATION: 3CH ORDER 1212 STATUS: ADM IN REPORT#: [id number] SERVICE 1207 REASON: Persistent Leucocytosis, r/o infection, abscess A/P VWRB ANGELA [place] ORDERING PHYSICIAN: ALEC MELTON MD PROCEDURE: ABD PEL WO - CT ABDOMEN/PELVIS W/O CONTRAST Exam Type: CT ABDOMEN/PELVIS W/O CONTRAST Clinical Information: Persistent Leucocytosis, r/o infection, abscess A/P VWRB ANGELA [place] Comparison: None CT Dose Index (CTDI): 10.20 mGy Dose Length Product (DLP): 530.00 total mGy-cm PROTOCOL: Routine noncontrast helical scanning of the abdomen and pelvis was performed at 5mm collimation. Findings: No evidence of nephro or ureterolithiasis is found. No hydronephrosis or ureteral dilatation is seen. Bilateral and cutaneous nephrostomy catheters are seen. The lung bases are clear. The stomach is unremarkable. It shows no wall thickening. No gross ulceration is seen. It is not overly distended. There are no surrounding inflammatory changes. No wall lesions are identified to suggest cancer. The spleen is unremarkable. It is not enlarged. The pancreas shows normal anatomy. It is not fatty replaced. It shows no lesions. The pancreatic duct is not dilated. The gallbladder is unremarkable. It shows no cholelithiasis. The gallbladder wall is normal in thickness. There is no pericholecystic fluid. The is no acute or chronic inflammation noted. Left adrenal gland demonstrates a calcified lesion, stable since the examination of May 22, 2024. The liver is unremarkable. It shows no focal masses. The appendix is unremarkable. It shows no evidence of inflammation. No appendicolith is seen. The small bowel is unremarkable. There is no evidence of dilatation to suggest obstruction. No evidence of adynamic ileus is seen. There is no small bowel wall thickening to suggest enteritis. The colon is unremarkable. The urinary bladder is unremarkable. There is no wall thickening to suggest tumor or inflammation. There are no intraluminal calculi. There are no diverticula. There is no evidence of chronic bladder outlet obstruction. There is no evidence of urinary bladder distention to suggest urinary retention. The other pelvic structures are unremarkable. The bony and vascular structures are unremarkable for the patient's age. IMPRESSION: Chronic changes as noted. No acute pathology. No abscess. This study was performed using dose reduction techniques to include automated exposure control and/or adjustment of the mA and/or kV according to patient size. DICTATED BY: VERA BANG MD DATE: 09/26/24 1441 ELECTRONICALLY SIGNED BY: VERA BANG MD DATE: 09/26/24 8020 RUN DATE: 09/21/24 [facility] PAGE 1 RUN TIME: [phone] [address], [place] [address] Department of Laboratories CLIA # [id number] Fuel Pilot Engineer: Tosha Menjivar DO Specimen Report ------- ----- PATIENT: JAYRO LIRIANO ACCT: [id number] LOC: [facility] U: [id number] AGE/SX: 54/M ROOM: [facility] RE09/18/[address]: GRAY LEARY MD : 1970 BED: 1 DIS: STATUS: ADM IN TLOC: SPEC: [id number] OBED: 09/18/24 STATUS: COMP REQ: [id number] RECD: 09/19/[address]: ROMIE VICTOR SOURCE: [facility] ENTR: 09/19/[address]: ORIN PEREZ MD [facility]: CLEAN CAT GRAY LEARY MD, JORGE H MD REYES, RAUL MD RODRIGUEZ,ABBEY BEAN MD ORDERED: AERO ID & SENS Procedure Result Jamie Date-Time AEROBIC ID & SENSITIVITIES Final 09/21/24-0711 [facility] COLONY DESCRIPTION: DAY 1: COLONY COUNT: >100,000 CFU/ML GRAM NEGATIVE RODS IDENTIFICATION AND SENSITIVITY TO FOLLOW [facility] RX --------- ---- AZTREONAM <=4 S CEFAZOLIN <=2 S CEFTAZIDIME <=1 S CEFTAZIDIME/AVIBACTAM <=8 S CEFTRIAXONE <=1 S GENTAMICIN <=2 S LEVOFLOXACIN <=0.5 S NITROFURANTOIN <=32 S MEROPENEM <=1 S PIPERACILLIN/TAZOBACTAM <=8 S TRIMETHOPRIM/SUFLAMETHOXAZOLE <=2/38 S @ [facility] Test Performed at: [facility] [address] [address] Nazario Monae, [place], [place] Medical Environmental Aide: Brooks Givens DJovany RUN DATE: 09/29/24 [facility] PAGE 1 RUN TIME: [id number] [address] Department of Laboratories CLIA # [id number] Fuel Pilot Engineer: Tosha Menjivar DO Specimen Report PATIENT: JAYRO LIRIANO ACCT: [id number] LOC: [facility] U: [id number] AGE/SX: 54/M ROOM: [facility] RE09/18/[address]: GRAY LEARY MD : 1970 BED: 1 DIS: STATUS: ADM IN TLOC: SPEC: [id number] OBED: 09/25/24-1600 STATUS: COMP REQ: [id number] RECD: 09/25/24-[address]: ALEC MELTON MD SOURCE: LEG ENTR: 09/25/24-1003 [facility] DR: ORIN PEREZ MD SPDESC: KATIA FISHER MD, SATISH MD DHEVAN,HELENA PEMBERTON MD, MD, RAUL MD RODRIGUEZ, JOSE MARIANO MD ORDERED: RUPERTO CULTURE, AEROBIC CULTURE Procedure Result Jamie Date-Time ANAEROBIC CULTURE Final 09/29/24-0530 MRL COLONY DESCRIPTION: REPORT 1: NO ANAEROBES AT 24-35 HOURS; STUDIES TO CONTINUE REPORT 2: NO ANAEROBES AT 48-59 HOURS; STUDIES TO CONTINUE REPORT 3: NO ANAEROBES AT 72-96 HOURS Test(s) performed by: [facility] [address] [place] [address] AEROBIC CULTURE Final 09/29/24-0751 MRL VANCOMYCIN-RESISTANT ENTEROCOCCUS RESULT WAS CALLED BY NAI MIMS ON 09/29/24 AT 0746. CRITICAL VALUES WERE READ BACK AND ACKNOWLEDGED BY GALA LOYOLA ([facility]) COLONY DESCRIPTION: REPORT 1: 1+ SKIN KRUPA ; STUDIES TO CONTINUE GRAM POSITIVE RODS RESEMBLING DIPHTHEROIDS REPORT 2: 1+ YEAST, PRATIBHA ALBICANS 1+ YEAST SPECIES; NOT PRATIBHA ALBICANS IDENTIFICATION TO FOLLOW 1+ GRAM POSITIVE COCCI IN CHAINS . IDENTIFICATION AND SENSITIVITY TO FOLLOW REPORT 3: NO FURTHER WORK-UP DONE COMMENTS(R): VANCOMYCIN CONFIRMED BY ALTERNATE METHOD VRE: NOTE: VANCOMYCIN-RESISTANT ENTEROCOCCUS ENTERO FAECALIS-VANCO RESIST PRATIBHA ALBICANS PRATIBHA PARAPSILOSIS CONTINUED ON NEXT PAGE RUN DATE: 09/29/24 [facility] PAGE 2 RUN TIME: [address] [address], [place] [address] Department of Laboratories [facility] # [id number] Fuel Pilot Engineer: Tosha Menjivar DO Specimen Report SPEC: [id number] PATIENT: JAYRO LIRIANO [id number] (Continued) -- Procedure Result Jamie Date-Time AEROBIC CULTURE Final (continued) 09/29/24-0751 [facility] RX --------- ---- AMPICILLIN >8 R CIPROFLOXACIN >2 R LEVOFLOXACIN >4 R LINEZOLID <=2 S VANCOMYCIN >16 R TETRACYCLINE >8 R GENTAMICIN Synergy Screen <=500 S PENICILLIN >8 R @ [facility] Test Performed at: [facility] [address], [place], [place] Medical Environmental Aide: Brooks Givens D.O. RUN DATE: 09/29/24 [facility] PAGE 1 RUN TIME: [address] [address] Department of Laboratories CLIA # [id number] Fuel Pilot Engineer: Tosha Menjivar DO Specimen Report PATIENT: JAYRO LIRIANO ACCT: [id number] LOC: [facility] U: [id number] AGE/SX: 54/M ROOM: [facility] RE09/18/[address]: GRAY LEARY MD : 1970 BED: 1 DIS: STATUS: ADM IN TLOC: SPEC: [id number] OBED: 09/25/24-1599 STATUS: COMP REQ: [id number] RECD: 09/25/24-[address]: ALEC MELTON MD SOURCE: LEG ENTR: 09/25/24-[address] [facility] DR: ORIN PEREZ MD SPDC: RIGHT KATIA MEADE MD, SATISH MD DHEVAN,MARQUISE CADET,HELENA GATICA,ADRIA GUILLEN,ABBEY BEAN MD ORDERED: RUPERTO CULTURE, AEROBIC CULTURE Procedure Result Jamie Date-Time -------- ---- ANAEROBIC CULTURE Final 09/29/24-0908 [facility] COLONY DESCRIPTION: REPORT 1: NO ANAEROBES AT 24-35 HOURS; STUDIES TO CONTINUE REPORT 2: NO ANAEROBES AT 48-59 HOURS; STUDIES TO CONTINUE REPORT 3: NO ANAEROBES AT 72-96 HOURS Test(s) performed by: [facility] [address] [place] [address] AEROBIC CULTURE Final 09/28/24-3993 [facility] COLONY DESCRIPTION: REPORT 1: 1+ YEAST ; ISOLATION IN PROGRESS REPORT 2: 1+ YEAST SPECIES; NOT PRATIBHA ALBICANS IDENTIFICATION TO FOLLOW NO FURTHER WORK-UP DONE PRATIBHA PARAPSILOSIS @ [facility] Test Performed at: [facility] [address], [place], [place] Medical Environmental Aide: Brooks Givens D.O. 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 Hyperkalemia, resolved POA Acute pancreatitis, mild, resolved POA Metabolic acidosis, resolved POA Acute on chronic anemia due to CKD POA Uncontrolled diabetes POA Hypertension POA PLAN:- The patient remains admitted on the medical surgical floor. Acute on chronic renal failure,improving Acute on chronic anemia due to CKD POA * Per lease attendant, the patient does not require any emergency renal replacement therapy at this time. We will Continue with a renal diabetic diet and take measures to prevent hypotensive episodes. * Oral phosphate binders sevelamer 800 mg t.i.d. * Monitor electrolytes closely, avoid nephrotoxic agents. 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 Continue IV linezolid and Zosyn. Follow up with infectious disease recommendations. * Daily dressings per wound management recommendations * Pending midline/PICC line, [facility] approval for continuation of IV antibiotics. Acute leukocytosis POA * WBC slightly improved, down to 18 from 19.3 No febrile episodes, hemodynamically stable. Continue with IV Zosyn and linezolid. * Closely monitor vitals and WBC trend. CBC in a.m. Restless less leg syndrome * Continue with the ropinirole 0.25 mg t.i.d. S/P exchange of nephrostomy tube on 09/22/2024 POA * Follow up with the urologist as an outpatient post discharge for further recommendations. Acute on chronic anemia due to CKD POA * Continue with Epogen 10,000 Units weekly Uncontrolled diabetes POA * Recent blood sugar level 131, hemoglobin A1c 6.2% * Continue with insulin sliding scale * Hypoglycemia protocol Hypertension * Continue with Amlodipine 10 mg, Lisinopril 20 mg daily * Closely monitor the vitals. P.r.n. medications * Dilaudid 0.5 mg q.4 for severe pain (7-10) * Tylenol 650 mg q.4 for mild pain (1-3) * Tylenol 650 mg q.6 for fever * Zofran4 mg q.6 for nausea/vomiting. DVT prophylaxis: Heparin 5000 IU subcutaneously q.12h GI Prophylaxis: Famotidine 20 mg Q 48 AM Labs: CBC, BMP Pending peer to peer with insurance today for [facility] approval and IV antibiotics recommendations. Further orders per hospitalization course. ATTESTATION BY PHYSICIAN I have seen and examined the patient. I reviewed the documentation, medical decision making, and treatment plan as noted by the resident provider above. I agree with the findings and plan of care. Gray Leary MD, MANALI MD Sep 30, 2024 10:19
--- NOTE | 2024-09-30 12:34 | NUR ---
[facility] Follow-up: Patient re-assessed by wound healing team. Assessment and recommendations provided to primary nurse. Education provided. Wound care done. Addendum: 10/03/24 at 0968 by KOKO ELMORE RN RN/ Amended: Links added.
--- NOTE | 2024-09-30 14:57 | PN ---
INFECTIOUS DISEASE PROGRESS NOTE Date of Service: Sep 30, 2024 SUBJECTIVE: This is a 54 year old male patient who was seen and examined at bedside in room 313. Patient is awake, alert and oriented x 3. Left leg with polymicrobial infection, vancomycin resistant Staphylococcus aureus, Pratibha parapsilosis and Pratibha albicans. We will start patient on fluconazole 200 mg p.o. daily and continue on Zosyn and linezolid. WBC is slowly trending down and is 16.2 today with a temperature 97.5. BUN and creatinine still slightly elevated with a BUN of 54 and creatinine of 4.0. Patient has been approved to [facility] by insurance and will possible be discharged today. PHYSICAL EXAM EYES: Anicteric. Pupils equal and reactive. HENT: No oral thrush seen, moist Oral mucosa. NECK: Supple, no JVD or thyromegaly. LUNGS: Good air entry. No rales, no rhonchi. CARDIOVASCULAR: S1, S2 regular. No murmur heard. ABDOMEN: Soft, non tender, bowel sounds present, no organomegaly. CENTRAL NERVOUS SYSTEM: Awake, alert, oriented x 3. SKIN: No rashes, no swelling. LYMPHATICS: No peripheral lymphadenopathy MUSCULOSKELETAL: No joint swelling, erythema or tenderness. EXTREMITIES: No cyanosis or clubbing. Dry dressing to left calf BACK: No deformity, no pressure ulcer. Bilateral nephrostomy tubes. GENITOURINARY: No dysuria or hematuria. Vital Sign (Last 12 Hours) 09/30/24 09/30/24 09/30/24 04:58 08:52 12:32 Temp 97.9 97.5 97.5 Pulse 86 93 81 Resp 19 18 18 B/P (MAP) 123/64 127/68 131/79 Pulse Ox 96 95 97 O2 Delivery Room Air Room Air Room Air Intake & Output (last 24hrs) 09/29/24 09/29/24 09/30/24 15:00 23:00 07:00 Intake Total 480 ml 240 ml 550.0 ml Output Total 400 ml 300 ml Balance 480 ml -160 ml 250.0 ml LABS: Laboratory: Test 09/30/24 11:35 09/30/24 06:17 09/29/24 10:42 Range/Units Whole Blood Glucose 186 #H 70-110 MG/DL White Blood Count 16.2 H 4.8-10.8 K/uL Red Blood Count 3.03 L 4.50-6.20 MIL/uL Hemoglobin 8.6 L 14.0-18.0 g/dL Hematocrit 27.4 L 42-54 % Mean Corpuscular Volume 90.4 79-99 fL Mean Corpuscular Hemoglobin 28.4 27.0-33.0 pg Mean Corpuscular Hemoglobin Concent 31.4 L 32.0-36.0 g/dL Red Cell Distribution Width 13.6 11.0-15.5 % Platelet Count 382 130-400 K/uL Mean Platelet Volume 10.2 7.5-10.5 fL Immature Granulocyte % (Auto) 0.7 0-1 % Neutrophils (%) (Auto) 75.4 40.0-77.0 % Lymphocytes (%) (Auto) 12.1 L 21.0-51.0 % Monocytes (%) (Auto) 7.6 3.0-13.0 % Eosinophils (%) (Auto) 3.3 0.0-8.0 % Basophils (%) (Auto) 0.9 0.0-5.0 % Neutrophils # (Auto) 12.3 H 1.8-7.7 K/uL Lymphocytes # (Auto) 2.0 1.0-4.8 K/uL Monocytes # (Auto) 1.2 H 0.1-1.0 K/uL Eosinophils # (Auto) 0.54 0.00-0.70 K/uL Basophils # (Auto) 0.14 0.00-0.20 K/uL Absolute Immature Granulocyte (auto 0.11 0-1 K/uL Nucleated Red Blood Cells 0.0 0.0-0.19 % Sodium Level 140 136-145 mmol/L Potassium Level 4.2 3.5-5.1 mmol/L Chloride Level 103 101-111 mmol/L Carbon Dioxide Level 28 21-32 mmol/L Blood Urea Nitrogen 54 H 7-18 mg/dL Creatinine 4.0 H 0.5-1.3 mg/dL Glomerular Filtration Rate Calc 17 >90 mL/min Random Glucose 103 70-105 mg/dL Hemoglobin A1c 6.2 H 4.0-6.0 % Estimated Average Glucose (eAG) 131 H 70-126 mg/dL Total Calcium 9.8 8.5-10.1 mg/dL Prothrombin Time 11.0 9.6-11.6 SEC Prothromb Time International Ratio 1.04 0.85-1.15 Activated Partial Thromboplast Time 30.3 26.3-35.5 SEC DIAGNOSTIC/RADIOLOGY: PATIENT: JAYRO LIRIANO ACCT: [id number] LOC: 3C U: [id number] AGE/SX: 54/M ROOM: [facility] RE09/18/[address]: LEONCIO LEARY MD : 1970 BED: 1 DIS: STATUS: ADM IN TLOC: SPEC: [id number] OBED: 09/25/24-1600 STATUS: COMP REQ: [id number] RECD: 09/25/24-[address]: ALEC MELTON MD SOURCE: LEG ENTR: 09/25/24-[address]: ORIN PEREZ MD SPDESC: LEFT KATIA MEADE MD, SATISH MD DHEVAN,MARQUISE BENZ,HELENA GATICA,ADRIA GUILLEN,ABBEY BEAN MD ORDERED: RUPERTO CULTURE, AEROBIC CULTURE Procedure Result Jamie Date-Time ANAEROBIC CULTURE Final 09/29/24-0530 MRL COLONY DESCRIPTION: REPORT 1: NO ANAEROBES AT 24-35 HOURS; STUDIES TO CONTINUE REPORT 2: NO ANAEROBES AT 48-59 HOURS; STUDIES TO CONTINUE REPORT 3: NO ANAEROBES AT 72-96 HOURS Test(s) performed by: [facility] [address] [place] [address] AEROBIC CULTURE Final 09/29/24-0751 MRL VANCOMYCIN-RESISTANT ENTEROCOCCUS RESULT WAS CALLED BY NAI MIMS ON 09/29/24 AT 0746. CRITICAL VALUES WERE READ BACK AND ACKNOWLEDGED BY GALA LOYOLA ([facility]) COLONY DESCRIPTION: REPORT 1: 1+ SKIN KRUPA ; STUDIES TO CONTINUE GRAM POSITIVE RODS RESEMBLING DIPHTHEROIDS REPORT 2: 1+ YEAST, PRATIBHA ALBICANS 1+ YEAST SPECIES; NOT PRATIBHA ALBICANS IDENTIFICATION TO FOLLOW 1+ GRAM POSITIVE COCCI IN CHAINS . IDENTIFICATION AND SENSITIVITY TO FOLLOW REPORT 3: NO FURTHER WORK-UP DONE COMMENTS(R): VANCOMYCIN CONFIRMED BY ALTERNATE METHOD VRE: NOTE: VANCOMYCIN-RESISTANT ENTEROCOCCUS ENTERO FAECALIS-VANCO RESIST PRATIBHA ALBICANS PRATIBHA PARAPSILOSIS CONTINUED ON NEXT PAGE RUN DATE: 09/29/24 [facility] PAGE 2 RUN TIME: [address] [address], [place] [address] Department of Laboratories [facility] # [id number] Paperhanger And Painter: Tosha Menjivar DO Specimen Report SPEC: [id number] PATIENT: JAYRO LIRIANO [id number] (Continued) Procedure Result Jamie Date-Time AEROBIC CULTURE Final (continued) 09/29/24-0751 [facility] RX --------- ---- AMPICILLIN >8 R CIPROFLOXACIN >2 R LEVOFLOXACIN >4 R LINEZOLID <=2 S VANCOMYCIN >16 R TETRACYCLINE >8 R GENTAMICIN Synergy Screen <=500 S PENICILLIN >8 R ASSESSMENT: Urinary tract infection Citrobacter koseri. Bilateral leg ulcers, status post debridement of left calf wound on 09/19/2024. Polymicrobial infection. Infection with Vancomycin resistant Enterococcus faecalis. 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 Leukocytosis. Acute renal failure. History of bilateral hydronephrosis with nephrostomy tubes in place, s/p bilateral nephrostomy tube exchange on 09/22/2024. Diabetes mellitus. PLAN: Start fluconazole 200 mg p.o. daily. Continue linezolid. Continue Zosyn. Continue pain management. Continue GI prophylaxis. Avoid nephrotoxic medications. Continue antidiabetics. Continue Physical therapy. Patient has been approved to [facility] by insurance and will possible discharge today. This case was reviewed and discussed with my supervising physician and the above assessment and plan was formulated and agreed upon. ATTESTATION BY PHYSICIAN I have seen and examined the patient. I reviewed the documentation, medical decision making, and treatment plan as noted by the mid-level provider above. I agree with the findings and plan of care. ORIN PEREZ MD, MIRTA L [facility] Sep 30, 2024 14:57
[2024-09-30] MEDS: fluCONazole 200 MG/NS 100 ML 100 ML IV SCH (17:55)
[2024-10-01 00:44] VITALS: BP 130/86; PULSE 98; RESP 19; TEMP 98.6
[2024-10-01 04:24] VITALS: BP 138/79; PULSE 93; RESP 18; TEMP 98.1
[2024-10-01 08:00] VITALS: BP 127/78; PULSE 88; RESP 19; TEMP 97.9; O2SAT 98
[2024-10-01 08:33] LABS: BASOPHILS # (AUTO) 0.14 K/uL (0.00-0.20); BASOPHILS % (AUTO) 0.9 % (0.0-5.0); EOSINOPHILS # (AUTO) 0.49 K/uL (0.00-0.70); EOSINOPHILS % (AUTO) 3.1 % (0.0-8.0); HEMATOCRIT 28.5 % (42-54); IMMATURE GRANULOCYTE ABSOLUTE 0.12 K/uL (0-1); LYMPHOCYTES # (AUTO) 2.3 K/uL (1.0-4.8); LYMPHOCYTES % (AUTO) 14.8 % (21.0-51.0); MEAN CORPUSCULAR HEMOGLOBIN 28.8 pg (27.0-33.0); MEAN CORPUSCULAR HGB CONC 31.9 g/dL (32.0-36.0); MEAN CORPUSCULAR VOLUME 90.2 fL (79-99); MONOCYTES % (AUTO) 6.3 % (3.0-13.0); NEUTROPHILS # (AUTO) 11.7 K/uL (1.8-7.7); NEUTROPHILS % (AUTO) 74.1 % (40.0-77.0); PLATELET COUNT (AUTO) 367 K/uL (130-400); RED BLOOD CELL COUNT(AUTO) 3.16 MIL/uL (4.50-6.20); RED CELL DISTRIBUTION WIDTH 13.6 % (11.0-15.5); WHITE BLOOD COUNT (AUTO) 15.7 K/uL (4.8-10.8)
[2024-10-01 08:41] LABS: CREATININE 3.8 mg/dL (0.5-1.3); POTASSIUM 4.2 mmol/L (3.5-5.1)
--- NOTE | 2024-10-01 09:34 | PN ---
FOLLOWUP PROGRESS NOTE SUBJECTIVE: A 54-year-old male with a history of obstructive uropathy. The patient is status post nephrostomy tube placement. The patient does follow up with Urology. The patient has had acute on chronic renal failure in the hospital. Creatinine continues to stabilize. The patient also has cellulitis and remains on the antibiotics, and the patient is being seen as a followup visit for all of the above. REVIEW OF SYSTEMS: CONSTITUTIONAL: He is feeling improved. HEENT: No change in vision. No change in hearing. CARDIOVASCULAR: There is no current chest pain or palpitations. PULMONARY: Denies shortness of breath. GASTROINTESTINAL: He is tolerating the diet. MUSCULOSKELETAL: Complains of weakness. PHYSICAL EXAMINATION: VITAL SIGNS: Blood pressure is 127/78, pulse 80s. He is afebrile. GENERAL: He is a chronically ill male, much older than appearing. HEENT: Head is atraumatic. Pupils are equal, roving to light. Oropharynx is without exudate. Nares clear. NECK: There is no JVP. There is no thyromegaly, no mass. CARDIOVASCULAR: Regular. There is no S3 or S4 gallop. LUNGS: Coarse with equal thoracic movement. ABDOMEN: Soft and nontender. EXTREMITIES: Reveal no clubbing, no cyanosis. NEUROLOGICAL: He is awake. He is alert. LABORATORY DATA: Hemoglobin 9.1, hematocrit 28, white cell count is 15,000. Sodium 139, potassium is 4, BUN 55, creatinine 3.8. IMPRESSION: * Acute on chronic renal failure. * Obstructive uropathy. * Cellulitis. * Debilitation. PLAN: The patient's creatinine of 3.8 mg/dL is essentially his baseline. There is no acute need for any form of renal replacement therapy at this time. The patient is being seen by case management for final disposition, which will be the need for long-term antibiotics. We will continue to follow closely. The patient and family at the bedside. Multiple questions were all answered. TID: [id number] RECEIPT: [id number]
[2024-10-01 12:00] VITALS: BP 134/82; PULSE 92; RESP 20; TEMP 97.6
--- NOTE | 2024-10-01 14:36 | PN ---
INFECTIOUS DISEASE PROGRESS NOTE Date of Service: Oct 01, 2024 SUBJECTIVE: This is a 54 year old male patient who was seen and examined at bedside in room 313. Patient is awake, alert and oriented x 3. Per report patient will be discharged to [facility] today. Patient is to continue on Zosyn, linezolid and fluconazole for polymicrobial infection to the Left leg. PHYSICAL EXAM EYES: Anicteric. Pupils equal and reactive. HENT: No oral thrush seen, moist Oral mucosa. NECK: Supple, no JVD or thyromegaly. LUNGS: Good air entry. No rales, no rhonchi. CARDIOVASCULAR: S1, S2 regular. No murmur heard. ABDOMEN: Soft, non tender, bowel sounds present, no organomegaly. CENTRAL NERVOUS SYSTEM: Awake, alert, oriented x 3. SKIN: No rashes, no swelling. LYMPHATICS: No peripheral lymphadenopathy MUSCULOSKELETAL: No joint swelling, erythema or tenderness. EXTREMITIES: No cyanosis or clubbing. Dry dressing to left calf BACK: No deformity, no pressure ulcer. Bilateral nephrostomy tubes. GENITOURINARY: No dysuria or hematuria. Vital Sign (Last 12 Hours) 10/01/24 10/01/24 10/01/24 04:24 08:00 12:00 Temp 98.1 97.9 97.5 Pulse 93 88 92 Resp 18 19 20 B/P (MAP) 138/79 127/78 134/82 Pulse Ox 96 98 98 O2 Delivery Room Air Room Air Room Air FiO2 21 21 Intake & Output (last 24hrs) 09/30/24 09/30/24 10/01/24 14:59 22:59 06:59 Intake Total 480 ml Output Total 200 ml Balance 480 ml -200 ml LABS: Laboratory: Test 10/01/24 11:33 10/01/24 08:30 09/30/24 06:17 Range/Units Whole Blood Glucose 111 H 70-110 MG/DL Bedside Glucose Comment Notified Nurse White Blood Count 15.7 H 4.8-10.8 K/uL Red Blood Count 3.16 L 4.50-6.20 MIL/uL Hemoglobin 9.1 L 14.0-18.0 g/dL Hematocrit 28.5 L 42-54 % Mean Corpuscular Volume 90.2 79-99 fL Mean Corpuscular Hemoglobin 28.8 27.0-33.0 pg Mean Corpuscular Hemoglobin Concent 31.9 L 32.0-36.0 g/dL Red Cell Distribution Width 13.6 11.0-15.5 % Platelet Count 367 130-400 K/uL Mean Platelet Volume 9.6 7.5-10.5 fL Immature Granulocyte % (Auto) 0.8 0-1 % Neutrophils (%) (Auto) 74.1 40.0-77.0 % Lymphocytes (%) (Auto) 14.8 L 21.0-51.0 % Monocytes (%) (Auto) 6.3 3.0-13.0 % Eosinophils (%) (Auto) 3.1 0.0-8.0 % Basophils (%) (Auto) 0.9 0.0-5.0 % Neutrophils # (Auto) 11.7 H 1.8-7.7 K/uL Lymphocytes # (Auto) 2.3 1.0-4.8 K/uL Monocytes # (Auto) 1.0 0.1-1.0 K/uL Eosinophils # (Auto) 0.49 0.00-0.70 K/uL Basophils # (Auto) 0.14 0.00-0.20 K/uL Absolute Immature Granulocyte (auto 0.12 0-1 K/uL Nucleated Red Blood Cells 0.0 0.0-0.19 % Sodium Level 139 136-145 mmol/L Potassium Level 4.2 3.5-5.1 mmol/L Chloride Level 104 101-111 mmol/L Carbon Dioxide Level 27 21-32 mmol/L Blood Urea Nitrogen 55 H 7-18 mg/dL Creatinine 3.8 H 0.5-1.3 mg/dL Glomerular Filtration Rate Calc 18 >90 mL/min Random Glucose 148 H 70-105 mg/dL Total Calcium 9.3 8.5-10.1 mg/dL Hemoglobin A1c 6.2 H 4.0-6.0 % Estimated Average Glucose (eAG) 131 H 70-126 mg/dL ASSESSMENT: Urinary tract infection Citrobacter koseri. Bilateral leg ulcers, status post debridement of left calf wound on 09/19/2024. Polymicrobial infection. Infection with Vancomycin resistant Enterococcus faecalis. 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 Leukocytosis. Acute renal failure. History of bilateral hydronephrosis with nephrostomy tubes in place, s/p bilateral nephrostomy tube exchange on 09/22/2024. Diabetes mellitus. PLAN: Continue fluconazole. Continue linezolid. Continue Zosyn. Patient has been approved to [facility] by insurance and being discharge today. This case was reviewed and discussed with my supervising physician and the above assessment and plan was formulated and agreed upon. ATTESTATION BY PHYSICIAN I have seen and examined the patient. I reviewed the documentation, medical decision making, and treatment plan as noted by the mid-level provider above. I agree with the findings and plan of care. ORIN PEREZ MD, MIRTA L [facility] Oct 01, 2024 14:36
--- NOTE | 2024-10-01 15:23 | DS ---
Discharge Summary Jacquard Fixer(s): Dr. Logan Gipson, Infectious disease Dr. Katia Whyte, Urologist Dr. Helena Cadet, Director Of Channel Marketing Procedure(s): [facility] [address] [place] [address] [phone] IMAGING REPORT Signed PATIENT: JAYRO LIRIANO MR#: [id number] : 1970 SEX: M AGE: 54 LOCATION: [facility] ORDER 46 STATUS: REG ER REPORT#: [id number] SERVICE 44 REASON: GEOVANI; NEPHROSTOMY TUBES ORDERING PHYSICIAN: ROMIE VICTOR PROCEDURE: ABD PEL WO - CT ABDOMEN/PELVIS W/O CONTRAST CT ABDOMEN/PELVIS W/O CONTRAST HISTORY: Acute renal insufficiency COMPARISON: 08/08/2024 TECHNIQUE: Multiple sequential axial images of the abdomen and pelvis were obtained from the dome of the diaphragm through symphysis pubis. Patient was not given contrast through intravenous route. Oral contrast was not given. FINDINGS: No pleural effusion is seen bilaterally. There is no evidence of parenchymal disease or pulmonary nodule of the visualized lower lungs. Degenerative changes of the thoracolumbar spine are present. The heart is not enlarged. Gallbladder is distended. There is left adrenal nodule with calcification measuring 3.3 x 2.6 cm. Bilateral percutaneous nephrostomy tubes are seen. The liver, spleen, right adrenal gland and pancreas are unremarkable. There is no evidence of hydronephrosis bilaterally. No evidence of renal stone is seen. Fecal material is seen in the colon. There are normal size retroperitoneal and mesenteric lymph nodes. No ascites is seen. No CT evidence of acute appendicitis is seen. Pelvic sidewalls are symmetric bilaterally. Bladder is poorly distended. IMPRESSION: 1. Bilateral percutaneous nephrostomy tube in place. CT was performed with one or more following dose reduction techniques: automated exposure control, adjustment of the mA and kv according to patient's size, or use of a iterative reconstruction technique. DICTATED BY: ROBBIE GARCIA MD DATE: 09/18/24100 ELECTRONICALLY SIGNED BY: ROBBIE GARCIA MD DATE: 09/18/24105 [facility] [address] [place] [phone] IMAGING REPORT Signed PATIENT: JAYRO LIRIANO MR#: [id number] : 1970 SEX: M AGE: 54 LOCATION: [facility] ORDER 1212 STATUS: ADM IN REPORT#: [id number] SERVICE 1207 REASON: Persistent Leucocytosis, r/o infection, abscess A/P VWRB ANGELA W[place] ORDERING PHYSICIAN: ALEC MELTON MD PROCEDURE: ABD PEL WO - CT ABDOMEN/PELVIS W/O CONTRAST Exam Type: CT ABDOMEN/PELVIS W/O CONTRAST Clinical Information: Persistent Leucocytosis, r/o infection, abscess A/P VWISHAN WASHINGTON Comparison: None CT Dose Index (CTDI): 10.20 mGy Dose Length Product (DLP): 530.00 total mGy-cm PROTOCOL: Routine noncontrast helical scanning of the abdomen and pelvis was performed at 5mm collimation. Findings: No evidence of nephro or ureterolithiasis is found. No hydronephrosis or ureteral dilatation is seen. Bilateral and cutaneous nephrostomy catheters are seen. The lung bases are clear. The stomach is unremarkable. It shows no wall thickening. No gross ulceration is seen. It is not overly distended. There are no surrounding inflammatory changes. No wall lesions are identified to suggest cancer. The spleen is unremarkable. It is not enlarged. The pancreas shows normal anatomy. It is not fatty replaced. It shows no lesions. The pancreatic duct is not dilated. The gallbladder is unremarkable. It shows no cholelithiasis. The gallbladder wall is normal in thickness. There is no pericholecystic fluid. The is no acute or chronic inflammation noted. Left adrenal gland demonstrates a calcified lesion, stable since the examination of May 22, 2024. The liver is unremarkable. It shows no focal masses. The appendix is unremarkable. It shows no evidence of inflammation. No appendicolith is seen. The small bowel is unremarkable. There is no evidence of dilatation to suggest obstruction. No evidence of adynamic ileus is seen. There is no small bowel wall thickening to suggest enteritis. The colon is unremarkable. The urinary bladder is unremarkable. There is no wall thickening to suggest tumor or inflammation. There are no intraluminal calculi. There are no diverticula. There is no evidence of chronic bladder outlet obstruction. There is no evidence of urinary bladder distention to suggest urinary retention. The other pelvic structures are unremarkable. The bony and vascular structures are unremarkable for the patient's age. IMPRESSION: Chronic changes as noted. No acute pathology. No abscess. This study was performed using dose reduction techniques to include automated exposure control and/or adjustment of the mA and/or kV according to patient size. DICTATED BY: VERA BANG MD DATE: 09/26/24 1448 ELECTRONICALLY SIGNED BY: VERA BANG MD DATE: 09/26/24 1456 [facility] [address] [phone] IMAGING REPORT Signed PATIENT: JAYRO LIRIANO MR#: [id number] : 1970 SEX: M AGE: 54 LOCATION: [facility] ORDER 1114 STATUS: ADM IN REPORT#: [id number] SERVICE 1113 REASON: PICCLINE PLACEMENT ORDERING PHYSICIAN: LOGAN PEREZ MD PROCEDURE: CXR1VW - CHEST 1VW Exam Type: CHEST 1VW Clinical Information: PICCLINE PLACEMENT Comparison: None Findings: Right PICC line is noted with tip within the mid superior vena cava and there are no other interval changes. IMPRESSION: Right PICC line as noted. DICTATED BY: VERA BANG MD DATE: 09/29/24 124 ELECTRONICALLY SIGNED BY: VERA BANG MD DATE: 09/29/24 1247 RUN DATE: 09/21/24 [facility] PAGE 1 RUN TIME: [address] [address] Department of Laboratories [place] # [id number] Records Analyst: Tosha Menjivar DO Specimen Report PATIENT: JAYRO LIRIANO ACCT: [id number] LOC: [facility] U: [id number] AGE/SX: 54/M ROOM: [facility] RE09/18/[address]: GRAY LEARY MD : 1970 BED: 1 DIS: STATUS: ADM IN TLOC: SPEC: [id number] OBED: 09/18/24 STATUS: COMP REQ: [id number] RECD: 09/19/[address] [facility] [address]: ROMIE VICTOR SOURCE: [facility] [place]: 09/19/[address] [facility] [address]: LOGAN PEREZ MD SPDESC: CLEAN CAT GRAY LEARY MD, JORGE H MD REYES, RAUL MD RODRIGUEZ, JOSE MARIANO MD ORDERED: AERO ID & SENS Procedure Result Jamie Date-Time AEROBIC ID & SENSITIVITIES Final 09/21/24-710 [facility] COLONY DESCRIPTION: DAY 1: COLONY COUNT: >100,000 CFU/ML GRAM NEGATIVE RODS IDENTIFICATION AND SENSITIVITY TO FOLLOW [facility] KOSERI [facility] M.I.[facility]. RX --------- ---- AZTREONAM <=4 S CEFAZOLIN <=2 S CEFTAZIDIME <=1 S CEFTAZIDIME/AVIBACTAM <=8 S CEFTRIAXONE <=1 S GENTAMICIN <=2 S LEVOFLOXACIN <=0.5 S NITROFURANTOIN <=32 S MEROPENEM <=1 S PIPERACILLIN/TAZOBACTAM <=8 S TRIMETHOPRIM/SUFLAMETHOXAZOLE <=2/38 S @ [facility] Test Performed at: [facility] [address], [place], [place] Medical Spike Maker: Brooks Givens D.O. RUN DATE: 09/29/24 [facility] PAGE 1 RUN TIME: 4056 [address] [place] [address] Department of Laboratories CLIA # [id number] Records Analyst: Tosha Menjivar DO Specimen Report PATIENT: JAYRO LIRIANO ACCT: [id number] LOC: [facility] U: [id number] AGE/SX: 54/M ROOM: [facility] RE09/18/[address]: GRAY LEARY MD : 1970 BED: 1 DIS: STATUS: ADM IN TLOC: --- --------- SPEC: [id number] OBED: 09/25/24 STATUS: COMP REQ: [id number] RECD: 09/25/24-[address] [facility] [address]: ALEC MELTON MD SOURCE: LEG ENTR: 09/25/241003 OT DR: LOGAN PEREZ MD [facility]: KATIA FISHER MD,GRAY GARCIA,MARQUISE CADET,HELENA GATICA,ADRIA GUILLEN,ABBEY BEAN MD ORDERED: RUPERTO CULTURE, AEROBIC CULTURE Procedure Result Jamie Date-Time ANAEROBIC CULTURE Final 09/29/24-529 [facility] COLONY DESCRIPTION: REPORT 1: NO ANAEROBES AT 24-35 HOURS; STUDIES TO CONTINUE REPORT 2: NO ANAEROBES AT 48-59 HOURS; STUDIES TO CONTINUE REPORT 3: NO ANAEROBES AT 72-96 HOURS Test(s) performed by: [facility] [address] [place] [address] AEROBIC CULTURE Final 09/29/24-0751 [facility] VANCOMYCIN-RESISTANT ENTEROCOCCUS RESULT WAS CALLED BY NAI MIMS ON 09/29/24 AT 0746. CRITICAL VALUES WERE READ BACK AND ACKNOWLEDGED BY GALA LOYOLA ([facility]) COLONY DESCRIPTION: REPORT 1: 1+ SKIN KRUPA ; STUDIES TO CONTINUE GRAM POSITIVE RODS RESEMBLING DIPHTHEROIDS REPORT 2: 1+ YEAST, PRATIBHA ALBICANS 1+ YEAST SPECIES; NOT PRATIBHA ALBICANS IDENTIFICATION TO FOLLOW 1+ GRAM POSITIVE COCCI IN CHAINS . IDENTIFICATION AND SENSITIVITY TO FOLLOW REPORT 3: NO FURTHER WORK-UP DONE COMMENTS(R): VANCOMYCIN CONFIRMED BY ALTERNATE METHOD VRE: NOTE: VANCOMYCIN-RESISTANT ENTEROCOCCUS ENTERO FAECALIS-VANCO RESIST PRATIBHA ALBICANS PRATIBHA PARAPSILOSIS CONTINUED ON NEXT PAGE RUN DATE: 09/29/24 [facility] PAGE 2 RUN TIME: [address] [address] Department of Laboratories CLIA # [id number] Records Analyst: Tosha Menjivar DO Specimen Report SPEC: [id number] PATIENT: JAYRO LIRIANO [id number] (Continued) Procedure Result Jamie Date-Time AEROBIC CULTURE Final (continued) 09/29/24-0751 E [facility] M.I.C. RX --------- ---- AMPICILLIN >8 R CIPROFLOXACIN >2 R LEVOFLOXACIN >4 R LINEZOLID <=2 S VANCOMYCIN >16 R TETRACYCLINE >8 R GENTAMICIN Synergy Screen <=500 S PENICILLIN >8 R @ [facility] Test Performed at: [facility] [address], [place], [place] Medical Spike Maker: Brooks Givens D.O. RUN DATE: 09/29/24 [facility] PAGE 1 RUN TIME: 529 [address] [id number] Department of Laboratories [facility] # [id number] Records Analyst: Tosha Menjivar DO Specimen Report PATIENT: JAYRO LIRIANO ACCT: [id number] LOC: 3CH U: [id number] AGE/SX: 54/M ROOM: 313 RE09/18/[address]: GRAY LEARY MD : 1970 BED: 1 DIS: STATUS: ADM IN TLOC: SPEC: [id number] OBED: 09/25/24 STATUS: COMP REQ: [id number] RECD: 09/25/24-[address]: ALEC MELTON MD SOURCE: [facility] ENTR: 09/25/24-[address] [facility] [address]: LOGAN PEREZ MD [facility]: RIGHT KATIA WHYTE MD, SATISH MD DHEVAN, VIJIAN MD FLORES,HELENA GATICA,ADRIA GUILLEN,ABBEY BEAN MD ORDERED: RUPERTO CULTURE, AEROBIC CULTURE Procedure Result Jamie Date-Time ANAEROBIC CULTURE Final 09/29/24-529 [facility] COLONY DESCRIPTION: REPORT 1: NO ANAEROBES AT 24-35 HOURS; STUDIES TO CONTINUE REPORT 2: NO ANAEROBES AT 48-59 HOURS; STUDIES TO CONTINUE REPORT 3: NO ANAEROBES AT 72-96 HOURS Test(s) performed by: [facility] [address] [place] [address] AEROBIC CULTURE Final 09/28/24-1143 [facility] COLONY DESCRIPTION: REPORT 1: 1+ YEAST ; ISOLATION IN PROGRESS REPORT 2: 1+ YEAST SPECIES; NOT PRATIBHA ALBICANS IDENTIFICATION TO FOLLOW NO FURTHER WORK-UP DONE PRATIBHA PARAPSILOSIS @ [facility] Test Performed at: [facility] [address], [place], [place] Medical Spike Maker: Brooks Givens D.O. 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 Hyperkalemia, resolved POA Acute pancreatitis, mild, resolved POA Metabolic acidosis, resolved POA Acute on chronic anemia due to CKD POA Uncontrolled diabetes POA Hypertension POA PLAN:- The patient remains admitted on the medical surgical floor. 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 We will Continue with a renal diabetic diet and take measures to prevent hypotensive episodes. * Oral phosphate binders sevelamer 800 mg t.i.d. * Monitor electrolytes closely, avoid nephrotoxic agents. 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 Continue IV linezolid and Zosyn. Follow up with infectious disease recommendations. * Daily dressings per wound management recommendations * Pending midline/PICC line, [employer] approval for continuation of IV antibiotics. Acute leukocytosis POA * WBC slightly improved, down to 18 from 19.3 No febrile episodes, hemodynamically stable. Continue with IV Zosyn and linezolid. * Closely monitor vitals and WBC trend. CBC in a.m. Restless less leg syndrome * Continue with the ropinirole 0.25 mg t.i.d. S/P exchange of nephrostomy tube on 09/22/2024 POA * Follow up with the urologist as an outpatient post discharge for further recommendations. Acute on chronic anemia due to CKD POA * Continue with Epogen 10,000 Units weekly Uncontrolled diabetes POA * Recent blood sugar level 131, hemoglobin A1c 6.2% * Continue with insulin sliding scale * Hypoglycemia protocol Hypertension * Continue with Amlodipine 10 mg, Lisinopril 20 mg daily * Closely monitor the vitals. P.r.n. medications * Dilaudid 0.5 mg q.4 for severe pain (7-10) * Tylenol 650 mg q.4 for mild pain (1-3) * Tylenol 650 mg q.6 for fever * Zofran4 mg q.6 for nausea/vomiting. DVT prophylaxis: Heparin 5000 IU subcutaneously q.12h GI Prophylaxis: Famotidine 20 mg Q 48 AM Labs: CBC, BMP Pending peer to peer with insurance today for [employer] approval and IV antibiotics recommendations. Further orders per hospitalization course. Home Medications: Reported Medications Multivit-Min/Folic/Vit K/Lycop (Men's 50 Plus Multivitamin Tab) 400 Mcg-20 Mcg- 370 Mcg Tablet, 1 EACH PO DAILY, TAB 09/19/24 Magnesium Oxide (Magnesium Oxide) 400 Mg Tablet, 1 TAB PO DAILY for 30 Days, #30 TAB 0 Refills 09/19/24 Tramadol Hcl (Tramadol HCl) 50 Mg Tablet, 100 MG PO DAILY PRN for PAIN LEVEL 4 TO 6, TAB 09/19/24 Metformin HCl (Metformin HCl) 500 Mg Tablet, 500 MG PO DAILY, TAB 05/21/24 Lisinopril (Lisinopril) 20 Mg Tablet, 20 MG PO DAILY, TAB 05/21/24 Continued Medications: Lisinopril (Lisinopril) 20 Mg Tablet 20 MG PO DAILY, TAB Magnesium Oxide (Magnesium Oxide) 400 Mg Tablet 1 TAB PO DAILY for 30 Days, #30 TAB 0 Refills Metformin HCl (Metformin HCl) 500 Mg Tablet 500 MG PO DAILY, TAB Multivit-Min/Folic/Vit K/Lycop (Men's 50 Plus Multivitamin Tab) 400 Mcg-20 Mcg- 370 Mcg Tablet 1 EACH PO DAILY, TAB Tramadol Hcl (Tramadol HCl) 50 Mg Tablet 100 MG PO DAILY PRN for PAIN LEVEL 4 TO 6, TAB Time spent arranging discharge: 31-60 minutes ATTESTATION BY PHYSICIAN I have seen and examined the patient. I reviewed the documentation, medical decision making, and treatment plan as noted by the resident provider above. I agree with the findings and plan of care. Gray Leary MD, MANALI MD Oct 01, 2024 15:23
--- NOTE | 2024-10-01 15:44 | NUR ---
LORRAINE REPORT GIVEN TO LORRAINE. SPOKE TO ALEJANDRO LANGSTON RN. ALL QUESTIONS ANSWERED. PT PENDING TRANSPORTATION.
[2024-10-01 16:00] VITALS: BP 140/79; PULSE 140; RESP 20; TEMP 97.5
== END 2024-10-01 17:45 | DRG 622 ==
LOC: EDH 22:43 → EDHIP 09-18 03:00 → 3CH 09-18 20:21
PROVIDERS: ADMIT Internal Medicine Sleep Medicine; ATTEND Internal Medicine Sleep Medicine
PROC: 0KBT0ZZ Excision of Left Lower Leg Muscle, Open Approach (ICD-10-PCS; principal; 2024-09-19 12:38)
PROC: 0T25X0Z Change Drainage Device in Kidney, External Approach (ICD-10-PCS; 2024-09-25)
PROC: 02HV33Z Insertion of Infusion Device into Superior Vena Cava, Percutaneous Approach (ICD-10-PCS; 2024-09-29)
DX: E11.622 Type 2 diabetes mellitus with other skin ulcer (principal); K85.90 Acute pancreatitis without necrosis or infection, unspecified; L97.813 Non-pressure chronic ulcer of other part of right lower leg with necrosis of muscle; E87.20 Acidosis, unspecified; Z16.21 Resistance to vancomycin; L97.823 Non-pressure chronic ulcer of other part of left lower leg with necrosis of muscle; N17.9 Acute kidney failure, unspecified; D63.1 Anemia in chronic kidney disease; E11.22 Type 2 diabetes mellitus with diabetic chronic kidney disease; E87.5 Hyperkalemia; I12.9 Hypertensive chronic kidney disease with stage 1 through stage 4 chronic kidney disease, or unspecified chronic kidney disease; I25.10 Atherosclerotic heart disease of native coronary artery without angina pectoris; N13.9 Obstructive and reflux uropathy, unspecified; N18.9 Chronic kidney disease, unspecified; E66.01 Morbid (severe) obesity due to excess calories; B95.2 Enterococcus as the cause of diseases classified elsewhere; B96.89 Other specified bacterial agents as the cause of diseases classified elsewhere; E83.59 Other disorders of calcium metabolism; F41.9 Anxiety disorder, unspecified; Z79.4 Long term (current) use of insulin; Z93.6 Other artificial openings of urinary tract status; Z83.3 Family history of diabetes mellitus; Z91.199 Patient's noncompliance with other medical treatment and regimen due to unspecified reason; Z87.442 Personal history of urinary calculi; Z79.899 Other long term (current) drug therapy
CPT/HCPCS: 36415; 36569; 50435; 71045; 74176; 80048; 80053; 80076; 81001; 82150; 82728; 82948; 83036; 83540; 83550; 83605; 83690; 83735; 83880; 84100; 84145; 84443; 84478; 84484; 85025; 85027; 85610; 85651; 85730; 86140; 87040; 87070; 87076; 87086; 87186; 88305; 93005; 96374; 96375; 99152; 99156; 99285; C1769; C1894; G0378; J0330; J0612; J1100; J1171; J1450; J1644; J1815; J2003; J2020; J2175; J2250; J2270; J2371; J2405; J2543; J2704; J2710; J3010; J3370; J3475; J3490; J7030; J7070; Q9967; A4216; A4222; A4223; A6260; C1729; G0500; Q5106

== ENCOUNTER 2024-11-20 08:14 | Emergency (ER) | payer OTHER ==
[~2024-11-20] VITALS: Ht 182.9 cm; Wt 102.1 kg
[~2024-11-20 08:14] MED LIST changes: -AMLO-258 PO; -CEPH500B PO; -CLIN-141 PO; -FAMO20TA8 PO; -LEVO750T90 PO; +MAGN400T53 PO; -METH-812 PO; -METO25 PO; +MULT-1335 PO; -MUPI22OI2 TP; -SODPOLY15G PO; -TRAM-543 PO; +TRAM50TA4 PO
--- NOTE | 2024-11-20 08:45 | ERN ---
General Chief Complaint: Other Problems Stated Complaint: RT SIDE NEPHROSTOMY TUBE DRAINAGE DEVICE REMOVED Time Seen by MD: 08:20 Source: patient History of Present Illness Initial Comments Mr. Miramontes a 54-year-old man, came to the ER after malfunction of his right sided nephrostomy tube. Patient has a past medical history of kidney stones, diabetes, and hypertension. Patient bilateral nephrostomy tubes placed in April replaced in August by Dr. Whyte. Patient states that he was unable to find an appointment to get the nephrostomy tubes removed. Patient states that the nephrostomy tube is intact drains urine however the cap for the nephrostomy was broken. Pt denies any pain, redness, discharge, and fever. Allergies: Coded Allergies: No Known Drug Allergies (Unverified Allergy, Unknown, 05/20/24) Home Meds Reported Medications Multivit-Min/Folic/Vit K/Lycop (Men's 50 Plus Multivitamin Tab) 400 Mcg-20 Mcg- 370 Mcg Tablet, 1 EACH PO DAILY, TAB 09/19/24 Magnesium Oxide (Magnesium Oxide) 400 Mg Tablet, 1 TAB PO DAILY for 30 Days, #30 TAB 0 Refills 09/19/24 Tramadol Hcl (Tramadol HCl) 50 Mg Tablet, 100 MG PO DAILY PRN for PAIN LEVEL 4 TO 6, TAB 09/19/24 Metformin HCl (Metformin HCl) 500 Mg Tablet, 500 MG PO DAILY, TAB 05/21/24 Lisinopril (Lisinopril) 20 Mg Tablet, 20 MG PO DAILY, TAB 05/21/24 Past Medical History Past Medical History: Diabetes-Type II, Hypertension, Kidney Infection, Kidney Stone Past Surgical History: Other Surgical History Other: KIDNEY STONES Social History Social History: Negative, Lives with family ROS Dictation CONSTITUTIONAL: No chills, no fever, no weakness, no diaphoresis, no malaise. HEAD/FACE: No signs of trauma. EENT: No eye pain, no blurred vision, no tearing, no double vision, no ear pain, no ear discharge, no nose pain, no nasal congestion, no throat pain, no throat swelling, no mouth pain. RESPIRATORY: No cough, no SOB, no orthopnea, no PND, no wheezing. CARDIOVASCULAR: No chest pain, no edema, no palpitations, no syncope. GASTROINTESTINAL/ABDOMINAL: No abdominal pain, no constipation, no diarrhea, no nausea, no vomiting. B/l nephrostomy tubes in place GENITOURINARY: No abnormal discharge, no dysuria, no frequent urination, no hematuria. No complaints of pain in the genitals. MUSCULOSKELETAL: No back pain, no gout, no joint pain, no joint swelling, no muscle pain, no muscle stiffness, no neck pain. INTEGUMENTARY: No change in color, no change in hair/nails, no dryness, no lesion, no lumps, no rash. NEUROLOGICAL/PSYCH: No anxiety, not depressed, no emotional problem, no headache, no numbness, no pre-existing deficit, no history of seizures, no tremors, no weakness. HEMATOLOGIC/LYMPHATIC: Not anemic, no history of blood clots, no apparent bleeding, no bruising, glands not swollen. All Systems Negative, Except as Noted. Physical Exam Physical Exam Dictation VITAL SIGNS: Reviewed. GENERAL APPEARANCE: Alert, oriented x3 HEAD AND FACE: Non-traumatic. EYES: PERRL, pink conjunctivas, eyelid no trauma, anterior chamber clear. EARS: Pinnas intact and no signs of trauma or erythema. Ear canals clear and no discharge. TMs no erythema. NOSE: No discharge, no bleeding. OROPHARYNX: Mouth normal, teeth no caries, tongue pink. Pharynx clear, no erythema. Tonsils no exudates, no abscesses noted. Mucous membrane moist. NECK: Supple, non-tender, no thyromegaly, no masses, no JVD, no bruits. BREAST: Deferred. CHEST: No tenderness, no crepitus, no paradoxical movement, no retractions. LUNGS: Clear, well-ventilated, symmetric, no rales, no wheezing, no rhonchi, no stridor, good breath sounds bilaterally. HEART: Regular rate, regular rhythm, no murmur, no gallops. VASCULAR: No peripheral edema. ABDOMEN: B/l nephrostomy tubes in place. Soft, positive bowel sounds, nondistended, no guarding, nontender, no rebound, no masses no hepatomegaly, no splenomegaly, no Thomas's sign, no hernias. RECTAL: Deferred. GENITAL: Deferred. NEUROLOGICAL: Normal speech, gross motor function intact, gross sensory function intact. MUSCULOSKELETAL: Neck nontender, full range of motion, back nontender, full range of motion. EXTREMITIES: Nontender, full range of motion. SKIN: Color pink, dry, no turgor, no rash, no lacerations, no abrasions, no contusions. LYMPHATICS: Deferred. MDM Chief complaint: Malfunction of the night sided nephrostomy bag. Tube is intact. Past medical history: History of kidney stones, hypertension, diabetes. Vitals: Vitals were stable throughout admission. Review of systems: Review of systems were mostly unremarkable. Physical Exam: Physical exam is mostly unremarkable. Labs: Patient did not meet criteria for testing. Imaging: Patient did not meet criteria for testing. Differential diagnosis: Malfunction of the right-sided nephrostomy bag, obstructive uropathy. Assessment and Plan: Patient states that his nephrostomy bags had to be removed after replacement in August. Patient has no blockage of the nephrostomy tubes and no signs of infection. A new nephrostomy bag was attached to the existing neph rostomy tube on the right side. Patient will be discharged home and advised to follow up with Dr. Whyte. ED Course Vital Signs Date Time Temp Pulse Resp B/P (MAP) Pulse Ox O2 Delivery O2 Flow Rate FiO2 11/20/24 08:15 97.7 91 16 127/82 98 Room Air 0 DX & DISP Disposition: Discharge Departure Impression: Primary Impression: Malfunction of nephrostomy tube Additional Impression: Obstructive uropathy Condition: Stable Referrals: ADRIA GATICA MD (PCP) I performed a substantive portion of the visit. I have reviewed and personally made and approve the management plan that is documented in the notes by myself with BUSHRA/resident. I acknowledged full responsibility for the patient's management plan. MARIA ESTHER SÁNCHEZ MD Nov 20, 2024 08:45 ZARI YOUNG DO Nov 20, 2024 09:27
[2024-11-20 09:43] VITALS: BP 121/83; PULSE 88; RESP 16; TEMP 97.7; O2SAT 98
== END 2024-11-20 09:48 | disposition home or self-care (01) ==
LOC: EDH 08:14
DX: T83.012A Breakdown (mechanical) of nephrostomy catheter, initial encounter (principal); E11.9 Type 2 diabetes mellitus without complications; I10 Essential (primary) hypertension; Z79.84 Long term (current) use of oral hypoglycemic drugs; Z79.899 Other long term (current) drug therapy; Z87.442 Personal history of urinary calculi; Y69 Unspecified misadventure during surgical and medical care
CPT/HCPCS: 99282

== ENCOUNTER 2024-12-11 15:40 | Emergency (ER) | payer OTHER ==
[~2024-12-11] VITALS: Ht 182.9 cm; Wt 102.1 kg
--- NOTE | 2024-12-11 16:30 | NUR ---
PT GIVEN NEPHRO BAG BY TRIAGE NURSE
[2024-12-11 16:31] VITALS: BP 142/91; PULSE 102; RESP 20; TEMP 98.1; O2SAT 98
== END 2024-12-11 16:56 | disposition left against medical advice (07) ==
LOC: EDH 15:40
DX: N99.522 Malfunction of incontinent external stoma of urinary tract (principal); Z53.21 Procedure and treatment not carried out due to patient leaving prior to being seen by health care provider